=== PATIENT | female | born 1960 | race Two or more races ===

== ENCOUNTER → 2017-07-14 | Outpatient (CLI) | payer MEDICARE ==
--- NOTE | 2017-07-14 11:55 | WOMENS IMAGING REPORT ---
EXAM DESCRIPTION: BILAT SCREENING MAMMO W/CAD COMPLETED DATE/TIME: 07/14/2017 11:34 am REASON FOR STUDY: ROUTINE SCREENING; Z12.31 Z12.31 ENCNTR SCREEN MAMMOGRAM FOR MALIGNANT NEOPLASM O F VANCE COMPARISON: None. TECHNIQUE: Standard craniocaudal and mediolateral oblique views of each breast recorded using [employer] acquisition. LIMITATIONS: None. FINDINGS: No masses, calcifications or architectural distortion. No areas of suspicion. Read with the assistance of CAD. .[facility] - R2 Cenova Version 1.3 .[facility] - R2 Cenova Version 1.3 .[facility] - R2 Cenova Version 2.4 .[facility] [place] - R2 Cenova Version 2.4 .[facility] - R2 Actuarial Clerk Version 9.2 IMPRESSION: NORMAL MAMMOGRAM. BIRADS 1. BREAST DENSITY: b. There are scattered areas of fibroglandular density. BIRAD: 1 NEGATIVE RECOMMENDATION: ROUTINE SCREENING COMMENT: The patient has been notified of the results by letter per SA requirements. Additional no tification policies are in place for contacting patient with suspicious or incomplete findings. Quality ID #[id number]: The [employer] recommends an annual screening mammogram for women aged 40 years or over. This facility utilizes a reminder system to ensure that all patients receive reminder letters, and/or direct phone calls for appointments. This includes reminders for routine scr eening mammograms, diagnostic mammograms, or other Breast Imaging Interventions when appropriate. Th is patient will be placed in the appropriate reminder system. The [employer] (ACR) has developed recommendations for screening MRI of the breast s in certain patient populations, to be used in conjunction with mammography. Breast MRI surveillanc e may be appropriate for women with more than 20% lifetime risk of developing breast cancer as deter mined by genetic testing, significant family history of the disease, or history of mantle radiation f or Hodgkins Disease. ACR Practice Guidelines 2008. TECHNICAL DOCUMENTATION: FINDING NUMBER: (1) ASSESSMENT: (1) JOB ID: [id number] Devices- All Rights Reserved
== END ==
LOC: WI 10:35
PROVIDERS: ATTEND Physician Assistant Medical
DX: Z12.31 Encounter for screening mammogram for malignant neoplasm of breast (principal)
CPT/HCPCS: 77067; G0202

== ENCOUNTER → 2017-09-02 | Outpatient (CLI) | payer MEDICARE ==
[2017-09-02 13:13] LABS: HEMATOCRIT 43.4 % (36.0-47.0); HEMOGLOBIN 14.7 g/dL (12.0-15.5); MEAN CORPUSCULAR HEMOGLOBIN 28.7 pg (27.0-33.4); MEAN CORPUSCULAR HGB CONC 33.8 g/dL (32.0-36.0); MEAN CORPUSCULAR VOLUME 85 fl (80-97); PLATELET COUNT 232 10^3/uL (150-450); RED BLOOD COUNT 5.11 10^6/uL (3.72-5.28); RED CELL DISTRIBUTION WIDTH 13.4 % (11.5-14.0); WHITE BLOOD COUNT 7.3 10^3/uL (4.0-10.5)
[2017-09-02 13:41] LABS: ALANINE AMINOTRANSFERASE 33 U/L (9-52); ALKALINE PHOSPHATASE 136 U/L (38-126); ANION GAP 10 (5-19); ASPARTATE AMINO TRANSFERASE 28 U/L (14-36); BILIRUBIN,DIRECT 0.2 mg/dL (0.0-0.4); BLOOD UREA NITROGEN 14 mg/dL (7-20); CALCIUM 9.3 mg/dL (8.4-10.2); CARBON DIOXIDE 22 mmol/L (22-30); CHLORIDE 109 mmol/L (98-107); CHOLESTEROL 201.88 mg/dL (0-200); GLUCOSE 86 mg/dL (75-110); SODIUM 140.5 mmol/L (137-145); TOTAL PROTEIN 7.3 g/dL (6.3-8.2); TRIGLYCERIDES 71 mg/dL (<150)
[2017-09-02 13:52] LABS: DIRECT LDL 141 mg/dL (<100)
== END ==
LOC: LAB 12:30
PROVIDERS: ATTEND Internal Medicine
DX: E04.1 Nontoxic single thyroid nodule (principal)
CPT/HCPCS: 36415; 80053; 80061; 82652; 83036; 84443; 85027

== ENCOUNTER → 2017-09-12 | Outpatient (CLI) | payer MEDICARE, OTHER ==
--- NOTE | 2017-09-12 15:08 | RADIOLOGY REPORT (SQ) ---
EXAM DESCRIPTION: U/S THYROID/SFT TISS HD NECK COMPLETED DATE/TIME: 09/12/2017 2:46 pm REASON FOR STUDY: THYROID NODULE E04.1 NONTOXIC SINGLE THYROID NODULE COMPARISON: None. TECHNIQUE: Dynamic and static briggs-scale images acquired of the thyroid gland. Selected additional c olor/power Doppler images recorded. All images stored to PACS. LIMITATIONS: None. FINDINGS: RIGHT LOBE: Normal size. Heterogeneous echotexture. No cystic or solid masses. LEFT LOBE: Normal size. Heterogeneous echotexture. No cystic or solid masses. ISTHMUS: Normal size. Heterogeneous echotexture. No cystic or solid masses. OTHER: No other significant finding. IMPRESSION: DIFFUSE HETEROGENEITY THROUGHOUT THE THYROID. NO FOCAL NODULES OR MASSES. TECHNICAL DOCUMENTATION: JOB ID: [id number] [employer]- All Rights Reserved
== END ==
LOC: RAD 13:56
PROVIDERS: ATTEND Internal Medicine
DX: E04.1 Nontoxic single thyroid nodule (principal)
CPT/HCPCS: 76536

== ENCOUNTER 2018-07-26 15:18 | Inpatient (IN) | payer MEDICARE, OTHER ==
[~2018-07-26 15:18] MED LIST: PHENYLEPHRINE HCL INJ/PF 10 MG/1 ML SDV ONE; ROCURONIUM BROMIDE INJ 50 MG/5 ML VIAL IV ONE; SUCCINYLCHOLINE CHLORIDE INJ 200 MG/10 ML VIAL ONE
[2018-07-26] MEDS ORDERED: ONDANSETRON HCL INJ/PF 4 MG/2 ML SDV IV ONE ×2 (15:30→17:12)
[2018-07-26] MEDS: NORMAL SALINE 1000 ML 1,000 ML IV PRN ×3 (15:35→22:52)
[2018-07-26 15:40] LABS: ABSOLUTE LYMPHOCYTES (AUTO) 1.2 10^3/uL (0.5-4.7); ABSOLUTE MONOCYTES (AUTO) 1.2 10^3/uL (0.1-1.4); ABSOLUTE NEUT (AUTO) 7.2 10^3/uL (1.7-8.2); BASOPHILS % (AUTO) 0.3 % (0-2); EOSINOPHILS % (AUTO) 0.1 % (0-6); HEMATOCRIT 50.3 % (36.0-47.0); HEMOGLOBIN 16.9 g/dL (12.0-15.5); LYMPHOCYTES % (AUTO) 12.3 % (13-45); MEAN CORPUSCULAR HEMOGLOBIN 28.6 pg (27.0-33.4); MEAN CORPUSCULAR HGB CONC 33.6 g/dL (32.0-36.0); MEAN CORPUSCULAR VOLUME 85 fl (80-97); MONOCYTES % (AUTO) 12.8 % (3-13); PLATELET COUNT 350 10^3/uL (150-450); RED CELL DISTRIBUTION WIDTH 14.2 % (11.5-14.0); SEGMENTED NEUTROPHILS % (AUTO) 74.5 % (42-78); TOTAL CELLS COUNTED % (AUTO) 100 %; WHITE BLOOD COUNT 9.7 10^3/uL (4.0-10.5)
[2018-07-26 16:00] LABS: VENOUS BLOOD BASE EXCESS -1.8 mmol/L; VENOUS BLOOD HCO3 20.4 mmol/L (20-32); VENOUS BLOOD PCO2 29.6 mmHg (35-63); VENOUS BLOOD PH 7.46 (7.30-7.42)
[2018-07-26 16:06] LABS: ALANINE AMINOTRANSFERASE 22 U/L (9-52); ALBUMIN 3.5 g/dL (3.5-5.0); ALKALINE PHOSPHATASE 92 U/L (38-126); ANION GAP 19 (5-19); ASPARTATE AMINO TRANSFERASE 71 U/L (14-36); BILIRUBIN,DIRECT 0.8 mg/dL (0.0-0.4); BLOOD UREA NITROGEN 35 mg/dL (7-20); CALCIUM 8.5 mg/dL (8.4-10.2); CARBON DIOXIDE 19 mmol/L (22-30); CHLORIDE 98 mmol/L (98-107); GLUCOSE 164 mg/dL (75-110); LIPASE 150.4 U/L (23-300); SODIUM 136.4 mmol/L (137-145); TOTAL PROTEIN 6.6 g/dL (6.3-8.2)
[2018-07-26 16:11] LABS: POTASSIUM 2.5 mmol/L (3.6-5.0)
[2018-07-26] MEDS ORDERED: PIPERACILLIN/TAZOBACTAM 4.5 GM VIAL IV ONE (16:57)
[2018-07-26] MEDS ORDERED: NORMAL SALINE 1000 ML 1,000 ML IV ONE ×2 (16:58→23:59)
--- NOTE | 2018-07-26 17:17 | RADIOLOGY REPORT (SQ) ---
EXAM DESCRIPTION: CT CHEST WITH; CT ABD/PELVIS WITH IV ONLY COMPLETED DATE/TIME: 07/26/2018 4:40 pm REASON FOR STUDY: hypotension sob; llq pain CONTRAST TYPE AND DOSE: contrast/concentration: Isovue 300.00 mg/ml; Total Contrast Delivered: 98.0 ml; Total Saline Delivered: 72.0 ml RENAL FUNCTION: Creatinine 1.58 COMPARISON: None. TECHNIQUE: CT scan of the chest performed using helical scanning technique with dynamic intravenous contrast injection. Images reviewed with lung, soft tissue and bone windows. Reconstructed coronal a nd sagittal MPR images reviewed. All images stored on PACS. All CT scanners at this facility use dose modulation, iterative reconstruction, and/or weight based d osing when appropriate to reduce radiation dose to as low as reasonably achievable (ALARA). [facility]: Dose Right [facility]: CareDose [facility]: Dose Right [facility]: Teradose 4D [facility]: Domob RADIATION DOSE: CT Rad equipment meets quality standard of care and radiation dose reduction techniq ues were employed. CTDIvol: 17.8 - 20.9 mGy. DLP: 2271 mGy-cm.. LIMITATIONS: Motion artifact. FINDINGS: AXILLAE: No adenopathy. LUNGS: There is a trace right pleural effusion. No consolidation. No pneumothorax. HILAR AND MEDIASTINAL STRUCTURES: No identified masses or abnormal nodes. AORTA AND GREAT VESSELS: No thoracic aortic aneurysm. No dissection. HEART: No pericardial effusion. The heart is enlarged. Status post CABG. BONES: Multilevel degenerative changes are seen within the spine. OTHER: Fluid-filled dilated esophagus. IMPRESSION: 1. Trace right pleural effusion. 2. Cardiomegaly. 3. Fluid-filled dilated esophagus, concerning for increased risk of aspiration. COMPARISON: None. RADIATION DOSE: CT Rad equipment meets quality standard of care and radiation dose reduction techniq ues were employed. CTDIvol: 17.8 - 20.9 mGy. DLP: 2271 mGy-cm.mGy. TECHNIQUE: CT scan of the abdomen and pelvis performed with intravenous and oral contrast using maxime moises scanning technique with dynamic intravenous contrast injection. Images reviewed with lung, soft tissue and bone windows. Reconstructed coronal and sagittal MPR images reviewed. Delayed images for evaluation of the urinary system also acquired and evaluated. All images stored on PACS. All CT scanners at this facility use dose modulation, iterative reconstruction, and/or weight based d osing when appropriate to reduce radiation dose to as low as reasonably achievable (ALARA). [facility]: Dose Right [facility]: SureCare [facility]: Dose Right [facility]: Teradose 4D [facility]: Domob FINDINGS: LIVER: Normal size. A heterogeneous lesion is seen at the right hepatic lobe measuring 2. 7 x 3.2 cm. No dilated ducts. SPLEEN: Normal size. No focal lesions. PANCREAS: No significant calcifications. No adjacent inflammation or peripancreatic fluid collection s. Pancreatic duct not dilated. GALLBLADDER: Not visualized. ADRENAL GLANDS: No significant masses or asymmetry. RIGHT KIDNEY AND URETER: No solid masses. No significant calcification. No hydronephrosis or hydroure ter. LEFT KIDNEY AND URETER: No solid masses. No significant calcification. No hydronephrosis or hydrouret er. AORTA AND VESSELS: No abdominal aortic aneurysm. RETROPERITONEUM: No retroperitoneal adenopathy, hemorrhage or masses. LARGE AND SMALL BOWEL: The stomach is distended with an air-fluid level. There are multiple dilated small bowel loops with air-fluid levels. The colon is collapsed. APPENDIX: Not visualized. ABDOMINAL WALL: No hernia PERITONEAL CAVITY: There is free fluid and free air. PELVIS: The urinary bladder is decompressed. No pelvic mass is seen. There is a small amount of samantha e fluid. BONES: Multilevel degenerative changes are seen within the spine. IMPRESSION: 1. High-grade distal small-bowel obstruction with bowel perforation. Surgical consult r ecommended. 2. Pneumoperitoneum. Small amount of ascites. 3. Indeterminate heterogeneous liver lesion. This can be further evaluated with dedicated nonemergen t contrast enhanced MRI. COMMUNICATION The critical information above was relayed directly by me by telephone to Dr. Bari hauser On 07/26/2018 at 16:56 hours with readback verification. TECHNICAL DOCUMENTATION: JOB ID: [id number] DC-64 Quality ID # [id number]: Final reports with documentation of one or more dose reduction techniques (e.g., Au tomated exposure control, adjustment of the mA and/or kV according to patient size, use of iterative reconstruction technique) 2010 [employer]- All Rights Reserved Reading location - IP/workstation name: [email or web address]
--- NOTE | 2018-07-26 17:17 | RADIOLOGY REPORT (SQ) ---
EXAM DESCRIPTION: CT CHEST WITH; CT ABD/PELVIS WITH IV ONLY COMPLETED DATE/TIME: 07/26/2018 4:40 pm REASON FOR STUDY: hypotension sob; llq pain CONTRAST TYPE AND DOSE: contrast/concentration: Isovue 300.00 mg/ml; Total Contrast Delivered: 98.0 ml; Total Saline Delivered: 72.0 ml RENAL FUNCTION: Creatinine 1.58 COMPARISON: None. TECHNIQUE: CT scan of the chest performed using helical scanning technique with dynamic intravenous contrast injection. Images reviewed with lung, soft tissue and bone windows. Reconstructed coronal a nd sagittal MPR images reviewed. All images stored on PACS. All CT scanners at this facility use dose modulation, iterative reconstruction, and/or weight based d osing when appropriate to reduce radiation dose to as low as reasonably achievable (ALARA). [facility]: Dose Right [facility]: CareDose [facility]: Dose Right [facility]: Teradose 4D [facility]: [address] RADIATION DOSE: CT Rad equipment meets quality standard of care and radiation dose reduction techniq ues were employed. CTDIvol: 17.8 - 20.9 mGy. DLP: 2271 mGy-cm.. LIMITATIONS: Motion artifact. FINDINGS: AXILLAE: No adenopathy. LUNGS: There is a trace right pleural effusion. No consolidation. No pneumothorax. HILAR AND MEDIASTINAL STRUCTURES: No identified masses or abnormal nodes. AORTA AND GREAT VESSELS: No thoracic aortic aneurysm. No dissection. HEART: No pericardial effusion. The heart is enlarged. Status post CABG. BONES: Multilevel degenerative changes are seen within the spine. OTHER: Fluid-filled dilated esophagus. IMPRESSION: 1. Trace right pleural effusion. 2. Cardiomegaly. 3. Fluid-filled dilated esophagus, concerning for increased risk of aspiration. COMPARISON: None. RADIATION DOSE: CT Rad equipment meets quality standard of care and radiation dose reduction techniq ues were employed. CTDIvol: 17.8 - 20.9 mGy. DLP: 2271 mGy-cm.mGy. TECHNIQUE: CT scan of the abdomen and pelvis performed with intravenous and oral contrast using maxime moises scanning technique with dynamic intravenous contrast injection. Images reviewed with lung, soft tissue and bone windows. Reconstructed coronal and sagittal MPR images reviewed. Delayed images for evaluation of the urinary system also acquired and evaluated. All images stored on PACS. All CT scanners at this facility use dose modulation, iterative reconstruction, and/or weight based d osing when appropriate to reduce radiation dose to as low as reasonably achievable (ALARA). [facility]: Dose Right [facility]: SureCare [facility]: Dose Right [facility]: Teradose 4D [facility]: [address] FINDINGS: LIVER: Normal size. A heterogeneous lesion is seen at the right hepatic lobe measuring 2. 7 x 3.2 cm. No dilated ducts. SPLEEN: Normal size. No focal lesions. PANCREAS: No significant calcifications. No adjacent inflammation or peripancreatic fluid collection s. Pancreatic duct not dilated. GALLBLADDER: Not visualized. ADRENAL GLANDS: No significant masses or asymmetry. RIGHT KIDNEY AND URETER: No solid masses. No significant calcification. No hydronephrosis or hydroure ter. LEFT KIDNEY AND URETER: No solid masses. No significant calcification. No hydronephrosis or hydrouret er. AORTA AND VESSELS: No abdominal aortic aneurysm. RETROPERITONEUM: No retroperitoneal adenopathy, hemorrhage or masses. LARGE AND SMALL BOWEL: The stomach is distended with an air-fluid level. There are multiple dilated small bowel loops with air-fluid levels. The colon is collapsed. APPENDIX: Not visualized. ABDOMINAL WALL: No hernia PERITONEAL CAVITY: There is free fluid and free air. PELVIS: The urinary bladder is decompressed. No pelvic mass is seen. There is a small amount of samantha e fluid. BONES: Multilevel degenerative changes are seen within the spine. IMPRESSION: 1. High-grade distal small-bowel obstruction with bowel perforation. Surgical consult r ecommended. 2. Pneumoperitoneum. Small amount of ascites. 3. Indeterminate heterogeneous liver lesion. This can be further evaluated with dedicated nonemergen t contrast enhanced MRI. COMMUNICATION The critical information above was relayed directly by me by telephone to Dr. Bari hauser On 07/26/2018 at 16:56 hours with readback verification. TECHNICAL DOCUMENTATION: JOB ID: [id number] NE-64 Quality ID # [id number]: Final reports with documentation of one or more dose reduction techniques (e.g., Au tomated exposure control, adjustment of the mA and/or kV according to patient size, use of iterative reconstruction technique) 2010 [employer]- All Rights Reserved Reading location - IP/workstation name: [email or web address]
--- NOTE | 2018-07-26 17:47 | RADIOLOGY REPORT (SQ) ---
EXAM DESCRIPTION: KUB/ABDOMEN (SINGLE VIEW) COMPLETED DATE/TIME: 07/26/2018 5:32 pm REASON FOR STUDY: NG placement COMPARISON: CT of the same date. NUMBER OF VIEWS: One view. TECHNIQUE: Supine radiographic image of the abdomen acquired. LIMITATIONS: Motion. FINDINGS: Known pneumoperitoneum. Nasogastric tube tip overlying stomach. IMPRESSION: Nasogastric tube in the stomach. Reading location - IP/workstation name: [email or web address]
--- NOTE | 2018-07-26 17:53 | PDOC H&P ---
History of Present Illness Admission Date/PCP: MALU MONCADA MD Patient complains of: Abdominal pain nausea vomiting History of Present Illness: VAZQUEZ QUINTANA is a 57 year old female Is brought by ground rescue to [facility] complaining of a 3-day history of intractable abdominal pain, nausea and vomiting. Symptoms came on all of a sudden evening. Pain not relieved by vomiting. Patient took Mylanta without relief. She sought medical care yesterday and swans probe at the office was closed. She is now in the emergency department with tachycardia diffuse abdominal tenderness free air under diaphragms on chest x-ray and CT scan findings consistent with bowel obstruction, intra-abdominal fluid and free air. She has a metabolic acidosis. She is being resuscitated with IV fluids and antibiotics. Surgery was consulted, and she was advised admission for definitive management including exploratory laparotomy. Past Medical History Past Medical History: Obesity; otherwise patient denies medical problems. He does not have a local medical doctor. She takes no prescription medications Past Surgical History Past Surgical History: Atrial septal defect repaired, 1989, [place] Social History Information Source: Patient Lives with: Family Smoking Status: Unknown if Ever Smoked Frequency of Alcohol Use: None Hx Recreational Drug Use: No Family History Parental Family History Reviewed: Yes Children Family History Reviewed: Yes Sibling(s) Family History Reviewed.: Yes Medication/Allergy Allergies/Adverse Reactions: No Known Allergies Allergy (Verified 07/26/18 15:36) Review of Systems Constitutional: PRESENT: as per HPI Eyes: ABSENT: visual disturbances Ears: ABSENT: hearing changes Cardiovascular: ABSENT: chest pain, dyspnea on exertion, edema, orthropnea, palpitations Respiratory: PRESENT: as per HPI Gastrointestinal: PRESENT: as per HPI, other - Patient denies having had a colonoscopy Musculoskeletal: ABSENT: joint swelling Integumentary: ABSENT: rash, wounds Psychiatric: ABSENT: anxiety, depression, homidical ideation, suicidal ideation Physical Exam Vital Signs: Intake & Output 07/25/18 07/26/18 07/27/18 06:59 06:59 06:59 Intake Total 1000 Balance 1000 Weight 80.7 kg General appearance: PRESENT: no acute distress Head exam: PRESENT: normocephalic Eye exam: PRESENT: EOMI Ear exam: PRESENT: normal external ear exam Mouth exam: PRESENT: other - Extremely poor dentition Teeth exam: PRESENT: poor dentation Neck exam: PRESENT: full ROM Respiratory exam: PRESENT: other - Shortness of breath tachypnea Pulses: PRESENT: normal carotid pulses, other - Unable to palpate pulses in the feet GI/Abdominal exam: PRESENT: other - Diffusely tender with early skin mottling Extremities exam: PRESENT: full ROM Musculoskeletal exam: PRESENT: other - Mottling of the lower extremity Neurological exam: PRESENT: alert, oriented to person, oriented to place, oriented to time, oriented to situation Psychiatric exam: PRESENT: anxious Results Laboratory Results: 07/26/18 15:23 07/26/18 15:23 07/26/18 07/26/18 07/26/18 15:23 15:23 15:23 WBC 9.7 RBC 5.90 H Hgb 16.9 H Hct 50.3 H MCV 85 MCH 28.6 MCHC 33.6 RDW 14.2 H Plt Count 350 Seg Neutrophils % 74.5 Lymphocytes % 12.3 L Monocytes % 12.8 Eosinophils % 0.1 Basophils % 0.3 Absolute Neutrophils 7.2 Absolute Lymphocytes 1.2 Absolute Monocytes 1.2 Absolute Eosinophils 0.0 Absolute Basophils 0.0 VBG pH VBG pCO2 VBG HCO3 VBG Base Excess Sodium 136.4 L Potassium 2.5 L* Chloride 98 Carbon Dioxide 19 L Anion Gap 19 BUN 35 H Creatinine 1.58 H Est GFR ( Amer) 41 L Est GFR (Non-Af Amer) 34 L Glucose 164 H Lactic Acid 9.6 H Calcium 8.5 Magnesium 2.7 H Total Bilirubin 2.0 H AST 71 H ALT 22 Alkaline Phosphatase 92 Total Protein 6.6 Albumin 3.5 Lipase 150.4 07/26/18 15:23 WBC RBC Hgb Hct MCV MCH MCHC RDW Plt Count Seg Neutrophils % Lymphocytes % Monocytes % Eosinophils % Basophils % Absolute Neutrophils Absolute Lymphocytes Absolute Monocytes Absolute Eosinophils Absolute Basophils VBG pH 7.46 H VBG pCO2 29.6 L VBG HCO3 20.4 VBG Base Excess -1.8 Sodium Potassium Chloride Carbon Dioxide Anion Gap BUN Creatinine Est GFR ( Amer) Est GFR (Non-Af Amer) Glucose Lactic Acid Calcium Magnesium Total Bilirubin AST ALT Alkaline Phosphatase Total Protein Albumin Lipase Impressions: Abdomen/Pelvis CT 07/26/18 15:30 IMPRESSION: 1. Trace right pleural effusion. 2. Cardiomegaly. 3. Fluid-filled dilated esophagus, concerning for increased risk of aspiration. IMPRESSION: 1. High-grade distal small-bowel obstruction with bowel perforation. Surgical consult recommended. 2. Pneumoperitoneum. Small amount of ascites. 3. Indeterminate heterogeneous liver lesion. This can be further evaluated with dedicated nonemergent contrast enhanced MRI. Chest CT 07/26/18 16:11 IMPRESSION: 1. Trace right pleural effusion. 2. Cardiomegaly. 3. Fluid-filled dilated esophagus, concerning for increased risk of aspiration. IMPRESSION: 1. High-grade distal small-bowel obstruction with bowel perforation. Surgical consult recommended. 2. Pneumoperitoneum. Small amount of ascites. 3. Indeterminate heterogeneous liver lesion. This can be further evaluated with dedicated nonemergent contrast enhanced MRI. Assessment & Plan - Diagnosis (1) Perforated viscus Is this a current diagnosis for this admission?: Yes Plan: Impression: Patient has an acute abdomen; she is also acidotic. The etiology is likely closed-loop obstruction, but could be a perforated peptic ulcer or colonic problem. She deserves continued resuscitation with IV fluids, intravenous antibiotics. Recommendation: 1. Admit to acute care surgical service, keep n.p.o. and IV fluids intravenous antibiotics replace potassium 2. Patient is to be taken to the operating room for exploratory laparotomy, necessary surgery to include but not limited to colectomy, small bowel resection , colostomy, drain placement. Patient may require ICU stay post operatively. The patient expressed her understanding and agrees to proceed. I also explained the rationale for the above to patient's and daughter. (2) Metabolic acidosis Is this a current diagnosis for this admission?: Yes (3) History of atrial septal defect repair Is this a current diagnosis for this admission?: Yes (4) Septic shock Is this a current diagnosis for this admission?: Yes - Time Time Spent: 30 to 50 Minutes Critical Time spent with patient: 15-24 minutes Medications reviewed and adjusted accordingly: Yes Anticipated discharge: Home - Inpatient Certification Based on my medical assessment, after consideration of the patient's comorbidities, presenting symptoms, or acuity I expect that the services needed warrant INPATIENT care.: Yes I certify that my determination is in accordance with my understanding of Medicare's requirements for reasonable and necessary INPATIENT services [42 CFR 412.3e].: Yes Medical Necessity: Need For IV Fluids, Need for Pain Control, Need for IV Antibiotics, Need for Surgery
--- NOTE | 2018-07-26 17:58 | ER Document Report ---
ED General - General Chief Complaint: Low Blood Pressure Stated Complaint: LOW BLOOD PRESSURE Time Seen by Provider: 07/26/18 15:30 TRAVEL OUTSIDE OF THE [place] IN LAST 30 DAYS: No - HPI Patient complains to provider of: nausea vomiting low blood pressure abdominal pain Notes: Patient coming in for evaluation of abdominal pain nausea vomiting feeling unwell states ongoing for the last 24 hours. Patient is unable to have anything to eat today. Patient states she is having significant abdominal pain in the left lower quadrant of her abdomen. Patient was found by EMS blood pressure in the 60s heart rate in the 130s 140s. Patient was transported emergency traffic. Patient otherwise denies any past medical history denies taking any medications assessment does not drink. Patient denies any trauma. Patient on my evaluation has blood pressure in the 90s heart rate although this is in the 130s. Patient is communicating talking without difficulty. No signs of any respiratory distress. - Related Data Allergies/Adverse Reactions: No Known Allergies Allergy (Verified 07/26/18 15:36) Past Medical History - Social History Smoking Status: Unknown if Ever Smoked Lives with: Family Family History: Reviewed & Not Pertinent Patient has suicidal ideation: No Patient has homicidal ideation: No Renal/ Medical History: Denies: Hx Peritoneal Dialysis Review of Systems - Review of Systems Constitutional: No symptoms reported EENT: No symptoms reported Cardiovascular: No symptoms reported Respiratory: No symptoms reported Gastrointestinal: Abdominal pain, Nausea, Vomiting Genitourinary: No symptoms reported Female Genitourinary: No symptoms reported Musculoskeletal: No symptoms reported Skin: No symptoms reported Hematologic/Lymphatic: No symptoms reported Neurological/Psychological: No symptoms reported -: Yes All other systems reviewed and negative Physical Exam - Vital signs Vitals: Pulse Ox 98 07/26/18 15:20 Interpretation: Normal - General General appearance: Appears well, Alert - HEENT Head: Normocephalic, Atraumatic Eyes: Normal Pupils: PERRL - Respiratory Respiratory status: No respiratory distress Chest status: Nontender Breath sounds: Normal Chest palpation: Normal - Cardiovascular Rhythm: Regular, Tachycardia Heart sounds: Normal auscultation Murmur: No - Abdominal Inspection: Normal Distension: No distension Bowel sounds: Normal Tenderness: Tender - Left lower right lower quadrant tenderness, Guarding, Rebound. No: McBurney's point, Batista's sign Organomegaly: No organomegaly - Back Back: Normal, Nontender - Extremities General upper extremity: Normal inspection, Nontender, Normal color, Normal ROM , Normal temperature General lower extremity: Normal inspection, Nontender, Normal color, Normal ROM , Normal temperature, Normal weight bearing. No: Tru's sign - Neurological Neuro grossly intact: Yes Cognition: Normal Orientation: AAOx4 Cy Coma Scale Eye Opening: Spontaneous Cy Coma Scale Verbal: Oriented [place] Coma Scale Motor: Obeys Commands Cy Coma Scale Total: 15 Speech: Normal Motor strength normal: LUE, RUE, LLE, RLE Sensory: Normal - Psychological Associated symptoms: Normal affect, Normal mood - Skin Skin Temperature: Warm Skin Moisture: Dry Skin Color: Normal Course - Re-evaluation Re-evalutation: 07/26/18 22:22 Patient coming in for abdominal pain. Patient's laboratory studies that showed significant lactic acidosis along with a white count. Patient was started on antibiotics he did receive a phone call from the radiology group and patient had perforation with small bowel obstruction. Did immediately contact the surgeon security operations engineer Dr. Christianson who was quickly available into the ER for evaluation of the patient. Patient will be taken to the OR for surgical management of these findings. - Vital Signs Vital signs: Temp Pulse Resp BP Pulse Ox 97 F L 110 H 16 98/52 L 98 07/26/18 21:36 07/26/18 21:51 07/26/18 21:51 07/26/18 21:51 07/26/18 22:14 - Laboratory Result Diagrams: 07/26/18 15:23 07/26/18 20:20 Laboratory results interpreted by me: 07/26/18 07/26/18 07/26/18 15:23 15:23 15:23 RBC 5.90 H Hgb 16.9 H Hct 50.3 H RDW 14.2 H Lymphocytes % 12.3 L APTT VBG pH VBG pCO2 Sodium 136.4 L Potassium 2.5 L* Carbon Dioxide 19 L BUN 35 H Creatinine 1.58 H Est GFR ( Amer) 41 L Est GFR (Non-Af Amer) 34 L Glucose 164 H POC Glucose Lactic Acid 9.6 H Magnesium 2.7 H Total Bilirubin 2.0 H Direct Bilirubin 0.8 H AST 71 H 07/26/18 07/26/18 07/26/18 15:23 15:23 15:40 RBC Hgb Hct RDW Lymphocytes % APTT 22.3 L VBG pH 7.46 H VBG pCO2 29.6 L Sodium Potassium Carbon Dioxide BUN Creatinine Est GFR ( Amer) Est GFR (Non-Af Amer) Glucose POC Glucose 126 H Lactic Acid Magnesium Total Bilirubin Direct Bilirubin AST 07/26/18 17:40 RBC Hgb Hct RDW Lymphocytes % APTT VBG pH VBG pCO2 Sodium Potassium Carbon Dioxide BUN Creatinine Est GFR ( Amer) Est GFR (Non-Af Amer) Glucose POC Glucose Lactic Acid 5.6 H Magnesium Total Bilirubin Direct Bilirubin AST Critical Care Note - Critical Care Note Total time excluding time spent on procedures (mins): 40 Comments: Multiple evaluation patient with hypotension tachycardia with findings of severe sepsis due to abdominal perforation Discharge - Discharge Clinical Impression: Perforated viscus, Septic shock, History of atrial septal defect repair, Metabolic acidosis Bowel obstruction Qualifiers: Intestinal obstruction type: unspecified Intestinal obstruction extent: complete Qualified Code(s): K56.601 - Complete intestinal obstruction, unspecified as to cause Condition: Serious Disposition: ADMITTED INPATIENT Admitting Provider: Surgicalist - [place] [facility] Admitted: OR
[2018-07-26] MEDS ORDERED: BUPIVACAINE INJ/PF LIPOSOME/PF 266 MG/20 ML SDV ONE (18:07)
[2018-07-26] MEDS: POTASSI CL 20 MEQ/50 ML RIDER 20 MEQ/50 ML RTUPB IV SCH ×2 (18:09→22:01)
[2018-07-26] MEDS ORDERED: FENTANYL CITRATE INJ/PF 250 MCG/5 ML AMPULE ONE (18:17)
[2018-07-26] MEDS ORDERED: PROPOFOL INJ 200 MG/20 ML VIAL IV ONE (18:17)
[2018-07-26] MEDS ORDERED: MIDAZOLAM 2 MG/2 ML INJ ONE (18:17)
[2018-07-26 18:26] LABS: INTERNATIONAL RATION (INR) 1.11; PROTHROMBIN TIME 14.8 SEC (11.4-15.4)
[2018-07-26 18:27] LABS: PARTIAL THROMBOPLASTIN TIME 22.3 SEC (23.5-35.8)
[2018-07-26] MEDS ORDERED: POTASSI CL 20 MEQ/50 ML RIDER 20 MEQ/50 ML RTUPB IV ONE (18:29)
[2018-07-26] MEDS ORDERED: MAGNESIUM SULFATE/D5W 1 GM/100 ML RTUPB IV ONE (18:30)
[2018-07-26] MEDS ORDERED: SODIUM BICARBONATE 8.4% INJ 50 MEQ/50 ML DISP.SYRIN ONE (19:15)
[2018-07-26 19:19] LABS: ANION GAP 14 (5-19); BLOOD UREA NITROGEN 34 mg/dL (7-20); CALCIUM 7.4 mg/dL (8.4-10.2); CARBON DIOXIDE 21 mmol/L (22-30); CHLORIDE 104 mmol/L (98-107); GLUCOSE 124 mg/dL (75-110); SODIUM 138.9 mmol/L (137-145)
[2018-07-26 19:23] LABS: POTASSIUM 2.8 mmol/L (3.6-5.0)
[2018-07-26 19:34] LABS: ARTERIAL BLOOD H2CO3 1.11 mmol/L (1.05-1.35); ARTERIAL BLOOD HCO3 18.5 mmol/L (20-24); ARTERIAL BLOOD O2 SATURATION 99.3 % (94-98); ARTERIAL BLOOD PH 7.32 (7.35-7.45); ARTERIAL BLOOD PO2 210.9 mmHg (80-100); ARTERIAL BLOOD TOTAL CO2 19.6 mmol/L (21-25)
[2018-07-26 19:35] LABS: ARTERIAL BLOOD FIO2 60%
[2018-07-26] MEDS ORDERED: CALCIUM GLUCONATE 1000 MG/10 ML INJ IV ONE ×2 (19:47→20:59)
[2018-07-26 19:59] LABS: ARTERIAL BLOOD BASE EXCESS 2.7 mmol/L; ARTERIAL BLOOD H2CO3 1.09 mmol/L (1.05-1.35); ARTERIAL BLOOD HCO3 26.1 mmol/L (20-24); ARTERIAL BLOOD O2 SATURATION 99.1 % (94-98); ARTERIAL BLOOD PCO2 36.3 mmHg (35-45); ARTERIAL BLOOD PH 7.48 (7.35-7.45); ARTERIAL BLOOD PO2 149.9 mmHg (80-100); ARTERIAL BLOOD TOTAL CO2 27.2 mmol/L (21-25)
[2018-07-26 20:00] LABS: ARTERIAL BLOOD FIO2 60%
[2018-07-26 20:44] LABS: BLOOD UREA NITROGEN 28 mg/dL (7-20); GLUCOSE 137 mg/dL (75-110)
[2018-07-26 20:49] LABS: CARBON DIOXIDE 22 mmol/L (22-30); CHLORIDE 117 mmol/L (98-107); SODIUM 141.9 mmol/L (137-145)
[2018-07-26 20:54] LABS: POTASSIUM 4.3 mmol/L (3.6-5.0)
[2018-07-26 20:56] LABS: CALCIUM 5.1 mg/dL (8.4-10.2)
[2018-07-26 21:07] LABS: ANION GAP 3 (5-19)
[2018-07-26] MEDS ORDERED: PROPOFOL 1,000 MG/100 ML INFUS..BTL IV PRN (21:28)
[2018-07-26] MEDS ORDERED: KETOROLAC TROMETHAMINE INJ/PF 30 MG/1 ML SDV IV PRN (21:30)
[2018-07-26] MEDS ORDERED: ERTAPENEM SODIUM INJ 1 GM VIAL IV PRN (21:35)
--- NOTE | 2018-07-26 21:46 | Operative Report ---
Operative Report DATE OF SURGERY: 07/26/18 PREOPERATIVE DIAGNOSIS: 1. Perforated viscus. 2. Bowel obstruction. 3. Septic shock POSTOPERATIVE DIAGNOSIS: Same with. 1. Small bowel perforation. 2. 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 3. Widespread peritonitis. 4. Small bowel obstruction. 5. Acute and chronic cholecystitis OPERATION: 1. Exploratory laparotomy. 2. Extensive peritoneal washout with drain placement x2, one in the right upper quadrant, and a second in the deep pelvis. 3. Removal of small bowel obstruction (gallstone) via enterotomy. 4. Takedown of [id number]-[id number] colonic fistula with closure of large duodenotomy including kocherization of the duodenum. 5. Near complete cholecystectomy SURGEON: ROSA CHRISTIANSON ANESTHESIA: GA TISSUE REMOVED OR ALTERED: Fragments of small bowel wall, colonic wall following debridement; remnant of gallbladder COMPLICATIONS: None ESTIMATED BLOOD LOSS: 250 cc INTRAOPERATIVE FINDINGS: See below PROCEDURE: The patient was taken from the preop holding area to the main operating room where general anesthesia was induced. The patient remained in hemodynamic instability with tachycardia and hypotension. Additional fluid resuscitation and low-dose Christos-Synephrine delivered by anesthesia. A arterial art line was established. The abdomen was exposed arms abducted and the abdomen prepped and draped in sterile fashion. Previously placed Swenson catheter was draining satisfactorily. Surgical plan and surgical timeout were conducted. The abdomen was opened through a standard midline incision above and below the umbo acus. Immediately upon entry, there was a significant amount of small bowel contents in the peritoneal cavity. Widespread irrigation was begun. There was small bowel contents all throughout the viscera, above the right lobe of the upper under the diaphragm. 4-1/2 L of saline were used to irrigate including the deep pelvis. Bookwalter retractor was established and we immediately identified a perforation in the small bowel at approximately the early ileum. The perforation was on the antimesenteric side approximately half a centimeter in diameter. The bowel at this point was markedly dilated. Approximately 30-40 m distal to this point was a mass consistent with a large stone. Before we completed our entire exploration, I oversewed the small bowel perforation with 3 -0 PDS suture. We improved our visualization now of the epigastric area and began to seriously reducing as much of the succus entericus in a retrograde fashion into the now replaced nasogastric tube. This afforded decompression of the jejunum thereby enabling us to visualize the peritoneal cavity easier. Nonetheless the patient had a lot of intra-abdominal fat making manipulation challenging. At this point I elected to open up the previously closed perforation now that we had better control of the small bowel, and milked the stone out of the small intestine. It was a large 2-1/2 cm gallstone. It was sent to pathology. The elongated enterotomy which was generated vertically in relation to the length of the small bowel was closed in 2 layers with 3-0 PDS suture. Concerned that we were dealing with gallstone ileus or obstruction, we increased our exposure to the epigastric area, and the right upper quadrant. Bookwalter retractors were repositioned, and optimal exposure was obtained. The proximal transverse colon was stuck down to the lobe of the liver. This area was now draining copious amounts of stool and sockets. Using a combination of blunt and sharp dissection, I was able to break the transverse colon away from its point of fixation and there was a small hole in the antimesenteric side of the otherwise normal-appearing transverse colon. Eventually we sewed this hole up vertically with multiple 3-0 PDS sutures in 2 layers, ensuring no compromise of the lumen We now turned our attention to what turned out to be a very shrunken, inflamed gallbladder with partial wall intact. Again this was a very reduced size gallbladder. We placed an Allis clamp on it dissected out as far down as we could towards the ema hepatis. This then enabled us to free the second portion of the duodenum from the gallbladder. This in fact was the site of fistulization from the gallbladder to the duodenum and the colon. As mentioned the colon was addressed already. We now debrided the gallbladder remnant completely off of the anterior and superior surface of the duodenum, and took the gallbladder off of the liver bed. Again very reduced in size. The gallbladder was taken down to its neck effectively, but not any more proximally due to the degree of edema and inflammation. The gallbladder was amputated at its neck, and the neck secured with a single 0 PDS Endoloop. We now debrided the portion of the gallbladder wall stuck to the duodenum. Duodenum was kocherized in the standard fashion to allow relaxation of the second portion of the duodenum ; this left a gaping hole in the apical anterior side of the duodenum. I manipulated the large nasogastric tube through the pylorus past the duodenotomy and down into the third portion of the duodenum. The nasogastric tube was secured in this Status post ileostomy takedown diet as tolerated; return to [facility] in 1 week status post hiatal hernia repair follow-up with Dr. Haynes in 1 week and also surgical clinic perforated viscus septic shock same with limited intraperitoneal contamination secondary to acute perforation of first portion of duodenum secondary to ulcer 1. Exploratory laparotomy 2. Washout of peritoneal cavity 3. Oversewing of duodenal ulcer with Stuart patch 4. Drain placement right upper quadrant [place] fragment of duodenal wall none minimal see below the patient was taken to the preop area to the main operating room where general anesthesia was induced. Arms were abducted. Patient had a Swenson catheter inserted in the emergency department which was draining clear urine. A left radial art line was installed by Dr. Florence. Appropriate fluid resuscitation was initiated. Low-dose Christos-Synephrine also required to maintain adequate blood pressure. The patient was in septic shock but responding to fluid resuscitation. The abdomen was exposed, prepped and draped in sterile fashion. Surgical plan and surgical timeout were conducted. The abdomen was opened through a standard midline incision from the subxiphoid area down to and around the umbilicus. The peritoneal cavity was entered sharply. The stomach was grossly distended. A nasogastric tube was inserted by anesthesia and gastric contents and air decompressed. The findings were significant for murky purulent discharge around the lesser curvature of the stomach towards the ema hepatis. The peritoneal cavity was briskly washed out with 3 L of normal saline. The falciform ligament was taken down between clamps and 0 Vicryl ties. Inspection of the right and left lobes of the liver, gallbladder, spleen, small and large bowel revealed no other pathology. There was no pathology in the pelvis, specifically no pus. The amount of intraperitoneal contamination was primarily in the epigastric area and around the right lobe of the liver. There were no loculations, abscesses, or bleeding. Of contamination, primarily liquid, no solid materials, we establish the Bookwalter retractor system. The duodenum was kocherized. The periduodenal tissue planes were obliterated due to edema and scarring. The most intense scar was between the first portion of the duodenum anteriorly and apically, in the ema hepatis. In fact there was a thick rind here which needed to be opened up. Once this was released from the duodenal wall, the full opening of the duodenal defect could be appreciated. Again this hole was approximately 2-1/2 cm in diameter running transversely up onto the anterior and apical surface of the first portion of the duodenum. I did not digitalized it inspected the duodenum with my pinky finger and found to communicate with the pylorus and then into the stomach, and then distally into the sweep of the duodenum. I manipulated the large nasogastric tube through the pylorus, past the perforation, and then down into the second and third portions of the duodenum. The nasogastric tube was secured into position. I spent a fair amount of time with Metzenbaum scissors dissecting out the wall of this rind which was primarily the lateral aspect of the ema hepatis. Given the patient's hemodynamic instability, I felt that an expeditious operation was most appropriate so we affected a primary closure of this duodenal perforation. A small ragged ragged edge of the proximal wall was shaved and sent to pathology. The ulcer defect was now closed primarily with multiple 6 3-0 PDS sutures in a transverse orientation, approximating the full-thickness of the bowel under some tension. I then placed an additional row of stitches between the duodenal serosa and the more peripheral aspect of the rind to talk in the first layer of the closure. This was by far complete but it did take some of the tension off of the first layer of closure. We now brought up a tongue of omentum and used the 4 interrupted PDS sutures placed as described above to secure to secure the omental tissue as a Stuart patch reinforcing Stuart patch. We now placed a drain in the right upper quadrant and tucked the open and into the retroduodenal space where the duodenum was kocherized. The drain was secured to skin with 2-0 Prolene suture. We confirmed placement of the nasogastric tube again with the tip in the third portion of the duodenum. At this point felt the operation was complete. Sponge and needle counts are correct. Retractors removed wounds and midline incision closed with 2 double- stranded #1 PDS sutures. 20 cc of full-strength Exparel deployed into the subcutaneous tissue, skin approximated with carl. Abdominal binder applied. Patient was taken to the ICU in guarded condition, intubated. Replace honeycomb dressing as needed; drain and record output please make sign and posterior overhead of patient please make sign and post overhead of patient do not manipulate nasogastric tube flush nasogastric tube with 25 cc of saline every shift; apply to intermittent suction every 6 hours no complaints; tolerating p.o.; wants Swenson catheter out; wants to go. Home. All dressings removed; abdomen completely benign no peritoneal signs no rigidity incisions healing satisfactorily. Patient is now 4 days status post completion colectomy , minimally invasive, doing well tolerating a diet with adequate pain control with p.o. medication recommendations: 1. DC Swneson 2. Anticipate discharge home later today if criteria met. Symptomatic cholecystitis symptomatic cholecystitis same laparoscopic cholecystectomy [place] 1 gallbladder with contents none scant see below after obtaining informed consent, the patient was taken to the operating room. General Anesthesia was induced; the arms were extended, and the abdomen was exposed, and prepped and draped in a sterile fashion. Instrumentation was set up for laparoscopic cholecystectomy. Surgical plan and surgical timeout were conducted. A vertical incision was made above the umbilicus, and a verres needle was inserted uneventfully into the peritoneal cavity. Pneumoperitoneum was established. The verres needle was removed and a 5 mm trocar was inserted and a 5 mm flexible laparoscope was inserted. Visualization of the peritoneal cavity confirmed safe uneventful entry. Under direct visualization 3 additional 5 mm ports were established, one in the subxiphoid position and second in the subcostal position. Visualization of the hepatobiliary anatomy revealed no anatomic variations. A grasper was placed on the fundus of the gallbladder and the gallbladder is elevated over the right surface of the liver; a second grasper was used to grasp the infundibulum of the gallbladder. The neck of the gallbladder and junction with the cystic duct was dissected out. The Cystic artery was in its usual location medial and cephalad to the cystic duct. The cystic artery was surrounded with a right angle clamp, clipped twice proximally and divided with laparoscopic scissors. We now opened the triangle of Calot by dividing the peritoneal reflection on both the medial and lateral sides of the cystic duct infundibular junction. The critical view was obtained. We now milked the cystic duct of any possible stones, clipped the cystic duct approximately 2 times once distally and divided with scissors. The gallbladder was now removed from the undersurface of the liver using hook cautery dissection. Graspers were repositioned and the gallbladder was removed uneventfully from the abdominal cavity through the super umbilical port site incision. The specimen was examined, then passed off to pathology for permanent analysis. We returned to the peritoneal cavity check for bleeding, and evidence of bile leak, and there was none. We Confirmed satisfactory placement of clips on cystic duct and cystic artery were secured . At this point we felt the operation was complete. The subcutaneous tissue was then anesthetized with quarter percent Marcaine Sponge and needle counts are correct. All ports removed under direct visualization pneumoperitoneum evacuated, and 5 mm port wounds closed with 3-0 Vicryl suture, benzoin and Steri-Strips. The patient was extubated, and taken to the recovery room in stable condition. Of note because of the patient's extreme body habitus, BMI of 53, and a small shrunken gallbladder with multiple adhesions, exposure was somewhat challenging. Nonetheless trochars are felt to be in good position. Adhesions between the gallbladder and the gastroduodenal area were taken down using a combination of sharp, gentle traction and electrocautery dissection. Graspers were placed on the gallbladder fundus and infundibulum and we began dissecting out the neck of the gallbladder however due to poor exposure we opted for a top- down approach. Graspers were repositioned on the gallbladder was taken down from the fundus, with electrocautery and gentle traction all the way to the point of its origination. This was an excellent dissection. Visualization was fantastic. We worked around the neck of the gallbladder until it was suspended solely by the cystic artery and the cystic duct. Photos were taken. The cystic artery was from the cystic duct, clipped twice proximally once distally divided with scissors. Photos were taken of the cystic duct. It was similarly clipped twice proximally once distally then divided with scissors. Anticipate discharge home later today or tomorrow. Contact Dr. Christianson if patient is ready later today acute pancreatitis abdominal pain nausea and vomiting presents the emergency department via ground rescue complaining of several day history of abdominal pain epigastric radiating to the back associated with nausea and vomiting. She denies previous episodes. She does drink alcohol but none last month by her report. She was seen in the emergency department where she was found to have hypertensive crisis, abdominal tenderness. She had a CT scan of the abdomen and pelvis which showed findings consistent with acute pancreatitis; also gallstones noted. Patient was admitted to the intensive care unit by the hospitalist service for management of electrolyte abnormalities, and uncontrolled hypertension. Surgery was consulted to assist with management of pancreatitis. Of note the patient is status post gastric bypass procedure, details unknown, [place], 2005. Procedure complicated by infection, open abdomen, and delayed closure with hernia repair including mesh. She has never undergone a colonoscopy. EtOH abuse; obesity, smoker as per HPI abdomen is distended. Multiple scars consistent with previous surgery. Umbilicus flat. There is diffuse epigastric tenderness to deep palpation no peritoneal signs. Surgeon's addendum: The study is limited due to the absence of oral contrast. The pancreatitis is felt to be mild to moderate; no evidence of ascites, pancreatic pseudocyst or mass. There is no free air. History impression: Acute pancreatitis, first episode, etiology unclear; possible putative causes include gallstones, alcohol abuse, and medications. Patient does not have any complications at this time. Electrolyte abnormalities are being corrected. Recommendations 1. Keep n.p.o. IV fluids intravenous antibiotics supportive therapy 2. Patient has a history of previous abdominal surgery, extensive, delayed abdominal wall closure, hernia repair with mesh patient may require interval cholecystectomy; history of previous intra-abdominal surgeries will render this operation potentially may pose increased risk to the plan cholecystectomy secondary to adhesions etc. this was explained to the patient pain, possibly this admission. 3. We will follow patient along with you. Status post completion colectomy status follow-up with Dr. Haynes at [facility] in approximately 1 week. Prescription for tramadol provided. Persisting soft tissue and fascia infection of the scrotum status post I&D same with purulent soft tissue infection of the scrotum 1. Excisional debridement of skin, soft tissue, and fascia of the left, and central and right scrotum 2. Placement of 2 loop [place] drains and vigorous irrigation [place] skin, subcutaneous tissue, fascia of the scrotum none 75 cc see below patient taken the main operating room where spinal anesthesia was induced. Patient was placed in the supine, frog-leg position, and scrotum prepped draped sterile fashion surgical plan surgical timeout conducted. Findings were significant for the previous left lateral hemiscrotal opening. There is purulent discharge coming from this opening, as well as the central scrotum and right scrotum. 2 additional incisions were made with large ellipses of skin removed from the left higher hemiscrotum, and the right central hemiscrotum. Underlying skin, subcutaneous tissue, pus and loculations excisionally debrided. The right testicle was in its anatomic position however the left testicle was essentially becoming a floating testicle because of the extensive debridement in its vicinity. The testicle did appear viable however I did not incise it. To check. I irrigated all 3 of these wounds which were all communicating with 8 L of pulse lavage. Wound cultures were obtained prior to irrigation. 2 large [place] drains were placed in a loop fashion tied in a knot so that all 3 incisions were opened widely. I felt that the degree of aggressiveness of today's debridement was satisfactory. All wounds packed with iodoform and Betadine soaked Kerlix packing. Patient will need to be taken back to the operating room for wound check tomorrow. Keep patient n.p.o. after midnight, anticipate take back to the operating room for third lock on July [address] Haynes. Locally advanced right breast carcinoma with axillary metastases lower half emergency same 1. Ultrasound directed core biopsy x2 right breast mass 2. Ultrasound directed core biopsy x1 right axillary mass mass [place] cores right breast and right axilla none scant see below summary of procedure The procedures risk benefits alternatives were explained to the patient, as well as her daughter, Daysi. I believe they expressed understanding and agreed to proceed Patient examined on 4 floor. Right breast mass with complete distortion of nipple and flaccid replacement likely by tumor near replacement by replacement by; the tumor occupies 60% of the right breast There are palpable lymph nodes in the right axilla, at least 2 We opted to perform core biopsy right breast. Appropriate trajectory was identified in the upper outer quadrant of the right breast. Skin was Berna of 1 % plain lidocaine kirby made in the skin with 11 blade, and the 12-gauge MammoSite was used to obtain 2 cores of the right breast mass which was extremely hard. No clip marker available so none deployed. The cores were sent as right breast mass to pathology. Same procedure performed the right axilla. There is scattered adenopathy with dominant mass along the right chest wall with at least 2-3 cm of tumor centimeter lymph node replacement with tumor. Adjacent procedure performed as described above with 1 large core obtained from the 12-gauge mammotome. Right breast and right axillary core specimens sent separately to pathology. Specimens were hand delivered by Dr. Christianson on July 26, at 1:30 PM. Dressings applied. Recommendations: 1. Await final path report receptor status 2. Patient can follow-up with [facility] in 1-2 weeks. 1. Acute gastrointestinal hemorrhage 2. Extremely deconditioned 3. Malnutrition same with 1. Acute pyloric channel ulcer, not actively bleeding 2. Extensive diverticulosis of the transverse, left and sigmoid colons 1. Esophagogastroduodenoscopy 2. Colonoscopy to ascending colon Sammy none none none see below the patient was taken for the preop holding her to the main operating room where LMAC anesthesia was induced. Patient was left on the gurney, mouthpiece inserted, and surgical timeout conducted The flexible adult upper endoscope was advanced through the hypopharynx down the esophagus through the stomach into the first and second portions of the duodenum. The findings are significant for mild diffuse gastritis, and a 2 cm anterior-inferior pyloric channel ulcer with black eschar covering the surface. Photos taken. No biopsies taken. No active bleeding. Scattered punctate blood spots in the stomach. Small hiatal hernia. Z line at 39 cm from the incisor. The duodenum and esophagus were otherwise unremarkable. Again no active bleeding at this time. Scope was withdrawn to the length of the the esophagus carefully. Z line at 39 cm from incisor. No active disease, clot, or tumor in the esophagus. EGD removed. Patient placed in extreme left lateral decubitus position. Part to the procedure and for colonoscopy. Patient was actively stooling copious quantities of clotted blood and melanotic stool. We advanced the adult colonoscope up to the anorectal canal all the way to the right colon. This was a extremely limited colonoscopy because the entire colon was full of heavy melanotic stool covering all of the surfaces of the colon. There is no evidence of active bleeding, obstruction etc. There were extensive diverticulosis of the distal transverse, left and sigmoid colons. Photos are taken. Scope was withdrawn at this time because the patient was hypotensive, and we felt that the risk of proceeding to see the cecum outweighed any potential benefits. Scope was withdrawn to the patient's anus. She tolerated procedure well. Discussion was held between the family, as well as primary care team, Dr. pool including the hospitalist. Patient will be made a formal DNR. No indication for further intervention. Medical management of peptic ulcer disease indicated. Please reconsult surgery if needed acute abdomen; perforated viscus exploratory laparotomy abdominal pain nausea vomiting is brought by ground rescue to [facility] complaining of a 3-day history of intractable abdominal pain, nausea and vomiting. Symptoms came on all of a sudden evening. Pain not relieved by vomiting. Patient took Mylanta without relief. She sought medical care yesterday and swans probe at the office was closed. She is now in the emergency department with tachycardia diffuse abdominal tenderness free air under diaphragms on chest x-ray and CT scan findings consistent with bowel obstruction, intra-abdominal fluid and free air. She is metabolic has a metabolic acidosis. She is being resuscitated with IV fluids and antibiotics. Surgery was consulted, and she was advised admission for definitive management including exploratory laparotomy. Obesity; otherwise patient denies medical problems. She does not have a local medical doctor. She takes no prescription medications atrial septal defect replaced repaired, [place] patient denies having had a colonoscopy extremely poor dentition shortness of breath tachypnea unable to palpate pulses in the feet diffusely tender with early skin mottling modeling of the lower extremities metabolic acidosis history ASD repair septic shock perforated viscus bowel obstruction impression: Patient has an acute abdomen; she is also acidotic. The etiology is likely closed-loop obstruction, but could be a perforated peptic ulcer or colonic problem. She deserves continued resuscitation with IV fluids intravenous antibiotics. Recommendations antibiotics. Recommendation: 1. Admit to acute care surgical service, keep n.p.o. and IV fluids intravenous antibiotics replace potassium 2. Patient needs to be taken to the operating room for exploratory laparotomy, necessary surgery to include but not limited to colectomy, small bowel resection , colostomy, drain placement. Patient may require ICU stay post operatively. The patient expressed her understanding and agrees to proceed. I also explained the rationale for the above to patient's and daughter. Please post sign above patient's bed do not manipulate nasogastric tube 1. Perforated viscus 2. Bowel obstruction 3. Septic shock same with small bowel perforation 1. Small bowel perforation 2. 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 Widespread peritonitis 4. Secondary to gallstone small bowel obstruction 5. Acute and chronic cholecystitis 1. Exploratory laparotomy 2. Extensive peritoneal washout with drain placement x2, one in the right upper quadrant, and a second in the deep pelvis 3. Removal of small bowel obstruction gallstone via enterotomy 4. Takedown of mddpeymqhe-siorlecm-adyqltboux colonic fistula with closure of large duodenotomy 5. Near complete cholecystectomy [place] fragments of small bowel and colon at debridement site; fragments of small bowel wall, colonic wall following debridement; remnant of gallbladder none 250 cc see below the patient was taken from the preop holding area to the main operating room where general anesthesia was induced. The patient remained in hemodynamic instability with tachycardia and hypotension. Additional fluid resuscitation and low-dose Christos- Synephrine delivered by anesthesia. A arterial art line was established. The abdomen was exposed arms abducted and the abdomen prepped and draped in sterile fashion. Previously placed Swenson catheter was draining satisfactorily. Surgical plan and surgical timeout were conducted. The abdomen was opened through a standard midline incision above and below the gas. Immediately upon entry, there was a significant amount of small bowel contents in the peritoneal cavity. Widespread irrigation was begun. There was small bowel contents all throughout the viscera, above the right lobe of the diaphragm under liver under the diaphragm. 4-1/2 L of saline were used to irrigate including the deep pelvis. Bookwalter retractor was established and we immediately identified a perforation in the small bowel at approximately the early ileum. The perforation was on the antimesenteric side approximately half a centimeter in diameter. The bowel at this point was markedly dilated. Approximately 30-40 cc centimeters distal to this point was a mass consistent with a large stone. Before we completed our entire exploration, I oversewed the small bowel perforation with 3-0 PDS suture. We improved our visualization now of the epigastric area and began to seriously reducing as much of the succus entericus in a retrograde fashion into the now replaced nasogastric tube. This afforded decompression of the jejunum thereby enabling us to visualize the peritoneal cavity easier. Nonetheless the patient had a lot of intra-abdominal fat making manipulation challenging. At this point I elected to open up the previously closed perforation now that we had better control of the small bowel, and milked the stone out of the small intestine. It was a large 2-1/2 cm gallstone. It was sent to pathology. The elongated enterotomy which was generated vertically in relation to the length of the small bowel was closed in 2 layers with 3-0 PDS suture. Concerned that we were dealing with gallstone ileus or obstruction, we increased our exposure to the epigastric area, and the right upper quadrant. Bookwalter retractors were repositioned, and optimal exposure was obtained. The proximal transverse colon was stuck down to the right lobe of the liver. This area was now draining copious amounts of stool and sockets. Using a combination of blunt and sharp dissection, I was able to break the transverse colon away from its point of fixation and there was a small hole in the antimesenteric side of the otherwise normal-appearing transverse colon. Eventually we sewed this hole up trans-vertically with multiple 3-0 PDS sutures in 2 layers, ensuring no compromise of the lumen We now turned our attention to what turned out to be a very shrunken, inflamed gallbladder with partial wall intact. Again this was a very reduced size gallbladder. We placed an Allis clamp on it dissected out as far down as we could towards the ema hepatis. This then enabled us to free the second portion of the duodenum from the gallbladder. This in fact was the site of fistulization from the gallbladder to the duodenum and the colon. As mentioned the colon was addressed already. We now debrided the gallbladder remnant completely off of the anterior and superior surface of the duodenum, and took the gallbladder off of the liver bed. Again very reduced in size. The gallbladder was taken down to its neck effectively, but not any more proximally due to the degree of edema and inflammation. The gallbladder was amputated at its neck, and the neck secured with a single 0 PDS loop Endoloop we now debrided the portion of the gallbladder wall stuck to the duodenum. This left a gaping hole in the apical anterior surface side of the duodenum. I manipulated the large nasogastric tube through the pylorus, passed the duodenotomy down into the third portion of the duodenum. The nasogastric tube was secured. We now effected a dual layer anastomosis with 3-0 PDS, multiple interrupted sutures approximately 8 on the inner layer, and approximately 6 and a horizontal mattress fashion on the outer layer. This afforded a nice closure and we are very satisfied with the viability and absence of tension. Large Jonnie drains were placed one in the right upper quadrant with the portion of the free and underneath the duodenum the duodenum was kocherized in the standard fashion to allow relaxation of the second and third portions of the duodenum; the nasogastric tube was threaded through the first and second portions of the duodenum secured into position thereby stenting the anastomosis. We now effected a dual layer anastomosis with 3-0 PDS, multiple interrupted sutures approximately 8 on the inner layer, and approximately 6 and a horizontal mattress fashion on the outer layer. This afforded a nice closure and we are very satisfied with the viability and absence of tension. Large Jonnie drains were placed one in the right upper quadrant with the portion of the free and underneath the duodenum. Supplies a large Jonnie drain in the pelvis coming out of the patient and left lower quadrant. We irrigated the peritoneal cavity out with another 4 L of saline and checked our small bowel enterotomy closure, as well as the ends versus colon closure and the formal duodenotomy closure. At this point we felt the operation was complete. Sponge and needle counts are correct. Abdomen closed with 2 double-stranded #1 PDS sutures and skin approximated carl and Telfa pads. Patient tolerated procedure well, taken to recovery.
[2018-07-26] MEDS ORDERED: ERTAPENEM SODIUM INJ 1 GM VIAL ONE (22:22)
[2018-07-26] MEDS: FAMOTIDINE INJ/PF 20 MG/2 ML SDV IV SCH (22:42)
[2018-07-26 23:44] LABS: ABSOLUTE LYMPHOCYTES (AUTO) 1.6 10^3/uL (0.5-4.7); ABSOLUTE MONOCYTES (AUTO) 0.6 10^3/uL (0.1-1.4); ABSOLUTE NEUT (AUTO) 8.1 10^3/uL (1.7-8.2); BASOPHILS % (AUTO) 0.5 % (0-2); EOSINOPHILS % (AUTO) 0.1 % (0-6); HEMATOCRIT 47.5 % (36.0-47.0); HEMOGLOBIN 15.5 g/dL (12.0-15.5); LYMPHOCYTES % (AUTO) 15.7 % (13-45); MEAN CORPUSCULAR HEMOGLOBIN 27.9 pg (27.0-33.4); MEAN CORPUSCULAR HGB CONC 32.7 g/dL (32.0-36.0); MEAN CORPUSCULAR VOLUME 85 fl (80-97); MONOCYTES % (AUTO) 5.5 % (3-13); PLATELET COUNT 309 10^3/uL (150-450); RED BLOOD COUNT 5.56 10^6/uL (3.72-5.28); RED CELL DISTRIBUTION WIDTH 14.4 % (11.5-14.0); SEGMENTED NEUTROPHILS % (AUTO) 78.2 % (42-78); TOTAL CELLS COUNTED % (AUTO) 100 %; WHITE BLOOD COUNT 10.4 10^3/uL (4.0-10.5)
[2018-07-27 00:55] LABS: ANION GAP 8 (5-19); BLOOD UREA NITROGEN 30 mg/dL (7-20); CARBON DIOXIDE 22 mmol/L (22-30); CHLORIDE 114 mmol/L (98-107); GLUCOSE 123 mg/dL (75-110); SODIUM 143.8 mmol/L (137-145)
[2018-07-27 01:12] LABS: POTASSIUM 3.5 mmol/L (3.6-5.0)
[2018-07-27 01:26] LABS: CALCIUM 6.7 mg/dL (8.4-10.2)
[2018-07-27] MEDS: NORMAL SALINE 1000 ML 1,000 ML IV PRN ×5 (01:45→12:59)
[2018-07-27] MEDS ORDERED: CALCIUM GLUCONATE 1000 MG/10 ML INJ IV ONE ×2 (02:40→17:14)
[2018-07-27] MEDS: ACETAMINOPHEN INJ/PF 1000 MG/100 ML SDV IV SCH ×4 (03:40→17:35)
[2018-07-27] MEDS: MIDAZOLAM HCL 50 MG/100 ML RTUINJ IV PRN ×2 (03:40→11:16)
[2018-07-27] MEDS: POTASSIUM CHLORIDE 20 MEQ/50 ML RTU IV SCH ×3 (03:43→08:08)
[2018-07-27] MEDS ORDERED: DOPAMINE HCL/DEXTROSE 5%-WATER 800 MG/250 ML RTUINJ IV ONE (04:32)
[2018-07-27] MEDS ORDERED: DOPAMINE HCL 800 MG/D5W 250 ML IV PRN (04:34)
[2018-07-27] MEDS ORDERED: NORMAL SALINE INJ/PF 0.9% 10 ML SDV IV PRN (05:54)
--- NOTE | 2018-07-27 05:59 | RADIOLOGY REPORT (SQ) ---
EXAM DESCRIPTION: XR CHEST 1 VIEW COMPLETED DATE/TME: 07/27/2018 05:26 CLINICAL HISTORY: 57 years, Female, Confirm central line placement COMPARISON: 07/26/2018 chest x-ray NUMBER OF VIEWS: 1 TECHNIQUE: Portable chest LIMITATIONS: None. FINDINGS: The patient is intubated. Tip of endotracheal tube approximately 2.2 cm above the vanessa. Enteric tube partially visualized. Central venous catheter, with the tip likely in the cavoatrial junction, possibly right atrium. No discrete pneumothorax. Median sternotomy wires. Free peritoneal air seen on the prior exam is not appreciated on this study. Hazy opacities over each lung base. IMPRESSION: Lines and catheters in place. No discrete pneumothorax. Free air seen previously is not appreciated on this exam. Hazy opacities over each lung base. copyright 2010 [employer]- All Rights Reserved
--- NOTE | 2018-07-27 06:16 | RADIOLOGY REPORT (SQ) ---
EXAM DESCRIPTION: XR CHEST 1 VIEW COMPLETED DATE/TME: 07/26/2018 22:00 CLINICAL HISTORY: 57 years, Female, ETT placement COMPARISON: None. NUMBER OF VIEWS: 1 TECHNIQUE: Portable chest LIMITATIONS: None. FINDINGS: Cardiomegaly. Endotracheal tube with the tip approximately 2 cm above the vanessa. Enteric tube in place. Median sternotomy wires. Subsegmental atelectasis in the lung bases. No pneumothorax. IMPRESSION: Cardiomegaly with postsurgical change. Enteric and endotracheal tubes in place copyright 2010 [employer]- All Rights Reserved
--- NOTE | 2018-07-27 06:22 | Operative Report ---
Nonrecallable Operative Report DATE OF SURGERY: 07/27/18 PREOPERATIVE DIAGNOSIS: Septic shock POSTOPERATIVE DIAGNOSIS: Same OPERATION: Insertion of right internal jugular vein central venous access catheter under ultrasound guidance SURGEON: ROSA CAZARES ANESTHESIA: Local TISSUE REMOVED OR ALTERED: None COMPLICATIONS: None ESTIMATED BLOOD LOSS: Scant INTRAOPERATIVE FINDINGS: See below PROCEDURE: Under emergent conditions, using ultrasound real-time as a guide, a triple- lumen central venous access catheter was inserted into the right internal jugular vein after first stick. There was excellent blood flow through all 3 lm of the catheter was flushed with saline, secured to the skin with 2-0 silk suture, Biopatch and sterile dressing applied. Patient tolerated procedure well. Portable chest x-ray showed appropriate positioning of the catheter, no evidence of pneumothorax. The catheter was felt to be safe for use.
[2018-07-27 07:04] LABS: ARTERIAL BLOOD HCO3 14.7 mmol/L (20-24); ARTERIAL BLOOD O2 SATURATION 98.9 % (94-98); ARTERIAL BLOOD PCO2 26.5 mmHg (35-45); ARTERIAL BLOOD PH 7.36 (7.35-7.45); ARTERIAL BLOOD TOTAL CO2 15.5 mmol/L (21-25)
[2018-07-27 07:05] LABS: ARTERIAL BLOOD FIO2 40%
[2018-07-27] MEDS: FAMOTIDINE INJ/PF 20 MG/2 ML SDV IV SCH ×2 (10:02→22:33)
--- NOTE | 2018-07-27 11:48 | PDOC PROGRESS REPORT ---
Subjective Reason For Visit: LOW BLOOD PRESSURE Physical Exam Vital Signs: Temp Pulse Resp BP Pulse Ox 99.3 F 116 H 24 H 100/62 100 07/27/18 10:00 07/27/18 10:00 07/27/18 10:00 07/27/18 10:00 07/27/18 11:19 Intake & Output 07/26/18 07/27/18 07/28/18 06:59 06:59 06:59 Intake Total 12038 176 Output Total 9270 405 Balance 5031 -229 Weight 90.1 kg Results Laboratory Results: 07/26/18 23:30 07/27/18 00:35 07/26/18 07/26/18 07/26/18 18:50 18:50 19:15 WBC RBC Hgb Hct MCV MCH MCHC RDW Plt Count Seg Neutrophils % Lymphocytes % Monocytes % Eosinophils % Basophils % Absolute Neutrophils Absolute Lymphocytes Absolute Monocytes Absolute Eosinophils Absolute Basophils Carbonic Acid 1.11 HCO3/H2CO3 Ratio 16:1 ABG pH 7.32 L ABG pCO2 37.0 ABG pO2 210.9 H ABG HCO3 18.5 L ABG O2 Saturation 99.3 H ABG Base Excess -7.0 FiO2 60% Sodium 138.9 Potassium 2.8 L* Chloride 104 Carbon Dioxide 21 L Anion Gap 14 BUN 34 H Creatinine 1.35 H Est GFR ( Amer) 49 L Est GFR (Non-Af Amer) 40 L Glucose 124 H Lactic Acid Calcium 7.4 L Blood Type A POSITIVE Antibody Screen NEGATIVE 07/26/18 07/26/18 07/26/18 19:51 20:20 20:20 WBC RBC Hgb Hct MCV MCH MCHC RDW Plt Count Seg Neutrophils % Lymphocytes % Monocytes % Eosinophils % Basophils % Absolute Neutrophils Absolute Lymphocytes Absolute Monocytes Absolute Eosinophils Absolute Basophils Carbonic Acid 1.09 HCO3/H2CO3 Ratio 23:1 ABG pH 7.48 H ABG pCO2 36.3 ABG pO2 149.9 H ABG HCO3 26.1 H ABG O2 Saturation 99.1 H ABG Base Excess 2.7 FiO2 60% Sodium 141.9 Potassium 4.3 D Chloride 117 H Carbon Dioxide 22 Anion Gap 3 L BUN 28 H Creatinine 0.95 Est GFR ( Amer) > 60 Est GFR (Non-Af Amer) > 60 Glucose 137 H Lactic Acid 2.9 H Calcium 5.1 L* Blood Type Antibody Screen 07/26/18 07/26/18 07/27/18 23:30 23:57 00:35 WBC 10.4 RBC 5.56 H Hgb 15.5 Hct 47.5 H MCV 85 MCH 27.9 MCHC 32.7 RDW 14.4 H Plt Count 309 Seg Neutrophils % 78.2 H Lymphocytes % 15.7 Monocytes % 5.5 Eosinophils % 0.1 Basophils % 0.5 Absolute Neutrophils 8.1 Absolute Lymphocytes 1.6 Absolute Monocytes 0.6 Absolute Eosinophils 0.0 Absolute Basophils 0.0 Carbonic Acid HCO3/H2CO3 Ratio ABG pH ABG pCO2 ABG pO2 ABG HCO3 ABG O2 Saturation ABG Base Excess FiO2 Sodium Cancelled 143.8 Potassium Cancelled 3.5 L Chloride Cancelled 114 H Carbon Dioxide Cancelled 22 Anion Gap Cancelled 8 BUN Cancelled 30 H Creatinine Cancelled 1.11 Est GFR ( Amer) Cancelled > 60 Est GFR (Non-Af Amer) Cancelled 51 L Glucose Cancelled 123 H Lactic Acid Calcium Cancelled 6.7 L* Blood Type Antibody Screen 07/27/18 06:58 WBC RBC Hgb Hct MCV MCH MCHC RDW Plt Count Seg Neutrophils % Lymphocytes % Monocytes % Eosinophils % Basophils % Absolute Neutrophils Absolute Lymphocytes Absolute Monocytes Absolute Eosinophils Absolute Basophils Carbonic Acid 0.80 L HCO3/H2CO3 Ratio 18:1 ABG pH 7.36 ABG pCO2 26.5 L ABG pO2 147.0 H ABG HCO3 14.7 L ABG O2 Saturation 98.9 H ABG Base Excess -9.0 FiO2 40% Sodium Potassium Chloride Carbon Dioxide Anion Gap BUN Creatinine Est GFR ( Amer) Est GFR (Non-Af Amer) Glucose Lactic Acid Calcium Blood Type Antibody Screen 07/26/18 07/26/18 07/27/18 23:30 23:57 00:35 NT-Pro-B Natriuret Pep Cancelled Cancelled 3320 H Impressions: KUB X-Ray 07/26/18 00:00 IMPRESSION: Nasogastric tube in the stomach. Abdomen/Pelvis CT 07/26/18 15:30 IMPRESSION: 1. Trace right pleural effusion. 2. Cardiomegaly. 3. Fluid-filled dilated esophagus, concerning for increased risk of aspiration. IMPRESSION: 1. High-grade distal small-bowel obstruction with bowel perforation. Surgical consult recommended. 2. Pneumoperitoneum. Small amount of ascites. 3. Indeterminate heterogeneous liver lesion. This can be further evaluated with dedicated nonemergent contrast enhanced MRI. Chest CT 07/26/18 16:11 IMPRESSION: 1. Trace right pleural effusion. 2. Cardiomegaly. 3. Fluid-filled dilated esophagus, concerning for increased risk of aspiration. IMPRESSION: 1. High-grade distal small-bowel obstruction with bowel perforation. Surgical consult recommended. 2. Pneumoperitoneum. Small amount of ascites. 3. Indeterminate heterogeneous liver lesion. This can be further evaluated with dedicated nonemergent contrast enhanced MRI. Chest X-Ray 07/27/18 05:26 IMPRESSION: Lines and catheters in place. No discrete pneumothorax. Free air seen previously is not appreciated on this exam. Hazy opacities over each lung base. copyright 2011 [employer]- All Rights Reserved Assessment & Plan - Diagnosis (1) Gallstone ileus Is this a current diagnosis for this admission?: Yes (2) Perforated viscus Is this a current diagnosis for this admission?: Yes (3) Septic shock Is this a current diagnosis for this admission?: Yes - Plan Summary Plan Summary: This is a 57-year-old female with a gallstone ileus, as well as perforation of the small bowel. Currently, she still appears septic. Her CVP is approximately 15, and her map is greater than 70. She is mildly tachycardic at 115. Her urine output is improving. Last hour it was approximately 25-30 cc. The patient appears uncomfortable. Add fentanyl drip for pain control (this will also assist with sedation). Wean Versed as tolerated. Continue to monitor CVP, map, and urine output closely.
[2018-07-27 12:35] LABS: ABSOLUTE LYMPHOCYTES (AUTO) 1.1 10^3/uL (0.5-4.7); ABSOLUTE MONOCYTES (AUTO) 0.5 10^3/uL (0.1-1.4); ABSOLUTE NEUT (AUTO) 10.4 10^3/uL (1.7-8.2); BASOPHILS % (AUTO) 0.1 % (0-2); EOSINOPHILS % (AUTO) 0.1 % (0-6); HEMATOCRIT 40.6 % (36.0-47.0); LYMPHOCYTES % (AUTO) 9.3 % (13-45); MEAN CORPUSCULAR HEMOGLOBIN 28.2 pg (27.0-33.4); MEAN CORPUSCULAR HGB CONC 32.6 g/dL (32.0-36.0); MEAN CORPUSCULAR VOLUME 86 fl (80-97); MONOCYTES % (AUTO) 3.9 % (3-13); PLATELET COUNT 201 10^3/uL (150-450); RED CELL DISTRIBUTION WIDTH 14.6 % (11.5-14.0); SEGMENTED NEUTROPHILS % (AUTO) 86.6 % (42-78); TOTAL CELLS COUNTED % (AUTO) 100 %
[2018-07-27 12:38] LABS: HEMOGLOBIN 13.2 g/dL (12.0-15.5)
[2018-07-27 12:55] LABS: ALANINE AMINOTRANSFERASE 129 U/L (9-52); ALBUMIN 1.5 g/dL (3.5-5.0); ALKALINE PHOSPHATASE 51 U/L (38-126); ASPARTATE AMINO TRANSFERASE 147 U/L (14-36); BILIRUBIN,DIRECT 0.4 mg/dL (0.0-0.4); BILIRUBIN,TOTAL 0.7 mg/dL (0.2-1.3); BLOOD UREA NITROGEN 25 mg/dL (7-20); GLUCOSE 83 mg/dL (75-110); POTASSIUM 4.4 mmol/L (3.6-5.0); TOTAL PROTEIN 3.3 g/dL (6.3-8.2)
[2018-07-27] MEDS: FENTANYL CITRATE/PF 600 MCG/60 ML BAG IV PRN ×3 (12:58→22:33)
[2018-07-27 13:00] LABS: CARBON DIOXIDE 17 mmol/L (22-30); CHLORIDE 125 mmol/L (98-107); SODIUM 143.9 mmol/L (137-145)
[2018-07-27 13:21] LABS: ANION GAP 2 (5-19)
[2018-07-27] MEDS ORDERED: RINGERS SOLUTION,LACTATED 1,000 ML IV ONE (15:30)
[2018-07-27] MEDS: RINGERS SOLUTION,LACTATED 1,000 ML IV PRN (15:36)
[2018-07-27] MEDS ORDERED: CALCIUM GLUCONATE 2,000 MG in DEXTROSE 5%-WATER 100 ML IV ONE (19:00)
[2018-07-27] MEDS ORDERED: ERTAPENEM SODIUM 1 GM in NORMAL SALINE 50 ML IV SCH (22:00)
[2018-07-28] MEDS: RINGERS SOLUTION,LACTATED 1,000 ML IV PRN (00:34)
[2018-07-28] MEDS: MIDAZOLAM HCL 50 MG/100 ML RTUINJ IV PRN ×2 (00:34→21:34)
[2018-07-28] MEDS: ACETAMINOPHEN INJ/PF 1000 MG/100 ML SDV IV SCH ×5 (00:35→23:43)
[2018-07-28] MEDS: FENTANYL CITRATE/PF 600 MCG/60 ML BAG IV PRN ×3 (03:20→15:08)
[2018-07-28 07:19] LABS: ARTERIAL BLOOD BASE EXCESS -7.2 mmol/L; ARTERIAL BLOOD H2CO3 1.08 mmol/L (1.05-1.35); ARTERIAL BLOOD HCO3 18.1 mmol/L (20-24); ARTERIAL BLOOD O2 SATURATION 98.7 % (94-98); ARTERIAL BLOOD PCO2 35.9 mmHg (35-45); ARTERIAL BLOOD PH 7.32 (7.35-7.45); ARTERIAL BLOOD PO2 144.6 mmHg (80-100); ARTERIAL BLOOD TOTAL CO2 19.2 mmol/L (21-25)
[2018-07-28 07:20] LABS: ARTERIAL BLOOD FIO2 35%
[2018-07-28 07:23] LABS: ABSOLUTE EOSINOPHILS # (AUTO) 0.2 10^3/uL (0.0-0.6); ABSOLUTE LYMPHOCYTES (AUTO) 1.4 10^3/uL (0.5-4.7); ABSOLUTE MONOCYTES (AUTO) 0.4 10^3/uL (0.1-1.4); ABSOLUTE NEUT (AUTO) 8.2 10^3/uL (1.7-8.2); BASOPHILS % (AUTO) 0.3 % (0-2); EOSINOPHILS % (AUTO) 2.1 % (0-6); HEMATOCRIT 34.1 % (36.0-47.0); HEMOGLOBIN 11.3 g/dL (12.0-15.5); LYMPHOCYTES % (AUTO) 13.7 % (13-45); MEAN CORPUSCULAR HEMOGLOBIN 28.6 pg (27.0-33.4); MEAN CORPUSCULAR HGB CONC 33.2 g/dL (32.0-36.0); MEAN CORPUSCULAR VOLUME 86 fl (80-97); MONOCYTES % (AUTO) 3.9 % (3-13); PLATELET COUNT 168 10^3/uL (150-450); RED BLOOD COUNT 3.95 10^6/uL (3.72-5.28); RED CELL DISTRIBUTION WIDTH 15.3 % (11.5-14.0); TOTAL CELLS COUNTED % (AUTO) 100 %; WHITE BLOOD COUNT 10.3 10^3/uL (4.0-10.5)
[2018-07-28 07:46] LABS: BLOOD UREA NITROGEN 27 mg/dL (7-20); GLUCOSE 73 mg/dL (75-110)
[2018-07-28 07:47] LABS: ALANINE AMINOTRANSFERASE 90 U/L (9-52); ALBUMIN 1.4 g/dL (3.5-5.0); ALKALINE PHOSPHATASE 56 U/L (38-126); ASPARTATE AMINO TRANSFERASE 71 U/L (14-36); BILIRUBIN,DIRECT 0.3 mg/dL (0.0-0.4); BILIRUBIN,TOTAL 0.3 mg/dL (0.2-1.3); POTASSIUM 3.9 mmol/L (3.6-5.0); TOTAL PROTEIN 3.3 g/dL (6.3-8.2)
[2018-07-28 07:51] LABS: CARBON DIOXIDE 18 mmol/L (22-30); CHLORIDE 124 mmol/L (98-107); SODIUM 145.9 mmol/L (137-145)
[2018-07-28 07:56] LABS: ANION GAP 4 (5-19)
[2018-07-28 07:57] LABS: CALCIUM 6.9 mg/dL (8.4-10.2)
--- NOTE | 2018-07-28 08:23 | RADIOLOGY REPORT (SQ) ---
EXAM DESCRIPTION: CHEST SINGLE VIEW COMPLETED DATE/TIME: 07/28/2018 7:41 am REASON FOR STUDY: resp failure COMPARISON: 07/27/2018 EXAM PARAMETERS: NUMBER OF VIEWS: One view. TECHNIQUE: Single frontal radiographic view of the chest acquired. RADIATION DOSE: NA LIMITATIONS: None. FINDINGS: LUNGS AND PLEURA: As on the previous examination, patchy airspace disease suggested in th e lower lungs bilaterally. No pneumothorax. Minimal blunting of the costophrenic angles, may repres ent effusions. MEDIASTINUM AND HILAR STRUCTURES: No masses. Contour normal. HEART AND VASCULAR STRUCTURES: Heart normal in size. Normal vasculature. BONES: No acute findings. HARDWARE: Support lines and tubes are unchanged in position. The tip of the endotracheal tube lies approximately 1.0 cm proximal to the vanessa. Prior anterior median sternotomy. OTHER: No other significant finding. IMPRESSION: 1. No significant interval change since the prior study dated 07/27/2018. 2. Support lines and catheters are unchanged in position. The tip of the endotracheal tube lies will roximately 1.0 cm from the vanessa. TECHNICAL DOCUMENTATION: JOB ID: [id number] [employer]- All Rights Reserved Reading location - IP/workstation name: [email or web address]
--- NOTE | 2018-07-28 08:47 | PDOC PROGRESS REPORT ---
Subjective Progress Note for:: 07/28/18 Subjective:: intubated, sedated Reason For Visit: LOW BLOOD PRESSURE Physical Exam Vital Signs: Temp Pulse Resp BP Pulse Ox 97.7 F 92 10 L 95/55 L 100 07/28/18 05:55 07/28/18 08:00 07/28/18 06:47 07/28/18 06:47 07/28/18 06:47 Intake & Output 07/27/18 07/28/18 07/29/18 06:59 06:59 06:59 Intake Total 72400 3814 60 Output Total 9270 1585 110 Balance 5031 2229 -50 Weight 90.1 kg 96.6 kg General appearance: PRESENT: well-nourished, other - intubated, sedated Respiratory exam: PRESENT: clear to auscultation adán Cardiovascular exam: PRESENT: RRR GI/Abdominal exam: PRESENT: soft, other - no bowel sounds, wound partially clean , no drainage, no odor, no erythema Results Laboratory Results: 07/28/18 07:00 07/28/18 07:00 07/27/18 07/27/18 07/27/18 12:10 12:10 12:10 WBC 12.0 H RBC 4.70 Hgb 13.2 D Hct 40.6 MCV 86 MCH 28.2 MCHC 32.6 RDW 14.6 H Plt Count 201 Seg Neutrophils % 86.6 H Lymphocytes % 9.3 L Monocytes % 3.9 Eosinophils % 0.1 Basophils % 0.1 Absolute Neutrophils 10.4 H Absolute Lymphocytes 1.1 Absolute Monocytes 0.5 Absolute Eosinophils 0.0 Absolute Basophils 0.0 Carbonic Acid HCO3/H2CO3 Ratio ABG pH ABG pCO2 ABG pO2 ABG HCO3 ABG O2 Saturation ABG Base Excess FiO2 Sodium 143.9 Potassium 4.4 Chloride 125 H Carbon Dioxide 17 L Anion Gap 2 L BUN 25 H Creatinine 0.93 Est GFR ( Amer) > 60 Est GFR (Non-Af Amer) > 60 Glucose 83 Calcium 6.0 L* Magnesium 2.0 Total Bilirubin 0.7 AST 147 H ALT 129 H Alkaline Phosphatase 51 Total Protein 3.3 L Albumin 1.5 L 07/28/18 07/28/18 07/28/18 07:00 07:00 07:00 WBC 10.3 RBC 3.95 Hgb 11.3 L Hct 34.1 L MCV 86 MCH 28.6 MCHC 33.2 RDW 15.3 H Plt Count 168 Seg Neutrophils % 80.0 H Lymphocytes % 13.7 Monocytes % 3.9 Eosinophils % 2.1 Basophils % 0.3 Absolute Neutrophils 8.2 Absolute Lymphocytes 1.4 Absolute Monocytes 0.4 Absolute Eosinophils 0.2 Absolute Basophils 0.0 Carbonic Acid 1.08 HCO3/H2CO3 Ratio 16:1 ABG pH 7.32 L ABG pCO2 35.9 ABG pO2 144.6 H ABG HCO3 18.1 L ABG O2 Saturation 98.7 H ABG Base Excess -7.2 FiO2 35% Sodium 145.9 H Potassium 3.9 Chloride 124 H Carbon Dioxide 18 L Anion Gap 4 L BUN 27 H Creatinine 0.87 Est GFR ( Amer) > 60 Est GFR (Non-Af Amer) > 60 Glucose 73 L Calcium 6.9 L* Magnesium 2.2 Total Bilirubin 0.3 AST 71 H ALT 90 H Alkaline Phosphatase 56 Total Protein 3.3 L Albumin 1.4 L 07/26/18 07/26/18 07/27/18 23:30 23:57 00:35 NT-Pro-B Natriuret Pep Cancelled Cancelled 3320 H Impressions: KUB X-Ray 07/26/18 00:00 IMPRESSION: Nasogastric tube in the stomach. Abdomen/Pelvis CT 07/26/18 15:30 IMPRESSION: 1. Trace right pleural effusion. 2. Cardiomegaly. 3. Fluid-filled dilated esophagus, concerning for increased risk of aspiration. IMPRESSION: 1. High-grade distal small-bowel obstruction with bowel perforation. Surgical consult recommended. 2. Pneumoperitoneum. Small amount of ascites. 3. Indeterminate heterogeneous liver lesion. This can be further evaluated with dedicated nonemergent contrast enhanced MRI. Chest CT 07/26/18 16:11 IMPRESSION: 1. Trace right pleural effusion. 2. Cardiomegaly. 3. Fluid-filled dilated esophagus, concerning for increased risk of aspiration. IMPRESSION: 1. High-grade distal small-bowel obstruction with bowel perforation. Surgical consult recommended. 2. Pneumoperitoneum. Small amount of ascites. 3. Indeterminate heterogeneous liver lesion. This can be further evaluated with dedicated nonemergent contrast enhanced MRI. Chest X-Ray 07/28/18 06:00 IMPRESSION: 1. No significant interval change since the prior study dated . 2. Support lines and catheters are unchanged in position. The tip of the endotracheal tube lies approximately 1.0 cm from the vanessa. Assessment & Plan - Diagnosis (1) Gallstone ileus Is this a current diagnosis for this admission?: Yes - Plan Summary Plan Summary: A/ POD#2 after cholecystectomy, bowel resection, repair of duodenotomy patient intubated with good blood gases VSS, good BP. afebrile good UO. elevated NGT output moderately elevated abdominal drain x 2 output, seroussanguinous abdomen soft, incision partially open, clean, no cellulitis Hypernatermic and hyperchloremic, most likely hiatrogenic due to IVF P/ Probable extubation today as per [employer] Continue NPO until bowel function returns, then CT scan A/P should be done to r/ o leak Start TPN Continue other IVF as 0.5% NS
[2018-07-28] MEDS: FAMOTIDINE INJ/PF 20 MG/2 ML SDV IV SCH (09:07)
[2018-07-28] MEDS: 1/2 NORMAL SALINE 1,000 ML IV PRN ×2 (09:22→17:51)
[2018-07-28] MEDS ORDERED: GLUCAGON,HUMAN RECOMB 1 MG INJ IM PRN (09:33)
[2018-07-28] MEDS ORDERED: DEXTROSE 40% GEL 15 GM TUBE PO PRN (09:33)
[2018-07-28] MEDS ORDERED: DEXTROSE 50%-WATER SYRINGE 12.5 GM/25 ML DOSE IV PRN (09:33)
[2018-07-28] MEDS ORDERED: DEXTROSE 10%-WATER 1,000 ML IV PRN (09:33)
[2018-07-28] MEDS ORDERED: DEXTROSE 50%-WATER SYRINGE 25 GM/50 ML DOSE IV PRN (09:33)
[2018-07-28] MEDS ORDERED: DEXTROSE 40% GEL 15 GM TUBE X 2 PO PRN (09:33)
[2018-07-28 14:51] LABS: PHOSPHORUS 3.2 mg/dL (2.5-4.5)
[2018-07-28 14:57] LABS: INTERNATIONAL RATION (INR) 1.34; PROTHROMBIN TIME 17.2 SEC (11.4-15.4)
[2018-07-28 14:59] LABS: PREALBUMIN 4.7 mg/dL (17.6-36.0)
--- NOTE | 2018-07-28 15:51 | PDOC CONSULTATION ---
Consultation Consult Date: 07/28/18 Attending physician:: EDITA TOUSSAINT Consult reason:: Medical Management History of Present Illness Admission Date/PCP: 07/26/18 18:25 MALU MONCADA MD History of Present Illness: VAZQUEZ QUINTANA is a 57 year old female patient who presented to [facility] ER with chief complaint of intractable abdominal pain. Patient has been evaluated by Dr. Christianson who was impression of perforated viscus patient undergone emergent laparotomy and she is found to have small bowel perforation, extensive peritonitis, small bowel obstruction and gallstone ileus. Patient has been managed accordingly. The hospitalist service consulted for medical management. Patient has been getting ertapenem. I switched her to meropenem for what is brought spectrum coverage. I seen patient intubated and on full mechanical support. Her vital signs and her labs are within normal limits. Social History Lives with: Family Smoking Status: Unknown if Ever Smoked Frequency of Alcohol Use: None Hx Recreational Drug Use: - unknown Hx Prescription Drug Abuse: - unknown - Advance Directive Resuscitation Status: Full Code Family History Family History: Reviewed & Not Pertinent Parental Family History Reviewed: Yes Children Family History Reviewed: Yes Sibling(s) Family History Reviewed.: Yes Medication/Allergy Home Medications: No Home Medications 07/27/18 Allergies/Adverse Reactions: No Known Allergies Allergy (Verified 07/27/18 15:24) Review of Systems ROS unobtainable: Due to endotracheal tube Physical Exam Vital Signs: Temp Pulse Resp BP Pulse Ox 98.2 F 90 13 147/64 H 100 07/28/18 15:09 07/28/18 15:09 07/28/18 15:09 07/28/18 15:09 07/28/18 15:09 Intake & Output 07/27/18 07/28/18 07/29/18 06:59 06:59 06:59 Intake Total 82131 3814 191 Output Total 9270 1585 505 Balance 5031 2229 -314 Weight 90.1 kg 96.6 kg General appearance: PRESENT: no acute distress Head exam: PRESENT: atraumatic, normocephalic Neck exam: ABSENT: carotid bruit, JVD, lymphadenopathy, thyromegaly Respiratory exam: PRESENT: clear to auscultation adán. ABSENT: rales, rhonchi, wheezes Cardiovascular exam: PRESENT: RRR. ABSENT: diastolic murmur, rubs, systolic murmur GI/Abdominal exam: PRESENT: diminished bowel sounds Results Laboratory Results: 07/28/18 07:00 07/28/18 07:00 07/28/18 07/28/18 07/28/18 07:00 07:00 07:00 WBC 10.3 RBC 3.95 Hgb 11.3 L Hct 34.1 L MCV 86 MCH 28.6 MCHC 33.2 RDW 15.3 H Plt Count 168 Seg Neutrophils % 80.0 H Lymphocytes % 13.7 Monocytes % 3.9 Eosinophils % 2.1 Basophils % 0.3 Absolute Neutrophils 8.2 Absolute Lymphocytes 1.4 Absolute Monocytes 0.4 Absolute Eosinophils 0.2 Absolute Basophils 0.0 Carbonic Acid 1.08 HCO3/H2CO3 Ratio 16:1 ABG pH 7.32 L ABG pCO2 35.9 ABG pO2 144.6 H ABG HCO3 18.1 L ABG O2 Saturation 98.7 H ABG Base Excess -7.2 FiO2 35% Sodium 145.9 H Potassium 3.9 Chloride 124 H Carbon Dioxide 18 L Anion Gap 4 L BUN 27 H Creatinine 0.87 Est GFR ( Amer) > 60 Est GFR (Non-Af Amer) > 60 Glucose 73 L Calcium 6.9 L* Phosphorus Magnesium 2.2 Total Bilirubin 0.3 AST 71 H ALT 90 H Alkaline Phosphatase 56 Total Protein 3.3 L Albumin 1.4 L Prealbumin Triglycerides 07/28/18 07:00 WBC RBC Hgb Hct MCV MCH MCHC RDW Plt Count Seg Neutrophils % Lymphocytes % Monocytes % Eosinophils % Basophils % Absolute Neutrophils Absolute Lymphocytes Absolute Monocytes Absolute Eosinophils Absolute Basophils Carbonic Acid HCO3/H2CO3 Ratio ABG pH ABG pCO2 ABG pO2 ABG HCO3 ABG O2 Saturation ABG Base Excess FiO2 Sodium Potassium Chloride Carbon Dioxide Anion Gap BUN Creatinine Est GFR ( Amer) Est GFR (Non-Af Amer) Glucose Calcium Phosphorus 3.2 Magnesium Total Bilirubin AST ALT Alkaline Phosphatase Total Protein Albumin Prealbumin 4.7 L Triglycerides 84 07/26/18 07/26/18 07/27/18 23:30 23:57 00:35 NT-Pro-B Natriuret Pep Cancelled Cancelled 3320 H Impressions: KUB X-Ray 07/26/18 00:00 IMPRESSION: Nasogastric tube in the stomach. Abdomen/Pelvis CT 07/26/18 15:30 IMPRESSION: 1. Trace right pleural effusion. 2. Cardiomegaly. 3. Fluid-filled dilated esophagus, concerning for increased risk of aspiration. IMPRESSION: 1. High-grade distal small-bowel obstruction with bowel perforation. Surgical consult recommended. 2. Pneumoperitoneum. Small amount of ascites. 3. Indeterminate heterogeneous liver lesion. This can be further evaluated with dedicated nonemergent contrast enhanced MRI. Chest CT 07/26/18 16:11 IMPRESSION: 1. Trace right pleural effusion. 2. Cardiomegaly. 3. Fluid-filled dilated esophagus, concerning for increased risk of aspiration. IMPRESSION: 1. High-grade distal small-bowel obstruction with bowel perforation. Surgical consult recommended. 2. Pneumoperitoneum. Small amount of ascites. 3. Indeterminate heterogeneous liver lesion. This can be further evaluated with dedicated nonemergent contrast enhanced MRI. Chest X-Ray 07/28/18 06:00 IMPRESSION: 1. No significant interval change since the prior study dated . 2. Support lines and catheters are unchanged in position. The tip of the endotracheal tube lies approximately 1.0 cm from the vanessa. Assessment & Plan - Diagnosis (1) Septic shock Is this a current diagnosis for this admission?: Yes Plan: Continue IV resuscitation. Patient has been started on meropenem (2) Extensive peritonitis Is this a current diagnosis for this admission?: Yes Plan: Patient undergone peritoneal lavage with normal saline and she has also peritoneal drain. I switched her ertapenem to meropenem. (3) Metabolic acidosis Is this a current diagnosis for this admission?: Yes Plan: Improving I will check her lactic acid in a.m. (4) Perforated viscus Is this a current diagnosis for this admission?: Yes Plan: Management per primary surgeon. (5) Bowel obstruction Qualifiers: Intestinal obstruction type: unspecified Intestinal obstruction extent: complete Qualified Code(s): K56.601 - Complete intestinal obstruction, unspecified as to cause Is this a current diagnosis for this admission?: Yes Plan: Management per primary surgeon.
[2018-07-28] MEDS: AMINO ACIDS 5%/D25W 1,000 ML IV PRN (18:29)
[2018-07-28] MEDS: MEROPENEM 1 GM in NORMAL SALINE 50 ML IV SCH (18:30)
[2018-07-29] MEDS ORDERED: ACETAMINOPHEN 1,000 MG/100 ML RTUPB IV ONE (00:24)
[2018-07-29] MEDS: FENTANYL CITRATE/PF 600 MCG/60 ML BAG IV PRN ×2 (01:28→13:09)
[2018-07-29] MEDS: 1/2 NORMAL SALINE 1,000 ML IV PRN ×2 (01:45→16:39)
[2018-07-29] MEDS: MEROPENEM 1 GM in NORMAL SALINE 50 ML IV SCH ×3 (01:45→18:08)
[2018-07-29] MEDS: ACETAMINOPHEN INJ/PF 1000 MG/100 ML SDV IV SCH (05:30)
[2018-07-29 06:56] LABS: HEMOGLOBIN 10.2 g/dL (12.0-15.5); MEAN CORPUSCULAR HEMOGLOBIN 28.6 pg (27.0-33.4); MEAN CORPUSCULAR HGB CONC 32.9 g/dL (32.0-36.0); MEAN CORPUSCULAR VOLUME 87 fl (80-97); PLATELET COUNT 145 10^3/uL (150-450); RED BLOOD COUNT 3.57 10^6/uL (3.72-5.28); RED CELL DISTRIBUTION WIDTH 15.5 % (11.5-14.0); WHITE BLOOD COUNT 8.9 10^3/uL (4.0-10.5)
[2018-07-29 07:05] LABS: ARTERIAL BLOOD BASE EXCESS -5.6 mmol/L; ARTERIAL BLOOD H2CO3 1.18 mmol/L (1.05-1.35); ARTERIAL BLOOD O2 SATURATION 97.7 % (94-98); ARTERIAL BLOOD PCO2 39.1 mmHg (35-45); ARTERIAL BLOOD PH 7.33 (7.35-7.45); ARTERIAL BLOOD PO2 109.3 mmHg (80-100); ARTERIAL BLOOD TOTAL CO2 21.2 mmol/L (21-25)
[2018-07-29 07:07] LABS: ALANINE AMINOTRANSFERASE 66 U/L (9-52); ALBUMIN 1.4 g/dL (3.5-5.0); ALKALINE PHOSPHATASE 67 U/L (38-126); ASPARTATE AMINO TRANSFERASE 41 U/L (14-36); BILIRUBIN,DIRECT 0.2 mg/dL (0.0-0.4); BILIRUBIN,TOTAL 0.2 mg/dL (0.2-1.3); BLOOD UREA NITROGEN 23 mg/dL (7-20); CALCIUM 7.1 mg/dL (8.4-10.2); GLUCOSE 147 mg/dL (75-110); PHOSPHORUS 1.9 mg/dL (2.5-4.5); POTASSIUM 3.8 mmol/L (3.6-5.0); TOTAL PROTEIN 3.3 g/dL (6.3-8.2)
[2018-07-29 07:08] LABS: CHLORIDE 120 mmol/L (98-107); SODIUM 140.3 mmol/L (137-145)
[2018-07-29 07:25] LABS: ARTERIAL BLOOD FIO2 30%
--- NOTE | 2018-07-29 07:43 | EKG REPORT ---
SEVERITY:- ABNORMAL ECG - SINUS TACHYCARDIA ATRIAL PREMATURE COMPLEX LEFT ANTERIOR FASCICULAR BLOCK PROBABLE LVH WITH SECONDARY REPOL ABNRM BORDERLINE PROLONGED QT INTERVAL : Confirmed by: Favian Varghese MD 29-Jul-2018 07:41:17
[2018-07-29 07:53] LABS: ABSOLUTE LYMPHOCYTES# (MANUAL) 1.8 10^3/uL (0.5-4.7); ABSOLUTE MONOCYTES # (MANUAL) 0.5 10^3/uL (0.1-1.4); ABSOLUTE NEUTROPHILS# (MANUAL) 6.5 10^3/uL (1.7-8.2); BAND NEUTROPHILS % (MANUAL) 1 % (3-5); BASOPHILS % (MANUAL) 0 % (0-2); BURR CELLS 1+; EOSINOPHILS % (MANUAL) 1 % (0-6); LYMPHOCYTES % (MANUAL) 20 % (13-45); MONOCYTES % (MANUAL) 6 % (3-13); POIKILOCYTOSIS 1+; SEGMENTED NEUTROPHILS % (MAN) 72 % (42-78); TOTAL CELLS COUNTED 100
[2018-07-29 07:54] LABS: PLATELET COMMENT ADEQUATE; PLATELET GIANT PRESENT; PLATELET LARGE PRESENT; TOXIC GRANULATION 2+
[2018-07-29 08:16] LABS: ANION GAP 1 (5-19); CARBON DIOXIDE 19 mmol/L (22-30)
[2018-07-29 08:37] LABS: PREALBUMIN 4.3 mg/dL (17.6-36.0)
--- NOTE | 2018-07-29 08:50 | RADIOLOGY REPORT (SQ) ---
EXAM DESCRIPTION: CHEST SINGLE VIEW COMPLETED DATE/TIME: 07/29/2018 7:04 am REASON FOR STUDY: resp failure COMPARISON: 07/28/2018. 07/27/2018. FINDINGS: Single-view chest AP portable semi-upright timed approximately 0558 hours. Endotracheal and nasogastric tubes in place, appropriate. Other artifacts overlie the chest. Worsening basilar aeration, haziness with slight progression in pulmonary edema. Small effusions. C ardiomegaly. TECHNICAL DOCUMENTATION: JOB ID: [id number] Reading location - IP/workstation name: [email or web address]
--- NOTE | 2018-07-29 09:50 | PDOC PROGRESS REPORT ---
Subjective Progress Note for:: 07/29/18 Subjective:: sedated, intubated, arousable, partially follows commands Reason For Visit: LOW BLOOD PRESSURE Physical Exam Vital Signs: Temp Pulse Resp BP Pulse Ox 97.9 F 74 12 102/56 L 100 07/29/18 07:54 07/29/18 07:54 07/29/18 08:00 07/29/18 07:54 07/29/18 08:00 Intake & Output 07/28/18 07/29/18 07/30/18 06:59 06:59 06:59 Intake Total 3814 3110 21 Output Total 1585 1295 120 Balance 2229 1815 -99 Weight 96.6 kg 97.9 kg General appearance: PRESENT: no acute distress, morbidly obese, other - sedated, intubated, arousable, partially follows commands 4 extemities Respiratory exam: PRESENT: clear to auscultation adán Cardiovascular exam: PRESENT: RRR GI/Abdominal exam: PRESENT: soft, other - no bowel sounds, midline incision with foul smelling drainage, briggs in color, no erythema Extremities exam: PRESENT: full ROM - partially moves 4 extremities under command Results Laboratory Results: 07/29/18 05:30 07/29/18 05:30 07/28/18 07/29/18 07/29/18 07:00 05:30 05:30 WBC 8.9 RBC 3.57 L Hgb 10.2 L Hct 31.0 L MCV 87 MCH 28.6 MCHC 32.9 RDW 15.5 H Plt Count 145 L Seg Neutrophils % Not Reportable Lymphocytes % Not Reportable Monocytes % Not Reportable Eosinophils % Not Reportable Basophils % Not Reportable Absolute Neutrophils Not Reportable Absolute Lymphocytes Not Reportable Absolute Monocytes Not Reportable Absolute Eosinophils Not Reportable Absolute Basophils Not Reportable Carbonic Acid 1.18 HCO3/H2CO3 Ratio 16:1 ABG pH 7.33 L ABG pCO2 39.1 ABG pO2 109.3 H ABG HCO3 20.0 ABG O2 Saturation 97.7 ABG Base Excess -5.6 FiO2 30% Sodium Potassium Chloride Carbon Dioxide Anion Gap BUN Creatinine Est GFR ( Amer) Est GFR (Non-Af Amer) Glucose Calcium Phosphorus 3.2 Magnesium Total Bilirubin AST ALT Alkaline Phosphatase Total Protein Albumin Prealbumin 4.7 L Triglycerides 84 07/29/18 05:30 WBC RBC Hgb Hct MCV MCH MCHC RDW Plt Count Seg Neutrophils % Lymphocytes % Monocytes % Eosinophils % Basophils % Absolute Neutrophils Absolute Lymphocytes Absolute Monocytes Absolute Eosinophils Absolute Basophils Carbonic Acid HCO3/H2CO3 Ratio ABG pH ABG pCO2 ABG pO2 ABG HCO3 ABG O2 Saturation ABG Base Excess FiO2 Sodium 140.3 Potassium 3.8 Chloride 120 H Carbon Dioxide 19 L Anion Gap 1 L BUN 23 H Creatinine 0.69 Est GFR ( Amer) > 60 Est GFR (Non-Af Amer) > 60 Glucose 147 H Calcium 7.1 L Phosphorus 1.9 L Magnesium 2.3 Total Bilirubin 0.2 AST 41 H ALT 66 H Alkaline Phosphatase 67 Total Protein 3.3 L Albumin 1.4 L Prealbumin 4.3 L Triglycerides 07/26/18 07/26/18 07/27/18 23:30 23:57 00:35 NT-Pro-B Natriuret Pep Cancelled Cancelled 3320 H Impressions: KUB X-Ray 07/26/18 00:00 IMPRESSION: Nasogastric tube in the stomach. Abdomen/Pelvis CT 07/26/18 15:30 IMPRESSION: 1. Trace right pleural effusion. 2. Cardiomegaly. 3. Fluid-filled dilated esophagus, concerning for increased risk of aspiration. IMPRESSION: 1. High-grade distal small-bowel obstruction with bowel perforation. Surgical consult recommended. 2. Pneumoperitoneum. Small amount of ascites. 3. Indeterminate heterogeneous liver lesion. This can be further evaluated with dedicated nonemergent contrast enhanced MRI. Chest CT 07/26/18 16:11 IMPRESSION: 1. Trace right pleural effusion. 2. Cardiomegaly. 3. Fluid-filled dilated esophagus, concerning for increased risk of aspiration. IMPRESSION: 1. High-grade distal small-bowel obstruction with bowel perforation. Surgical consult recommended. 2. Pneumoperitoneum. Small amount of ascites. 3. Indeterminate heterogeneous liver lesion. This can be further evaluated with dedicated nonemergent contrast enhanced MRI. Assessment & Plan - Diagnosis (1) Gallstone ileus Is this a current diagnosis for this admission?: Yes - Plan Summary Plan Summary: A/ POD#3 after cholecystectomy, bowel resection, repair of duodenotomy patient intubated with good blood gases VSS, good BP, afebrile good UO. Moderated NGT output (235 mL) moderat abdominal drain x 2 output, serousanguinous (50 mL; 155 mL, respectively) abdomen soft, incision partially open with carl in between, no erythema, briggs in color, drainage with odor Low Ph Normal WBC, low H/H, most likely dilutional No bowel function yet P/ Open wound at bedside, pack with Betadine Apply wound Vac to wound tomorrow continue TPN and current surgical management
[2018-07-29] MEDS: ACETAMINOPHEN 1,000 MG/100 ML RTUPB IV SCH ×2 (12:53→18:08)
--- NOTE | 2018-07-29 17:01 | PDOC PROGRESS REPORT ---
Subjective Progress Note for:: 07/29/18 Subjective:: Patient remains intubated. Her vital signs and blood works are within normal limits. She is being followed by her primary attending surgeon. Reason For Visit: LOW BLOOD PRESSURE Physical Exam Vital Signs: Temp Pulse Resp BP Pulse Ox 37.1 F L 88 10 L 117/58 L 99 07/29/18 12:00 07/29/18 12:00 07/29/18 16:00 07/29/18 12:00 07/29/18 16:00 Intake & Output 07/28/18 07/29/18 07/30/18 06:59 06:59 06:59 Intake Total 3814 3110 1129 Output Total 1585 1295 570 Balance 2229 1815 559 Weight 96.6 kg 97.9 kg General appearance: PRESENT: no acute distress Head exam: PRESENT: atraumatic Neck exam: ABSENT: carotid bruit, JVD, lymphadenopathy, thyromegaly Respiratory exam: PRESENT: clear to auscultation adán. ABSENT: rales, rhonchi, wheezes Cardiovascular exam: PRESENT: RRR. ABSENT: diastolic murmur, rubs, systolic murmur GI/Abdominal exam: PRESENT: diminished bowel sounds, other - Status post laparotomy Results Laboratory Results: 07/29/18 05:30 07/29/18 05:30 07/29/18 07/29/18 07/29/18 05:30 05:30 05:30 WBC 8.9 RBC 3.57 L Hgb 10.2 L Hct 31.0 L MCV 87 MCH 28.6 MCHC 32.9 RDW 15.5 H Plt Count 145 L Seg Neutrophils % Not Reportable Lymphocytes % Not Reportable Monocytes % Not Reportable Eosinophils % Not Reportable Basophils % Not Reportable Absolute Neutrophils Not Reportable Absolute Lymphocytes Not Reportable Absolute Monocytes Not Reportable Absolute Eosinophils Not Reportable Absolute Basophils Not Reportable Carbonic Acid 1.18 HCO3/H2CO3 Ratio 16:1 ABG pH 7.33 L ABG pCO2 39.1 ABG pO2 109.3 H ABG HCO3 20.0 ABG O2 Saturation 97.7 ABG Base Excess -5.6 FiO2 30% Sodium 140.3 Potassium 3.8 Chloride 120 H Carbon Dioxide 19 L Anion Gap 1 L BUN 23 H Creatinine 0.69 Est GFR ( Amer) > 60 Est GFR (Non-Af Amer) > 60 Glucose 147 H Calcium 7.1 L Phosphorus 1.9 L Magnesium 2.3 Total Bilirubin 0.2 AST 41 H ALT 66 H Alkaline Phosphatase 67 Total Protein 3.3 L Albumin 1.4 L Prealbumin 4.3 L 07/26/18 07/26/18 07/27/18 23:30 23:57 00:35 NT-Pro-B Natriuret Pep Cancelled Cancelled 3320 H Impressions: KUB X-Ray 07/26/18 00:00 IMPRESSION: Nasogastric tube in the stomach. Abdomen/Pelvis CT 07/26/18 15:30 IMPRESSION: 1. Trace right pleural effusion. 2. Cardiomegaly. 3. Fluid-filled dilated esophagus, concerning for increased risk of aspiration. IMPRESSION: 1. High-grade distal small-bowel obstruction with bowel perforation. Surgical consult recommended. 2. Pneumoperitoneum. Small amount of ascites. 3. Indeterminate heterogeneous liver lesion. This can be further evaluated with dedicated nonemergent contrast enhanced MRI. Chest CT 07/26/18 16:11 IMPRESSION: 1. Trace right pleural effusion. 2. Cardiomegaly. 3. Fluid-filled dilated esophagus, concerning for increased risk of aspiration. IMPRESSION: 1. High-grade distal small-bowel obstruction with bowel perforation. Surgical consult recommended. 2. Pneumoperitoneum. Small amount of ascites. 3. Indeterminate heterogeneous liver lesion. This can be further evaluated with dedicated nonemergent contrast enhanced MRI. Assessment & Plan - Diagnosis (1) Septic shock Is this a current diagnosis for this admission?: Yes Plan: Continue current regimen (2) Extensive peritonitis Is this a current diagnosis for this admission?: Yes Plan: Patient undergone peritoneal lavage with normal saline and she has also peritoneal drain. I switched her ertapenem to meropenem. (3) Metabolic acidosis Is this a current diagnosis for this admission?: Yes Plan: Improving I will check her lactic acid in a.m. (4) Perforated viscus Is this a current diagnosis for this admission?: Yes Plan: Management per primary surgeon. (5) Bowel obstruction Qualifiers: Intestinal obstruction type: unspecified Intestinal obstruction extent: complete Qualified Code(s): K56.601 - Complete intestinal obstruction, unspecified as to cause Is this a current diagnosis for this admission?: Yes Plan: Management per primary surgeon.
[2018-07-29] MEDS: AMINO ACIDS 5%/D25W 1,000 ML IV PRN (18:08)
[2018-07-30] MEDS: FENTANYL CITRATE/PF 600 MCG/60 ML BAG IV PRN ×2 (01:09→12:52)
[2018-07-30] MEDS: ACETAMINOPHEN 1,000 MG/100 ML RTUPB IV SCH ×4 (01:34→17:22)
[2018-07-30] MEDS: MEROPENEM 1 GM in NORMAL SALINE 50 ML IV SCH ×3 (01:57→17:21)
[2018-07-30 05:11] LABS: ALANINE AMINOTRANSFERASE 56 U/L (9-52); ALBUMIN 1.5 g/dL (3.5-5.0); ALKALINE PHOSPHATASE 121 U/L (38-126); ASPARTATE AMINO TRANSFERASE 55 U/L (14-36); BILIRUBIN,DIRECT 0.1 mg/dL (0.0-0.4); BILIRUBIN,TOTAL 0.3 mg/dL (0.2-1.3); BLOOD UREA NITROGEN 16 mg/dL (7-20); GLUCOSE 147 mg/dL (75-110); PHOSPHORUS 1.3 mg/dL (2.5-4.5); POTASSIUM 3.4 mmol/L (3.6-5.0); TOTAL PROTEIN 3.6 g/dL (6.3-8.2)
[2018-07-30 05:16] LABS: CARBON DIOXIDE 21 mmol/L (22-30); CHLORIDE 117 mmol/L (98-107); SODIUM 141.9 mmol/L (137-145)
[2018-07-30 05:18] LABS: PREALBUMIN 5.7 mg/dL (17.6-36.0)
[2018-07-30 05:20] LABS: ANION GAP 4 (5-19)
[2018-07-30 05:24] LABS: CALCIUM 6.5 mg/dL (8.4-10.2)
[2018-07-30 05:35] LABS: ARTERIAL BLOOD BASE EXCESS -0.6 mmol/L; ARTERIAL BLOOD H2CO3 0.83 mmol/L (1.05-1.35); ARTERIAL BLOOD HCO3 21.1 mmol/L (20-24); ARTERIAL BLOOD O2 SATURATION 97.8 % (94-98); ARTERIAL BLOOD PCO2 27.6 mmHg (35-45); ARTERIAL BLOOD PO2 92.8 mmHg (80-100); ARTERIAL BLOOD TOTAL CO2 21.9 mmol/L (21-25)
[2018-07-30 05:36] LABS: ARTERIAL BLOOD FIO2 28%
[2018-07-30] MEDS: 1/2 NORMAL SALINE 1,000 ML IV PRN ×2 (06:23→20:35)
[2018-07-30] MEDS: POTASSIUM CHLORIDE 20 MEQ/50 ML RTU IV SCH ×2 (06:29→10:52)
--- NOTE | 2018-07-30 06:50 | RADIOLOGY REPORT (SQ) ---
EXAM DESCRIPTION: XR CHEST 1 VIEW COMPLETED DATE/TME: 07/30/2018 06:00 CLINICAL HISTORY: Respiratory Distress. 57 years Female, resp failure COMPARISON: One day prior. NUMBER OF VIEWS/TECHNIQUE: 1/AP FINDINGS: Bilateral lower thoracic opacity/effusion. Tip of an endotracheal tube is 1.7 cm from the vanessa; consider 3 cm retraction of the endotracheal tube. Right jugular central line tip is at the inferior right atrium; consider 12.5 cm retraction of the right jugular central line. Moderately enlarged cardiac silhouette. Likely adequate appearing enteric tube partially obscured. No pneumothorax. Stable bony thorax. IMPRESSION: 1. Tip of an endotracheal tube is 1.7 cm from the vanessa; consider 3 cm retraction of the endotracheal tube. 2. Right jugular central line tip is at the inferior right atrium; consider 12.5 cm retraction of the right jugular central line.
--- NOTE | 2018-07-30 09:22 | PDOC PROGRESS REPORT ---
Subjective Progress Note for:: 07/30/18 Subjective:: pt intubated, Reason For Visit: LOW BLOOD PRESSURE gallstone ileus Physical Exam Vital Signs: Temp Pulse Resp BP Pulse Ox 99.0 F 97 22 H 117/57 L 96 07/30/18 08:00 07/30/18 08:00 07/30/18 08:00 07/30/18 08:00 07/30/18 08:00 Intake & Output 07/29/18 07/30/18 07/31/18 06:59 06:59 06:59 Intake Total 3110 3548 Output Total 1295 2390 150 Balance 1815 1158 -150 Weight 97.9 kg 99.5 kg General appearance: PRESENT: no acute distress GI/Abdominal exam: PRESENT: other - abd examined, dressing removed has had betadine paint currently appears dry without purulence fascia intact gamal's with min op Extremities exam: PRESENT: +2 edema Results Laboratory Results: 07/29/18 05:30 07/30/18 04:36 07/30/18 07/30/18 07/30/18 04:36 04:36 05:10 Carbonic Acid Cancelled 0.83 L HCO3/H2CO3 Ratio Cancelled 25:1 ABG pH Cancelled 7.50 H ABG pCO2 Cancelled 27.6 L ABG pO2 Cancelled 92.8 ABG HCO3 Cancelled 21.1 ABG O2 Saturation Cancelled 97.8 ABG Base Excess Cancelled -0.6 FiO2 Cancelled 28% Sodium 141.9 Potassium 3.4 L Chloride 117 H Carbon Dioxide 21 L Anion Gap 4 L BUN 16 Creatinine 0.59 Est GFR ( Amer) > 60 Est GFR (Non-Af Amer) > 60 Glucose 147 H Calcium 6.5 L* Phosphorus 1.3 L Total Bilirubin 0.3 AST 55 H ALT 56 H Alkaline Phosphatase 121 Total Protein 3.6 L Albumin 1.5 L Prealbumin 5.7 L 07/26/18 07/26/18 07/27/18 23:30 23:57 00:35 NT-Pro-B Natriuret Pep Cancelled Cancelled 3320 H Impressions: KUB X-Ray 07/26/18 00:00 IMPRESSION: Nasogastric tube in the stomach. Abdomen/Pelvis CT 07/26/18 15:30 IMPRESSION: 1. Trace right pleural effusion. 2. Cardiomegaly. 3. Fluid-filled dilated esophagus, concerning for increased risk of aspiration. IMPRESSION: 1. High-grade distal small-bowel obstruction with bowel perforation. Surgical consult recommended. 2. Pneumoperitoneum. Small amount of ascites. 3. Indeterminate heterogeneous liver lesion. This can be further evaluated with dedicated nonemergent contrast enhanced MRI. Chest CT 07/26/18 16:11 IMPRESSION: 1. Trace right pleural effusion. 2. Cardiomegaly. 3. Fluid-filled dilated esophagus, concerning for increased risk of aspiration. IMPRESSION: 1. High-grade distal small-bowel obstruction with bowel perforation. Surgical consult recommended. 2. Pneumoperitoneum. Small amount of ascites. 3. Indeterminate heterogeneous liver lesion. This can be further evaluated with dedicated nonemergent contrast enhanced MRI. Chest X-Ray 07/30/18 06:00 IMPRESSION: 1. Tip of an endotracheal tube is 1.7 cm from the vanessa; consider 3 cm retraction of the endotracheal tube. 2. Right jugular central line tip is at the inferior right atrium; consider 12.5 cm retraction of the right jugular central line. Assessment & Plan - Diagnosis (1) Bowel obstruction Qualifiers: Intestinal obstruction type: unspecified Intestinal obstruction extent: complete Qualified Code(s): K56.601 - Complete intestinal obstruction, unspecified as to cause Is this a current diagnosis for this admission?: Yes (2) Extensive peritonitis Is this a current diagnosis for this admission?: Yes Plan: currently improved, on abx (3) Gallstone ileus Is this a current diagnosis for this admission?: Yes Plan: cont with ng suction untill resolution of bowel function (4) Septic shock Is this a current diagnosis for this admission?: Yes Plan: improving, cont with iv abx - Time Time Spent with patient: 25-34 minutes
[2018-07-30] MEDS ORDERED: POTASSIUM CHLORIDE 10 MEQ CAPSULE.ER PO ONE (10:30)
[2018-07-30] MEDS ORDERED: CALCIUM GLUCONATE 1000 MG/10 ML INJ IV ONE (10:30)
[2018-07-30] MEDS: FAT EMULSIONS 250 ML IV SCH (10:52)
--- NOTE | 2018-07-30 13:43 | PDOC PROGRESS REPORT ---
Subjective Progress Note for:: 07/30/18 Subjective:: No significant event overnight. Vital signs and blood works are within normal limits. Reason For Visit: LOW BLOOD PRESSURE Physical Exam Vital Signs: Temp Pulse Resp BP Pulse Ox 99.3 F 90 20 121/55 L 99 07/30/18 12:00 07/30/18 12:00 07/30/18 12:00 07/30/18 12:00 07/30/18 12:00 Intake & Output 07/29/18 07/30/18 07/31/18 06:59 06:59 06:59 Intake Total 3110 3698 259 Output Total 1295 2390 525 Balance 1815 1308 -266 Weight 97.9 kg 99.5 kg General appearance: PRESENT: no acute distress Head exam: PRESENT: atraumatic Eye exam: PRESENT: conjunctiva pink Mouth exam: PRESENT: moist Neck exam: ABSENT: carotid bruit, JVD, lymphadenopathy, thyromegaly Respiratory exam: PRESENT: clear to auscultation adán. ABSENT: rales, rhonchi, wheezes Cardiovascular exam: PRESENT: RRR. ABSENT: diastolic murmur, rubs, systolic murmur GI/Abdominal exam: PRESENT: diminished bowel sounds Results Laboratory Results: 07/29/18 05:30 07/30/18 04:36 07/30/18 07/30/18 07/30/18 04:36 04:36 05:10 Carbonic Acid Cancelled 0.83 L HCO3/H2CO3 Ratio Cancelled 25:1 ABG pH Cancelled 7.50 H ABG pCO2 Cancelled 27.6 L ABG pO2 Cancelled 92.8 ABG HCO3 Cancelled 21.1 ABG O2 Saturation Cancelled 97.8 ABG Base Excess Cancelled -0.6 FiO2 Cancelled 28% Sodium 141.9 Potassium 3.4 L Chloride 117 H Carbon Dioxide 21 L Anion Gap 4 L BUN 16 Creatinine 0.59 Est GFR ( Amer) > 60 Est GFR (Non-Af Amer) > 60 Glucose 147 H Calcium 6.5 L* Phosphorus 1.3 L Total Bilirubin 0.3 AST 55 H ALT 56 H Alkaline Phosphatase 121 Total Protein 3.6 L Albumin 1.5 L Prealbumin 5.7 L 07/26/18 07/26/18 07/27/18 23:30 23:57 00:35 NT-Pro-B Natriuret Pep Cancelled Cancelled 3320 H Impressions: KUB X-Ray 07/26/18 00:00 IMPRESSION: Nasogastric tube in the stomach. Abdomen/Pelvis CT 07/26/18 15:30 IMPRESSION: 1. Trace right pleural effusion. 2. Cardiomegaly. 3. Fluid-filled dilated esophagus, concerning for increased risk of aspiration. IMPRESSION: 1. High-grade distal small-bowel obstruction with bowel perforation. Surgical consult recommended. 2. Pneumoperitoneum. Small amount of ascites. 3. Indeterminate heterogeneous liver lesion. This can be further evaluated with dedicated nonemergent contrast enhanced MRI. Chest CT 07/26/18 16:11 IMPRESSION: 1. Trace right pleural effusion. 2. Cardiomegaly. 3. Fluid-filled dilated esophagus, concerning for increased risk of aspiration. IMPRESSION: 1. High-grade distal small-bowel obstruction with bowel perforation. Surgical consult recommended. 2. Pneumoperitoneum. Small amount of ascites. 3. Indeterminate heterogeneous liver lesion. This can be further evaluated with dedicated nonemergent contrast enhanced MRI. Chest X-Ray 07/30/18 06:00 IMPRESSION: 1. Tip of an endotracheal tube is 1.7 cm from the vanessa; consider 3 cm retraction of the endotracheal tube. 2. Right jugular central line tip is at the inferior right atrium; consider 12.5 cm retraction of the right jugular central line. Assessment & Plan - Diagnosis (1) Septic shock Is this a current diagnosis for this admission?: Yes Plan: Continue current regimen (2) Extensive peritonitis Is this a current diagnosis for this admission?: Yes Plan: Patient undergone peritoneal lavage with normal saline and she has also peritoneal drain. I switched her ertapenem to meropenem. (3) Metabolic acidosis Is this a current diagnosis for this admission?: Yes Plan: Has resolved (4) Perforated viscus Is this a current diagnosis for this admission?: Yes Plan: Management per primary surgeon. (5) Bowel obstruction Qualifiers: Intestinal obstruction type: unspecified Intestinal obstruction extent: complete Qualified Code(s): K56.601 - Complete intestinal obstruction, unspecified as to cause Is this a current diagnosis for this admission?: Yes Plan: Management per primary surgeon.
[2018-07-30] MEDS: AMINO ACIDS 5%/D25W 1,000 ML IV PRN (16:28)
[2018-07-30] MEDS: MIDAZOLAM HCL 50 MG/100 ML RTUINJ IV PRN (23:20)
[2018-07-31] MEDS: ACETAMINOPHEN 1,000 MG/100 ML RTUPB IV SCH ×4 (00:45→18:12)
[2018-07-31] MEDS: FENTANYL CITRATE/PF 600 MCG/60 ML BAG IV PRN ×2 (00:52→12:50)
[2018-07-31] MEDS: MEROPENEM 1 GM in NORMAL SALINE 50 ML IV SCH ×3 (01:10→18:11)
[2018-07-31 04:28] LABS: ARTERIAL BLOOD BASE EXCESS 0.6 mmol/L; ARTERIAL BLOOD H2CO3 1.01 mmol/L (1.05-1.35); ARTERIAL BLOOD HCO3 23.8 mmol/L (20-24); ARTERIAL BLOOD O2 SATURATION 98.1 % (94-98); ARTERIAL BLOOD PCO2 33.4 mmHg (35-45); ARTERIAL BLOOD PH 7.47 (7.35-7.45); ARTERIAL BLOOD TOTAL CO2 24.8 mmol/L (21-25)
[2018-07-31 04:32] LABS: ARTERIAL BLOOD FIO2 28%
[2018-07-31 04:32] LABS: HEMATOCRIT 31.1 % (36.0-47.0); HEMOGLOBIN 10.4 g/dL (12.0-15.5); MEAN CORPUSCULAR HEMOGLOBIN 28.4 pg (27.0-33.4); MEAN CORPUSCULAR HGB CONC 33.6 g/dL (32.0-36.0); MEAN CORPUSCULAR VOLUME 85 fl (80-97); PLATELET COUNT 146 10^3/uL (150-450); RED BLOOD COUNT 3.67 10^6/uL (3.72-5.28); RED CELL DISTRIBUTION WIDTH 14.7 % (11.5-14.0); WHITE BLOOD COUNT 7.3 10^3/uL (4.0-10.5)
[2018-07-31 04:45] LABS: BLOOD UREA NITROGEN 11 mg/dL (7-20); GLUCOSE 164 mg/dL (75-110); POTASSIUM 3.8 mmol/L (3.6-5.0)
[2018-07-31 04:51] LABS: CARBON DIOXIDE 22 mmol/L (22-30); CHLORIDE 115 mmol/L (98-107); SODIUM 138.9 mmol/L (137-145)
[2018-07-31 04:52] LABS: ABSOLUTE LYMPHOCYTES# (MANUAL) 1.4 10^3/uL (0.5-4.7); ABSOLUTE MONOCYTES # (MANUAL) 0.3 10^3/uL (0.1-1.4); ABSOLUTE NEUTROPHILS# (MANUAL) 5.3 10^3/uL (1.7-8.2); ANISOCYTOSIS SLIGHT; BAND NEUTROPHILS % (MANUAL) 7 % (3-5); BASOPHILS % (MANUAL) 0 % (0-2); EOSINOPHILS % (MANUAL) 5 % (0-6); LYMPHOCYTES % (MANUAL) 19 % (13-45); MONOCYTES % (MANUAL) 4 % (3-13); PLATELET COMMENT DECREASED; SEGMENTED NEUTROPHILS % (MAN) 65 % (42-78); TOTAL CELLS COUNTED 100; TOXIC GRANULATION 1+; TOXIC VACUOLATION PRESENT
[2018-07-31 04:53] LABS: ANION GAP 2 (5-19)
[2018-07-31 04:54] LABS: CALCIUM 6.7 mg/dL (8.4-10.2)
--- NOTE | 2018-07-31 06:39 | RADIOLOGY REPORT (SQ) ---
EXAM DESCRIPTION: XR CHEST 1 VIEW COMPLETED DATE/TME: 07/31/2018 06:00 CLINICAL HISTORY: Respiratory Distress. 57 years Female, resp failure COMPARISON: One day prior. NUMBER OF VIEWS/TECHNIQUE: 1/AP FINDINGS: Tip of an endotracheal tube is 1.7 cm from the vanessa; consider 3 cm retraction of the endotracheal tube. Bilateral lower thoracic opacity/effusion. Likely adequate appearing enteric tube partially obscured. Right jugular central line tip at the inferior right atrium; consider 12 cm retraction of the right jugular central line. Moderately enlarged cardiac silhouette. No pneumothorax. Stable bony thorax. IMPRESSION: No significant change.
--- NOTE | 2018-07-31 09:34 | PDOC PROGRESS REPORT ---
Subjective Subjective:: Remains intubated; does follow commands when not sedated Reason For Visit: LOW BLOOD PRESSURE Physical Exam Vital Signs: Temp Pulse Resp BP Pulse Ox 99.7 F 95 18 126/73 H 98 07/31/18 09:01 07/31/18 09:01 07/31/18 09:01 07/31/18 09:01 07/31/18 09:01 Intake & Output 07/30/18 07/31/18 08/01/18 06:59 06:59 06:59 Intake Total 3698 2662 Output Total 2390 3170 600 Balance 1308 -508 -600 Weight 99.5 kg 99.4 kg General appearance: PRESENT: mild distress, other - Patient remains in ICU, intubated, drains in position, wound VAC in position. GI/Abdominal exam: PRESENT: other - Abdomen examined; VAC in position, au of subcutaneous tissue with no granulation tissue. Left lower quadrant drain removed uneventfully by Dr. Christianson. Musculoskeletal exam: PRESENT: other - Extremities remain mottled but less so c ompared to 3 days ago. Results Laboratory Results: 07/31/18 04:20 07/31/18 04:20 07/31/18 07/31/18 07/31/18 04:13 04:20 04:20 WBC 7.3 RBC 3.67 L Hgb 10.4 L Hct 31.1 L MCV 85 MCH 28.4 MCHC 33.6 RDW 14.7 H Plt Count 146 L Seg Neutrophils % Not Reportable Lymphocytes % Not Reportable Monocytes % Not Reportable Eosinophils % Not Reportable Basophils % Not Reportable Absolute Neutrophils Not Reportable Absolute Lymphocytes Not Reportable Absolute Monocytes Not Reportable Absolute Eosinophils Not Reportable Absolute Basophils Not Reportable Carbonic Acid 1.01 L HCO3/H2CO3 Ratio 23:1 ABG pH 7.47 H ABG pCO2 33.4 L ABG pO2 103.0 H ABG HCO3 23.8 ABG O2 Saturation 98.1 H ABG Base Excess 0.6 FiO2 28% Sodium 138.9 Potassium 3.8 Chloride 115 H Carbon Dioxide 22 Anion Gap 2 L BUN 11 Creatinine 0.43 L Est GFR ( Amer) > 60 Est GFR (Non-Af Amer) > 60 Glucose 164 H Calcium 6.7 L* Albumin 07/31/18 04:20 WBC RBC Hgb Hct MCV MCH MCHC RDW Plt Count Seg Neutrophils % Lymphocytes % Monocytes % Eosinophils % Basophils % Absolute Neutrophils Absolute Lymphocytes Absolute Monocytes Absolute Eosinophils Absolute Basophils Carbonic Acid HCO3/H2CO3 Ratio ABG pH ABG pCO2 ABG pO2 ABG HCO3 ABG O2 Saturation ABG Base Excess FiO2 Sodium Potassium Chloride Carbon Dioxide Anion Gap BUN Creatinine Est GFR ( Amer) Est GFR (Non-Af Amer) Glucose Calcium Albumin 1.6 L 07/26/18 07/26/18 07/27/18 23:30 23:57 00:35 NT-Pro-B Natriuret Pep Cancelled Cancelled 3320 H Impressions: KUB X-Ray 07/26/18 00:00 IMPRESSION: Nasogastric tube in the stomach. Abdomen/Pelvis CT 07/26/18 15:30 IMPRESSION: 1. Trace right pleural effusion. 2. Cardiomegaly. 3. Fluid-filled dilated esophagus, concerning for increased risk of aspiration. IMPRESSION: 1. High-grade distal small-bowel obstruction with bowel perforation. Surgical consult recommended. 2. Pneumoperitoneum. Small amount of ascites. 3. Indeterminate heterogeneous liver lesion. This can be further evaluated with dedicated nonemergent contrast enhanced MRI. Chest CT 07/26/18 16:11 IMPRESSION: 1. Trace right pleural effusion. 2. Cardiomegaly. 3. Fluid-filled dilated esophagus, concerning for increased risk of aspiration. IMPRESSION: 1. High-grade distal small-bowel obstruction with bowel perforation. Surgical consult recommended. 2. Pneumoperitoneum. Small amount of ascites. 3. Indeterminate heterogeneous liver lesion. This can be further evaluated with dedicated nonemergent contrast enhanced MRI. Chest X-Ray 07/31/18 06:00 IMPRESSION: No significant change. 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 No evidence of a wound healing; her peripheral circulation remains poor likely due to shunting Recommendations 1. We will check weaning parameters; patient remains weak, likelihood of extubation low to moderate 2. Drain left lower quadrant removed uneventfully 3. InCrease TPN decrease IV fluids 4. Overall prognosis guarded to patient's multiple comorbidities, malnourished status. (2) Metabolic acidosis Is this a current diagnosis for this admission?: Yes (3) History of atrial septal defect repair Is this a current diagnosis for this admission?: Yes (4) Septic shock Is this a current diagnosis for this admission?: Yes (5) Bowel obstruction Qualifiers: Intestinal obstruction type: unspecified Intestinal obstruction extent: complete Qualified Code(s): K56.601 - Complete intestinal obstruction, unspecified as to cause Is this a current diagnosis for this admission?: Yes
[2018-07-31] MEDS: 1/2 NORMAL SALINE 1,000 ML IV PRN ×2 (09:48→21:34)
[2018-07-31] MEDS: CALCIUM CARBONATE 250 MG/VITAMIN D3 125 UNIT TABLET PO SCH ×2 (09:48→18:12)
--- NOTE | 2018-07-31 13:30 | PDOC PROGRESS REPORT ---
Subjective Subjective:: Patient remained intubated. She responds to noxious stimuli by opening her eyes. Reason For Visit: LOW BLOOD PRESSURE Physical Exam Vital Signs: Temp Pulse Resp BP Pulse Ox 101.3 F H 113 H 22 H 127/62 H 99 07/31/18 12:00 07/31/18 12:00 07/31/18 12:00 07/31/18 12:00 07/31/18 12:00 Intake & Output 07/30/18 07/31/18 08/01/18 06:59 06:59 06:59 Intake Total 3698 3662 110 Output Total 2390 3170 1150 Balance 1308 492 -1040 Weight 99.5 kg 99.4 kg Head exam: PRESENT: atraumatic Eye exam: PRESENT: conjunctiva pink Neck exam: PRESENT: carotid bruit Respiratory exam: PRESENT: clear to auscultation adán. ABSENT: rales, rhonchi, wheezes Cardiovascular exam: PRESENT: RRR. ABSENT: diastolic murmur, rubs, systolic murmur GI/Abdominal exam: PRESENT: diminished bowel sounds Results Laboratory Results: 07/31/18 04:20 07/31/18 04:20 07/31/18 07/31/18 07/31/18 04:13 04:20 04:20 WBC 7.3 RBC 3.67 L Hgb 10.4 L Hct 31.1 L MCV 85 MCH 28.4 MCHC 33.6 RDW 14.7 H Plt Count 146 L Seg Neutrophils % Not Reportable Lymphocytes % Not Reportable Monocytes % Not Reportable Eosinophils % Not Reportable Basophils % Not Reportable Absolute Neutrophils Not Reportable Absolute Lymphocytes Not Reportable Absolute Monocytes Not Reportable Absolute Eosinophils Not Reportable Absolute Basophils Not Reportable Carbonic Acid 1.01 L HCO3/H2CO3 Ratio 23:1 ABG pH 7.47 H ABG pCO2 33.4 L ABG pO2 103.0 H ABG HCO3 23.8 ABG O2 Saturation 98.1 H ABG Base Excess 0.6 FiO2 28% Sodium 138.9 Potassium 3.8 Chloride 115 H Carbon Dioxide 22 Anion Gap 2 L BUN 11 Creatinine 0.43 L Est GFR ( Amer) > 60 Est GFR (Non-Af Amer) > 60 Glucose 164 H Calcium 6.7 L* Albumin 07/31/18 04:20 WBC RBC Hgb Hct MCV MCH MCHC RDW Plt Count Seg Neutrophils % Lymphocytes % Monocytes % Eosinophils % Basophils % Absolute Neutrophils Absolute Lymphocytes Absolute Monocytes Absolute Eosinophils Absolute Basophils Carbonic Acid HCO3/H2CO3 Ratio ABG pH ABG pCO2 ABG pO2 ABG HCO3 ABG O2 Saturation ABG Base Excess FiO2 Sodium Potassium Chloride Carbon Dioxide Anion Gap BUN Creatinine Est GFR ( Amer) Est GFR (Non-Af Amer) Glucose Calcium Albumin 1.6 L 07/26/18 07/26/18 07/27/18 23:30 23:57 00:35 NT-Pro-B Natriuret Pep Cancelled Cancelled 3320 H Impressions: KUB X-Ray 07/26/18 00:00 IMPRESSION: Nasogastric tube in the stomach. Abdomen/Pelvis CT 07/26/18 15:30 IMPRESSION: 1. Trace right pleural effusion. 2. Cardiomegaly. 3. Fluid-filled dilated esophagus, concerning for increased risk of aspiration. IMPRESSION: 1. High-grade distal small-bowel obstruction with bowel perforation. Surgical consult recommended. 2. Pneumoperitoneum. Small amount of ascites. 3. Indeterminate heterogeneous liver lesion. This can be further evaluated with dedicated nonemergent contrast enhanced MRI. Chest CT 07/26/18 16:11 IMPRESSION: 1. Trace right pleural effusion. 2. Cardiomegaly. 3. Fluid-filled dilated esophagus, concerning for increased risk of aspiration. IMPRESSION: 1. High-grade distal small-bowel obstruction with bowel perforation. Surgical consult recommended. 2. Pneumoperitoneum. Small amount of ascites. 3. Indeterminate heterogeneous liver lesion. This can be further evaluated with dedicated nonemergent contrast enhanced MRI. Chest X-Ray 07/31/18 06:00 IMPRESSION: No significant change. Assessment & Plan - Diagnosis (1) Hypocalcemia Is this a current diagnosis for this admission?: Yes Plan: Relatively improving (2) Septic shock Is this a current diagnosis for this admission?: Yes Plan: Continue current regimen (3) Extensive peritonitis Is this a current diagnosis for this admission?: Yes Plan: Patient undergone peritoneal lavage with normal saline and she has also peritoneal drain. I switched her ertapenem to meropenem. (4) Metabolic acidosis Is this a current diagnosis for this admission?: Yes Plan: Has resolved (5) Perforated viscus Is this a current diagnosis for this admission?: Yes Plan: Management per primary surgeon. (6) Bowel obstruction Qualifiers: Intestinal obstruction type: unspecified Intestinal obstruction extent: complete Qualified Code(s): K56.601 - Complete intestinal obstruction, unspecified as to cause Is this a current diagnosis for this admission?: Yes
[2018-07-31] MEDS: AMINO ACIDS 5%/D25W 1,000 ML IV PRN (18:17)
[2018-08-01] MEDS: INSULIN REG, HUMAN 100 UNIT/ML 3 ML VIAL (PYX) SUBCUT PRN ×4 (00:09→18:14)
[2018-08-01] MEDS: FENTANYL CITRATE/PF 600 MCG/60 ML BAG IV PRN ×2 (00:22→12:12)
[2018-08-01] MEDS: MEROPENEM 1 GM in NORMAL SALINE 50 ML IV SCH ×3 (01:33→18:08)
[2018-08-01] MEDS: ACETAMINOPHEN 1,000 MG/100 ML RTUPB IV SCH ×5 (05:04→22:59)
[2018-08-01 05:43] LABS: BLOOD UREA NITROGEN 10 mg/dL (7-20); CALCIUM 7.2 mg/dL (8.4-10.2); CARBON DIOXIDE 24 mmol/L (22-30); GLUCOSE 176 mg/dL (75-110); POTASSIUM 4.1 mmol/L (3.6-5.0)
[2018-08-01 05:48] LABS: ANION GAP 5 (5-19); CHLORIDE 111 mmol/L (98-107); SODIUM 139.5 mmol/L (137-145)
[2018-08-01] MEDS: CALCIUM CARBONATE 250 MG/VITAMIN D3 125 UNIT TABLET PO SCH (08:59)
[2018-08-01] MEDS: 1/2 NORMAL SALINE 1,000 ML IV PRN ×2 (11:14→21:55)
[2018-08-01] MEDS: MIDAZOLAM HCL 50 MG/100 ML RTUINJ IV PRN ×3 (11:43→21:55)
--- NOTE | 2018-08-01 12:41 | PDOC PROGRESS REPORT ---
Subjective Progress Note for:: 08/01/18 Reason For Visit: LOW BLOOD PRESSURE Physical Exam Vital Signs: Temp Pulse Resp BP Pulse Ox 100.4 F 107 H 14 125/48 L 99 08/01/18 10:00 08/01/18 10:00 08/01/18 10:00 08/01/18 10:00 08/01/18 11:43 Intake & Output 07/31/18 08/01/18 08/02/18 06:59 06:59 06:59 Intake Total 3662 2859 1109 Output Total 3175 8153 1629 Balance 316 -9346 -030 Weight 99.4 kg 95.2 kg 95.2 kg Results Laboratory Results: 07/31/18 04:20 08/01/18 05:01 08/01/18 05:01 Sodium 139.5 Potassium 4.1 Chloride 111 H Carbon Dioxide 24 Anion Gap 5 BUN 10 Creatinine 0.45 L Est GFR ( Amer) > 60 Est GFR (Non-Af Amer) > 60 Glucose 176 H Calcium 7.2 L 07/26/18 07/26/18 07/27/18 23:30 23:57 00:35 NT-Pro-B Natriuret Pep Cancelled Cancelled 3320 H Impressions: KUB X-Ray 07/26/18 00:00 IMPRESSION: Nasogastric tube in the stomach. Abdomen/Pelvis CT 07/26/18 15:30 IMPRESSION: 1. Trace right pleural effusion. 2. Cardiomegaly. 3. Fluid-filled dilated esophagus, concerning for increased risk of aspiration. IMPRESSION: 1. High-grade distal small-bowel obstruction with bowel perforation. Surgical consult recommended. 2. Pneumoperitoneum. Small amount of ascites. 3. Indeterminate heterogeneous liver lesion. This can be further evaluated with dedicated nonemergent contrast enhanced MRI. Chest CT 07/26/18 16:11 IMPRESSION: 1. Trace right pleural effusion. 2. Cardiomegaly. 3. Fluid-filled dilated esophagus, concerning for increased risk of aspiration. IMPRESSION: 1. High-grade distal small-bowel obstruction with bowel perforation. Surgical consult recommended. 2. Pneumoperitoneum. Small amount of ascites. 3. Indeterminate heterogeneous liver lesion. This can be further evaluated with dedicated nonemergent contrast enhanced MRI. Chest X-Ray 07/31/18 06:00 IMPRESSION: No significant change. Assessment & Plan - Diagnosis (1) Gallstone ileus Is this a current diagnosis for this admission?: Yes (2) Perforated viscus Is this a current diagnosis for this admission?: Yes (3) Septic shock Is this a current diagnosis for this admission?: Yes - Plan Summary Plan Summary: This is a 57-year-old female status post exploratory laparotomy for gallstone ileus and intestinal perforation. The patient remains intubated. Medicine and pulmonology are following. NG tube to suction due to large perforation of the duodenum. Absolutely nothing is to be put down the NG tube until cleared by surgery. Overall the patient is improved. Her urine output is good. Vent weaning per pulmonology. Wound VAC is in place. Plan for wound VAC change tomorrow.
[2018-08-01] MEDS: AMINO ACIDS 5%/D25W 1,000 ML IV PRN (16:12)
--- NOTE | 2018-08-01 18:09 | PDOC PROGRESS REPORT ---
Subjective Subjective:: Patient remained intubated. But she is awake alert and responds appropriately to verbal stimuli. She is potential for weaning and extubation. Reason For Visit: LOW BLOOD PRESSURE Physical Exam Vital Signs: Temp Pulse Resp BP Pulse Ox 99.0 F 103 H 20 105/56 L 99 08/01/18 16:00 08/01/18 16:00 08/01/18 18:00 08/01/18 17:49 08/01/18 18:00 Intake & Output 07/31/18 08/01/18 08/02/18 06:59 06:59 06:59 Intake Total 3662 2859 2231 Output Total 2250 5431 2845 Balance 898 -2246 -528 Weight 99.4 kg 95.2 kg 95.2 kg General appearance: PRESENT: no acute distress Eye exam: PRESENT: conjunctiva pink Mouth exam: PRESENT: moist Neck exam: ABSENT: carotid bruit, JVD, lymphadenopathy, thyromegaly Respiratory exam: PRESENT: clear to auscultation adán. ABSENT: rales, rhonchi, wheezes Cardiovascular exam: PRESENT: RRR. ABSENT: diastolic murmur, rubs, systolic murmur GI/Abdominal exam: PRESENT: diminished bowel sounds Neurological exam: PRESENT: alert, awake Results Laboratory Results: 07/31/18 04:20 08/01/18 05:01 08/01/18 05:01 Sodium 139.5 Potassium 4.1 Chloride 111 H Carbon Dioxide 24 Anion Gap 5 BUN 10 Creatinine 0.45 L Est GFR ( Amer) > 60 Est GFR (Non-Af Amer) > 60 Glucose 176 H Calcium 7.2 L 07/26/18 07/26/18 07/27/18 23:30 23:57 00:35 NT-Pro-B Natriuret Pep Cancelled Cancelled 3320 H Impressions: KUB X-Ray 07/26/18 00:00 IMPRESSION: Nasogastric tube in the stomach. Abdomen/Pelvis CT 07/26/18 15:30 IMPRESSION: 1. Trace right pleural effusion. 2. Cardiomegaly. 3. Fluid-filled dilated esophagus, concerning for increased risk of aspiration. IMPRESSION: 1. High-grade distal small-bowel obstruction with bowel perforation. Surgical consult recommended. 2. Pneumoperitoneum. Small amount of ascites. 3. Indeterminate heterogeneous liver lesion. This can be further evaluated with dedicated nonemergent contrast enhanced MRI. Chest CT 07/26/18 16:11 IMPRESSION: 1. Trace right pleural effusion. 2. Cardiomegaly. 3. Fluid-filled dilated esophagus, concerning for increased risk of aspiration. IMPRESSION: 1. High-grade distal small-bowel obstruction with bowel perforation. Surgical consult recommended. 2. Pneumoperitoneum. Small amount of ascites. 3. Indeterminate heterogeneous liver lesion. This can be further evaluated with dedicated nonemergent contrast enhanced MRI. Chest X-Ray 07/31/18 06:00 IMPRESSION: No significant change. Assessment & Plan - Diagnosis (1) Hypocalcemia Is this a current diagnosis for this admission?: Yes Plan: Improving (2) Septic shock Is this a current diagnosis for this admission?: Yes Plan: Continue current regimen (3) Extensive peritonitis Is this a current diagnosis for this admission?: Yes Plan: Patient undergone peritoneal lavage with normal saline and she has also peritoneal drain. I switched her ertapenem to meropenem. (4) Metabolic acidosis Is this a current diagnosis for this admission?: Yes Plan: Has resolved (5) Perforated viscus Is this a current diagnosis for this admission?: Yes Plan: Management per primary surgeon. (6) Bowel obstruction Qualifiers: Intestinal obstruction type: unspecified Intestinal obstruction extent: complete Qualified Code(s): K56.601 - Complete intestinal obstruction, unspecified as to cause Is this a current diagnosis for this admission?: Yes Plan: Management per primary surgeon.
[2018-08-02] MEDS: FENTANYL CITRATE/PF 600 MCG/60 ML BAG IV PRN ×3 (00:03→23:24)
[2018-08-02] MEDS: INSULIN REG, HUMAN 100 UNIT/ML 3 ML VIAL (PYX) SUBCUT PRN ×2 (00:09→06:14)
[2018-08-02] MEDS: MEROPENEM 1 GM in NORMAL SALINE 50 ML IV SCH ×3 (00:59→17:14)
[2018-08-02] MEDS: MIDAZOLAM HCL 50 MG/100 ML RTUINJ IV PRN ×3 (05:00→21:48)
[2018-08-02] MEDS: ACETAMINOPHEN 1,000 MG/100 ML RTUPB IV SCH ×4 (05:00→23:24)
[2018-08-02] MEDS: NORMAL SALINE 1000 ML 1,000 ML IV PRN ×2 (09:45→17:18)
[2018-08-02] MEDS: AMINO ACIDS 5%/D25W 1,000 ML IV PRN (16:01)
--- NOTE | 2018-08-02 20:26 | PDOC PROGRESS REPORT ---
Subjective Reason For Visit: LOW BLOOD PRESSURE Physical Exam Vital Signs: Temp Pulse Resp BP Pulse Ox 100.2 F 90 0 L 91/47 L 100 08/02/18 12:00 08/02/18 14:00 08/02/18 18:00 08/02/18 17:51 08/02/18 18:00 Intake & Output 08/01/18 08/02/18 08/03/18 06:59 06:59 06:59 Intake Total 2858 7083 6182 Output Total 5444 0220 [facility] Balance -6217 -4675 287 Weight 95.2 kg 94.7 kg Results Laboratory Results: 07/31/18 04:20 08/01/18 05:01 07/26/18 07/26/18 07/27/18 23:30 23:57 00:35 NT-Pro-B Natriuret Pep Cancelled Cancelled 3320 H Impressions: KUB X-Ray 07/26/18 00:00 IMPRESSION: Nasogastric tube in the stomach. Abdomen/Pelvis CT 07/26/18 15:30 IMPRESSION: 1. Trace right pleural effusion. 2. Cardiomegaly. 3. Fluid-filled dilated esophagus, concerning for increased risk of aspiration. IMPRESSION: 1. High-grade distal small-bowel obstruction with bowel perforation. Surgical consult recommended. 2. Pneumoperitoneum. Small amount of ascites. 3. Indeterminate heterogeneous liver lesion. This can be further evaluated with dedicated nonemergent contrast enhanced MRI. Chest CT 07/26/18 16:11 IMPRESSION: 1. Trace right pleural effusion. 2. Cardiomegaly. 3. Fluid-filled dilated esophagus, concerning for increased risk of aspiration. IMPRESSION: 1. High-grade distal small-bowel obstruction with bowel perforation. Surgical consult recommended. 2. Pneumoperitoneum. Small amount of ascites. 3. Indeterminate heterogeneous liver lesion. This can be further evaluated with dedicated nonemergent contrast enhanced MRI. Chest X-Ray 07/31/18 06:00 IMPRESSION: No significant change. Assessment & Plan - Diagnosis (1) Gallstone ileus Is this a current diagnosis for this admission?: Yes (2) Perforated viscus Is this a current diagnosis for this admission?: Yes (3) Septic shock Is this a current diagnosis for this admission?: Yes - Plan Summary Plan Summary: This is a 57-year-old female status post exploratory laparotomy for gallstone ileus and intestinal perforation. The patient remains intubated. Medicine and pulmonology are following. NG tube to suction due to large perforation of the duodenum. Absolutely nothing is to be put down the NG tube until cleared by surgery. Her urine output is good. Vent weaning per pulmonology. Wound VAC was changed last night by nursing staff. I was not called to evaluate the wound. Nursing staff has been instructed that next time the wound VAC is changed, a surgeon is to be called to evaluate the wound. Continue supportive care.
[2018-08-03] MEDS: NORMAL SALINE 1000 ML 1,000 ML IV PRN (01:02)
[2018-08-03] MEDS: MEROPENEM 1 GM in NORMAL SALINE 50 ML IV SCH ×3 (01:03→17:11)
[2018-08-03 04:51] LABS: HEMOGLOBIN 9.8 g/dL (12.0-15.5); MEAN CORPUSCULAR HEMOGLOBIN 27.7 pg (27.0-33.4); MEAN CORPUSCULAR HGB CONC 32.8 g/dL (32.0-36.0); MEAN CORPUSCULAR VOLUME 84 fl (80-97); PLATELET COUNT 198 10^3/uL (150-450); RED BLOOD COUNT 3.56 10^6/uL (3.72-5.28); RED CELL DISTRIBUTION WIDTH 14.4 % (11.5-14.0); WHITE BLOOD COUNT 12.2 10^3/uL (4.0-10.5)
[2018-08-03 04:58] LABS: INTERNATIONAL RATION (INR) 1.11; PROTHROMBIN TIME 14.9 SEC (11.4-15.4)
[2018-08-03] MEDS: ACETAMINOPHEN 1,000 MG/100 ML RTUPB IV SCH ×4 (05:01→23:36)
[2018-08-03 05:02] LABS: ARTERIAL BLOOD BASE EXCESS -1.8 mmol/L; ARTERIAL BLOOD FIO2 28%; ARTERIAL BLOOD H2CO3 0.87 mmol/L (1.05-1.35); ARTERIAL BLOOD O2 SATURATION 97.9 % (94-98); ARTERIAL BLOOD PCO2 28.9 mmHg (35-45); ARTERIAL BLOOD PH 7.48 (7.35-7.45); ARTERIAL BLOOD PO2 97.5 mmHg (80-100); ARTERIAL BLOOD TOTAL CO2 21.9 mmol/L (21-25)
[2018-08-03 05:12] LABS: ALANINE AMINOTRANSFERASE 51 U/L (9-52); ALBUMIN 1.9 g/dL (3.5-5.0); ALKALINE PHOSPHATASE 261 U/L (38-126); ASPARTATE AMINO TRANSFERASE 54 U/L (14-36); BILIRUBIN,DIRECT 0.3 mg/dL (0.0-0.4); BILIRUBIN,TOTAL 0.5 mg/dL (0.2-1.3); BLOOD UREA NITROGEN 12 mg/dL (7-20); CALCIUM 7.4 mg/dL (8.4-10.2); GLUCOSE 178 mg/dL (75-110); POTASSIUM 4.7 mmol/L (3.6-5.0); TOTAL PROTEIN 4.6 g/dL (6.3-8.2)
[2018-08-03 05:17] LABS: CARBON DIOXIDE 24 mmol/L (22-30); CHLORIDE 110 mmol/L (98-107); SODIUM 137.2 mmol/L (137-145)
[2018-08-03] MEDS ORDERED: MIDAZOLAM HCL 50 MG/100 ML RTUINJ ONE (05:21)
[2018-08-03] MEDS: INSULIN REG, HUMAN 100 UNIT/ML 3 ML VIAL (PYX) SUBCUT PRN (05:23)
[2018-08-03 05:24] LABS: ANION GAP 3 (5-19)
[2018-08-03] MEDS: MIDAZOLAM HCL 50 MG/100 ML RTUINJ IV PRN ×2 (05:34→21:31)
--- NOTE | 2018-08-03 07:05 | RADIOLOGY REPORT (SQ) ---
EXAM DESCRIPTION: XR CHEST 1 VIEW COMPLETED DATE/TME: 08/03/2018 06:00 CLINICAL HISTORY: Respiratory Distress. 57 years Female, resp failure COMPARISON: 3 days prior. NUMBER OF VIEWS/TECHNIQUE: 1/AP FINDINGS: Bilateral lower thoracic opacity/effusion. Adequate appearing endotracheal tube. Likely adequate appearing enteric tube partially obscured. Sternotomy. Right jugular central line tip at the inferior right atrium; consider 7.6 cm retraction of the right jugular central line. Normal cardiac silhouette size. No pneumothorax. Stable bony thorax. IMPRESSION: No significant change.
[2018-08-03] MEDS: FAT EMULSIONS 250 ML IV SCH (10:30)
[2018-08-03] MEDS: FENTANYL CITRATE/PF 600 MCG/60 ML BAG IV PRN ×2 (10:53→22:33)
--- NOTE | 2018-08-03 11:21 | PDOC PROGRESS REPORT ---
Subjective Progress Note for:: 08/03/18 Subjective:: She did not remains intubated she is somewhat lethargic since secondary to the fentanyl suly on TPN Reason For Visit: LOW BLOOD PRESSURE Physical Exam Vital Signs: Temp Pulse Resp BP Pulse Ox 100.0 F 85 20 92/46 L 100 08/03/18 10:00 08/03/18 08:00 08/03/18 08:00 08/03/18 02:51 08/03/18 09:02 Intake & Output 08/02/18 08/03/18 08/04/18 06:59 06:59 06:59 Intake Total 3663 4277 55 Output Total 5120 3750 675 Balance -1457 527 -620 Weight 94.7 kg 93.9 kg Respiratory exam: PRESENT: other - Chest is clear bilaterally GI/Abdominal exam: PRESENT: other - Her abdomen appears to be soft with doughy the parents the wound VAC is in place to remove the wound VAC and examined the wound there is some granulation tissue the upper edges of the wound however deep within the crevice of the wound at the top of the midline incision there is still a lot of purulent exudate vessels intact few if any bowel sounds Results Laboratory Results: 08/03/18 04:44 08/03/18 04:44 08/03/18 08/03/18 08/03/18 04:44 04:44 04:54 WBC 12.2 H RBC 3.56 L Hgb 9.8 L Hct 30.0 L MCV 84 MCH 27.7 MCHC 32.8 RDW 14.4 H Plt Count 198 Carbonic Acid 0.87 L HCO3/H2CO3 Ratio 24:1 ABG pH 7.48 H ABG pCO2 28.9 L ABG pO2 97.5 ABG HCO3 21.0 ABG O2 Saturation 97.9 ABG Base Excess -1.8 FiO2 28% Sodium 137.2 Potassium 4.7 Chloride 110 H Carbon Dioxide 24 Anion Gap 3 L BUN 12 Creatinine 0.43 L Est GFR ( Amer) > 60 Est GFR (Non-Af Amer) > 60 Glucose 178 H Calcium 7.4 L Magnesium 2.1 Total Bilirubin 0.5 AST 54 H ALT 51 Alkaline Phosphatase 261 H Total Protein 4.6 L Albumin 1.9 L 08/01/18 15:40 Swenson Catheter Urine Culture - Final NO GROWTH 2 DAYS 07/26/18 07/26/18 07/27/18 23:30 23:57 00:35 NT-Pro-B Natriuret Pep Cancelled Cancelled 3320 H Impressions: KUB X-Ray 07/26/18 00:00 IMPRESSION: Nasogastric tube in the stomach. Abdomen/Pelvis CT 07/26/18 15:30 IMPRESSION: 1. Trace right pleural effusion. 2. Cardiomegaly. 3. Fluid-filled dilated esophagus, concerning for increased risk of aspiration. IMPRESSION: 1. High-grade distal small-bowel obstruction with bowel perforation. Surgical consult recommended. 2. Pneumoperitoneum. Small amount of ascites. 3. Indeterminate heterogeneous liver lesion. This can be further evaluated with dedicated nonemergent contrast enhanced MRI. Chest CT 07/26/18 16:11 IMPRESSION: 1. Trace right pleural effusion. 2. Cardiomegaly. 3. Fluid-filled dilated esophagus, concerning for increased risk of aspiration. IMPRESSION: 1. High-grade distal small-bowel obstruction with bowel perforation. Surgical consult recommended. 2. Pneumoperitoneum. Small amount of ascites. 3. Indeterminate heterogeneous liver lesion. This can be further evaluated with dedicated nonemergent contrast enhanced MRI. Chest X-Ray 08/03/18 06:00 IMPRESSION: No significant change. Assessment & Plan - Diagnosis (1) Bowel obstruction Qualifiers: Intestinal obstruction type: unspecified Intestinal obstruction extent: complete Qualified Code(s): K56.601 - Complete intestinal obstruction, unspecified as to cause Is this a current diagnosis for this admission?: Yes (2) Extensive peritonitis Is this a current diagnosis for this admission?: Yes (3) Gallstone ileus Is this a current diagnosis for this admission?: Yes (4) Septic shock Is this a current diagnosis for this admission?: Yes - Time Time Spent with patient: 25-34 minutes - She remains intubated still somewhat sedated with IV fentanyl she has not yet returned bowel function wound has been examined there is some fibrinous exudate and some purulent exudate in the depths of the wound today will be to remove the wound VAC and leave it off at this point and will start with dressing changes to the midline wound with saline soaked Kerlix gauze change 3 times a day I will reexamine the wound again in the morning and if it seems like it is improved then we could probably replace wound VAC at that time. The NG tube remains in place she still has not had return of bowel function yet and in addition that there is a large perforation of the duodenum secondary to gallstone ileus and until she has a resumption of bowel function the NG tube should remain in place
--- NOTE | 2018-08-03 13:26 | PDOC PROGRESS REPORT ---
Subjective Progress Note for:: 08/03/18 Subjective:: Patient seen while she lying. She remained intubated. Her blood pressure is getting better after she started on normal saline. Patient scheduled for extubation but he does not follow commands and still she is lethargic and I do not think she is ready. Reason For Visit: LOW BLOOD PRESSURE Physical Exam Vital Signs: Temp Pulse Resp BP Pulse Ox 100.6 F H 85 26 H 92/46 L 97 08/03/18 12:00 08/03/18 08:00 08/03/18 11:00 08/03/18 02:51 08/03/18 12:31 Intake & Output 08/02/18 08/03/18 08/04/18 06:59 06:59 06:59 Intake Total 3663 4277 55 Output Total 5120 3750 1075 Balance -1457 527 -1020 Weight 94.7 kg 93.9 kg General appearance: PRESENT: no acute distress Head exam: PRESENT: atraumatic Eye exam: PRESENT: conjunctiva pink Neck exam: ABSENT: carotid bruit, JVD, lymphadenopathy, thyromegaly Cardiovascular exam: PRESENT: RRR. ABSENT: diastolic murmur, rubs, systolic murmur GI/Abdominal exam: PRESENT: diminished bowel sounds Results Laboratory Results: 08/03/18 04:44 08/03/18 04:44 08/03/18 08/03/18 08/03/18 04:44 04:44 04:54 WBC 12.2 H RBC 3.56 L Hgb 9.8 L Hct 30.0 L MCV 84 MCH 27.7 MCHC 32.8 RDW 14.4 H Plt Count 198 Carbonic Acid 0.87 L HCO3/H2CO3 Ratio 24:1 ABG pH 7.48 H ABG pCO2 28.9 L ABG pO2 97.5 ABG HCO3 21.0 ABG O2 Saturation 97.9 ABG Base Excess -1.8 FiO2 28% Sodium 137.2 Potassium 4.7 Chloride 110 H Carbon Dioxide 24 Anion Gap 3 L BUN 12 Creatinine 0.43 L Est GFR ( Amer) > 60 Est GFR (Non-Af Amer) > 60 Glucose 178 H Calcium 7.4 L Magnesium 2.1 Total Bilirubin 0.5 AST 54 H ALT 51 Alkaline Phosphatase 261 H Total Protein 4.6 L Albumin 1.9 L 08/01/18 20:31 Abdomen - Post Surgical Site Gram Stain - Final 08/01/18 20:31 Abdomen - Post Surgical Site Wound Culture - Final 08/01/18 15:40 Tracheal Aspirate Gram Stain - Final 08/01/18 15:40 Tracheal Aspirate Sputum Culture - Final C.albicans/C.dubliniensis Normal Adeola Absent 08/01/18 15:40 Swenson Catheter Urine Culture - Final NO GROWTH 2 DAYS 07/26/18 07/26/18 07/27/18 23:30 23:57 00:35 NT-Pro-B Natriuret Pep Cancelled Cancelled 3320 H Impressions: KUB X-Ray 07/26/18 00:00 IMPRESSION: Nasogastric tube in the stomach. Abdomen/Pelvis CT 07/26/18 15:30 IMPRESSION: 1. Trace right pleural effusion. 2. Cardiomegaly. 3. Fluid-filled dilated esophagus, concerning for increased risk of aspiration. IMPRESSION: 1. High-grade distal small-bowel obstruction with bowel perforation. Surgical consult recommended. 2. Pneumoperitoneum. Small amount of ascites. 3. Indeterminate heterogeneous liver lesion. This can be further evaluated with dedicated nonemergent contrast enhanced MRI. Chest CT 07/26/18 16:11 IMPRESSION: 1. Trace right pleural effusion. 2. Cardiomegaly. 3. Fluid-filled dilated esophagus, concerning for increased risk of aspiration. IMPRESSION: 1. High-grade distal small-bowel obstruction with bowel perforation. Surgical consult recommended. 2. Pneumoperitoneum. Small amount of ascites. 3. Indeterminate heterogeneous liver lesion. This can be further evaluated with dedicated nonemergent contrast enhanced MRI. Chest X-Ray 08/03/18 06:00 IMPRESSION: No significant change. Assessment & Plan - Diagnosis (1) Hypotension Is this a current diagnosis for this admission?: Yes Plan: Her blood pressure is improving. (2) Hypocalcemia Is this a current diagnosis for this admission?: Yes Plan: Improving (3) Septic shock Is this a current diagnosis for this admission?: Yes Plan: Continue current regimen (4) Extensive peritonitis Is this a current diagnosis for this admission?: Yes Plan: Patient undergone peritoneal lavage with normal saline and she has also peritoneal drain. I switched her ertapenem to meropenem. (5) Metabolic acidosis Is this a current diagnosis for this admission?: Yes Plan: Has resolved (6) Perforated viscus Is this a current diagnosis for this admission?: Yes Plan: Management per primary surgeon. (7) Bowel obstruction Qualifiers: Intestinal obstruction type: unspecified Intestinal obstruction extent: complete Qualified Code(s): K56.601 - Complete intestinal obstruction, unspecified as to cause Is this a current diagnosis for this admission?: Yes Plan: Management per primary surgeon.
[2018-08-04] MEDS: MEROPENEM 1 GM in NORMAL SALINE 50 ML IV SCH ×2 (02:35→10:08)
[2018-08-04 05:27] LABS: ARTERIAL BLOOD BASE EXCESS -1.1 mmol/L; ARTERIAL BLOOD H2CO3 0.85 mmol/L (1.05-1.35); ARTERIAL BLOOD HCO3 21.5 mmol/L (20-24); ARTERIAL BLOOD O2 SATURATION 98.6 % (94-98); ARTERIAL BLOOD PCO2 28.1 mmHg (35-45); ARTERIAL BLOOD PO2 115.3 mmHg (80-100); ARTERIAL BLOOD TOTAL CO2 22.3 mmol/L (21-25)
[2018-08-04 05:28] LABS: ARTERIAL BLOOD FIO2 28%
[2018-08-04] MEDS: ACETAMINOPHEN 1,000 MG/100 ML RTUPB IV SCH (05:32)
[2018-08-04] MEDS: NORMAL SALINE 1000 ML 1,000 ML IV PRN ×2 (05:33→20:53)
--- NOTE | 2018-08-04 08:26 | RADIOLOGY REPORT (SQ) ---
EXAM DESCRIPTION: CHEST SINGLE VIEW COMPLETED DATE/TIME: 08/04/2018 6:52 am REASON FOR STUDY: resp failure COMPARISON: 08/03/2018 EXAM PARAMETERS: NUMBER OF VIEWS: One view. TECHNIQUE: Single frontal radiographic view of the chest acquired. RADIATION DOSE: NA LIMITATIONS: None. FINDINGS: LUNGS AND PLEURA: Bilateral pleural effusions. Slightly worse. MEDIASTINUM AND HILAR STRUCTURES: No masses. Contour normal. HEART AND VASCULAR STRUCTURES: Heart enlarged. Vascular congestion. BONES: No acute findings. HARDWARE: ETT the unchanged. Venous access catheter unchanged. Nasogastric tube unchanged. OTHER: No other significant finding. IMPRESSION: Slightly worse aeration of the lungs with increased effusions. Support devices in expected locations. TECHNICAL DOCUMENTATION: JOB ID: [id number] [employer]- All Rights Reserved Reading location - IP/workstation name: [email or web address]
[2018-08-04] MEDS: AMINO ACIDS 5%/D25W 1,000 ML IV PRN (09:38)
[2018-08-04] MEDS: FENTANYL CITRATE/PF 600 MCG/60 ML BAG IV PRN ×2 (09:38→20:47)
--- NOTE | 2018-08-04 13:04 | PDOC PROGRESS REPORT ---
Subjective Progress Note for:: 08/04/18 Subjective:: General surgeon is the primary attending for this patient. VAZQUEZ QUINTANA is a 57 year old female patient who presented to [facility] ER with chief complaint of intractable abdominal pain. Patient has been evaluated by Dr. Christianson who was impression of perforated viscus patient undergone emergent laparotomy and she is found to have small bowel perforation, extensive peritonitis, small bowel obstruction and gallstone ileus. Patient has been managed accordingly. The hospitalist service consulted for medical management. Patient has been getting ertapenem. I switched her to meropenem for what is brought spectrum coverage. This morning I seen patient lying in bed and she is remained intubated. She is not ready for extubation. Reason For Visit: LOW BLOOD PRESSURE Physical Exam Vital Signs: Temp Pulse Resp BP Pulse Ox 99.1 F 97 23 H 123/69 100 08/04/18 10:00 08/04/18 10:00 08/04/18 10:04 08/04/18 10:04 08/04/18 12:22 Intake & Output 08/03/18 08/04/18 08/05/18 06:59 06:59 06:59 Intake Total 4277 2591 104 Output Total 3750 5510 825 Balance 955 -9359 -721 Weight 93.9 kg 93.7 kg General appearance: PRESENT: no acute distress Mouth exam: PRESENT: moist Neck exam: ABSENT: carotid bruit, JVD, lymphadenopathy, thyromegaly Respiratory exam: PRESENT: clear to auscultation adán. ABSENT: rales, rhonchi, wheezes Pulses: PRESENT: normal dorsalis pedis pul GI/Abdominal exam: PRESENT: diminished bowel sounds Results Laboratory Results: 08/03/18 04:44 08/03/18 04:44 08/03/18 08/04/18 20:25 04:50 Carbonic Acid 0.85 L HCO3/H2CO3 Ratio 25:1 ABG pH 7.50 H ABG pCO2 28.1 L ABG pO2 115.3 H ABG HCO3 21.5 ABG O2 Saturation 98.6 H ABG Base Excess -1.1 FiO2 28% Triglycerides 172 H 08/01/18 20:31 Abdomen - Post Surgical Site Gram Stain - Final 08/01/18 20:31 Abdomen - Post Surgical Site Wound Culture - Final 08/01/18 15:40 Tracheal Aspirate Gram Stain - Final 08/01/18 15:40 Tracheal Aspirate Sputum Culture - Final C.albicans/C.dubliniensis Normal Adeola Absent 08/01/18 15:40 Swenson Catheter Urine Culture - Final NO GROWTH 2 DAYS 07/26/18 07/26/18 07/27/18 23:30 23:57 00:35 NT-Pro-B Natriuret Pep Cancelled Cancelled 3320 H Impressions: KUB X-Ray 07/26/18 00:00 IMPRESSION: Nasogastric tube in the stomach. Abdomen/Pelvis CT 07/26/18 15:30 IMPRESSION: 1. Trace right pleural effusion. 2. Cardiomegaly. 3. Fluid-filled dilated esophagus, concerning for increased risk of aspiration. IMPRESSION: 1. High-grade distal small-bowel obstruction with bowel perforation . Surgical consult recommended. 2. Pneumoperitoneum. Small amount of ascites. 3. Indeterminate heterogeneous liver lesion. This can be further evaluated with dedicated nonemergent contrast enhanced MRI. Chest CT 07/26/18 16:11 IMPRESSION: 1. Trace right pleural effusion. 2. Cardiomegaly. 3. Fluid-filled dilated esophagus, concerning for increased risk of aspiration. IMPRESSION: 1. High-grade distal small-bowel obstruction with bowel perforation. Surgical consult recommended. 2. Pneumoperitoneum. Small amount of ascites. 3. Indeterminate heterogeneous liver lesion. This can be further evaluated with dedicated nonemergent contrast enhanced MRI. Chest X-Ray 08/04/18 06:00 IMPRESSION: Slightly worse aeration of the lungs with increased effusions. Support devices in expected locations. Assessment & Plan - Diagnosis (1) Hypotension Is this a current diagnosis for this admission?: Yes Plan: Resolved (2) Hypocalcemia Is this a current diagnosis for this admission?: Yes Plan: Resolved (3) Septic shock Is this a current diagnosis for this admission?: Yes Plan: Continue current regimen (4) Extensive peritonitis Is this a current diagnosis for this admission?: Yes Plan: Patient undergone peritoneal lavage with normal saline and she has also peritoneal drain. I switched her ertapenem to meropenem. (5) Metabolic acidosis Is this a current diagnosis for this admission?: Yes Plan: Has resolved (6) Perforated viscus Is this a current diagnosis for this admission?: Yes Plan: Management per primary surgeon. (7) Bowel obstruction Qualifiers: Intestinal obstruction type: unspecified Intestinal obstruction extent: complete Qualified Code(s): K56.601 - Complete intestinal obstruction, unspecified as to cause Is this a current diagnosis for this admission?: Yes Plan: Management per primary surgeon.
--- NOTE | 2018-08-04 15:29 | PDOC PROGRESS REPORT ---
Subjective Progress Note for:: 08/04/18 - post op ex lap for gallstone ileus and duodenal repair Subjective:: pt remains intubated Reason For Visit: LOW BLOOD PRESSURE hx of exploratory laparotomy for gallstone ileus' repair of duodenal perforation sepsis Physical Exam Vital Signs: Temp Pulse Resp BP Pulse Ox 99.1 F 97 14 143/100 H 100 08/04/18 10:00 08/04/18 10:00 08/04/18 15:13 08/04/18 15:13 08/04/18 15:13 Intake & Output 08/03/18 08/04/18 08/05/18 06:59 06:59 06:59 Intake Total 4277 2591 104 Output Total 3750 5510 825 Balance 161 -7690 -426 Weight 93.9 kg 93.7 kg GI/Abdominal exam: PRESENT: other - abdominal wound reexamined wound vac was removed yesterday and starte wet to dry dressings still with some fibrinous exudate at the depth of wound fascia is intact drainage improved since yesterday Results Laboratory Results: 08/03/18 04:44 08/03/18 04:44 08/03/18 08/04/18 20:25 04:50 Carbonic Acid 0.85 L HCO3/H2CO3 Ratio 25:1 ABG pH 7.50 H ABG pCO2 28.1 L ABG pO2 115.3 H ABG HCO3 21.5 ABG O2 Saturation 98.6 H ABG Base Excess -1.1 FiO2 28% Triglycerides 172 H 08/01/18 20:31 Abdomen - Post Surgical Site Gram Stain - Final 08/01/18 20:31 Abdomen - Post Surgical Site Wound Culture - Final 08/01/18 15:40 Tracheal Aspirate Gram Stain - Final 08/01/18 15:40 Tracheal Aspirate Sputum Culture - Final C.albicans/C.dubliniensis Normal Adeola Absent 08/01/18 15:40 Swenson Catheter Urine Culture - Final NO GROWTH 2 DAYS 07/26/18 07/26/18 07/27/18 23:30 23:57 00:35 NT-Pro-B Natriuret Pep Cancelled Cancelled 3320 H Impressions: KUB X-Ray 07/26/18 00:00 IMPRESSION: Nasogastric tube in the stomach. Abdomen/Pelvis CT 07/26/18 15:30 IMPRESSION: 1. Trace right pleural effusion. 2. Cardiomegaly. 3. Fluid-filled dilated esophagus, concerning for increased risk of aspiration. IMPRESSION: 1. High-grade distal small-bowel obstruction with bowel perforation. Surgical consult recommended. 2. Pneumoperitoneum. Small amount of ascites. 3. Indeterminate heterogeneous liver lesion. This can be further evaluated with dedicated nonemergent contrast enhanced MRI. Chest CT 07/26/18 16:11 IMPRESSION: 1. Trace right pleural effusion. 2. Cardiomegaly. 3. Fluid-filled dilated esophagus, concerning for increased risk of aspiration. IMPRESSION: 1. High-grade distal small-bowel obstruction with bowel perforation. Surgical consult recommended. 2. Pneumoperitoneum. Small amount of ascites. 3. Indeterminate heterogeneous liver lesion. This can be further evaluated with dedicated nonemergent contrast enhanced MRI. Chest X-Ray 08/04/18 06:00 IMPRESSION: Slightly worse aeration of the lungs with increased effusions. Support devices in expected locations. Assessment & Plan - Diagnosis (1) Bowel obstruction Qualifiers: Intestinal obstruction type: unspecified Intestinal obstruction extent: complete Qualified Code(s): K56.601 - Complete intestinal obstruction, unspecified as to cause Is this a current diagnosis for this admission?: Yes (2) Extensive peritonitis Is this a current diagnosis for this admission?: Yes (3) Gallstone ileus Is this a current diagnosis for this admission?: Yes (4) Septic shock Is this a current diagnosis for this admission?: Yes - Plan Summary Plan Summary: pt wound is improved since removing vac yesterday still with fibrinous exudate at depth of wound but improved fascia intact will cont with wet to dry dressing changes
[2018-08-04] MEDS ORDERED: ACETAMINOPHEN 1,000 MG/100 ML RTUPB IV ONE (17:45)
[2018-08-04] MEDS: MIDAZOLAM HCL 50 MG/100 ML RTUINJ IV PRN (20:53)
[2018-08-05 04:37] LABS: ARTERIAL BLOOD BASE EXCESS -1.1 mmol/L; ARTERIAL BLOOD FIO2 28%; ARTERIAL BLOOD H2CO3 0.86 mmol/L (1.05-1.35); ARTERIAL BLOOD HCO3 21.5 mmol/L (20-24); ARTERIAL BLOOD O2 SATURATION 97.6 % (94-98); ARTERIAL BLOOD PCO2 28.5 mmHg (35-45); ARTERIAL BLOOD PO2 90.6 mmHg (80-100); ARTERIAL BLOOD TOTAL CO2 22.4 mmol/L (21-25)
[2018-08-05] MEDS: NORMAL SALINE 1000 ML 1,000 ML IV PRN ×2 (05:30→20:54)
[2018-08-05] MEDS: INSULIN REG, HUMAN 100 UNIT/ML 3 ML VIAL (PYX) SUBCUT PRN ×2 (05:30→17:46)
[2018-08-05] MEDS: AMINO ACIDS 5%/D25W 1,000 ML IV PRN (07:54)
--- NOTE | 2018-08-05 08:37 | RADIOLOGY REPORT (SQ) ---
EXAM DESCRIPTION: CHEST SINGLE VIEW COMPLETED DATE/TIME: 08/05/2018 6:58 am REASON FOR STUDY: resp failure COMPARISON: CT chest 07/26/2018 Chest films 07/26/2018, 07/31/2018, 08/03/2018, 08/04/2018 EXAM PARAMETERS: NUMBER OF VIEWS: One view. TECHNIQUE: Single frontal radiographic view of the chest acquired. RADIATION DOSE: NA LIMITATIONS: None. FINDINGS: LUNGS AND PLEURA: Minimal right and left basilar airspace disease likely atelectasis. No pleural effusions. No pneumothorax. MEDIASTINUM AND HILAR STRUCTURES: No masses. Contour normal. HEART AND VASCULAR STRUCTURES: Stable marked cardiomegaly BONES: No acute findings. HARDWARE: Endotracheal tube tip 3 cm above the vanessa. Nasogastric tube tip and side port in the sto mach. Right jugular central line tip in the right atrium. OTHER: No other significant finding. IMPRESSION: Bibasilar atelectasis TECHNICAL DOCUMENTATION: JOB ID: [id number] [employer]- All Rights Reserved Reading location - IP/workstation name: [email or web address]
[2018-08-05] MEDS: FENTANYL CITRATE/PF 600 MCG/60 ML BAG IV PRN ×2 (08:51→20:54)
[2018-08-05] MEDS: MIDAZOLAM HCL 50 MG/100 ML RTUINJ IV PRN (09:02)
[2018-08-05 10:39] LABS: HEMATOCRIT 26.7 % (36.0-47.0); MEAN CORPUSCULAR HEMOGLOBIN 27.8 pg (27.0-33.4); MEAN CORPUSCULAR HGB CONC 33.6 g/dL (32.0-36.0); MEAN CORPUSCULAR VOLUME 83 fl (80-97); PLATELET COUNT 280 10^3/uL (150-450); RED BLOOD COUNT 3.23 10^6/uL (3.72-5.28); RED CELL DISTRIBUTION WIDTH 14.1 % (11.5-14.0); WHITE BLOOD COUNT 11.5 10^3/uL (4.0-10.5)
[2018-08-05 10:48] LABS: ALANINE AMINOTRANSFERASE 49 U/L (9-52); ALBUMIN 2.2 g/dL (3.5-5.0); ALKALINE PHOSPHATASE 319 U/L (38-126); ASPARTATE AMINO TRANSFERASE 49 U/L (14-36); BILIRUBIN,DIRECT 0.2 mg/dL (0.0-0.4); BILIRUBIN,TOTAL 0.4 mg/dL (0.2-1.3); BLOOD UREA NITROGEN 10 mg/dL (7-20); CALCIUM 7.6 mg/dL (8.4-10.2); CARBON DIOXIDE 25 mmol/L (22-30); CHLORIDE 106 mmol/L (98-107); GLUCOSE 161 mg/dL (75-110); POTASSIUM 4.3 mmol/L (3.6-5.0); SODIUM 134.3 mmol/L (137-145); TOTAL PROTEIN 4.9 g/dL (6.3-8.2)
[2018-08-05 10:59] LABS: ANION GAP 3 (5-19)
[2018-08-05] MEDS: MEROPENEM 1 GM in NORMAL SALINE 50 ML IV SCH ×2 (12:19→18:14)
--- NOTE | 2018-08-05 18:40 | PDOC PROGRESS REPORT ---
Subjective Progress Note for:: 08/05/18 Subjective:: Patient remains sedated and intubated. She was febrile overnight. I am not able to find in the EMR when she was last on antibiotics. Reason For Visit: LOW BLOOD PRESSURE Physical Exam Vital Signs: Temp Pulse Resp BP Pulse Ox 100.9 F H 102 H 14 118/98 H 97 08/05/18 17:59 08/05/18 18:00 08/05/18 18:05 08/05/18 18:05 08/05/18 18:05 Intake & Output 08/04/18 08/05/18 08/06/18 06:59 06:59 06:59 Intake Total 2591 3660 184 Output Total 5510 5615 3110 Balance -9707 -4274 -292 Weight 93.7 kg 90.3 kg General appearance: PRESENT: morbidly obese, other - Sedated, intubated Respiratory exam: PRESENT: rhonchi, tachypnea, wheezes. ABSENT: rales, symmetrical, unlabored Cardiovascular exam: PRESENT: tachycardia Vascular exam: PRESENT: normal capillary refill GI/Abdominal exam: PRESENT: hypoactive bowel sounds, soft, tenderness. ABSENT: distended, firm, guarding, rebound, rigid Extremities exam: ABSENT: clubbing, pedal edema Musculoskeletal exam: PRESENT: normal inspection. ABSENT: deformity Neurological exam: PRESENT: other - Sedated Skin exam: PRESENT: dry, warm Results Laboratory Results: 08/05/18 10:30 08/05/18 10:30 08/05/18 08/05/18 08/05/18 04:27 10:30 10:30 WBC 11.5 H RBC 3.23 L Hgb 9.0 L Hct 26.7 L MCV 83 MCH 27.8 MCHC 33.6 RDW 14.1 H Plt Count 280 Carbonic Acid 0.86 L HCO3/H2CO3 Ratio 25:1 ABG pH 7.50 H ABG pCO2 28.5 L ABG pO2 90.6 ABG HCO3 21.5 ABG O2 Saturation 97.6 ABG Base Excess -1.1 FiO2 28% Sodium 134.3 L Potassium 4.3 Chloride 106 Carbon Dioxide 25 Anion Gap 3 L BUN 10 Creatinine 0.43 L Est GFR ( Amer) > 60 Est GFR (Non-Af Amer) > 60 Glucose 161 H Calcium 7.6 L Total Bilirubin 0.4 AST 49 H ALT 49 Alkaline Phosphatase 319 H Total Protein 4.9 L Albumin 2.2 L 07/26/18 07/26/18 07/27/18 23:30 23:57 00:35 NT-Pro-B Natriuret Pep Cancelled Cancelled 3320 H Impressions: KUB X-Ray 07/26/18 00:00 IMPRESSION: Nasogastric tube in the stomach. Abdomen/Pelvis CT 07/26/18 15:30 IMPRESSION: 1. Trace right pleural effusion. 2. Cardiomegaly. 3. Fluid-filled dilated esophagus, concerning for increased risk of aspiration. IMPRESSION: 1. High-grade distal small-bowel obstruction with bowel perforation. Surgical consult recommended. 2. Pneumoperitoneum. Small amount of ascites. 3. Indeterminate heterogeneous liver lesion. This can be further evaluated with dedicated nonemergent contrast enhanced MRI. Chest CT 07/26/18 16:11 IMPRESSION: 1. Trace right pleural effusion. 2. Cardiomegaly. 3. Fluid-filled dilated esophagus, concerning for increased risk of aspiration. IMPRESSION: 1. High-grade distal small-bowel obstruction with bowel perforation. Surgical consult recommended. 2. Pneumoperitoneum. Small amount of ascites. 3. Indeterminate heterogeneous liver lesion. This can be further evaluated with dedicated nonemergent contrast enhanced MRI. Chest X-Ray 08/05/18 06:00 IMPRESSION: Bibasilar atelectasis Assessment & Plan - Diagnosis (1) Perforated viscus Is this a current diagnosis for this admission?: Yes Plan: Management per surgery (2) Septic shock Is this a current diagnosis for this admission?: Yes Plan: She is off pressors now but her blood pressure starting to trend back low. She is on IV fluids. Urine output is good. Her belly still seems to be tender despite the fact that she sedated. She is been febrile again so I am restarting meropenem. Again, I am unable to figure out how to find out in the electronic medical record when the last time when she was on antibiotics, but I cannot tell that she is been on them at least for the last few days. Repeat cultures have b een drawn. It should be noted that there is minimal if any drainage in her ROSHAN drain from her abdomen. - Time Time Spent with patient: 25-34 minutes
--- NOTE | 2018-08-05 19:17 | PDOC PROGRESS REPORT ---
Subjective Reason For Visit: LOW BLOOD PRESSURE Physical Exam Vital Signs: Temp Pulse Resp BP Pulse Ox 100.9 F H 102 H 14 118/98 H 97 08/05/18 17:59 08/05/18 18:00 08/05/18 18:05 08/05/18 18:05 08/05/18 18:05 Intake & Output 08/04/18 08/05/18 08/06/18 06:59 06:59 06:59 Intake Total 2591 3660 184 Output Total 5513 5614 3110 Balance -8119 -4934 -9 Weight 93.7 kg 90.3 kg Results Laboratory Results: 08/05/18 10:30 08/05/18 10:30 08/05/18 08/05/18 08/05/18 04:27 10:30 10:30 WBC 11.5 H RBC 3.23 L Hgb 9.0 L Hct 26.7 L MCV 83 MCH 27.8 MCHC 33.6 RDW 14.1 H Plt Count 280 Carbonic Acid 0.86 L HCO3/H2CO3 Ratio 25:1 ABG pH 7.50 H ABG pCO2 28.5 L ABG pO2 90.6 ABG HCO3 21.5 ABG O2 Saturation 97.6 ABG Base Excess -1.1 FiO2 28% Sodium 134.3 L Potassium 4.3 Chloride 106 Carbon Dioxide 25 Anion Gap 3 L BUN 10 Creatinine 0.43 L Est GFR ( Amer) > 60 Est GFR (Non-Af Amer) > 60 Glucose 161 H Calcium 7.6 L Total Bilirubin 0.4 AST 49 H ALT 49 Alkaline Phosphatase 319 H Total Protein 4.9 L Albumin 2.2 L 07/26/18 07/26/18 07/27/18 23:30 23:57 00:35 NT-Pro-B Natriuret Pep Cancelled Cancelled 3320 H Impressions: KUB X-Ray 07/26/18 00:00 IMPRESSION: Nasogastric tube in the stomach. Abdomen/Pelvis CT 07/26/18 15:30 IMPRESSION: 1. Trace right pleural effusion. 2. Cardiomegaly. 3. Fluid-filled dilated esophagus, concerning for increased risk of aspiration. IMPRESSION: 1. High-grade distal small-bowel obstruction with bowel perforation. Surgical consult recommended. 2. Pneumoperitoneum. Small amount of ascites. 3. Indeterminate heterogeneous liver lesion. This can be further evaluated with dedicated nonemergent contrast enhanced MRI. Chest CT 07/26/18 16:11 IMPRESSION: 1. Trace right pleural effusion. 2. Cardiomegaly. 3. Fluid-filled dilated esophagus, concerning for increased risk of aspiration. IMPRESSION: 1. High-grade distal small-bowel obstruction with bowel pe rforation. Surgical consult recommended. 2. Pneumoperitoneum. Small amount of ascites. 3. Indeterminate heterogeneous liver lesion. This can be further evaluated with dedicated nonemergent contrast enhanced MRI. Chest X-Ray 08/05/18 06:00 IMPRESSION: Bibasilar atelectasis Assessment & Plan - Diagnosis (1) Gallstone ileus Is this a current diagnosis for this admission?: Yes (2) Perforated viscus Is this a current diagnosis for this admission?: Yes (3) Septic shock Is this a current diagnosis for this admission?: Yes - Plan Summary Plan Summary: This is a 57-year-old female status post exploratory laparotomy for gallstone ileus and intestinal perforation. The patient remains intubated. Medicine and pulmonology are following. NG tube to suction due to large perforation of the duodenum. Absolutely nothing is to be put down the NG tube until cleared by surgery. Her urine output is good. Vent weaning per pulmonology. Wound VAC was discontinued several days ago. The wound appears to be clean, without signs of purulence. We will attempt to reapproximate a portion of the wound. Continue packing of the wound twice daily. Continue supportive care.
[2018-08-06] MEDS: MIDAZOLAM HCL 50 MG/100 ML RTUINJ IV PRN ×2 (00:19→23:29)
[2018-08-06] MEDS: MEROPENEM 1 GM in NORMAL SALINE 50 ML IV SCH ×3 (02:09→17:34)
[2018-08-06 04:23] LABS: ARTERIAL BLOOD BASE EXCESS -0.2 mmol/L; ARTERIAL BLOOD H2CO3 0.82 mmol/L (1.05-1.35); ARTERIAL BLOOD HCO3 22.1 mmol/L (20-24); ARTERIAL BLOOD O2 SATURATION 97.5 % (94-98); ARTERIAL BLOOD PCO2 27.2 mmHg (35-45); ARTERIAL BLOOD PH 7.53 (7.35-7.45); ARTERIAL BLOOD PO2 85.8 mmHg (80-100); ARTERIAL BLOOD TOTAL CO2 22.9 mmol/L (21-25)
[2018-08-06 04:24] LABS: ARTERIAL BLOOD FIO2 28%
[2018-08-06] MEDS: AMINO ACIDS 5%/D25W 1,000 ML IV PRN (04:38)
[2018-08-06] MEDS: NORMAL SALINE 1000 ML 1,000 ML IV PRN ×2 (06:33→18:51)
[2018-08-06] MEDS: FENTANYL CITRATE/PF 600 MCG/60 ML BAG IV PRN ×2 (08:55→20:50)
--- NOTE | 2018-08-06 09:23 | RADIOLOGY REPORT (SQ) ---
EXAM DESCRIPTION: CHEST SINGLE VIEW COMPLETED DATE/TIME: 08/06/2018 6:49 am REASON FOR STUDY: resp failure/sepsis COMPARISON: Previous day. NUMBER OF VIEWS: One view. TECHNIQUE: Single frontal radiographic image of the chest acquired. LIMITATIONS: None. FINDINGS: LUNGS AND PLEURA: Improved aeration in the right lower lobe. No pneumothorax. MEDIASTINUM AND HEART: Stable heart size and mediastinal structures. SUPPORT DEVICES: Appropriate location without change. BONY STRUCTURES: No acute findings. HARDWARE: None. OTHER: No other significant finding. IMPRESSION: Slight improvement. No pneumothorax. Reading location - IP/workstation name: [email or web address]
[2018-08-06] MEDS: FAT EMULSIONS 250 ML IV SCH (09:48)
[2018-08-06] MEDS ORDERED: VANCOMYCIN HCL 0 MG in DEXTROSE 5%-WATER 250 ML IV NR (10:45)
[2018-08-06] MEDS: ACETAMINOPHEN 1,000 MG/100 ML RTUPB IV PRN ×2 (12:55→23:08)
[2018-08-06] MEDS: VANCOMYCIN HCL 1,500 MG in DEXTROSE 5%-WATER 250 ML IV SCH ×2 (12:55→23:08)
--- NOTE | 2018-08-06 13:12 | PDOC PROGRESS REPORT ---
Subjective Progress Note for:: 08/06/18 Subjective:: Patient sedated intubated unable to communicate; does follow commands when off sedation Reason For Visit: LOW BLOOD PRESSURE Physical Exam Vital Signs: Temp Pulse Resp BP Pulse Ox 100.8 F H 105 H 16 112/85 100 08/06/18 11:43 08/06/18 10:00 08/06/18 12:00 08/06/18 10:00 08/06/18 12:49 Intake & Output 08/05/18 08/06/18 08/07/18 06:59 06:59 06:59 Intake Total 3660 3376 60 Output Total 5615 4910 1974 Balance -1954 1533 Weight 90.3 kg 88.1 kg General appearance: PRESENT: no acute distress GI/Abdominal exam: PRESENT: other - Abdomen not distended; midline incision approximated multiple sites with fine Ethilon. Caceres of wound starting to granulate along Results Laboratory Results: 08/05/18 10:30 08/05/18 10:30 08/06/18 04:08 Carbonic Acid 0.82 L HCO3/H2CO3 Ratio 26:1 ABG pH 7.53 H ABG pCO2 27.2 L ABG pO2 85.8 ABG HCO3 22.1 ABG O2 Saturation 97.5 ABG Base Excess -0.2 FiO2 28% 07/26/18 07/26/18 07/27/18 23:30 23:57 00:35 NT-Pro-B Natriuret Pep Cancelled Cancelled 3320 H Impressions: KUB X-Ray 07/26/18 00:00 IMPRESSION: Nasogastric tube in the stomach. Abdomen/Pelvis CT 07/26/18 15:30 IMPRESSION: 1. Trace right pleural effusion. 2. Cardiomegaly. 3. Fluid-filled dilated esophagus, concerning for increased risk of aspiration. IMPRESSION: 1. High-grade distal small-bowel obstruction with bowel perforation. Surgical consult recommended. 2. Pneumoperitoneum. Small amount of ascites. 3. Indeterminate heterogeneous liver lesion. This can be further evaluated with dedicated nonemergent contrast enhanced MRI. Chest CT 07/26/18 16:11 IMPRESSION: 1. Trace right pleural effusion. 2. Cardiomegaly. 3. Fluid-filled dilated esophagus, concerning for increased risk of aspiration. IMPRESSION: 1. High-grade distal small-bowel obstruction with bowel perforat ion. Surgical consult recommended. 2. Pneumoperitoneum. Small amount of ascites. 3. Indeterminate heterogeneous liver lesion. This can be further evaluated with dedicated nonemergent contrast enhanced MRI. Chest X-Ray 08/06/18 06:00 IMPRESSION: Slight improvement. No pneumothorax. 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 Start trickle tube feeds via nasogastric tube 2. Discussed fever of unclear etiology with Dr. Marcus, hospitalist: I suggested we place the patient central line. 3. Dr. Dc, nutrition associate, will attempt to wean and extubate patient over the weekend; she remains intubated next week, she may require tracheostomy support. (2) Metabolic acidosis Is this a current diagnosis for this admission?: Yes (3) History of atrial septal defect repair Is this a current diagnosis for this admission?: Yes (4) Septic shock Is this a current diagnosis for this admission?: Yes (5) Bowel obstruction Qualifiers: Intestinal obstruction type: unspecified Intestinal obstruction extent: complete Qualified Code(s): K56.601 - Complete intestinal obstruction, unspecified as to cause Is this a current diagnosis for this admission?: Yes
[2018-08-06] MEDS: INSULIN REG, HUMAN 100 UNIT/ML 3 ML VIAL (PYX) SUBCUT PRN ×2 (13:32→19:02)
--- NOTE | 2018-08-06 15:01 | RADIOLOGY REPORT (SQ) ---
EXAM DESCRIPTION: CHEST SINGLE VIEW COMPLETED DATE/TIME: 08/06/2018 2:47 pm REASON FOR STUDY: placement of central line COMPARISON: 08/06/2018 EXAM PARAMETERS: NUMBER OF VIEWS: One view. TECHNIQUE: Single frontal radiographic view of the chest acquired. RADIATION DOSE: NA LIMITATIONS: None. FINDINGS: LUNGS AND PLEURA: Low volume AP examination without focal airspace opacity. MEDIASTINUM AND HILAR STRUCTURES: No masses. Contour normal. HEART AND VASCULAR STRUCTURES: Unchanged cardiomegaly status post median sternotomy. BONES: No acute findings. HARDWARE: None in the chest. OTHER: Interval placement of left neck vascular catheter, tip projecting over the right atrium. Othe rwise stable support apparatus including additional right neck vascular catheter, endotracheal tube, esophagogastric tube. IMPRESSION: Interval placement of left neck vascular catheter, tip projecting over the right atrium. Otherwise stable support apparatus including additional right neck vascular catheter, endotracheal tube, esophagogastric tube. TECHNICAL DOCUMENTATION: JOB ID: [id number] [employer]- All Rights Reserved Reading location - IP/workstation name: [email or web address]
--- NOTE | 2018-08-06 16:51 | Operative Report ---
Nonrecallable Operative Report DATE OF SURGERY: 08/06/18 PREOPERATIVE DIAGNOSIS: Fever of unknown origin. Respiratory failure POSTOPERATIVE DIAGNOSIS: Same OPERATION: Placement of left internal jugular vein central venous access catheter using ultrasound guidance SURGEON: ROSA CAZARES ANESTHESIA: Local TISSUE REMOVED OR ALTERED: None COMPLICATIONS: None ESTIMATED BLOOD LOSS: Scant INTRAOPERATIVE FINDINGS: Below PROCEDURE: Patient was placed in Trendelenburg position left internal jugular vein area prepped and draped in sterile fashion. Surgical plan and surgical timeout conducted. The skin was anesthetized with 1% plain lidocaine. Using the Seldinger technique, with ultrasound guidance real-time, a triple-lumen central venous access catheter was threaded into the blood flow through all 3 lumens. Catheter flushed with heparinized saline and secured to the skin with Biopatch 2-0 silk suture and an OpSite. Patient tolerated procedure well. Portable upright chest x-ray showed no kinking of the catheter, and no pneumothorax; results of the x-rays shared with the nursing staff.
--- NOTE | 2018-08-06 18:50 | PDOC PROGRESS REPORT ---
Subjective Progress Note for:: 08/06/18 Subjective:: No adverse events overnight. She still intermittently febrile. Blood pressures have improved since yesterday morning. Urine output is excellent. Her sedation has been lightened and she does seem to be able to follow some simple commands but she still fairly somnolent when I saw her this morning. Reason For Visit: LOW BLOOD PRESSURE Physical Exam Vital Signs: Temp Pulse Resp BP Pulse Ox 98.8 F 106 H 20 111/57 L 100 08/06/18 17:30 08/06/18 14:00 08/06/18 18:00 08/06/18 14:00 08/06/18 18:00 Intake & Output 08/05/18 08/06/18 08/07/18 06:59 06:59 06:59 Intake Total 3660 3376 110 Output Total 5615 4910 3225 Balance -1955 -1534 -3115 Weight 90.3 kg 88.1 kg General appearance: PRESENT: morbidly obese, other - Coming out of sedation, intubated Teeth exam: PRESENT: poor dentation Respiratory exam: PRESENT: rhonchi - Bilateral, symmetrical. ABSENT: rales, tachypnea, wheezes Cardiovascular exam: PRESENT: tachycardia Vascular exam: PRESENT: other - Feet were cold but capillary refill was about 3 seconds on the top of her foot, toes had a mottled appearance which is been there for quite some time without much change GI/Abdominal exam: PRESENT: hypoactive bowel sounds, soft, tenderness, other - Midline abdominal incision is packed with clean gauze without any substantial exudate or surrounding erythema. ABSENT: distended, guarding, rebound Extremities exam: PRESENT: other - Mild generalized nonpitting edema. ABSENT: clubbing Musculoskeletal exam: PRESENT: normal inspection. ABSENT: deformity Neurological exam: PRESENT: other - Coming out of sedation, responding to some verbal commands, intubated Skin exam: PRESENT: dry, mottled - Especially the feet, which are also cold Results Laboratory Results: 08/05/18 10:30 08/05/18 10:30 08/06/18 04:08 Carbonic Acid 0.82 L HCO3/H2CO3 Ratio 26:1 ABG pH 7.53 H ABG pCO2 27.2 L ABG pO2 85.8 ABG HCO3 22.1 ABG O2 Saturation 97.5 ABG Base Excess -0.2 FiO2 28% 08/01/18 15:40 Blood Blood Culture - Final NO GROWTH IN 5 DAYS 08/01/18 16:01 Blood Blood Culture - Final NO GROWTH IN 5 DAYS 07/26/18 07/26/18 07/27/18 23:30 23:57 00:35 NT-Pro-B Natriuret Pep Cancelled Cancelled 3320 H Impressions: KUB X-Ray 07/26/18 00:00 IMPRESSION: Nasogastric tube in the stomach. Abdomen/Pelvis CT 07/26/18 15:30 IMPRESSION: 1. Trace right pleural effusion. 2. Cardiomegaly. 3. Fluid-filled dilated esophagus, concerning for increased risk of aspiration. IMPRESSION: 1. High-grade distal small-bowel obstruction with bowel perforation. Surgical consult recommended. 2. Pneumoperitoneum. Small amount of ascites. 3. Indeterminate heterogeneous liver lesion. This can be further evaluated with dedicated nonemergent contrast enhanced MRI. Chest CT 07/26/18 16:11 IMPRESSION: 1. Trace right pleural effusion. 2. Cardiomegaly. 3. Fluid-filled dilated esophagus, concerning for increased risk of aspiration. IMPRESSION: 1. High-grade distal small-bowel obstruction with bowel perforation. Surgical consult recommended. 2. Pneumoperitoneum. Small amount of ascites. 3. Indeterminate heterogeneous liver lesion. This can be further evaluated with dedicated nonemergent contrast enhanced MRI. Chest X-Ray 08/06/18 06:00 IMPRESSION: Slight improvement. No pneumothorax. Assessment & Plan - Diagnosis (1) Perforated viscus Is this a current diagnosis for this admission?: Yes Plan: Management per surgery (2) Septic shock Is this a current diagnosis for this admission?: Yes Plan: Overall seems to be clinically improving. Blood pressures have improved and temperatures came down this afternoon. Vancomycin was started because she had a positive blood culture, but this could be a contaminant. General surgery changed out her central line because it is been in for about 7 days. We will continue vancomycin and meropenem for the time being until her cultures are back. We will monitor her clinical situation closely. - Time Time Spent with patient: 25-34 minutes
[2018-08-07] MEDS: INSULIN REG, HUMAN 100 UNIT/ML 3 ML VIAL (PYX) SUBCUT PRN (00:11)
[2018-08-07] MEDS: MEROPENEM 1 GM in NORMAL SALINE 50 ML IV SCH ×3 (01:12→17:11)
[2018-08-07] MEDS: MIDAZOLAM HCL 50 MG/100 ML RTUINJ IV PRN ×3 (01:13→21:10)
[2018-08-07] MEDS: NORMAL SALINE 1000 ML 1,000 ML IV PRN ×3 (03:35→19:38)
[2018-08-07] MEDS: AMINO ACIDS 5%/D25W 1,000 ML IV PRN (03:35)
[2018-08-07 06:06] LABS: ARTERIAL BLOOD BASE EXCESS 1.7 mmol/L; ARTERIAL BLOOD H2CO3 1.05 mmol/L (1.05-1.35); ARTERIAL BLOOD HCO3 25.2 mmol/L (20-24); ARTERIAL BLOOD O2 SATURATION 98.3 % (94-98); ARTERIAL BLOOD PCO2 34.9 mmHg (35-45); ARTERIAL BLOOD PH 7.48 (7.35-7.45); ARTERIAL BLOOD PO2 108.1 mmHg (80-100); ARTERIAL BLOOD TOTAL CO2 26.2 mmol/L (21-25)
[2018-08-07 06:07] LABS: HEMOGLOBIN 8.4 g/dL (12.0-15.5); MEAN CORPUSCULAR HEMOGLOBIN 27.9 pg (27.0-33.4); MEAN CORPUSCULAR HGB CONC 33.5 g/dL (32.0-36.0); MEAN CORPUSCULAR VOLUME 83 fl (80-97); PLATELET COUNT 318 10^3/uL (150-450); RED BLOOD COUNT 2.99 10^6/uL (3.72-5.28); RED CELL DISTRIBUTION WIDTH 13.9 % (11.5-14.0); WHITE BLOOD COUNT 8.5 10^3/uL (4.0-10.5)
[2018-08-07 06:10] LABS: ARTERIAL BLOOD FIO2 28%
--- NOTE | 2018-08-07 06:10 | RADIOLOGY REPORT (SQ) ---
EXAM DESCRIPTION: XR CHEST 1 VIEW COMPLETED DATE/TME: 08/07/2018 06:00 CLINICAL HISTORY: 57 years, Female, resp fail COMPARISON: 08/06/2018 chest NUMBER OF VIEWS: 1 TECHNIQUE: Portable chest LIMITATIONS: None. FINDINGS: The heart is enlarged but stable. Endotracheal tube, enteric tube, central venous catheter remain in place. Median sternotomy wires. Osteopenia. Lungs are clear. No pneumothorax. IMPRESSION: Cardiomegaly with postsurgical change. Lines and catheters in place copyright 2010 [employer]- All Rights Reserved
[2018-08-07 06:31] LABS: PHOSPHORUS 3.9 mg/dL (2.5-4.5)
[2018-08-07 06:42] LABS: PREALBUMIN 6.7 mg/dL (17.6-36.0)
[2018-08-07 06:50] LABS: ABSOLUTE LYMPHOCYTES# (MANUAL) 0.9 10^3/uL (0.5-4.7); ABSOLUTE MONOCYTES # (MANUAL) 0.6 10^3/uL (0.1-1.4); ABSOLUTE NEUTROPHILS# (MANUAL) 6.8 10^3/uL (1.7-8.2); BAND NEUTROPHILS % (MANUAL) 1 % (3-5); BASOPHILS % (MANUAL) 0 % (0-2); EOSINOPHILS % (MANUAL) 3 % (0-6); LYMPHOCYTES % (MANUAL) 10 % (13-45); MONOCYTES % (MANUAL) 7 % (3-13); PLATELET COMMENT ADEQUATE; RBC MORPHOLOGY COMMENT NORMO-CYTIC/CHROMIC; SEGMENTED NEUTROPHILS % (MAN) 79 % (42-78); TOTAL CELLS COUNTED 100; TOXIC GRANULATION SLIGHT
[2018-08-07] MEDS: FENTANYL CITRATE/PF 600 MCG/60 ML BAG IV PRN ×2 (07:42→18:45)
--- NOTE | 2018-08-07 09:13 | RADIOLOGY REPORT (SQ) ---
EXAM DESCRIPTION: NON-TUNNEL CV CATH; GUIDANCE ULTRASOUND COMPLETED DATE/TIME: 08/06/2018 3:14 pm; 08/06/2018 3:38 pm REASON FOR STUDY: NEED FOR VASCULAR ACCESS COMPARISON: None. TECHNIQUE: Single ultrasound image obtained for vascular guidance performed by Dr. Christianson. LIMITATIONS: None. FINDINGS: None. IMPRESSION: Vascular ultrasound guidance. TECHNICAL DOCUMENTATION: JOB ID: [id number] [employer]- All Rights Reserved Reading location - IP/workstation name: [facility]
--- NOTE | 2018-08-07 09:13 | RADIOLOGY REPORT (SQ) ---
EXAM DESCRIPTION: NON-TUNNEL CV CATH; GUIDANCE ULTRASOUND COMPLETED DATE/TIME: 08/06/2018 3:14 pm; 08/06/2018 3:38 pm REASON FOR STUDY: NEED FOR VASCULAR ACCESS COMPARISON: None. TECHNIQUE: Single ultrasound image obtained for vascular guidance performed by Dr. Christianson. LIMITATIONS: None. FINDINGS: None. IMPRESSION: Vascular ultrasound guidance. TECHNICAL DOCUMENTATION: JOB ID: [id number] [employer]- All Rights Reserved Reading location - IP/workstation name: [facility]
[2018-08-07] MEDS: VANCOMYCIN HCL 1,500 MG in DEXTROSE 5%-WATER 250 ML IV SCH ×2 (09:16→21:13)
--- NOTE | 2018-08-07 10:56 | PDOC PROGRESS REPORT ---
Subjective Progress Note for:: 08/07/18 Subjective:: Still on the vent Reason For Visit: LOW BLOOD PRESSURE Physical Exam Vital Signs: Temp Pulse Resp BP Pulse Ox 101.3 F H 114 H 23 H 114/82 99 08/07/18 10:00 08/07/18 10:00 08/07/18 10:00 08/07/18 10:00 08/07/18 10:00 Intake & Output 08/06/18 08/07/18 08/08/18 06:59 06:59 06:59 Intake Total 3376 4399 133 Output Total 4910 6050 750 Balance -1534 -1651 -617 Weight 88.1 kg 84.4 kg Exam: Still on the Vent Abdominal wound packings removed. Would loks ggod with granulation tissue. Nurses to pack wounds gently D/W Hospitalist. Will increase tube feeds for now. Hopefully with [id number] nutrition, can be extubated soon Continue IV antibiotics. Trying to identify source of fever. Wound and abdomen unlikely source. Results Laboratory Results: 08/07/18 05:40 08/05/18 10:30 08/07/18 08/07/18 08/07/18 05:40 05:40 05:40 WBC 8.5 RBC 2.99 L Hgb 8.4 L Hct 25.0 L MCV 83 MCH 27.9 MCHC 33.5 RDW 13.9 Plt Count 318 Seg Neutrophils % Not Reportable Lymphocytes % Not Reportable Monocytes % Not Reportable Eosinophils % Not Reportable Basophils % Not Reportable Absolute Neutrophils Not Reportable Absolute Lymphocytes Not Reportable Absolute Monocytes Not Reportable Absolute Eosinophils Not Reportable Absolute Basophils Not Reportable Carbonic Acid 1.05 HCO3/H2CO3 Ratio 24:1 ABG pH 7.48 H ABG pCO2 34.9 L ABG pO2 108.1 H ABG HCO3 25.2 H ABG O2 Saturation 98.3 H ABG Base Excess 1.7 FiO2 28% Phosphorus 3.9 Prealbumin 6.7 L 08/01/18 15:40 Blood Blood Culture - Final NO GROWTH IN 5 DAYS 08/01/18 16:01 Blood Blood Culture - Final NO GROWTH IN 5 DAYS 07/26/18 07/26/18 07/27/18 23:30 23:57 00:35 NT-Pro-B Natriuret Pep Cancelled Cancelled 3320 H Impressions: KUB X-Ray 07/26/18 00:00 IMPRESSION: Nasogastric tube in the stomach. Abdomen/Pelvis CT 07/26/18 15:30 IMPRESSION: 1. Trace right pleural effusion. 2. Cardiomegaly. 3. Fluid-filled dilated esophagus, concerning for increased risk of aspiration. IMPRESSION: 1. High-grade distal small-bowel obstruction with bowel perforation. Surgical consult recommended. 2. Pneumoperitoneum. Small amount of ascites. 3. Indeterminate heterogeneous liver lesion. This can be further evaluated with dedicated nonemergent contrast enhanced MRI. Chest CT 07/26/18 16:11 IMPRESSION: 1. Trace right pleural effusion. 2. Cardiomegaly. 3. Fluid-filled dilated esophagus, concerning for increased risk of aspiration. IMPRESSION: 1. High-grade distal small-bowel obstruction with bowel perforation. Surgical consult recommended. 2. Pneumoperitoneum. Small amount of ascites. 3. Indeterminate heterogeneous liver lesion. This can be further evaluated with dedicated nonemergent contrast enhanced MRI. Guidance Ultrasound 08/06/18 00:00 IMPRESSION: Vascular ultrasound guidance. Interventional Vascular Procedure 08/06/18 00:00 IMPRESSION: Vascular ultrasound guidance. Chest X-Ray 08/07/18 06:00 IMPRESSION: Cardiomegaly with postsurgical change. Lines and catheters in place copyright 2011 [employer]- All Rights Reserved Assessment & Plan - Time Time Spent with patient: 15-24 minutes - Inpatient Certification Medical Necessity: Need Close Monitoring Due to Risk of Patient Decompensation, Need For IV Fluids, Need For Continuous Telemetry Monitoring, Need for IV Antibiotics - Plan Summary Plan Summary: Increase tube feeds Continue IV antibiotics Gradually wean from Vent
[2018-08-07] MEDS ORDERED: BISACODYL 10 MG SUPP.RECT PR PRN (13:30)
[2018-08-07] MEDS: ACETAMINOPHEN 1,000 MG/100 ML RTUPB IV PRN (16:45)
--- NOTE | 2018-08-07 17:19 | PDOC PROGRESS REPORT ---
Subjective Progress Note for:: 08/07/18 Subjective:: Patient remains intubated. every time they wean sedation she gets tachycardic and tachypneic. She remains febrile. Blood pressures have improved as have signs of peripheral perfusion. Urine output remains excellent. Tracheal aspirate remains minimal. Reason For Visit: LOW BLOOD PRESSURE Physical Exam Vital Signs: Temp Pulse Resp BP Pulse Ox 100.9 F H 109 H 20 92/53 L 100 08/07/18 15:08 08/07/18 15:08 08/07/18 16:00 08/07/18 15:08 08/07/18 16:00 Intake & Output 08/06/18 08/07/18 08/08/18 06:59 06:59 06:59 Intake Total 3376 4399 1580 Output Total 4910 6050 1800 Balance -0286 -1337 -220 Weight 88.1 kg 84.4 kg General appearance: PRESENT: morbidly obese, other - Coming out of sedation, intubated Teeth exam: PRESENT: poor dentation Respiratory exam: PRESENT: rhonchi - Bilateral, symmetrical. ABSENT: rales, tachypnea, wheezes Cardiovascular exam: PRESENT: tachycardia Vascular exam: PRESENT: other - Feet were cool but capillary refill was about 3 seconds on the top of her foot, improved appearance of the skin with reduction of the mottled appearance GI/Abdominal exam: PRESENT: hypoactive bowel sounds, soft, tenderness, other - Midline abdominal incision is packed with clean gauze without any substantial exudate or surrounding erythema. ABSENT: distended, guarding, rebound Extremities exam: PRESENT: other - Mild generalized nonpitting edema. ABSENT: clubbing Musculoskeletal exam: PRESENT: normal inspection. ABSENT: deformity Neurological exam: PRESENT: other - Coming out of sedation, responding to some verbal commands, intubated Skin exam: PRESENT: dry, reduced mottled appearance of the feet which are cool but not cold Results Laboratory Results: 08/07/18 05:40 08/05/18 10:30 08/07/18 08/07/18 08/07/18 05:40 05:40 05:40 WBC 8.5 RBC 2.99 L Hgb 8.4 L Hct 25.0 L MCV 83 MCH 27.9 MCHC 33.5 RDW 13.9 Plt Count 318 Seg Neutrophils % Not Reportable Lymphocytes % Not Reportable Monocytes % Not Reportable Eosinophils % Not Reportable Basophils % Not Reportable Absolute Neutrophils Not Reportable Absolute Lymphocytes Not Reportable Absolute Monocytes Not Reportable Absolute Eosinophils Not Reportable Absolute Basophils Not Reportable Carbonic Acid 1.05 HCO3/H2CO3 Ratio 24:1 ABG pH 7.48 H ABG pCO2 34.9 L ABG pO2 108.1 H ABG HCO3 25.2 H ABG O2 Saturation 98.3 H ABG Base Excess 1.7 FiO2 28% Phosphorus 3.9 Prealbumin 6.7 L 08/01/18 15:40 Blood Blood Culture - Final NO GROWTH IN 5 DAYS 08/01/18 16:01 Blood Blood Culture - Final NO GROWTH IN 5 DAYS 07/26/18 07/26/18 07/27/18 23:30 23:57 00:35 NT-Pro-B Natriuret Pep Cancelled Cancelled 3320 H Impressions: KUB X-Ray 07/26/18 00:00 IMPRESSION: Nasogastric tube in the stomach. Abdomen/Pelvis CT 07/26/18 15:30 IMPRESSION: 1. Trace right pleural effusion. 2. Cardiomegaly. 3. Fluid-filled dilated esophagus, concerning for increased risk of aspiration. IMPRESSION: 1. High-grade distal small-bowel obstruction with bowel perforation. Surgical consult recommended. 2. Pneumoperitoneum. Small amount of ascites. 3. Indeterminate heterogeneous liver lesion. This can be further evaluated with dedicated nonemergent contrast enhanced MRI. Chest CT 07/26/18 16:11 IMPRESSION: 1. Trace right pleural effusion. 2. Cardiomegaly. 3. Fluid-filled dilated esophagus, concerning for increased risk of aspiration. IMPRESSION: 1. High-grade distal small-bowel obstruction with bowel perforation. Surgical consult recommended. 2. Pneumoperitoneum. Small amount of ascites. 3. Indeterminate heterogeneous liver lesion. This can be further evaluated with dedicated nonemergent contrast enhanced MRI. Guidance Ultrasound 08/06/18 00:00 IMPRESSION: Vascular ultrasound guidance. Interventional Vascular Procedure 08/06/18 00:00 IMPRESSION: Vascular ultrasound guidance. Chest X-Ray 08/07/18 06:00 IMPRESSION: Cardiomegaly with postsurgical change. Lines and catheters in place copyright 2010 [employer]- All Rights Reserved Assessment & Plan - Diagnosis (1) Perforated viscus Is this a current diagnosis for this admission?: Yes Plan: Management per surgery (2) Septic shock Is this a current diagnosis for this admission?: Yes Plan: She is improving. She is off pressors. Blood pressure has improved. Urine output is good. Improved signs of peripheral perfusion. She is currently on vancomycin and meropenem. There was a positive blood culture that is still pending but may be a contaminant. Chest x-ray remains clear. The troubling issue is that she remains febrile. Her surgical wound appears clean and not i nfected. If she remains persistently febrile we may have to scan her belly to see if there is anything new that has developed intra-abdominally. - Time Time Spent with patient: 25-34 minutes
[2018-08-08] MEDS: MEROPENEM 1 GM in NORMAL SALINE 50 ML IV SCH ×3 (02:25→18:07)
[2018-08-08] MEDS: NORMAL SALINE 1000 ML 1,000 ML IV PRN ×3 (02:28→22:22)
[2018-08-08] MEDS: AMINO ACIDS 5%/D25W 1,000 ML IV PRN (02:29)
[2018-08-08] MEDS: ACETAMINOPHEN 1,000 MG/100 ML RTUPB IV PRN (04:51)
[2018-08-08] MEDS: MIDAZOLAM HCL 50 MG/100 ML RTUINJ IV PRN (05:55)
[2018-08-08] MEDS: FENTANYL CITRATE/PF 600 MCG/60 ML BAG IV PRN (06:24)
[2018-08-08] MEDS: INSULIN REG, HUMAN 100 UNIT/ML 3 ML VIAL (PYX) SUBCUT PRN (06:24)
[2018-08-08] MEDS: VANCOMYCIN HCL 1,500 MG in DEXTROSE 5%-WATER 250 ML IV SCH ×2 (09:37→22:14)
--- NOTE | 2018-08-08 18:05 | PDOC PROGRESS REPORT ---
Subjective Progress Note for:: 08/08/18 Subjective:: No adverse events overnight. This morning when I came in her heart rate was in the normal range and she was afebrile. Her blood pressure has been in the normal range. She developed a fever later this afternoon but it was not as severe as previous fevers. Reason For Visit: LOW BLOOD PRESSURE Physical Exam Vital Signs: Temp Pulse Resp BP Pulse Ox 100.2 F 111 H 28 H 129/64 H 100 08/08/18 18:00 08/08/18 14:16 08/08/18 14:16 08/08/18 14:16 08/08/18 14:16 Intake & Output 08/07/18 08/08/18 08/09/18 06:59 06:59 06:59 Intake Total 4399 5478 1433 Output Total 6050 4870 2475 Balance -1651 608 -1042 Weight 84.4 kg 84.2 kg General appearance: PRESENT: morbidly obese, other - Coming out of sedation, intubated Teeth exam: PRESENT: poor dentation Respiratory exam: PRESENT: rhonchi - Bilateral, symmetrical. ABSENT: rales, tachypnea, wheezes Cardiovascular exam: PRESENT: tachycardia Vascular exam: PRESENT: other - Feet were cool but capillary refill was about 3 seconds on the top of her foot, improved appearance of the skin with reduction of the mottled appearance GI/Abdominal exam: PRESENT: hypoactive bowel sounds, soft, tenderness, other - Midline abdominal incision is packed with clean gauze without any substantial exudate or surrounding erythema. ABSENT: distended, guarding, rebound Extremities exam: PRESENT: other - Mild generalized nonpitting edema. ABSENT: clubbing Musculoskeletal exam: PRESENT: normal inspection. ABSENT: deformity Neurological exam: PRESENT: other - Coming out of sedation, responding to some verbal commands, intubated Skin exam: PRESENT: dry, reduced mottled appearance of the feet which are cool but not cold Results Laboratory Results: 08/07/18 05:40 08/05/18 10:30 08/04/18 17:22 Blood Blood Culture - Final Staphylococcus Epidermidis 07/26/18 07/26/18 07/27/18 23:30 23:57 00:35 NT-Pro-B Natriuret Pep Cancelled Cancelled 3320 H Impressions: KUB X-Ray 07/26/18 00:00 IMPRESSION: Nasogastric tube in the stomach. Abdomen/Pelvis CT 07/26/18 15:30 IMPRESSION: 1. Trace right pleural effusion. 2. Cardiomegaly. 3. Fluid-filled dilated esophagus, concerning for increased risk of aspiration. IMPRESSION: 1. High-grade distal small-bowel obstruction with bowel perforation. Surgical consult recommended. 2. Pneumoperitoneum. Small amount of ascites. 3. Indeterminate heterogeneous liver lesion. This can be further evaluated with dedicated nonemergent contrast enhanced MRI. Chest CT 07/26/18 16:11 IMPRESSION: 1. Trace right pleural effusion. 2. Cardiomegaly. 3. Fluid-filled dilated esophagus, concerning for increased risk of aspiration. IMPRESSION: 1. High-grade distal small-bowel obstruction with bowel perforation. Surgical consult recommended. 2. Pneumoperitoneum. Small amount of ascites. 3. Indeterminate heterogeneous liver lesion. This can be further evaluated with dedicated nonemergent contrast enhanced MRI. Guidance Ultrasound 08/06/18 00:00 IMPRESSION: Vascular ultrasound guidance. Interventional Vascular Procedure 08/06/18 00:00 IMPRESSION: Vascular ultrasound guidance. Chest X-Ray 08/07/18 06:00 IMPRESSION: Cardiomegaly with postsurgical change. Lines and catheters in place copyright 2011 [employer]- All Rights Reserved Assessment & Plan - Diagnosis (1) Perforated viscus Is this a current diagnosis for this admission?: Yes Plan: Management per surgery (2) Septic shock Is this a current diagnosis for this admission?: Yes Plan: Fever seemed to improve with broad-spectrum antibiotics. Urine output is good. She remains on mechanical ventilator. She is being followed by pulmonary. If she keeps having fevers we may have to do a CT scan of her belly just to make sure there is nothing going on in there acutely. - Time Time Spent with patient: 25-34 minutes
--- NOTE | 2018-08-08 22:06 | PDOC PROGRESS REPORT ---
Subjective Progress Note for:: 08/08/18 Subjective:: some incisional pains Just extubated Just had a good BM Tolerating tube feedings well Reason For Visit: LOW BLOOD PRESSURE Physical Exam Vital Signs: Temp Pulse Resp BP Pulse Ox 98.1 F 111 H 42 H 116/76 98 08/08/18 18:13 08/08/18 14:16 08/08/18 18:20 08/08/18 18:20 08/08/18 18:20 Intake & Output 08/07/18 08/08/18 08/09/18 06:59 06:59 06:59 Intake Total 4399 5478 1483 Output Total 6050 4870 2475 Balance -1651 608 -992 Weight 84.4 kg 84.2 kg Exam: abd is soft with minimal tenderness. Incision is clean and nurses placing wet to dry dressings daily. Results Laboratory Results: 08/07/18 05:40 08/05/18 10:30 08/04/18 17:22 Blood Blood Culture - Final Staphylococcus Epidermidis 07/26/18 07/26/18 07/27/18 23:30 23:57 00:35 NT-Pro-B Natriuret Pep Cancelled Cancelled 3320 H Impressions: KUB X-Ray 07/26/18 00:00 IMPRESSION: Nasogastric tube in the stomach. Abdomen/Pelvis CT 07/26/18 15:30 IMPRESSION: 1. Trace right pleural effusion. 2. Cardiomegaly. 3. Fluid-filled dilated esophagus, concerning for increased risk of aspiration. IMPRESSION: 1. High-grade distal small-bowel obstruction with bowel perforation. Surgical consult recommended. 2. Pneumoperitoneum. Small amount of ascites. 3. Indeterminate heterogeneous liver lesion. This can be further evaluated with dedicated nonemergent contrast enhanced MRI. Chest CT 07/26/18 16:11 IMPRESSION: 1. Trace right pleural effusion. 2. Cardiomegaly. 3. Fluid-filled dilated esophagus, concerning for increased risk of aspiration. IMPRESSION: 1. High-grade distal small-bowel obstruction with bowel perforation. Surgical consult recommended. 2. Pneumoperitoneum. Small amount of ascites. 3. Indeterminate heterogeneous liver lesion. This can be further evaluated with dedicated nonemergent contrast enhanced MRI. Guidance Ultrasound 08/06/18 00:00 IMPRESSION: Vascular ultrasound guidance. Interventional Vascular Procedure 08/06/18 00:00 IMPRESSION: Vascular ultrasound guidance. Chest X-Ray 08/07/18 06:00 IMPRESSION: Cardiomegaly with postsurgical change. Lines and catheters in place copyright 2011 [employer]- All Rights Reserved Assessment & Plan - Inpatient Certification Medical Necessity: Need Close Monitoring Due to Risk of Patient Decompensation, Need For IV Fluids, Risk of Complication if Not Cared For in Hospital - Plan Summary Plan Summary: Continue ICU care with tube feedings for now. Re-evaluate in am for possible d/c NGT and start po intake and transfer out of ICU
[2018-08-09] MEDS: MEROPENEM 1 GM in NORMAL SALINE 50 ML IV SCH ×3 (01:00→17:05)
[2018-08-09] MEDS: FENTANYL CITRATE/PF 600 MCG/60 ML BAG IV PRN ×2 (01:52→23:22)
[2018-08-09] MEDS: AMINO ACIDS 5%/D25W 1,000 ML IV PRN (03:40)
[2018-08-09 05:56] LABS: ARTERIAL BLOOD BASE EXCESS 3.8 mmol/L; ARTERIAL BLOOD H2CO3 1.13 mmol/L (1.05-1.35); ARTERIAL BLOOD HCO3 27.4 mmol/L (20-24); ARTERIAL BLOOD O2 SATURATION 98.8 % (94-98); ARTERIAL BLOOD PCO2 37.6 mmHg (35-45); ARTERIAL BLOOD PH 7.48 (7.35-7.45); ARTERIAL BLOOD PO2 130.4 mmHg (80-100); ARTERIAL BLOOD TOTAL CO2 28.6 mmol/L (21-25)
[2018-08-09 05:59] LABS: ARTERIAL BLOOD FIO2 40%
[2018-08-09] MEDS: INSULIN REG, HUMAN 100 UNIT/ML 3 ML VIAL (PYX) SUBCUT PRN (05:59)
[2018-08-09] MEDS: NORMAL SALINE 1000 ML 1,000 ML IV PRN ×2 (06:01→15:40)
[2018-08-09 06:05] LABS: ABSOLUTE EOSINOPHILS # (AUTO) 0.3 10^3/uL (0.0-0.6); ABSOLUTE LYMPHOCYTES (AUTO) 1.2 10^3/uL (0.5-4.7); ABSOLUTE MONOCYTES (AUTO) 0.9 10^3/uL (0.1-1.4); ABSOLUTE NEUT (AUTO) 8.2 10^3/uL (1.7-8.2); BASOPHILS % (AUTO) 0.4 % (0-2); EOSINOPHILS % (AUTO) 2.8 % (0-6); HEMATOCRIT 25.2 % (36.0-47.0); HEMOGLOBIN 8.7 g/dL (12.0-15.5); LYMPHOCYTES % (AUTO) 11.4 % (13-45); MEAN CORPUSCULAR HEMOGLOBIN 28.4 pg (27.0-33.4); MEAN CORPUSCULAR HGB CONC 34.6 g/dL (32.0-36.0); MEAN CORPUSCULAR VOLUME 82 fl (80-97); MONOCYTES % (AUTO) 8.3 % (3-13); PLATELET COUNT 464 10^3/uL (150-450); RED BLOOD COUNT 3.07 10^6/uL (3.72-5.28); RED CELL DISTRIBUTION WIDTH 13.6 % (11.5-14.0); SEGMENTED NEUTROPHILS % (AUTO) 77.1 % (42-78); TOTAL CELLS COUNTED % (AUTO) 100 %; WHITE BLOOD COUNT 10.6 10^3/uL (4.0-10.5)
[2018-08-09 10:17] LABS: ALANINE AMINOTRANSFERASE 54 U/L (9-52); ALBUMIN 2.3 g/dL (3.5-5.0); ALKALINE PHOSPHATASE 247 U/L (38-126); ASPARTATE AMINO TRANSFERASE 56 U/L (14-36); BILIRUBIN,DIRECT 0.2 mg/dL (0.0-0.4); BILIRUBIN,TOTAL 0.3 mg/dL (0.2-1.3); BLOOD UREA NITROGEN 12 mg/dL (7-20); CALCIUM 7.8 mg/dL (8.4-10.2); GLUCOSE 154 mg/dL (75-110); POTASSIUM 4.4 mmol/L (3.6-5.0); TOTAL PROTEIN 5.7 g/dL (6.3-8.2)
[2018-08-09 10:20] LABS: VANCOMYCIN,TROUGH 15.4 ug/mL (5.0-20.0)
[2018-08-09 10:22] LABS: ANION GAP 7 (5-19); CARBON DIOXIDE 27 mmol/L (22-30); CHLORIDE 103 mmol/L (98-107)
[2018-08-09] MEDS: VANCOMYCIN HCL 1,500 MG in DEXTROSE 5%-WATER 250 ML IV SCH ×2 (10:31→21:55)
[2018-08-09] MEDS ORDERED: ALPRAZOLAM 0.25 MG TABLET PO SCH (13:00)
--- NOTE | 2018-08-09 13:09 | PDOC PROGRESS REPORT ---
Subjective Progress Note for:: 08/09/18 Subjective:: appears confused post extubation Reason For Visit: LOW BLOOD PRESSURE Physical Exam Vital Signs: Temp Pulse Resp BP Pulse Ox 100.4 F 118 H 34 H 118/76 100 08/09/18 11:43 08/08/18 20:00 08/09/18 11:54 08/09/18 09:21 08/09/18 11:54 Intake & Output 08/08/18 08/09/18 08/10/18 06:59 06:59 06:59 Intake Total 5442 4886 Output Total 4896 4902 1175 Balance 608 61 -1175 Weight 84.2 kg 83.1 kg Exam: Tachycardic on mask Abdomen remains soft and non tender. Tolerating tube feeds. Incision partially opened subcutaneous layer with fairly good granulation tissue. Told nurses to pack wound with iodoform daily. Results Laboratory Results: 08/09/18 05:36 08/09/18 09:40 08/09/18 08/09/18 08/09/18 05:36 05:36 09:40 WBC 10.6 H RBC 3.07 L Hgb 8.7 L Hct 25.2 L MCV 82 MCH 28.4 MCHC 34.6 RDW 13.6 Plt Count 464 H Seg Neutrophils % 77.1 Lymphocytes % 11.4 L Monocytes % 8.3 Eosinophils % 2.8 Basophils % 0.4 Absolute Neutrophils 8.2 Absolute Lymphocytes 1.2 Absolute Monocytes 0.9 Absolute Eosinophils 0.3 Absolute Basophils 0.0 Carbonic Acid 1.13 HCO3/H2CO3 Ratio 24:1 ABG pH 7.48 H ABG pCO2 37.6 ABG pO2 130.4 H ABG HCO3 27.4 H ABG O2 Saturation 98.8 H ABG Base Excess 3.8 FiO2 40% Sodium 137.0 Potassium 4.4 Chloride 103 Carbon Dioxide 27 Anion Gap 7 BUN 12 Creatinine 0.35 L Est GFR ( Amer) > 60 Est GFR (Non-Af Amer) > 60 Glucose 154 H Calcium 7.8 L Total Bilirubin 0.3 AST 56 H ALT 54 H Alkaline Phosphatase 247 H Total Protein 5.7 L Albumin 2.3 L 08/06/18 15:00 Catheter Tip - Central Line Catheter Tip Culture - Final NO GROWTH 3 DAYS 08/04/18 17:22 Blood Blood Culture - Final Staphylococcus Epidermidis 1207/26/18 07/27/18 23:30 23:57 00:35 NT-Pro-B Natriuret Pep Cancelled Cancelled 3320 H Impressions: KUB X-Ray 07/26/18 00:00 IMPRESSION: Nasogastric tube in the stomach. Abdomen/Pelvis CT 07/26/18 15:30 IMPRESSION: 1. Trace right pleural effusion. 2. Cardiomegaly. 3. Fluid-filled dilated esophagus, concerning for increased risk of aspiration. IMPRESSION: 1. High-grade distal small-bowel obstruction with bowel perforation. Surgical consult recommended. 2. Pneumoperitoneum. Small amount of ascites. 3. Indeterminate heterogeneous liver lesion. This can be further evaluated with dedicated nonemergent contrast enhanced MRI. Chest CT 07/26/18 16:11 IMPRESSION: 1. Trace right pleural effusion. 2. Cardiomegaly. 3. Fluid-filled dilated esophagus, concerning for increased risk of aspiration. IMPRESSION: 1. High-grade distal small-bowel obstruction with bowel perforation. Surgical consult recommended. 2. Pneumoperitoneum. Small amount of ascites. 3. Indeterminate heterogeneous liver lesion. This can be further evaluated with dedicated nonemergent contrast enhanced MRI. Guidance Ultrasound 08/06/18 00:00 IMPRESSION: Vascular ultrasound guidance. Interventional Vascular Procedure 08/06/18 00:00 IMPRESSION: Vascular ultrasound guidance. Chest X-Ray 08/07/18 06:00 IMPRESSION: Cardiomegaly with postsurgical change. Lines and catheters in place copyright 2011 [employer]- All Rights Reserved Assessment & Plan - Time Time Spent with patient: 15-24 minutes - Inpatient Certification Medical Necessity: Need Close Monitoring Due to Risk of Patient Decompensation, Need For IV Fluids, Need For Continuous Telemetry Monitoring, Risk of Complication if Not Cared For in Hospital - Plan Summary Plan Summary: D/W pharmacy. Since patient tolerating tube feedings will D/C TPN Continue ICU care. Will re-evaluate tomorrow when hopefully more oriented and can D/C NGT and start po intake.
[2018-08-09] MEDS: ALPRAZOLAM 0.25 MG TABLET PO SCH ×2 (14:17→21:55)
[2018-08-09 14:48] LABS: ARTERIAL BLOOD BASE EXCESS 2.5 mmol/L; ARTERIAL BLOOD FIO2 50%; ARTERIAL BLOOD H2CO3 0.97 mmol/L (1.05-1.35); ARTERIAL BLOOD HCO3 25.1 mmol/L (20-24); ARTERIAL BLOOD O2 SATURATION 99.5 % (94-98); ARTERIAL BLOOD PCO2 32.2 mmHg (35-45); ARTERIAL BLOOD PH 7.51 (7.35-7.45); ARTERIAL BLOOD PO2 210.5 mmHg (80-100)
--- NOTE | 2018-08-09 16:26 | PDOC PROGRESS REPORT ---
Subjective Progress Note for:: 08/09/18 Subjective:: She apparently was extubated yesterday. She is been on a face tent since then. She has had a hard time waking up from the anesthesia. She does open her eyes spontaneously and make eye contact. She still been running some elevated temperatures but has not improved fever curve overall. She still intermittently tachycardic. Reason For Visit: LOW BLOOD PRESSURE Physical Exam Vital Signs: Temp Pulse Resp BP Pulse Ox 100.4 F 129 H 33 H 134/61 H 100 08/09/18 16:00 08/09/18 08:00 08/09/18 15:18 08/09/18 14:22 08/09/18 15:20 Intake & Output 08/08/18 08/09/18 08/10/18 06:59 06:59 06:59 Intake Total 5478 4886 1210 Output Total 4870 4825 2110 Balance 608 61 -900 Weight 84.2 kg 83.1 kg General appearance: PRESENT: disheveled, mild distress Respiratory exam: PRESENT: clear to auscultation adán - Respirations overall are shallow, symmetrical, tachypnea, wheezes. ABSENT: accessory muscle use, rales, rhonchi, unlabored Cardiovascular exam: PRESENT: tachycardia Vascular exam: PRESENT: normal capillary refill GI/Abdominal exam: PRESENT: normal bowel sounds, soft, tenderness - Mild. ABSENT: distended, guarding, rebound Extremities exam: PRESENT: +1 edema - Generalized nonpitting edema. ABSENT: clubbing Musculoskeletal exam: PRESENT: normal inspection. ABSENT: deformity Neurological exam: PRESENT: awake - Somnolent but does open her eyes to verbal command and also spontaneously and makes eye contact, oriented to person Skin exam: PRESENT: dry. ABSENT: warm Results Laboratory Results: 08/09/18 05:36 08/09/18 09:40 08/09/18 08/09/18 08/09/18 05:36 05:36 09:40 WBC 10.6 H RBC 3.07 L Hgb 8.7 L Hct 25.2 L MCV 82 MCH 28.4 MCHC 34.6 RDW 13.6 Plt Count 464 H Seg Neutrophils % 77.1 Lymphocytes % 11.4 L Monocytes % 8.3 Eosinophils % 2.8 Basophils % 0.4 Absolute Neutrophils 8.2 Absolute Lymphocytes 1.2 Absolute Monocytes 0.9 Absolute Eosinophils 0.3 Absolute Basophils 0.0 Carbonic Acid 1.13 HCO3/H2CO3 Ratio 24:1 ABG pH 7.48 H ABG pCO2 37.6 ABG pO2 130.4 H ABG HCO3 27.4 H ABG O2 Saturation 98.8 H ABG Base Excess 3.8 FiO2 40% Sodium 137.0 Potassium 4.4 Chloride 103 Carbon Dioxide 27 Anion Gap 7 BUN 12 Creatinine 0.35 L Est GFR ( Amer) > 60 Est GFR (Non-Af Amer) > 60 Glucose 154 H Calcium 7.8 L Total Bilirubin 0.3 AST 56 H ALT 54 H Alkaline Phosphatase 247 H Total Protein 5.7 L Albumin 2.3 L 08/09/18 14:35 WBC RBC Hgb Hct MCV MCH MCHC RDW Plt Count Seg Neutrophils % Lymphocytes % Monocytes % Eosinophils % Basophils % Absolute Neutrophils Absolute Lymphocytes Absolute Monocytes Absolute Eosinophils Absolute Basophils Carbonic Acid 0.97 L HCO3/H2CO3 Ratio 25:1 ABG pH 7.51 H ABG pCO2 32.2 L ABG pO2 210.5 H ABG HCO3 25.1 H ABG O2 Saturation 99.5 H ABG Base Excess 2.5 FiO2 50% Sodium Potassium Chloride Carbon Dioxide Anion Gap BUN Creatinine Est GFR ( Amer) Est GFR (Non-Af Amer) Glucose Calcium Total Bilirubin AST ALT Alkaline Phosphatase Total Protein Albumin 08/06/18 15:00 Catheter Tip - Central Line Catheter Tip Culture - Final NO GROWTH 3 DAYS 07/26/18 07/26/18 07/27/18 23:30 23:57 00:35 NT-Pro-B Natriuret Pep Cancelled Cancelled 3320 H Impressions: KUB X-Ray 07/26/18 00:00 IMPRESSION: Nasogastric tube in the stomach. Abdomen/Pelvis CT 07/26/18 15:30 IMPRESSION: 1. Trace right pleural effusion. 2. Cardiomegaly. 3. Fluid-filled dilated esophagus, concerning for increased risk of aspiration. IMPRESSION: 1. High-grade distal small-bowel obstruction with bowel perforation. Surgical consult recommended. 2. Pneumoperitoneum. Small amount of ascites. 3. Indeterminate heterogeneous liver lesion. This can be further evaluated with dedicated nonemergent contrast enhanced MRI. Chest CT 07/26/18 16:11 IMPRESSION: 1. Trace right pleural effusion. 2. Cardiomegaly. 3. Fluid-filled dilated esophagus, concerning for increased risk of aspiration. IMPRESSION: 1. High-grade distal small-bowel obstruction with bowel perforation. Surgical consult recommended. 2. Pneumoperitoneum. Small amount of ascites. 3. Indeterminate heterogeneous liver lesion. This can be further evaluated with dedicated nonemergent contrast enhanced MRI. Guidance Ultrasound 08/06/18 00:00 IMPRESSION: Vascular ultrasound guidance. Interventional Vascular Procedure 08/06/18 00:00 IMPRESSION: Vascular ultrasound guidance. Chest X-Ray 08/07/18 06:00 IMPRESSION: Cardiomegaly with postsurgical change. Lines and catheters in place copyright 2011 [employer]- All Rights Reserved Assessment & Plan - Diagnosis (1) Perforated viscus Is this a current diagnosis for this admission?: Yes Plan: Management per surgery (2) Septic shock Is this a current diagnosis for this admission?: Yes Plan: Fever seemed to improve with broad-spectrum antibiotics. Urine output is good. She has been extubated. She is being followed by pulmonary. If she keeps having fevers we may have to do a CT scan of her belly just to make sure there is nothing going on in there acutely. At present we have no other evidence of any other potential source of infection. - Time Time Spent with patient: 25-34 minutes
[2018-08-09] MEDS ORDERED: LORAZEPAM INJ 2 MG/1 ML VIAL ONE (23:09)
[2018-08-09] MEDS: LORAZEPAM INJ 2 MG/1 ML VIAL IV PRN (23:15)
[2018-08-10] MEDS: NORMAL SALINE 1000 ML 1,000 ML IV PRN ×3 (02:09→18:20)
[2018-08-10] MEDS: MEROPENEM 1 GM in NORMAL SALINE 50 ML IV SCH ×3 (02:38→18:20)
[2018-08-10] MEDS ORDERED: METOPROLOL TARTRATE PF/INJ 5 MG/5 ML SDV IV ONE (03:29)
[2018-08-10] MEDS: METOPROLOL TARTRATE PF/INJ 5 MG/5 ML SDV IV PRN ×3 (03:32→03:55)
[2018-08-10] MEDS: LORAZEPAM INJ 2 MG/1 ML VIAL IV PRN ×2 (03:36→09:13)
[2018-08-10] MEDS ORDERED: DIGOXIN INJ 0.5 MG/2 ML AMPULE ONE (05:34)
--- NOTE | 2018-08-10 05:58 | Progress Note ---
Provider Note Provider Note: Critical care note: Critical care onset time: 5:29 AM I was recontacted by the patient's nurse with the information that her tachycardia had not responded well to our previous efforts of treatment with metoprolol IV and IV lorazepam. I evaluated the patient in person at her request due to her sustained tachycardia and hypotension. Patient does not show significant signs of volume depletion as she has good urine output and is receiving adequate intake. Cardiac exam reveals a regular tachycardia with no pathologic abnormalities noted. Lungs are essentially clear though the patient is tachypneic with a respiratory rate of 32. Her temperature was noted to be 100.8 F and she was slightly diaphoretic on exam. The abdomen is soft with bowel sounds present in all 4 quadrants. Patient's heart rate was in the 120s and her systolic blood pressure was in the 90s. After an extensive discussion and review of the patient's case with her nursing provider we arrived to the plan of action to try administering digoxin 0.5 mg IV x1 to hopefully achieve a reduced heart rate and not adversely affect her blood pressure. This plan will be undertaken and I will be kept informed as to her response to therapy. Critical care and time 5:50 AM
[2018-08-10] MEDS: ALPRAZOLAM 0.25 MG TABLET PO SCH ×3 (06:15→21:44)
[2018-08-10 06:27] LABS: ARTERIAL BLOOD BASE EXCESS 2.3 mmol/L; ARTERIAL BLOOD H2CO3 1.04 mmol/L (1.05-1.35); ARTERIAL BLOOD HCO3 25.5 mmol/L (20-24); ARTERIAL BLOOD O2 SATURATION 97.9 % (94-98); ARTERIAL BLOOD PCO2 34.6 mmHg (35-45); ARTERIAL BLOOD PH 7.49 (7.35-7.45); ARTERIAL BLOOD PO2 97.5 mmHg (80-100); ARTERIAL BLOOD TOTAL CO2 26.6 mmol/L (21-25)
[2018-08-10 06:30] LABS: ARTERIAL BLOOD FIO2 38%
[2018-08-10] MEDS ORDERED: DIGOXIN INJ 0.5 MG/2 ML AMPULE IV ONE (06:45)
--- NOTE | 2018-08-10 08:17 | RADIOLOGY REPORT (SQ) ---
EXAM DESCRIPTION: CHEST SINGLE VIEW COMPLETED DATE/TIME: 08/10/2018 6:52 am REASON FOR STUDY: resp failure COMPARISON: 08/07/2018 EXAM PARAMETERS: NUMBER OF VIEWS: One view. TECHNIQUE: Single frontal radiographic view of the chest acquired. RADIATION DOSE: NA LIMITATIONS: None. FINDINGS: LUNGS AND PLEURA: No opacities, masses or pneumothorax. No pleural effusion. MEDIASTINUM AND HILAR STRUCTURES: No masses. Contour normal. HEART AND VASCULAR STRUCTURES: Cardiomegaly, stable finding. BONES: No acute findings. HARDWARE: Prior anterior median sternotomy, stable finding. Interval removal of endotracheal tube. The remaining support lines and catheters are stable in location. OTHER: No other significant finding. IMPRESSION: 1. Since the previous examination dated 08/07/2018, interval removal of endotracheal tu be. Otherwise, stable examination. TECHNICAL DOCUMENTATION: JOB ID: [id number] 2009 [employer]- All Rights Reserved Reading location - IP/workstation name: [email or web address]
--- NOTE | 2018-08-10 09:32 | PDOC PROGRESS REPORT ---
Subjective Progress Note for:: 08/10/18 Subjective:: Patient remains in the ICU, extubated, following commands, weak cough, tolerating tube feeds; TPN weaned; not out of bed yet. No pressors. Reason For Visit: LOW BLOOD PRESSURE Physical Exam Vital Signs: Temp Pulse Resp BP Pulse Ox 99.9 F 111 H 36 H 120/66 100 08/10/18 08:00 08/10/18 08:00 08/10/18 08:38 08/10/18 08:00 08/10/18 08:38 Intake & Output 08/09/18 08/10/18 08/11/18 06:59 06:59 06:59 Intake Total 4886 2695 313 Output Total 4807 4865 250 Balance 61 -2170 63 Weight 83.1 kg 81.9 kg General appearance: PRESENT: no acute distress - Arouses, communicate, follows commands. GI/Abdominal exam: PRESENT: other - Abdomen examined. Midline incision approximated in several areas, with loose Ethilon sutures in 3 areas. Caceres of open wound beginning to granulate, some melted fat but no ivelisse pus. Results Laboratory Results: 08/09/18 05:36 08/09/18 09:40 08/09/18 08/09/18 08/10/18 09:40 14:35 06:20 Carbonic Acid 0.97 L 1.04 L HCO3/H2CO3 Ratio 25:1 24:1 ABG pH 7.51 H 7.49 H ABG pCO2 32.2 L 34.6 L ABG pO2 210.5 H 97.5 ABG HCO3 25.1 H 25.5 H ABG O2 Saturation 99.5 H 97.9 ABG Base Excess 2.5 2.3 FiO2 50% 38% Sodium 137.0 Potassium 4.4 Chloride 103 Carbon Dioxide 27 Anion Gap 7 BUN 12 Creatinine 0.35 L Est GFR ( Amer) > 60 Est GFR (Non-Af Amer) > 60 Glucose 154 H Calcium 7.8 L Total Bilirubin 0.3 AST 56 H ALT 54 H Alkaline Phosphatase 247 H Total Protein 5.7 L Albumin 2.3 L 08/04/18 17:25 Blood Blood Culture - Final NO GROWTH IN 5 DAYS 08/06/18 15:00 Catheter Tip - Central Line Catheter Tip Culture - Final NO GROWTH 3 DAYS 07/26/18 07/26/18 07/27/18 23:30 23:57 00:35 NT-Pro-B Natriuret Pep Cancelled Cancelled 3320 H Impressions: KUB X-Ray 07/26/18 00:00 IMPRESSION: Nasogastric tube in the stomach. Abdomen/Pelvis CT 07/26/18 15:30 IMPRESSION: 1. Trace right pleural effusion. 2. Cardiomegaly. 3. Fluid-filled dilated esophagus, concerning for increased risk of aspiration. IMPRESSION: 1. High-grade distal small-bowel obstruction with bowel perforation. Surgical consult recommended. 2. Pneumoperitoneum. Small amount of ascites. 3. Indeterminate heterogeneous liver lesion. This can be further evaluated with dedicated nonemergent contrast enhanced MRI. Chest CT 07/26/18 16:11 IMPRESSION: 1. Trace right pleural effusion. 2. Cardiomegaly. 3. Fluid-filled dilated esophagus, concerning for increased risk of aspiration. IMPRESSION: 1. High-grade distal small-bowel obstruction with bowel perforation. Surgical consult recommended. 2. Pneumoperitoneum. Small amount of ascites. 3. Indeterminate heterogeneous liver lesion. This can be further evaluated with dedicated nonemergent contrast enhanced MRI. Guidance Ultrasound 08/06/18 00:00 IMPRESSION: Vascular ultrasound guidance. Interventional Vascular Procedure 08/06/18 00:00 IMPRESSION: Vascular ultrasound guidance. Chest X-Ray 08/10/18 06:00 IMPRESSION: 1. Since the previous examination dated 08/07/2018, interval r emoval of endotracheal tube. Otherwise, stable examination. Assessment & Plan - Diagnosis (1) Perforated viscus Is this a current diagnosis for this admission?: Yes Plan: Recommendations: 1. Out of bed to chair; coughing pillow; incentive spirometer 2. We will obtain swallow Gastrografin to rule out any leak or stenosis at the duodenum; if normal, will DC NG tube and start clear liquids 3. Keep in ICU today. 4. Discussed the role of ongoing antibiotic therapy. (2) Metabolic acidosis Is this a current diagnosis for this admission?: Yes (3) History of atrial septal defect repair Is this a current diagnosis for this admission?: Yes (4) Septic shock Is this a current diagnosis for this admission?: Yes (5) Bowel obstruction Qualifiers: Intestinal obstruction type: unspecified Intestinal obstruction extent: complete Qualified Code(s): K56.601 - Complete intestinal obstruction, unspecified as to cause Is this a current diagnosis for this admission?: Yes
[2018-08-10] MEDS: VANCOMYCIN HCL 1,500 MG in DEXTROSE 5%-WATER 250 ML IV SCH ×2 (09:52→21:44)
[2018-08-10] MEDS: FENTANYL CITRATE/PF 600 MCG/60 ML BAG IV PRN ×2 (12:23→23:27)
--- NOTE | 2018-08-10 13:12 | RADIOLOGY REPORT (SQ) ---
EXAM DESCRIPTION: BARIUM SWALLOW ESOPHAGUS COMPLETED DATE/TIME: 08/10/2018 11:29 am REASON FOR STUDY: Assess for leak post op duodenal repair COMPARISON: None. TECHNIQUE: Under fluoroscopic guidance, the patient was administered water-soluble contrast through an indwelling NG tube.. Fluoroscopic spot images and routine radiographic images acquired and stored on PACS. 12 MM BARIUM TABLET GIVEN: No LIMITATIONS: None. FLUOROSCOPY TIME: 4.05 minutes 9 images saved to PACS. FINDINGS: NEUROMUSCULAR COORDINATION OF SWALLOW: Not assessed ESOPHAGEAL MOTILITY: Not assessed ESOPHAGEAL MUCOSA: Not assessed GASTRO-ESOPHAGEAL JUNCTION: Small hiatal hernia present with mild reflux. NON-GI TRACT STRUCTURES: No significant finding. OTHER: The stomach is normal in appearance with normal gastric emptying. Contrast is followed throug h the duodenum and proximal small bowel without evidence for extravasation or obstruction. IMPRESSION: NO EXTRAVASATION OF CONTRAST IDENTIFIED. COMMENT: None Quality ID 145: Final reports for procedures using fluoroscopy that document radiation exposure rico manav, or exposure time and number of fluorographic images (if radiation exposure indices are not avail able) TECHNICAL DOCUMENTATION: JOB ID: [id number] [employer]- All Rights Reserved Reading location - IP/workstation name: [email or web address]
--- NOTE | 2018-08-10 14:38 | RADIOLOGY REPORT (SQ) ---
EXAM DESCRIPTION: CT CHEST WITH COMPLETED DATE/TIME: 08/10/2018 2:26 pm REASON FOR STUDY: sepsis, recent abdominal surgery COMPARISON: 07/26/2018. TECHNIQUE: CT scan of the chest performed using helical scanning technique with dynamic intravenous contrast injection. Images reviewed with lung, soft tissue and bone windows. Reconstructed coronal and sagittal MPR and MIP images reviewed. All images stored on PACS. All CT scanners at this facility use dose modulation, iterative reconstruction, and/or weight based d osing when appropriate to reduce radiation dose to as low as reasonably achievable (ALARA). [facility]: Dose Right [facility]: CareDose [facility]: Dose Right [facility]: Teradose 4D [facility]: Individual Digital CONTRAST TYPE AND DOSE: 94 mL Omnipaque 350- low osmolar. RENAL FUNCTION: BUN 12 creatinine 0.35. RADIATION DOSE: . LIMITATIONS: None. FINDINGS: LUNGS AND PLEURA: Small right pleural effusion. Right lower lobe consolidation with a few air bronchograms. Left lung clear. Mild atelectasis. No pneumothorax. HILAR AND MEDIASTINAL STRUCTURES: No identified masses or abnormal nodes. HEART AND VASCULAR STRUCTURES: No aneurysm or dissection. No central pulmonary emboli. No pericardi al effusion. HARDWARE: Sternotomy wires. Central line. Nasogastric tube. UPPER ABDOMEN: See separate report of the CT of the abdomen. THYROID AND OTHER SOFT TISSUES: No masses. No adenopathy. BONES: No significant finding. OTHER: No other significant finding. IMPRESSION: SMALL RIGHT PLEURAL EFFUSION. RIGHT LOWER LOBE CONSOLIDATION WITH A FEW AIR BRONCHOGRAM S WHICH MAY BE DUE TO PNEUMONIA AND/OR ATELECTASIS. TECHNICAL DOCUMENTATION: JOB ID: [id number] Quality ID # [id number]: Final reports with documentation of one or more dose reduction techniques (e.g., Au tomated exposure control, adjustment of the mA and/or kV according to patient size, use of iterative reconstruction technique) 2010 [employer]- All Rights Reserved Reading location - IP/workstation name: [email or web address]
--- NOTE | 2018-08-10 14:47 | RADIOLOGY REPORT (SQ) ---
EXAM DESCRIPTION: CT ABD/PELVIS WITH IV ORAL COMPLETED DATE/TIME: 08/10/2018 2:25 pm REASON FOR STUDY: sepsis, recent abdominal surgery COMPARISON: 07/26/2018. TECHNIQUE: CT scan of the abdomen and pelvis performed with intravenous and oral contrast using maxime moises scanning technique with dynamic intravenous contrast injection. Images reviewed with lung, soft t issue, and bone windows. Reconstructed coronal and sagittal MPR images reviewed. Delayed images for e valuation of the urinary system also acquired. All images stored on PACS. All CT scanners at this facility use dose modulation, iterative reconstruction, and/or weight based d osing when appropriate to reduce radiation dose to as low as reasonably achievable (ALARA). [facility]: Dose Right [facility]: CareDose [facility]: Dose Right [facility]: Teradose 4D [facility]: vendome 1699 CONTRAST TYPE AND DOSE: contrast/concentration: Isovue 350.00 mg/ml; Total Contrast Delivered: 94.0 ml; Total Saline Delivered: 57.4 ml RENAL FUNCTION: BUN 12 creatinine 0.35. RADIATION DOSE: CT Rad equipment meets quality standard of care and radiation dose reduction techniq ues were employed. CTDIvol: 18.7 - 23.3 mGy. DLP: 2956 mGy-cm. . LIMITATIONS: None. FINDINGS: LOWER CHEST: See separate report of the CT of the chest. LIVER: Normal size. Irregular low-attenuation lesion in the right lobe of the liver, unchanged. No dilated ducts. SPLEEN: Normal size. No focal lesions. PANCREAS: No masses. No significant calcifications. No adjacent inflammation or peripancreatic fluid collections. Pancreatic duct not dilated. GALLBLADDER: Surgically absent. ADRENAL GLANDS: No significant masses or asymmetry. RIGHT KIDNEY AND URETER: No solid masses. No significant calcifications. No hydronephrosis or hyd roureter. LEFT KIDNEY AND URETER: No solid masses. No significant calcifications. No hydronephrosis or hydr oureter. AORTA AND VESSELS: No aneurysm. No dissection. Renal arteries, SMA, celiac without stenosis. RETROPERITONEUM: No retroperitoneal adenopathy, hemorrhage or masses. BOWEL AND PERITONEAL CAVITY: No obstruction. There are a few minimally prominent lymph nodes in the mesentery, measuring less than 1 cm. No visualized masses. No free fluid. No inflammatory changes o r thickening of bowel wall. APPENDIX: Not visualized. PELVIS: No significant masses. Catheter in the bladder. No free fluid. ABDOMINAL WALL: Surgical changes in the anterior abdominal wall with open midline incision site. No abnormal fluid collection or gas in the soft tissues. No masses. No hernias. BONES: No significant or acute findings. OTHER: No other significant finding. IMPRESSION: 1. CHANGES OF RECENT ABDOMINAL SURGERY WITH OPEN INCISION SITE IN THE ABDOMINAL WALL. NO EVIDENCE OF SOFT TISSUE ABSCESS. NO SIGNIFICANT POSTOPERATIVE FINDINGS IN THE ABDOMEN OR PELVIS. 2. IRREGULAR LOW-ATTENUATION LESION IN THE RIGHT LOBE OF THE LIVER, UNCHANGED. THIS MAY BE A HEMANGI CHANTAL. FURTHER EVALUATION WITH MRI OF THE LIVER SHOULD BE CONSIDERED AFTER THE PATIENT'S CLINICAL COND ITION HAS IMPROVED. 3. MINIMAL MESENTERIC ADENOPATHY, NONSPECIFIC AND PROBABLY INCIDENTAL. 4. NO OTHER SIGNIFICANT OR ACUTE FINDINGS IN THE ABDOMEN OR PELVIS. TECHNICAL DOCUMENTATION: JOB ID: [id number] Quality ID # [id number]: Final reports with documentation of one or more dose reduction techniques (e.g., Au tomated exposure control, adjustment of the mA and/or kV according to patient size, use of iterative reconstruction technique) 2010 [employer]- All Rights Reserved Reading location - IP/workstation name: [email or web address]
--- NOTE | 2018-08-10 15:49 | PDOC CONSULTATION ---
Consultation Consult Date: 07/27/18 Attending physician:: ROSA CAZARES Consult reason:: Respiratory failure History of Present Illness Admission Date/PCP: 07/26/18 18:25 MALU MONCADA MD History of Present Illness: VAZQUEZ QUINTANA is a 57 year old female, presented to the emergency room with 3 days of abdominal pain nausea and vomiting subsequent workup showed free air under the diaphragm and she was taken to the OR she had a perforated viscus as well as other surgical problems she is currently in the ICU intubated and sedated large abdominal incision from the xiphoid to the symphysis pubis in the midline. Social History Information Source: [facility] Records Lives with: Family Smoking Status: Unknown if Ever Smoked Frequency of Alcohol Use: None Hx Recreational Drug Use: - unknown Hx Prescription Drug Abuse: - unknown - Advance Directive Resuscitation Status: Full Code Family History Parental Family History Reviewed: No Children Family History Reviewed: No Sibling(s) Family History Reviewed.: No Medication/Allergy Home Medications: No Home Medications 07/27/18 Allergies/Adverse Reactions: No Known Allergies Allergy (Verified 07/27/18 15:24) Review of Systems ROS unobtainable: Due to endotracheal tube Physical Exam Vital Signs: Temp Pulse Resp BP Pulse Ox 98.8 F 123 H 30 H 82/54 L 100 07/27/18 08:00 07/27/18 08:00 07/27/18 08:21 07/27/18 08:21 07/27/18 08:21 Intake & Output 07/26/18 07/27/18 07/28/18 06:59 06:59 06:59 Intake Total 71402 50 Output Total 9270 185 Balance 5031 -135 Weight 90.1 kg General appearance: PRESENT: no acute distress, disheveled, obese. ABSENT: cooperative Head exam: PRESENT: atraumatic, normocephalic Eye exam: PRESENT: conjunctiva pale. ABSENT: EOMI, nystagmus, scleral icterus Mouth exam: PRESENT: dry mucosa, neck supple, tongue midline, other - ET tube in place Neck exam: ABSENT: carotid bruit, JVD, lymphadenopathy, thyromegaly, tracheal deviation, tracheostomy Respiratory exam: PRESENT: decreased breath sounds, prolonged expiratory phas, rales, rhonchi, symmetrical, unlabored. ABSENT: stridor, tachypnea Cardiovascular exam: PRESENT: RRR, +S1, +S2, tachycardia Pulses: PRESENT: normal radial pulses GI/Abdominal exam: PRESENT: other - Status post surgery Gentrourinary exam: PRESENT: indwelling catheter Extremities exam: PRESENT: pedal edema. ABSENT: calf tenderness, clubbing, joint swelling Musculoskeletal exam: ABSENT: ambulatory, deformity, dislocation Neurological exam: ABSENT: awake Skin exam: PRESENT: dry, warm Results Laboratory Results: 07/26/18 23:30 07/27/18 00:35 07/26/18 07/26/18 07/26/18 18:50 18:50 19:15 WBC RBC Hgb Hct MCV MCH MCHC RDW Plt Count Seg Neutrophils % Lymphocytes % Monocytes % Eosinophils % Basophils % Absolute Neutrophils Absolute Lymphocytes Absolute Monocytes Absolute Eosinophils Absolute Basophils Carbonic Acid 1.11 HCO3/H2CO3 Ratio 16:1 ABG pH 7.32 L ABG pCO2 37.0 ABG pO2 210.9 H ABG HCO3 18.5 L ABG O2 Saturation 99.3 H ABG Base Excess -7.0 FiO2 60% Sodium 138.9 Potassium 2.8 L* Chloride 104 Carbon Dioxide 21 L Anion Gap 14 BUN 34 H Creatinine 1.35 H Est GFR ( Amer) 49 L Est GFR (Non-Af Amer) 40 L Glucose 124 H Lactic Acid Calcium 7.4 L Blood Type A POSITIVE Antibody Screen NEGATIVE 07/26/18 07/26/18 07/26/18 19:51 20:20 20:20 WBC RBC Hgb Hct MCV MCH MCHC RDW Plt Count Seg Neutrophils % Lymphocytes % Monocytes % Eosinophils % Basophils % Absolute Neutrophils Absolute Lymphocytes Absolute Monocytes Absolute Eosinophils Absolute Basophils Carbonic Acid 1.09 HCO3/H2CO3 Ratio 23:1 ABG pH 7.48 H ABG pCO2 36.3 ABG pO2 149.9 H ABG HCO3 26.1 H ABG O2 Saturation 99.1 H ABG Base Excess 2.7 FiO2 60% Sodium 141.9 Potassium 4.3 D Chloride 117 H Carbon Dioxide 22 Anion Gap 3 L BUN 28 H Creatinine 0.95 Est GFR ( Amer) > 60 Est GFR (Non-Af Amer) > 60 Glucose 137 H Lactic Acid 2.9 H Calcium 5.1 L* Blood Type Antibody Screen 07/26/18 07/26/18 07/27/18 23:30 23:57 00:35 WBC 10.4 RBC 5.56 H Hgb 15.5 Hct 47.5 H MCV 85 MCH 27.9 MCHC 32.7 RDW 14.4 H Plt Count 309 Seg Neutrophils % 78.2 H Lymphocytes % 15.7 Monocytes % 5.5 Eosinophils % 0.1 Basophils % 0.5 Absolute Neutrophils 8.1 Absolute Lymphocytes 1.6 Absolute Monocytes 0.6 Absolute Eosinophils 0.0 Absolute Basophils 0.0 Carbonic Acid HCO3/H2CO3 Ratio ABG pH ABG pCO2 ABG pO2 ABG HCO3 ABG O2 Saturation ABG Base Excess FiO2 Sodium Cancelled 143.8 Potassium Cancelled 3.5 L Chloride Cancelled 114 H Carbon Dioxide Cancelled 22 Anion Gap Cancelled 8 BUN Cancelled 30 H Creatinine Cancelled 1.11 Est GFR ( Amer) Cancelled > 60 Est GFR (Non-Af Amer) Cancelled 51 L Glucose Cancelled 123 H Lactic Acid Calcium Cancelled 6.7 L* Blood Type Antibody Screen 07/27/18 06:58 WBC RBC Hgb Hct MCV MCH MCHC RDW Plt Count Seg Neutrophils % Lymphocytes % Monocytes % Eosinophils % Basophils % Absolute Neutrophils Absolute Lymphocytes Absolute Monocytes Absolute Eosinophils Absolute Basophils Carbonic Acid 0.80 L HCO3/H2CO3 Ratio 18:1 ABG pH 7.36 ABG pCO2 26.5 L ABG pO2 147.0 H ABG HCO3 14.7 L ABG O2 Saturation 98.9 H ABG Base Excess -9.0 FiO2 40% Sodium Potassium Chloride Carbon Dioxide Anion Gap BUN Creatinine Est GFR ( Amer) Est GFR (Non-Af Amer) Glucose Lactic Acid Calcium Blood Type Antibody Screen 07/26/18 07/26/18 07/27/18 23:30 23:57 00:35 NT-Pro-B Natriuret Pep Cancelled Cancelled 3320 H Impressions: KUB X-Ray 07/26/18 00:00 IMPRESSION: Nasogastric tube in the stomach. Abdomen/Pelvis CT 07/26/18 15:30 IMPRESSION: 1. Trace right pleural effusion. 2. Cardiomegaly. 3. Fluid-filled dilated esophagus, concerning for increased risk of aspiration. IMPRESSION: 1. High-grade distal small-bowel obstruction with bowel perforation. Surgical consult recommended. 2. Pneumoperitoneum. Small amount of ascites. 3. Indeterminate heterogeneous liver lesion. This can be further evaluated with dedicated nonemergent contrast enhanced MRI. Chest CT 12/16/18 16:11 IMPRESSION: 1. Trace right pleural effusion. 2. Cardiomegaly. 3. Fluid-filled dilated esophagus, concerning for increased risk of aspiration. IMPRESSION: 1. High-grade distal small-bowel obstruction with bowel perforation. Surgical consult recommended. 2. Pneumoperitoneum. Small amount of ascites. 3. Indeterminate heterogeneous liver lesion. This can be further evaluated with dedicated nonemergent contrast enhanced MRI. Chest X-Ray 07/27/18 05:26 IMPRESSION: Lines and catheters in place. No discrete pneumothorax. Free air seen previously is not appreciated on this exam. Hazy opacities over each lung base. copyright 2010 [employer]- All Rights Reserved Assessment & Plan - Diagnosis (1) Bowel obstruction Qualifiers: Intestinal obstruction type: unspecified Intestinal obstruction extent: complete Qualified Code(s): K56.601 - Complete intestinal obstruction, unspecified as to cause Is this a current diagnosis for this admission?: Yes Plan: As per surgery (2) Metabolic acidosis Is this a current diagnosis for this admission?: Yes Plan: Septic shock compensate for acidosis with respiratory induced alkalosis (3) Perforated viscus Is this a current diagnosis for this admission?: Yes Plan: As per surgery (4) Septic shock Is this a current diagnosis for this admission?: Yes Plan: Multiple vasopressor agents required - Time Total Critical Time (Minutes): 65
--- NOTE | 2018-08-10 18:24 | PDOC PROGRESS REPORT ---
Subjective Progress Note for:: 08/10/18 Subjective:: No adverse events overnight. Still intermittently febrile but her fevers are not as severe as they have been previously. Respirations remain rapid and shallow. She is still encephalopathic, but she will open her eyes to verbal command and localize her gaze to voice and make eye contact. Reason For Visit: LOW BLOOD PRESSURE Physical Exam Vital Signs: Temp Pulse Resp BP Pulse Ox 100.4 F 115 H 24 H 89/56 L 99 08/10/18 16:00 08/10/18 16:00 08/10/18 16:00 08/10/18 16:00 08/10/18 16:00 Intake & Output 08/09/18 08/10/18 08/11/18 06:59 06:59 06:59 Intake Total 4882 2945 1373 Output Total 4879 7438 1470 Balance 61 -0 97 Weight 83.1 kg 81.9 kg General appearance: PRESENT: disheveled, mild distress Respiratory exam: PRESENT: clear to auscultation adán - Respirations overall are shallow, symmetrical, tachypnea, diminished at the bases. ABSENT: accessory muscle use, rales, rhonchi, unlabored Cardiovascular exam: PRESENT: tachycardia Vascular exam: PRESENT: normal capillary refill GI/Abdominal exam: PRESENT: normal bowel sounds, soft, tenderness - Mild. ABSENT: distended, guarding, rebound Extremities exam: PRESENT: +1 edema - Generalized nonpitting edema. ABSENT: clubbing Musculoskeletal exam: PRESENT: normal inspection. ABSENT: deformity Neurological exam: PRESENT: awake - Somnolent but does open her eyes to verbal command and also spontaneously and makes eye contact, oriented to person Skin exam: PRESENT: dry, warm. Results Laboratory Results: 08/09/18 05:36 08/09/18 09:40 08/10/18 06:20 Carbonic Acid 1.04 L HCO3/H2CO3 Ratio 24:1 ABG pH 7.49 H ABG pCO2 34.6 L ABG pO2 97.5 ABG HCO3 25.5 H ABG O2 Saturation 97.9 ABG Base Excess 2.3 FiO2 38% 08/04/18 17:25 Blood Blood Culture - Final NO GROWTH IN 5 DAYS 07/26/18 07/26/18 07/27/18 23:30 23:57 00:35 NT-Pro-B Natriuret Pep Cancelled Cancelled 3320 H Impressions: KUB X-Ray 07/26/18 00:00 IMPRESSION: Nasogastric tube in the stomach. Guidance Ultrasound 08/06/18 00:00 IMPRESSION: Vascular ultrasound guidance. Interventional Vascular Procedure 08/06/18 00:00 IMPRESSION: Vascular ultrasound guidance. Abdomen/Pelvis CT 08/10/18 00:00 IMPRESSION: 1. CHANGES OF RECENT ABDOMINAL SURGERY WITH OPEN INCISION SITE IN THE ABDOMINAL WALL. NO EVIDENCE OF SOFT TISSUE ABSCESS. NO SIGNIFICANT POSTOPERATIVE FINDINGS IN THE ABDOMEN OR PELVIS. 2. IRREGULAR LOW-ATTENUATION LESION IN THE RIGHT LOBE OF THE LIVER, UNCHANGED. THIS MAY BE A HEMANGIOMA. FURTHER EVALUATION WITH MRI OF THE LIVER SHOULD BE CONSIDERED AFTER THE PATIENT'S CLINICAL CONDITION HAS IMPROVED. 3. MINIMAL MESENTERIC ADENOPATHY, NONSPECIFIC AND PROBABLY INCIDENTAL. 4. NO OTHER SIGNIFICANT OR ACUTE FINDINGS IN THE ABDOMEN OR PELVIS. Chest CT 08/10/18 00:00 IMPRESSION: SMALL RIGHT PLEURAL EFFUSION. RIGHT LOWER LOBE CONSOLIDATION WITH A FEW AIR BRONCHOGRAMS WHICH MAY BE DUE TO PNEUMONIA AND/OR ATELECTASIS. Chest X-Ray 08/10/18 06:00 IMPRESSION: 1. Since the previous examination dated 08/07/2018, interval removal of endotracheal tube. Otherwise, stable examination. Esophagus X-Ray 08/10/18 09:36 IMPRESSION: NO EXTRAVASATION OF CONTRAST IDENTIFIED. Assessment & Plan - Diagnosis (1) Perforated viscus Is this a current diagnosis for this admission?: Yes Plan: Management per surgery. CT scan of her belly today showed only postsurgical changes without evidence of any fluid collection in her belly. (2) Septic shock Is this a current diagnosis for this admission?: Yes Plan: She is either aspirated or she develop atelectasis because of shallow respirations and has the appearance we see on the chest CT today. She is on broad-spectrum antibiotic coverage, but unless we can figure out how to improve her ventilation she is not can aerate the lower parts of her lungs and open it up and help clear out that consolidation. I do not know if she will tolerate aggressive chest PT right now, but we have got to do what we can for pulmonary toileting. - Time Time Spent with patient: 25-34 minutes
[2018-08-11] MEDS ORDERED: DIGOXIN INJ 0.5 MG/2 ML AMPULE IV ONE (00:38)
[2018-08-11] MEDS ORDERED: DIGOXIN INJ 0.5 MG/2 ML AMPULE ONE (00:43)
[2018-08-11] MEDS: MEROPENEM 1 GM in NORMAL SALINE 50 ML IV SCH ×3 (01:12→17:00)
[2018-08-11] MEDS: NORMAL SALINE 1000 ML 1,000 ML IV PRN ×3 (01:56→20:42)
[2018-08-11] MEDS ORDERED: ACETAMINOPHEN SOLN 325 MG/10.15 ML UDCUP ONE (02:09)
[2018-08-11] MEDS: ACETAMINOPHEN SOLN 325 MG/10.15 ML UDCUP NG PRN ×2 (02:21→16:58)
[2018-08-11 05:20] LABS: ARTERIAL BLOOD BASE EXCESS 3.4 mmol/L; ARTERIAL BLOOD H2CO3 1.01 mmol/L (1.05-1.35); ARTERIAL BLOOD HCO3 26.4 mmol/L (20-24); ARTERIAL BLOOD PCO2 33.4 mmHg (35-45); ARTERIAL BLOOD PH 7.52 (7.35-7.45); ARTERIAL BLOOD PO2 138.5 mmHg (80-100); ARTERIAL BLOOD TOTAL CO2 27.4 mmol/L (21-25)
[2018-08-11 05:22] LABS: ARTERIAL BLOOD FIO2 30%
[2018-08-11 05:37] LABS: ANION GAP 7 (5-19); BLOOD UREA NITROGEN 10 mg/dL (7-20); CARBON DIOXIDE 27 mmol/L (22-30); CHLORIDE 103 mmol/L (98-107); GLUCOSE 102 mg/dL (75-110); POTASSIUM 4.2 mmol/L (3.6-5.0); SODIUM 136.5 mmol/L (137-145)
[2018-08-11] MEDS: ALPRAZOLAM 0.25 MG TABLET PO SCH ×3 (05:39→21:01)
--- NOTE | 2018-08-11 08:41 | PDOC PROGRESS REPORT ---
Subjective Progress Note for:: 08/11/18 Subjective:: Patient remains in the ICU, got up in bed one time; had contrast study through nasogastric tube which is been pulled into the stomach which showed no evidence of leak, or stenosis of the duodenum. Tolerating tube feeds. More awake following commands. Remains tachycardic Patient had soft bowel movement yesterday; stool check for C. difficile, negative Reason For Visit: LOW BLOOD PRESSURE Physical Exam Vital Signs: Temp Pulse Resp BP Pulse Ox 98.2 F 135 H 30 H 114/66 97 08/11/18 08:00 08/11/18 08:00 08/11/18 08:00 08/11/18 08:00 08/11/18 08:00 Intake & Output 08/10/18 08/11/18 08/12/18 06:59 06:59 06:59 Intake Total 2945 3681 Output Total 4865 3070 45 Balance -1920 611 -45 Weight 81.9 kg 81.1 kg General appearance: PRESENT: no acute distress Throat exam: PRESENT: other - Moderate oral secretions GI/Abdominal exam: PRESENT: other - Midline dressing examined. Less sero-any drainage; au of subcutaneous tissue granulating. All drains out; patient had soft bowel movement yesterday. Results Laboratory Results: 08/09/18 05:36 08/11/18 05:00 08/11/18 08/11/18 05:00 05:00 Carbonic Acid 1.01 L HCO3/H2CO3 Ratio 26:1 ABG pH 7.52 H ABG pCO2 33.4 L ABG pO2 138.5 H ABG HCO3 26.4 H ABG O2 Saturation 99.0 H ABG Base Excess 3.4 FiO2 30% Sodium 136.5 L Potassium 4.2 Chloride 103 Carbon Dioxide 27 Anion Gap 7 BUN 10 Creatinine 0.42 L Est GFR ( Amer) > 60 Est GFR (Non-Af Amer) > 60 Glucose 102 Calcium 8.0 L Magnesium 2.1 07/26/18 07/26/18 07/27/18 23:30 23:57 00:35 NT-Pro-B Natriuret Pep Cancelled Cancelled 3320 H Impressions: KUB X-Ray 07/26/18 00:00 IMPRESSION: Nasogastric tube in the stomach. Guidance Ultrasound 08/06/18 00:00 IMPRESSION: Vascular ultrasound guidance. Interventional Vascular Procedure 08/06/18 00:00 IMPRESSION: Vascular ultrasound guidance. Abdomen/Pelvis CT 08/10/18 00:00 IMPRESSION: 1. CHANGES OF RECENT ABDOMINAL SURGERY WITH OPEN INCISION SITE IN THE ABDOMINAL WALL. NO EVIDENCE OF SOFT TISSUE ABSCESS. NO SIGNIFICANT POSTOPERATIVE FINDINGS IN THE ABDOMEN OR PELVIS. 2. IRREGULAR LOW-ATTENUATION LESION IN THE RIGHT LOBE OF THE LIVER, UNCHANGED. THIS MAY BE A HEMANGIOMA. FURTHER EVALUATION WITH MRI OF THE LIVER SHOULD BE CONSIDERED AFTER THE PATIENT'S CLINICAL CONDITION HAS IMPROVED. 3. MINIMAL MESENTERIC ADENOPATHY, NONSPECIFIC AND PROBABLY INCIDENTAL. 4. NO OTHER SIGNIFICANT OR ACUTE FINDINGS IN THE ABDOMEN OR PELVIS. Chest CT 08/10/18 00:00 IMPRESSION: SMALL RIGHT PLEURAL EFFUSION. RIGHT LOWER LOBE CONSOLIDATION WITH A FEW AIR BRONCHOGRAMS WHICH MAY BE DUE TO PNEUMONIA AND/OR ATELECTASIS. Chest X-Ray 08/10/18 06:00 IMPRESSION: 1. Since the previous examination dated 08/07/2018, interval removal of endotracheal tube. Otherwise, stable examination. Esophagus X-Ray 08/10/18 09:36 IMPRESSION: NO EXTRAVASATION OF CONTRAST IDENTIFIED. 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 Patient empirically treated for gram-positive sepsis, however no fever and no recent white blood cell count elevation. Successful return of gastrointestinal function. Recommendations: 1. We will get out of bed to chair. Assess swallowing function; likely remove nasogastric tube and start clear liquids 2. Continue dressing changes daily with gauze packing 3. We will discuss antibiotic treatment plan with internal medicine service 4. Keep in ICU for today. (2) Metabolic acidosis Is this a current diagnosis for this admission?: Yes (3) History of atrial septal defect repair Is this a current diagnosis for this admission?: Yes (4) Septic shock Is this a current diagnosis for this admission?: Yes (5) Bowel obstruction Qualifiers: Intestinal obstruction type: unspecified Intestinal obstruction extent: complete Qualified Code(s): K56.601 - Complete intestinal obstruction, unspecified as to cause Is this a current diagnosis for this admission?: Yes
[2018-08-11] MEDS: VANCOMYCIN HCL 1,500 MG in DEXTROSE 5%-WATER 250 ML IV SCH ×2 (09:18→21:01)
[2018-08-11] MEDS: FENTANYL CITRATE/PF 600 MCG/60 ML BAG IV PRN ×2 (11:16→22:39)
--- NOTE | 2018-08-11 18:07 | PDOC PROGRESS REPORT ---
Subjective Progress Note for:: 08/11/18 Subjective:: She was febrile again overnight and then this morning. She is, however, the most alert I have seen her in the past week. She was able to answer questions and interact more appropriately. She was on BiPAP this morning which is probably a good idea because on her own she is not drawing very deep breaths. When I made her take a deep breath she started coughing, which she said made her stomach hurt, and this may be why she is not taking very deep breaths. Reason For Visit: LOW BLOOD PRESSURE Physical Exam Vital Signs: Temp Pulse Resp BP Pulse Ox 101.1 F H 122 H 25 H 118/73 99 08/11/18 16:00 08/11/18 16:00 08/11/18 16:24 08/11/18 16:24 08/11/18 16:24 Intake & Output 08/10/18 08/11/18 08/12/18 06:59 06:59 06:59 Intake Total 2945 3681 1645 Output Total 4865 3070 905 Balance -1920 611 740 Weight 81.9 kg 81.1 kg General appearance: PRESENT: cooperative, disheveled, mild distress, morbidly obese Mouth exam: PRESENT: dry mucosa, neck supple Teeth exam: PRESENT: poor dentation Respiratory exam: PRESENT: decreased breath sounds - Mostly because she is shallow breathing, rhonchi - Especially in the right base, only provoked by deep breath, tachypnea. ABSENT: accessory muscle use, crackles, prolonged expiratory phas, unlabored, wheezes Cardiovascular exam: PRESENT: tachycardia Vascular exam: PRESENT: normal capillary refill GI/Abdominal exam: PRESENT: normal bowel sounds, soft, tenderness - Generalized mild tenderness, other - Surgical wound was cleanly dressed. ABSENT: distended, guarding, rebound Extremities exam: ABSENT: clubbing, pedal edema Musculoskeletal exam: PRESENT: normal inspection. ABSENT: deformity Neurological exam: PRESENT: awake, oriented to person, oriented to place, oriented to situation Psychiatric exam: PRESENT: flat affect Skin exam: PRESENT: dry, warm Results Laboratory Results: 08/09/18 05:36 08/11/18 05:00 08/11/18 08/11/18 05:00 05:00 Carbonic Acid 1.01 L HCO3/H2CO3 Ratio 26:1 ABG pH 7.52 H ABG pCO2 33.4 L ABG pO2 138.5 H ABG HCO3 26.4 H ABG O2 Saturation 99.0 H ABG Base Excess 3.4 FiO2 30% Sodium 136.5 L Potassium 4.2 Chloride 103 Carbon Dioxide 27 Anion Gap 7 BUN 10 Creatinine 0.42 L Est GFR ( Amer) > 60 Est GFR (Non-Af Amer) > 60 Glucose 102 Calcium 8.0 L Magnesium 2.1 07/26/18 07/26/18 07/27/18 23:30 23:57 00:35 NT-Pro-B Natriuret Pep Cancelled Cancelled 3320 H Impressions: KUB X-Ray 07/26/18 00:00 IMPRESSION: Nasogastric tube in the stomach. Guidance Ultrasound 08/06/18 00:00 IMPRESSION: Vascular ultrasound guidance. Interventional Vascular Procedure 08/06/18 00:00 IMPRESSION: Vascular ultrasound guidance. Abdomen/Pelvis CT 08/10/18 00:00 IMPRESSION: 1. CHANGES OF RECENT ABDOMINAL SURGERY WITH OPEN INCISION SITE IN THE ABDOMINAL WALL. NO EVIDENCE OF SOFT TISSUE ABSCESS. NO SIGNIFICANT POSTOPERATIVE FINDINGS IN THE ABDOMEN OR PELVIS. 2. IRREGULAR LOW-ATTENUATION LESION IN THE RIGHT LOBE OF THE LIVER, UNCHANGED. THIS MAY BE A HEMANGIOMA. FURTHER EVALUATION WITH MRI OF THE LIVER SHOULD BE CONSIDERED AFTER THE PATIENT'S CLINICAL CONDITION HAS IMPROVED. 3. MINIMAL MESENTERIC ADENOPATHY, NONSPECIFIC AND PROBABLY INCIDENTAL. 4. NO OTHER SIGNIFICANT OR ACUTE FINDINGS IN THE ABDOMEN OR PELVIS. Chest CT 08/10/18 00:00 IMPRESSION: SMALL RIGHT PLEURAL EFFUSION. RIGHT LOWER LOBE CONSOLIDATION WITH A FEW AIR BRONCHOGRAMS WHICH MAY BE DUE TO PNEUMONIA AND/OR ATELECTASIS. Chest X-Ray 08/10/18 06:00 IMPRESSION: 1. Since the previous examination dated 08/07/2018, interval removal of endotracheal tube. Otherwise, stable examination. Esophagus X-Ray 08/10/18 09:36 IMPRESSION: NO EXTRAVASATION OF CONTRAST IDENTIFIED. Assessment & Plan - Diagnosis (1) Perforated viscus Is this a current diagnosis for this admission?: Yes Plan: Management per surgery. CT scan of her belly today showed only postsurgical changes without evidence of any fluid collection in her belly. (2) Septic shock Is this a current diagnosis for this admission?: Yes Plan: The sharp portion has resolved, but she still septic from healthcare associated pneumonia. Her urine output has been good and she is got no signs of organ dysfunction at this time with the exception of her, respiratory failure. Pulmonology is managing her respiratory failure. (3) Healthcare associated bacterial pneumonia Is this a current diagnosis for this admission?: Yes Plan: She either aspirated or developed atelectasis and it looks like, pneumonia has developed, most prominently in the right lower lobe. She is on broad-spectrum antibiotics and cultures are pending. The main issue with her is ventilation. If we can ventilate her better do aggressive pulmonary toilet I think her condition will begin to improve, but I do not know how well she is going to tolerate aggressive pulmonary toileting. On her own she does not draw a very deep breath, even with BiPAP. Her oxygenation is fine but her overall ventilation is not what we would like it to be. - Time Time Spent with patient: 25-34 minutes
[2018-08-11] MEDS ORDERED: DEXTROSE 50%-WATER 25 GM/50 ML DISP.SYRIN IV ONE (23:49)
[2018-08-12] MEDS ORDERED: GLUCAGON,HUMAN RECOMB 1 MG INJ IM PRN ×2 (00:30→07:54)
[2018-08-12] MEDS ORDERED: DEXTROSE 50%-WATER SYRINGE 25 GM/50 ML DOSE IV PRN (00:30)
[2018-08-12] MEDS ORDERED: INSULIN REG, HUMAN 100 UNIT/ML 3 ML VIAL (PYX) SUBCUT PRN (00:30)
[2018-08-12] MEDS ORDERED: DEXTROSE 40% GEL 15 GM TUBE X 2 PO PRN (00:30)
[2018-08-12] MEDS ORDERED: DEXTROSE 40% GEL 15 GM TUBE PO PRN ×3 (00:30→07:54)
[2018-08-12] MEDS ORDERED: DEXTROSE 50%-WATER SYRINGE 12.5 GM/25 ML DOSE IV PRN (00:30)
[2018-08-12] MEDS: MEROPENEM 1 GM in NORMAL SALINE 50 ML IV SCH ×2 (01:00→10:09)
[2018-08-12] MEDS: ACETAMINOPHEN SOLN 325 MG/10.15 ML UDCUP NG PRN (01:44)
[2018-08-12] MEDS: NORMAL SALINE 1000 ML 1,000 ML IV PRN ×2 (05:28→17:27)
[2018-08-12] MEDS: ALPRAZOLAM 0.25 MG TABLET PO SCH ×3 (05:28→21:02)
[2018-08-12] MEDS ORDERED: DEXTROSE 50%-WATER 25 GM/50 ML DISP.SYRIN IV PRN ×2 (07:54)
[2018-08-12] MEDS ORDERED: HYDROMORPHONE HCL INJ/PF 2 MG/ML AMPULE IV PRN (07:58)
[2018-08-12] MEDS ORDERED: LEVALBUTEROL HCL NEB 1.25 MG/3 ML AMPUL NEB PRN (08:11)
--- NOTE | 2018-08-12 08:11 | PDOC PROGRESS REPORT ---
Subjective Progress Note for:: 08/12/18 Subjective:: 08/12/2018-patient T-max is 98.1 this morning. Her blood sugars dropped to 60s last night. Be going to start on insulin coverage on hypoglycemia protocol. Pulse ox are 100% on room air. Blood culture showing staph epidermidis. And Deja. No acute events in the last 24 hours. She is comfortably in the bed. Denies any complaints. Reason For Visit: LOW BLOOD PRESSURE Physical Exam Vital Signs: Temp Pulse Resp BP Pulse Ox 98.1 F 119 H 19 93/53 L 100 08/12/18 05:35 08/11/18 19:49 08/12/18 06:00 08/12/18 05:23 08/12/18 06:00 Intake & Output 08/11/18 08/12/18 08/13/18 06:59 06:59 06:59 Intake Total 3681 4094 Output Total 3070 2480 Balance 611 1614 Weight 81.1 kg 80.5 kg General appearance: PRESENT: no acute distress, cooperative Head exam: PRESENT: atraumatic Eye exam: PRESENT: PERRLA Teeth exam: PRESENT: poor dentation Neck exam: ABSENT: carotid bruit, JVD, lymphadenopathy, thyromegaly Respiratory exam: PRESENT: decreased breath sounds, rhonchi Cardiovascular exam: PRESENT: tachycardia Vascular exam: PRESENT: normal capillary refill GI/Abdominal exam: PRESENT: normal bowel sounds, soft, other - Surgical wound is clean.. ABSENT: guarding, tenderness Extremities exam: PRESENT: full ROM. ABSENT: calf tenderness, clubbing, pedal edema Neurological exam: PRESENT: alert, awake, oriented to person, oriented to place, oriented to time, oriented to situation, CN II-XII grossly intact. ABSENT: motor sensory deficit Psychiatric exam: PRESENT: appropriate affect, normal mood. ABSENT: homicidal ideation, suicidal ideation Results Laboratory Results: 08/09/18 05:36 08/11/18 05:00 07/26/18 07/26/18 07/27/18 23:30 23:57 00:35 NT-Pro-B Natriuret Pep Cancelled Cancelled 3320 H Impressions: KUB X-Ray 07/26/18 00:00 IMPRESSION: Nasogastric tube in the stomach. Guidance Ultrasound 08/06/18 00:00 IMPRESSION: Vascular ultrasound guidance. Interventional Vascular Procedure 08/06/18 00:00 IMPRESSION: Vascular ultrasound guidance. Abdomen/Pelvis CT 08/10/18 00:00 IMPRESSION: 1. CHANGES OF RECENT ABDOMINAL SURGERY WITH OPEN INCISION SITE IN THE ABDOMINAL WALL. NO EVIDENCE OF SOFT TISSUE ABSCESS. NO SIGNIFICANT POSTOPERATIVE FINDINGS IN THE ABDOMEN OR PELVIS. 2. IRREGULAR LOW-ATTENUATION LESION IN THE RIGHT LOBE OF THE LIVER, UNCHANGED. THIS MAY BE A HEMANGIOMA. FURTHER EVALUATION WITH MRI OF THE LIVER SHOULD BE CONSIDERED AFTER THE PATIENT'S CLINICAL CONDITION HAS IMPROVED. 3. MINIMAL MESENTERIC ADENOPATHY, NONSPECIFIC AND PROBABLY INCIDENTAL. 4. NO OTHER SIGNIFICANT OR ACUTE FINDINGS IN THE ABDOMEN OR PELVIS. Chest CT 08/10/18 00:00 IMPRESSION: SMALL RIGHT PLEURAL EFFUSION. RIGHT LOWER LOBE CONSOLIDATION WITH A FEW AIR BRONCHOGRAMS WHICH MAY BE DUE TO PNEUMONIA AND/OR ATELECTASIS. Chest X-Ray 08/10/18 06:00 IMPRESSION: 1. Since the previous examination dated 08/07/2018, interval removal of endotracheal tube. Otherwise, stable examination. Esophagus X-Ray 08/10/18 09:36 IMPRESSION: NO EXTRAVASATION OF CONTRAST IDENTIFIED. Assessment & Plan - Diagnosis (1) Bowel obstruction Qualifiers: Intestinal obstruction type: unspecified Intestinal obstruction extent: complete Qualified Code(s): K56.601 - Complete intestinal obstruction, unspecified as to cause Is this a current diagnosis for this admission?: Yes Plan: 08/12/2018. CT scan was done the other day shows only postsurgical changes. Patient is tolerating the oral feeds. Has a bowel sounds. Management as per the surgical team. (2) Septic shock Is this a current diagnosis for this admission?: Yes Plan: 08/12/2018-temperature today is 98.1 blood pressure is 93/53. Blood culture showing staph epidermidis and Deja. She is on meropenem and vancomycin. Vanco trough is 15.4. And is to repeat the chest x-ray today. To the antibiotic therapy. Pulmonary is on board managing the respiratory failure. (3) Healthcare associated bacterial pneumonia Is this a current diagnosis for this admission?: Yes Plan: She either aspirated or developed atelectasis and it looks like, pneumonia has developed, most prominently in the right lower lobe. She is on broad-spectrum antibiotics and cultures are pending. The main issue with her is ventilation. If we can ventilate her better do aggressive pulmonary toilet I think her condition will begin to improve, but I do not know how well she is going to tolerate aggressive pulmonary toileting. On her own she does not draw a very deep breath, even with BiPAP. Her oxygenation is fine but her overall ventilation is not what we would like it to be. 08/12/2018 patient is afebrile with a temperature of 98.1 on meropenem, vancomycin. Vancomycin trough is 15.4. She is on BiPAP as needed basis. I am going to put her on nebulizer treatments every 4 as needed. Pulse ox is 100% on room air. He is to continue the present management. requested labs for today and tomorrow. in My opinion patient can be downgraded to [facility].
--- NOTE | 2018-08-12 09:10 | RADIOLOGY REPORT (SQ) ---
EXAM DESCRIPTION: CHEST SINGLE VIEW COMPLETED DATE/TIME: 08/12/2018 8:57 am REASON FOR STUDY: PNEUMONIA COMPARISON: 08/10/2018 NUMBER OF VIEWS: One view. TECHNIQUE: Single frontal radiographic image of the chest acquired. LIMITATIONS: None. FINDINGS: LUNGS AND PLEURA: Stable appearance. No infiltrate or pneumothorax. MEDIASTINUM AND HEART: Stable heart size and mediastinal structures. SUPPORT DEVICES: Appropriate location without change. BONY STRUCTURES: No acute findings. HARDWARE: None. OTHER: No other significant finding. IMPRESSION: STABLE APPEARANCE OF THE CHEST. SUPPORT DEVICES UNCHANGED. Reading location - IP/workstation name: [email or web address]
[2018-08-12] MEDS: FLUCONAZOLE 100 MG TABLET PO SCH (10:17)
[2018-08-12] MEDS: METHYLPREDNISOLONE INJ 40 MG/1 ML SDV IV SCH ×2 (10:17→21:02)
--- NOTE | 2018-08-12 11:03 | PDOC PROGRESS REPORT ---
Subjective Progress Note for:: 07/28/18 Subjective:: agree w/TPN Reason For Visit: LOW BLOOD PRESSURE Physical Exam Vital Signs: Temp Pulse Resp BP Pulse Ox 97.5 F 97 15 112/44 L 99 07/28/18 08:00 07/28/18 08:00 07/28/18 08:00 07/28/18 08:00 07/28/18 09:10 Intake & Output 07/27/18 07/28/18 07/29/18 06:59 06:59 06:59 Intake Total 05473 3814 131 Output Total 9270 1585 180 Balance 5031 2229 -49 Weight 90.1 kg 96.6 kg General appearance: PRESENT: no acute distress, disheveled, obese. ABSENT: cooperative Head exam: PRESENT: atraumatic, normocephalic Eye exam: PRESENT: conjunctiva pale. ABSENT: nystagmus, scleral icterus Mouth exam: PRESENT: dry mucosa, neck supple, tongue midline, other - Endotracheal tube Neck exam: ABSENT: carotid bruit, JVD, lymphadenopathy, thyromegaly, tracheal deviation, tracheostomy Respiratory exam: PRESENT: decreased breath sounds, prolonged expiratory phas, rales, rhonchi, tachypnea, unlabored Cardiovascular exam: PRESENT: irregular rhythm, tachycardia Pulses: PRESENT: normal radial pulses GI/Abdominal exam: PRESENT: other - Status post surgery Gentrourinary exam: PRESENT: indwelling catheter Extremities exam: PRESENT: pedal edema. ABSENT: calf tenderness, clubbing Musculoskeletal exam: ABSENT: ambulatory, deformity, dislocation Neurological exam: ABSENT: awake Skin exam: PRESENT: dry, warm Results Laboratory Results: 07/28/18 07:00 07/28/18 07:00 07/27/18 07/27/18 07/27/18 12:10 12:10 12:10 WBC 12.0 H RBC 4.70 Hgb 13.2 D Hct 40.6 MCV 86 MCH 28.2 MCHC 32.6 RDW 14.6 H Plt Count 201 Seg Neutrophils % 86.6 H Lymphocytes % 9.3 L Monocytes % 3.9 Eosinophils % 0.1 Basophils % 0.1 Absolute Neutrophils 10.4 H Absolute Lymphocytes 1.1 Absolute Monocytes 0.5 Absolute Eosinophils 0.0 Absolute Basophils 0.0 Carbonic Acid HCO3/H2CO3 Ratio ABG pH ABG pCO2 ABG pO2 ABG HCO3 ABG O2 Saturation ABG Base Excess FiO2 Sodium 143.9 Potassium 4.4 Chloride 125 H Carbon Dioxide 17 L Anion Gap 2 L BUN 25 H Creatinine 0.93 Est GFR ( Amer) > 60 Est GFR (Non-Af Amer) > 60 Glucose 83 Calcium 6.0 L* Magnesium 2.0 Total Bilirubin 0.7 AST 147 H ALT 129 H Alkaline Phosphatase 51 Total Protein 3.3 L Albumin 1.5 L 07/28/18 07/28/18 07/28/18 07:00 07:00 07:00 WBC 10.3 RBC 3.95 Hgb 11.3 L Hct 34.1 L MCV 86 MCH 28.6 MCHC 33.2 RDW 15.3 H Plt Count 168 Seg Neutrophils % 80.0 H Lymphocytes % 13.7 Monocytes % 3.9 Eosinophils % 2.1 Basophils % 0.3 Absolute Neutrophils 8.2 Absolute Lymphocytes 1.4 Absolute Monocytes 0.4 Absolute Eosinophils 0.2 Absolute Basophils 0.0 Carbonic Acid 1.08 HCO3/H2CO3 Ratio 16:1 ABG pH 7.32 L ABG pCO2 35.9 ABG pO2 144.6 H ABG HCO3 18.1 L ABG O2 Saturation 98.7 H ABG Base Excess -7.2 FiO2 35% Sodium 145.9 H Potassium 3.9 Chloride 124 H Carbon Dioxide 18 L Anion Gap 4 L BUN 27 H Creatinine 0.87 Est GFR ( Amer) > 60 Est GFR (Non-Af Amer) > 60 Glucose 73 L Calcium 6.9 L* Magnesium 2.2 Total Bilirubin 0.3 AST 71 H ALT 90 H Alkaline Phosphatase 56 Total Protein 3.3 L Albumin 1.4 L 07/26/18 07/26/18 07/27/18 23:30 23:57 00:35 NT-Pro-B Natriuret Pep Cancelled Cancelled 3320 H Impressions: KUB X-Ray 07/26/18 00:00 IMPRESSION: Nasogastric tube in the stomach. Abdomen/Pelvis CT 07/26/18 15:30 IMPRESSION: 1. Trace right pleural effusion. 2. Cardiomegaly. 3. Fluid-filled dilated esophagus, concerning for increased risk of aspiration. IMPRESSION: 1. High-grade distal small-bowel obstruction with bowel perforation. Surgical consult recommended. 2. Pneumoperitoneum. Small amount of ascites. 3. Indeterminate heterogeneous liver lesion. This can be further evaluated with dedicated nonemergent contrast enhanced MRI. Chest CT 07/26/18 16:11 IMPRESSION: 1. Trace right pleural effusion. 2. Cardiomegaly. 3. Fluid-filled dilated esophagus, concerning for increased risk of aspiration. IMPRESSION: 1. High-grade distal small-bowel obstruction with bowel perforation. Surgical consult recommended. 2. Pneumoperitoneum. Small amount of ascites. 3. Indeterminate heterogeneous liver lesion. This can be further evaluated with dedicated nonemergent contrast enhanced MRI. Chest X-Ray 07/28/18 06:00 IMPRESSION: 1. No significant interval change since the prior study dated 07/27/2018. 2. Support lines and catheters are unchanged in position. The tip of the endotracheal tube lies approximately 1.0 cm from the vanessa. Assessment & Plan - Diagnosis (2) Bowel obstruction Qualifiers: Intestinal obstruction type: unspecified Intestinal obstruction extent: complete Qualified Code(s): K56.601 - Complete intestinal obstruction, unspeci fied as to cause Is this a current diagnosis for this admission?: Yes (3) Metabolic acidosis Is this a current diagnosis for this admission?: Yes Plan: Septic shock compensate for acidosis with respiratory induced alkalosis (4) Septic shock Is this a current diagnosis for this admission?: Yes Plan: vasopressor - Time Total Critical Time (Minutes): 45
[2018-08-12 11:09] LABS: ABSOLUTE EOSINOPHILS # (AUTO) 0.4 10^3/uL (0.0-0.6); ABSOLUTE LYMPHOCYTES (AUTO) 0.7 10^3/uL (0.5-4.7); ABSOLUTE MONOCYTES (AUTO) 0.7 10^3/uL (0.1-1.4); ABSOLUTE NEUT (AUTO) 3.6 10^3/uL (1.7-8.2); BASOPHILS % (AUTO) 0.4 % (0-2); EOSINOPHILS % (AUTO) 6.6 % (0-6); HEMATOCRIT 23.5 % (36.0-47.0); LYMPHOCYTES % (AUTO) 13.3 % (13-45); MEAN CORPUSCULAR HEMOGLOBIN 27.6 pg (27.0-33.4); MEAN CORPUSCULAR HGB CONC 33.8 g/dL (32.0-36.0); MEAN CORPUSCULAR VOLUME 82 fl (80-97); MONOCYTES % (AUTO) 13.4 % (3-13); PLATELET COUNT 517 10^3/uL (150-450); RED BLOOD COUNT 2.88 10^6/uL (3.72-5.28); SEGMENTED NEUTROPHILS % (AUTO) 66.3 % (42-78); TOTAL CELLS COUNTED % (AUTO) 100 %; WHITE BLOOD COUNT 5.4 10^3/uL (4.0-10.5)
--- NOTE | 2018-08-12 11:12 | PDOC PROGRESS REPORT ---
Subjective Progress Note for:: 07/29/18 Subjective:: agree w/TPN Reason For Visit: LOW BLOOD PRESSURE Physical Exam Vital Signs: Temp Pulse Resp BP Pulse Ox 97.9 F 74 0 L 102/56 L 99 07/29/18 07:54 07/29/18 08:00 07/29/18 10:00 07/29/18 07:54 07/29/18 10:00 Intake & Output 07/28/18 07/29/18 07/30/18 06:59 06:59 06:59 Intake Total 3814 3110 21 Output Total 1585 1295 375 Balance 2229 1815 -793 Weight 96.6 kg 97.9 kg General appearance: PRESENT: no acute distress, disheveled, obese Head exam: PRESENT: atraumatic, normocephalic Eye exam: PRESENT: conjunctiva pale. ABSENT: nystagmus, scleral icterus Mouth exam: PRESENT: dry mucosa, neck supple, tongue midline, other - ET tube Neck exam: ABSENT: carotid bruit, JVD, lymphadenopathy, thyromegaly, tracheal deviation, tracheostomy Respiratory exam: PRESENT: decreased breath sounds, prolonged expiratory phas, rales, rhonchi, unlabored. ABSENT: retraction, stridor, symmetrical, tachypnea Cardiovascular exam: PRESENT: RRR, +S1, +S2 Pulses: PRESENT: normal radial pulses GI/Abdominal exam: PRESENT: tenderness, other - Status post surgery Gentrourinary exam: PRESENT: indwelling catheter Extremities exam: PRESENT: pedal edema. ABSENT: calf tenderness, clubbing, full ROM, joint swelling Musculoskeletal exam: ABSENT: deformity, dislocation Neurological exam: ABSENT: awake Skin exam: PRESENT: dry, warm Results Laboratory Results: 07/29/18 05:30 07/29/18 05:30 07/28/18 07/29/18 07/29/18 07:00 05:30 05:30 WBC 8.9 RBC 3.57 L Hgb 10.2 L Hct 31.0 L MCV 87 MCH 28.6 MCHC 32.9 RDW 15.5 H Plt Count 145 L Seg Neutrophils % Not Reportable Lymphocytes % Not Reportable Monocytes % Not Reportable Eosinophils % Not Reportable Basophils % Not Reportable Absolute Neutrophils Not Reportable Absolute Lymphocytes Not Reportable Absolute Monocytes Not Reportable Absolute Eosinophils Not Reportable Absolute Basophils Not Reportable Carbonic Acid 1.18 HCO3/H2CO3 Ratio 16:1 ABG pH 7.33 L ABG pCO2 39.1 ABG pO2 109.3 H ABG HCO3 20.0 ABG O2 Saturation 97.7 ABG Base Excess -5.6 FiO2 30% Sodium Potassium Chloride Carbon Dioxide Anion Gap BUN Creatinine Est GFR ( Amer) Est GFR (Non-Af Amer) Glucose Calcium Phosphorus 3.2 Magnesium Total Bilirubin AST ALT Alkaline Phosphatase Total Protein Albumin Prealbumin 4.7 L Triglycerides 84 07/29/18 05:30 WBC RBC Hgb Hct MCV MCH MCHC RDW Plt Count Seg Neutrophils % Lymphocytes % Monocytes % Eosinophils % Basophils % Absolute Neutrophils Absolute Lymphocytes Absolute Monocytes Absolute Eosinophils Absolute Basophils Carbonic Acid HCO3/H2CO3 Ratio ABG pH ABG pCO2 ABG pO2 ABG HCO3 ABG O2 Saturation ABG Base Excess FiO2 Sodium 140.3 Potassium 3.8 Chloride 120 H Carbon Dioxide 19 L Anion Gap 1 L BUN 23 H Creatinine 0.69 Est GFR ( Amer) > 60 Est GFR (Non-Af Amer) > 60 Glucose 147 H Calcium 7.1 L Phosphorus 1.9 L Magnesium 2.3 Total Bilirubin 0.2 AST 41 H ALT 66 H Alkaline Phosphatase 67 Total Protein 3.3 L Albumin 1.4 L Prealbumin 4.3 L Triglycerides 07/26/18 07/26/18 07/27/18 23:30 23:57 00:35 NT-Pro-B Natriuret Pep Cancelled Cancelled 3320 H Impressions: KUB X-Ray 07/26/18 00:00 IMPRESSION: Nasogastric tube in the stomach. Abdomen/Pelvis CT 07/26/18 15:30 IMPRESSION: 1. Trace right pleural effusion. 2. Cardiomegaly. 3. Fluid-filled dilated esophagus, concerning for increased risk of aspiration. IMPRESSION: 1. High-grade distal small-bowel obstruction with bowel perfor ation. Surgical consult recommended. 2. Pneumoperitoneum. Small amount of ascites. 3. Indeterminate heterogeneous liver lesion. This can be further evaluated with dedicated nonemergent contrast enhanced MRI. Chest CT 07/26/18 16:11 IMPRESSION: 1. Trace right pleural effusion. 2. Cardiomegaly. 3. Fluid-filled dilated esophagus, concerning for increased risk of aspiration. IMPRESSION: 1. High-grade distal small-bowel obstruction with bowel perforation. Surgical consult recommended. 2. Pneumoperitoneum. Small amount of ascites. 3. Indeterminate heterogeneous liver lesion. This can be further evaluated with dedicated nonemergent contrast enhanced MRI. Assessment & Plan - Diagnosis (1) Acute respiratory failure Is this a current diagnosis for this admission?: Yes Plan: unchanged (2) Bowel obstruction Qualifiers: Intestinal obstruction type: unspecified Intestinal obstruction extent: complete Qualified Code(s): K56.601 - Complete intestinal obstruction, unspecified as to cause Is this a current diagnosis for this admission?: Yes Plan: As per surgery (3) Gallstone ileus Is this a current diagnosis for this admission?: Yes Plan: As per surgery (4) Metabolic acidosis Is this a current diagnosis for this admission?: Yes Plan: Septic shock compensate for acidosis with respiratory induced alkalosis (5) Septic shock Is this a current diagnosis for this admission?: Yes Plan: Multiple vasopressor agents required - Time Total Critical Time (Minutes): 45
--- NOTE | 2018-08-12 11:14 | PDOC PROGRESS REPORT ---
Subjective Progress Note for:: 07/30/18 Subjective:: agree w/TPN Reason For Visit: LOW BLOOD PRESSURE Physical Exam Vital Signs: Temp Pulse Resp BP Pulse Ox 99.0 F 97 22 H 117/57 L 97 07/30/18 08:00 07/30/18 08:00 07/30/18 08:00 07/30/18 08:00 07/30/18 09:16 Intake & Output 07/29/18 07/30/18 07/31/18 06:59 06:59 06:59 Intake Total 3110 3548 Output Total 1295 2390 375 Balance 1815 1158 -375 Weight 97.9 kg 99.5 kg General appearance: PRESENT: no acute distress, disheveled, obese Head exam: PRESENT: atraumatic, normocephalic Eye exam: PRESENT: conjunctiva pale. ABSENT: nystagmus, scleral icterus Mouth exam: PRESENT: dry mucosa, neck supple, tongue midline, other - ET tube Neck exam: ABSENT: carotid bruit, JVD, lymphadenopathy, thyromegaly, tracheal d eviation, tracheostomy Respiratory exam: PRESENT: decreased breath sounds, prolonged expiratory phas, rales, rhonchi, unlabored. ABSENT: retraction, stridor Cardiovascular exam: PRESENT: RRR, +S1, +S2 Pulses: PRESENT: normal radial pulses GI/Abdominal exam: PRESENT: soft, tenderness, other - Status post surgery Gentrourinary exam: PRESENT: indwelling catheter Extremities exam: PRESENT: pedal edema. ABSENT: calf tenderness, clubbing, joint swelling Musculoskeletal exam: ABSENT: ambulatory, deformity, dislocation Neurological exam: ABSENT: awake Skin exam: PRESENT: dry, warm Results Laboratory Results: 07/29/18 05:30 07/30/18 04:36 07/30/18 07/30/18 07/30/18 04:36 04:36 05:10 Carbonic Acid Cancelled 0.83 L HCO3/H2CO3 Ratio Cancelled 25:1 ABG pH Cancelled 7.50 H ABG pCO2 Cancelled 27.6 L ABG pO2 Cancelled 92.8 ABG HCO3 Cancelled 21.1 ABG O2 Saturation Cancelled 97.8 ABG Base Excess Cancelled -0.6 FiO2 Cancelled 28% Sodium 141.9 Potassium 3.4 L Chloride 117 H Carbon Dioxide 21 L Anion Gap 4 L BUN 16 Creatinine 0.59 Est GFR ( Amer) > 60 Est GFR (Non-Af Amer) > 60 Glucose 147 H Calcium 6.5 L* Phosphorus 1.3 L Total Bilirubin 0.3 AST 55 H ALT 56 H Alkaline Phosphatase 121 Total Protein 3.6 L Albumin 1.5 L Prealbumin 5.7 L 07/26/18 07/26/18 07/27/18 23:30 23:57 00:35 NT-Pro-B Natriuret Pep Cancelled Cancelled 3320 H Impressions: KUB X-Ray 07/26/18 00:00 IMPRESSION: Nasogastric tube in the stomach. Abdomen/Pelvis CT 07/26/18 15:30 IMPRESSION: 1. Trace right pleural effusion. 2. Cardiomegaly. 3. Fluid-filled dilated esophagus, concerning for increased risk of aspiration. IMPRESSION: 1. High-grade distal small-bowel obstruction with bowel perforation. Surgical consult recommended. 2. Pneumoperitoneum. Small amount of ascites. 3. Indeterminate heterogeneous liver lesion. This can be further evaluated with dedicated nonemergent contrast enhanced MRI. Chest CT 07/26/18 16:11 IMPRESSION: 1. Trace right pleural effusion. 2. Cardiomegaly. 3. Fluid-filled dilated esophagus, concerning for increased risk of aspiration. IMPRESSION: 1. High-grade distal small-bowel obstruction with bowel perforation. Surgical consult recommended. 2. Pneumoperitoneum. Small amount of ascites. 3. Indeterminate heterogeneous liver lesion. This can be further evaluated with dedicated nonemergent contrast enhanced MRI. Chest X-Ray 07/30/18 06:00 IMPRESSION: 1. Tip of an endotracheal tube is 1.7 cm from the vanessa; consider 3 cm retraction of the endotracheal tube. 2. Right jugular central line tip is at the inferior right atrium; consider 12.5 cm retraction of the right jugular central line. Assessment & Plan - Diagnosis (1) Acute respiratory failure Is this a current diagnosis for this admission?: Yes Plan: unchanged (2) Bowel obstruction Qualifiers: Intestinal obstruction type: unspecified Intestinal obstruction extent: complete Qualified Code(s): K56.601 - Complete intestinal obstruction, unspecified as to cause Is this a current diagnosis for this admission?: Yes Plan: As per surgery (3) Gallstone ileus Is this a current diagnosis for this admission?: Yes Plan: As per surgery (4) Metabolic acidosis Is this a current diagnosis for this admission?: Yes Plan: Septic shock compensate for acidosis with respiratory induced alkalosis (5) Septic shock Is this a current diagnosis for this admission?: Yes Plan: Multiple vasopressor agents required - Time Total Critical Time (Minutes): 40
--- NOTE | 2018-08-12 11:15 | PDOC PROGRESS REPORT ---
Subjective Progress Note for:: 07/31/18 Subjective:: agree w/TPN Reason For Visit: LOW BLOOD PRESSURE Physical Exam Vital Signs: Temp Pulse Resp BP Pulse Ox 99.3 F 93 23 H 122/50 L 100 08/02/18 10:00 08/02/18 10:00 08/02/18 10:50 08/02/18 10:50 08/02/18 11:49 Intake & Output 08/01/18 08/02/18 08/03/18 06:59 06:59 06:59 Intake Total 2859 3663 208 Output Total 5455 5120 790 Balance -1596 -1457 -582 Weight 95.2 kg 94.7 kg General appearance: PRESENT: no acute distress, disheveled, obese Head exam: PRESENT: atraumatic, normocephalic Eye exam: PRESENT: conjunctiva pale. ABSENT: nystagmus, scleral icterus Mouth exam: PRESENT: dry mucosa, neck supple, tongue midline, other - ET tube in place Neck exam: ABSENT: carotid bruit, JVD, lymphadenopathy, thyromegaly, tracheal deviation, tracheostomy Respiratory exam: PRESENT: decreased breath sounds, prolonged expiratory phas, rales, rhonchi, tachypnea, unlabored. ABSENT: stridor Cardiovascular exam: PRESENT: RRR, +S1, +S2, tachycardia Pulses: PRESENT: normal radial pulses GI/Abdominal exam: PRESENT: soft, tenderness, other - Status post surgery Extremities exam: PRESENT: pedal edema. ABSENT: calf tenderness, clubbing, joint swelling Musculoskeletal exam: ABSENT: ambulatory, deformity, dislocation Neurological exam: ABSENT: awake Skin exam: PRESENT: dry, warm Results Laboratory Results: 07/31/18 04:20 08/01/18 05:01 07/26/18 07/26/18 07/27/18 23:30 23:57 00:35 NT-Pro-B Natriuret Pep Cancelled Cancelled 3320 H Impressions: KUB X-Ray 07/26/18 00:00 IMPRESSION: Nasogastric tube in the stomach. Abdomen/Pelvis CT 07/26/18 15:30 IMPRESSION: 1. Trace right pleural effusion. 2. Cardiomegaly. 3. Fluid-filled dilated esophagus, concerning for increased risk of aspiration. IMPRESSION: 1. High-grade distal small-bowel obstruction with bowel perforation. Surgical consult recommended. 2. Pneumoperitoneum. Small amount of ascites. 3. Indeterminate heterogeneous liver lesion. This can be further evaluated with dedicated nonemergent contrast enhanced MRI. Chest CT 07/26/18 16:11 IMPRESSION: 1. Trace right pleural effusion. 2. Cardiomegaly. 3. Fluid-filled dilated esophagus, concerning for increased risk of aspiration. IMPRESSION: 1. High-grade distal small-bowel obstruction with bowel perforation. Surgical consult recommended. 2. Pneumoperitoneum. Small amount of ascites. 3. Indeterminate heterogeneous liver lesion. This can be further evaluated with dedicated nonemergent contrast enhanced MRI. Chest X-Ray 07/31/18 06:00 IMPRESSION: No significant change. Assessment & Plan - Diagnosis (1) Acute respiratory failure Is this a current diagnosis for this admission?: Yes Plan: unchanged (2) Bowel obstruction Qualifiers: Intestinal obstruction type: unspecified Intestinal obstruction extent: complete Qualified Code(s): K56.601 - Complete intestinal obstruction, unspecified as to cause Is this a current diagnosis for this admission?: Yes Plan: As per surgery (3) Gallstone ileus Is this a current diagnosis for this admission?: Yes Plan: As per surgery (4) Metabolic acidosis Is this a current diagnosis for this admission?: Yes Plan: Septic shock compensate for acidosis with respiratory induced alkalosis (5) Septic shock Is this a current diagnosis for this admission?: Yes Plan: Multiple vasopressor agents required - Time Total Critical Time (Minutes): 40
--- NOTE | 2018-08-12 11:18 | PDOC PROGRESS REPORT ---
Subjective Progress Note for:: 08/01/18 Subjective:: agree w/TPN Reason For Visit: LOW BLOOD PRESSURE Physical Exam Vital Signs: Temp Pulse Resp BP Pulse Ox 99.3 F 93 23 H 122/50 L 100 08/02/18 10:00 08/02/18 10:00 08/02/18 10:50 08/02/18 10:50 08/02/18 11:49 Intake & Output 08/01/18 08/02/18 08/03/18 06:59 06:59 06:59 Intake Total 2859 3663 208 Output Total 5455 5120 790 Balance -8546 -1457 -582 Weight 95.2 kg 94.7 kg General appearance: PRESENT: no acute distress, disheveled, obese. ABSENT: cooperative Head exam: PRESENT: atraumatic, normocephalic Eye exam: PRESENT: conjunctiva pale. ABSENT: nystagmus, scleral icterus Mouth exam: PRESENT: dry mucosa, neck supple, tongue midline, other - ET tube in place Neck exam: ABSENT: carotid bruit, JVD, lymphadenopathy, thyromegaly, tracheal deviation, tracheostomy Respiratory exam: PRESENT: decreased breath sounds, prolonged expiratory phas, rales, rhonchi, tachypnea, unlabored. ABSENT: retraction, stridor Cardiovascular exam: PRESENT: RRR, +S1, +S2 Pulses: PRESENT: normal radial pulses GI/Abdominal exam: PRESENT: soft, tenderness, other - Status post surgery Extremities exam: PRESENT: pedal edema. ABSENT: calf tenderness, clubbing, full ROM Musculoskeletal exam: ABSENT: ambulatory, deformity, dislocation Neurological exam: ABSENT: awake Skin exam: PRESENT: dry, warm Results Laboratory Results: 07/31/18 04:20 08/01/18 05:01 07/26/18 07/26/18 07/27/18 23:30 23:57 00:35 NT-Pro-B Natriuret Pep Cancelled Cancelled 3320 H Impressions: KUB X-Ray 07/26/18 00:00 IMPRESSION: Nasogastric tube in the stomach. Abdomen/Pelvis CT 07/26/18 15:30 IMPRESSION: 1. Trace right pleural effusion. 2. Cardiomegaly. 3. Fluid-filled dilated esophagus, concerning for increased risk of aspiration. IMPRESSION: 1. High-grade distal small-bowel obstruction with bowel perforation. Surgical consult recommended. 2. Pneumoperitoneum. Small amount of ascites. 3. Indeterminate heterogeneous liver lesion. This can be further evaluated with dedicated nonemergent contrast enhanced MRI. Chest CT 07/26/18 16:11 IMPRESSION: 1. Trace right pleural effusion. 2. Cardiomegaly. 3. Fluid-filled dilated esophagus, concerning for increased risk of aspiration. IMPRESSION: 1. High-grade distal small-bowel obstruction with bowel perforation. Surgical consult recommended. 2. Pneumoperitoneum. Small amount of ascites. 3. Indeterminate heterogeneous liver lesion. This can be further evaluated with dedicated nonemergent contrast enhanced MRI. Chest X-Ray 07/31/18 06:00 IMPRESSION: No significant change. Assessment & Plan - Diagnosis (1) Acute respiratory failure Is this a current diagnosis for this admission?: Yes Plan: unchanged (2) Bowel obstruction Qualifiers: Intestinal obstruction type: unspecified Intestinal obstruction extent: complete Qualified Code(s): K56.601 - Complete intestinal obstruction, unspecified as to cause Is this a current diagnosis for this admission?: Yes Plan: As per surgery (3) Gallstone ileus Is this a current diagnosis for this admission?: Yes Plan: As per surgery (4) Metabolic acidosis Is this a current diagnosis for this admission?: Yes Plan: Septic shock compensate for acidosis with respiratory induced alkalosis (5) Septic shock Is this a current diagnosis for this admission?: Yes Plan: Multiple vasopressor agents required - Time Total Critical Time (Minutes): 45
--- NOTE | 2018-08-12 11:20 | PDOC PROGRESS REPORT ---
Subjective Progress Note for:: 08/02/18 Subjective:: Intubated and sedated Reason For Visit: LOW BLOOD PRESSURE Physical Exam Vital Signs: Temp Pulse Resp BP Pulse Ox 99.3 F 93 23 H 122/50 L 100 08/02/18 10:00 08/02/18 10:00 08/02/18 10:50 08/02/18 10:50 08/02/18 11:49 Intake & Output 08/01/18 08/02/18 08/03/18 06:59 06:59 06:59 Intake Total 2859 3663 208 Output Total 5455 5120 790 Balance -6956 -1457 -582 Weight 95.2 kg 94.7 kg General appearance: PRESENT: no acute distress, disheveled, obese Head exam: PRESENT: atraumatic, normocephalic Eye exam: PRESENT: conjunctiva pale. ABSENT: nystagmus, scleral icterus Mouth exam: PRESENT: dry mucosa, neck supple, tongue midline, other - ET tube Neck exam: ABSENT: carotid bruit, JVD, lymphadenopathy, thyromegaly, tracheal deviation, tracheostomy Respiratory exam: PRESENT: decreased breath sounds, prolonged expiratory phas, rales, rhonchi, tachypnea, unlabored. ABSENT: retraction, stridor Cardiovascular exam: PRESENT: RRR, +S1, +S2, tachycardia Pulses: PRESENT: normal radial pulses GI/Abdominal exam: PRESENT: soft, tenderness, other - Status post surgery Gentrourinary exam: PRESENT: indwelling catheter Extremities exam: PRESENT: pedal edema. ABSENT: calf tenderness, joint swelling Musculoskeletal exam: ABSENT: ambulatory, deformity, dislocation Neurological exam: ABSENT: awake Skin exam: PRESENT: dry, warm Results Laboratory Results: 07/31/18 04:20 08/01/18 05:01 07/26/18 07/26/18 07/27/18 23:30 23:57 00:35 NT-Pro-B Natriuret Pep Cancelled Cancelled 3320 H Impressions: KUB X-Ray 07/26/18 00:00 IMPRESSION: Nasogastric tube in the stomach. Abdomen/Pelvis CT 07/26/18 15:30 IMPRESSION: 1. Trace right pleural effusion. 2. Cardiomegaly. 3. Fluid-filled dilated esophagus, concerning for increased risk of aspiration. IMPRESSION: 1. High-grade distal small-bowel obstruction with bowel perforation. Surgical consult recommended. 2. Pneumoperitoneum. Small amount of ascites. 3. Indeterminate heterogeneous liver lesion. This can be further evaluated with dedicated nonemergent contrast enhanced MRI. Chest CT 07/26/18 16:11 IMPRESSION: 1. Trace right pleural effusion. 2. Cardiomegaly. 3. Fluid-filled dilated esophagus, concerning for increased risk of aspiration. IMPRESSION: 1. High-grade distal small-bowel obstruction with bowel perforation. Surgical consult recommended. 2. Pneumoperitoneum. Small amount of ascites. 3. Indeterminate heterogeneous liver lesion. This can be further evaluated with dedicated nonemergent contrast enhanced MRI. Chest X-Ray 07/31/18 06:00 IMPRESSION: No significant change. Assessment & Plan - Diagnosis (1) Acute respiratory failure Is this a current diagnosis for this admission?: Yes Plan: unchanged (2) Bowel obstruction Qualifiers: Intestinal obstruction type: unspecified Intestinal obstruction extent: complete Qualified Code(s): K56.601 - Complete intestinal obstruction, unspecified as to cause Is this a current diagnosis for this admission?: Yes Plan: As per surgery (3) Metabolic acidosis Is this a current diagnosis for this admission?: Yes Plan: Septic shock compensate for acidosis with respiratory induced alkalosis (4) Septic shock Is this a current diagnosis for this admission?: Yes Plan: Multiple vasopressor agents required - Time Total Critical Time (Minutes): 40
[2018-08-12] MEDS: VANCOMYCIN HCL 1,500 MG in DEXTROSE 5%-WATER 250 ML IV SCH ×2 (11:21→21:03)
--- NOTE | 2018-08-12 11:22 | PDOC PROGRESS REPORT ---
Subjective Progress Note for:: 08/03/18 Subjective:: Intubated and sedated Reason For Visit: LOW BLOOD PRESSURE Physical Exam Vital Signs: Temp Pulse Resp BP Pulse Ox 100.0 F 85 20 92/46 L 100 08/03/18 10:00 08/03/18 08:00 08/03/18 08:00 08/03/18 02:51 08/03/18 09:02 Intake & Output 08/02/18 08/03/18 08/04/18 06:59 06:59 06:59 Intake Total 3663 4277 55 Output Total 5120 3750 675 Balance -1457 527 -620 Weight 94.7 kg 93.9 kg General appearance: PRESENT: no acute distress, disheveled, obese Head exam: PRESENT: atraumatic, normocephalic Eye exam: PRESENT: conjunctiva pale. ABSENT: nystagmus, scleral icterus Mouth exam: PRESENT: dry mucosa, neck supple, tongue midline, other - ET tube in place Neck exam: ABSENT: carotid bruit, JVD, lymphadenopathy, thyromegaly, tracheal deviation, tracheostomy Respiratory exam: PRESENT: decreased breath sounds, prolonged expiratory phas, rales, rhonchi, unlabored. ABSENT: retraction, stridor Cardiovascular exam: PRESENT: RRR, +S1, +S2 Pulses: PRESENT: normal radial pulses GI/Abdominal exam: PRESENT: soft, tenderness, other - Status post surgery Gentrourinary exam: PRESENT: indwelling catheter Extremities exam: PRESENT: pedal edema. ABSENT: calf tenderness, clubbing, full ROM, joint swelling Musculoskeletal exam: ABSENT: ambulatory, deformity, dislocation Neurological exam: ABSENT: awake Skin exam: PRESENT: dry, warm Results Laboratory Results: 08/03/18 04:44 08/03/18 04:44 08/03/18 08/03/18 08/03/18 04:44 04:44 04:54 WBC 12.2 H RBC 3.56 L Hgb 9.8 L Hct 30.0 L MCV 84 MCH 27.7 MCHC 32.8 RDW 14.4 H Plt Count 198 Carbonic Acid 0.87 L HCO3/H2CO3 Ratio 24:1 ABG pH 7.48 H ABG pCO2 28.9 L ABG pO2 97.5 ABG HCO3 21.0 ABG O2 Saturation 97.9 ABG Base Excess -1.8 FiO2 28% Sodium 137.2 Potassium 4.7 Chloride 110 H Carbon Dioxide 24 Anion Gap 3 L BUN 12 Creatinine 0.43 L Est GFR ( Amer) > 60 Est GFR (Non-Af Amer) > 60 Glucose 178 H Calcium 7.4 L Magnesium 2.1 Total Bilirubin 0.5 AST 54 H ALT 51 Alkaline Phosphatase 261 H Total Protein 4.6 L Albumin 1.9 L 07/26/18 07/26/18 07/27/18 23:30 23:57 00:35 NT-Pro-B Natriuret Pep Cancelled Cancelled 3320 H Impressions: KUB X-Ray 07/26/18 00:00 IMPRESSION: Nasogastric tube in the stomach. Abdomen/Pelvis CT 07/26/18 15:30 IMPRESSION: 1. Trace right pleural effusion. 2. Cardiomegaly. 3. Fluid-filled dilated esophagus, concerning for increased risk of aspiration. IMPRESSION: 1. High-grade distal small-bowel obstruction with bowel perforation. Surgical consult recommended. 2. Pneumoperitoneum. Small amount of ascites. 3. Indeterminate heterogeneous liver lesion. This can be further evaluated with dedicated nonemergent contrast enhanced MRI. Chest CT 07/26/18 16:11 IMPRESSION: 1. Trace right pleural effusion. 2. Cardiomegaly. 3. Fluid-filled dilated esophagus, concerning for increased risk of aspiration. IMPRESSION: 1. High-grade distal small-bowel obstruction with bowel perforation. Surgical consult recommended. 2. Pneumoperitoneum. Small amount of ascites. 3. Indeterminate heterogeneous liver lesion. This can be further evaluated with dedicated nonemergent contrast enhanced MRI. Chest X-Ray 08/03/18 06:00 IMPRESSION: No significant change. Assessment & Plan - Diagnosis (1) Acute respiratory failure Is this a current diagnosis for this admission?: Yes Plan: unchanged (2) Bowel obstruction Qualifiers: Intestinal obstruction type: unspecified Intestinal obstruction extent: complete Qualified Code(s): K56.601 - Complete intestinal obstruction, unspecified as to cause Is this a current diagnosis for this admission?: Yes Plan: As per surgery (3) Gallstone ileus Is this a current diagnosis for this admission?: Yes Plan: As per surgery (4) Metabolic acidosis Is this a current diagnosis for this admission?: Yes (5) Septic shock Is this a current diagnosis for this admission?: Yes Plan: Multiple vasopressor agents required - Time Total Critical Time (Minutes): 40
[2018-08-12 11:23] LABS: ALANINE AMINOTRANSFERASE 57 U/L (9-52); ALBUMIN 2.2 g/dL (3.5-5.0); ALKALINE PHOSPHATASE 208 U/L (38-126); ASPARTATE AMINO TRANSFERASE 39 U/L (14-36); BILIRUBIN,DIRECT 0.3 mg/dL (0.0-0.4); BILIRUBIN,TOTAL 0.3 mg/dL (0.2-1.3); BLOOD UREA NITROGEN 8 mg/dL (7-20); CALCIUM 7.7 mg/dL (8.4-10.2); GLUCOSE 111 mg/dL (75-110); HEMOGLOBIN 7.9 g/dL (12.0-15.5); TOTAL PROTEIN 5.4 g/dL (6.3-8.2)
--- NOTE | 2018-08-12 11:24 | PDOC PROGRESS REPORT ---
Subjective Progress Note for:: 08/04/18 Subjective:: Intubated and sedated Reason For Visit: LOW BLOOD PRESSURE Physical Exam Vital Signs: Temp Pulse Resp BP Pulse Ox 99.1 F 97 23 H 123/69 100 08/04/18 10:00 08/04/18 10:00 08/04/18 10:04 08/04/18 10:04 08/04/18 10:04 Intake & Output 08/03/18 08/04/18 08/05/18 06:59 06:59 06:59 Intake Total 4277 2591 104 Output Total 3750 5510 825 Balance 904 -9225 -721 Weight 93.9 kg 93.7 kg General appearance: PRESENT: no acute distress, disheveled, obese. ABSENT: cooperative Head exam: PRESENT: atraumatic, normocephalic Eye exam: PRESENT: conjunctiva pale. ABSENT: nystagmus, scleral icterus Mouth exam: PRESENT: dry mucosa, neck supple, tongue midline, other - ET tube Neck exam: ABSENT: carotid bruit, JVD, lymphadenopathy, thyromegaly, tracheal deviation, tracheostomy Respiratory exam: PRESENT: decreased breath sounds, prolonged expiratory phas, rales, rhonchi, unlabored. ABSENT: retraction Cardiovascular exam: PRESENT: RRR, +S1, +S2 Pulses: PRESENT: normal radial pulses GI/Abdominal exam: PRESENT: soft, tenderness, other - Status post surgery Gentrourinary exam: PRESENT: indwelling catheter Extremities exam: PRESENT: pedal edema. ABSENT: calf tenderness, clubbing, full ROM, joint swelling Musculoskeletal exam: ABSENT: ambulatory, deformity, dislocation Neurological exam: ABSENT: awake Skin exam: PRESENT: dry, warm Results Laboratory Results: 08/03/18 04:44 08/03/18 04:44 08/03/18 08/04/18 20:25 04:50 Carbonic Acid 0.85 L HCO3/H2CO3 Ratio 25:1 ABG pH 7.50 H ABG pCO2 28.1 L ABG pO2 115.3 H ABG HCO3 21.5 ABG O2 Saturation 98.6 H ABG Base Excess -1.1 FiO2 28% Triglycerides 172 H 08/01/18 20:31 Abdomen - Post Surgical Site Gram Stain - Final 08/01/18 20:31 Abdomen - Post Surgical Site Wound Culture - Final 08/01/18 15:40 Tracheal Aspirate Gram Stain - Final 08/01/18 15:40 Tracheal Aspirate Sputum Culture - Final C.albicans/C.dubliniensis Normal Adeola Absent 08/01/18 15:40 Swenson Catheter Urine Culture - Final NO GROWTH 2 DAYS 07/26/18 07/26/18 07/27/18 23:30 23:57 00:35 NT-Pro-B Natriuret Pep Cancelled Cancelled 3320 H Impressions: KUB X-Ray 07/26/18 00:00 IMPRESSION: Nasogastric tube in the stomach. Abdomen/Pelvis CT 07/26/18 15:30 IMPRESSION: 1. Trace right pleural effusion. 2. Cardiomegaly. 3. Fluid-filled dilated esophagus, concerning for increased risk of aspiration. IMPRESSION: 1. High-grade distal small-bowel obstruction with bowel perforation. Surgical consult recommended. 2. Pneumoperitoneum. Small amount of ascites. 3. Indeterminate heterogeneous liver lesion. This can be further evaluated with dedicated nonemergent contrast enhanced MRI. Chest CT 07/26/18 16:11 IMPRESSION: 1. Trace right pleural effusion. 2. Cardiomegaly. 3. Fluid-filled dilated esophagus, concerning for increased risk of aspiration. IMPRESSION: 1. High-grade distal small-bowel obstruction with bowel perforation. Surgical consult recommended. 2. Pneumoperitoneum. Small amount of ascites. 3. Indeterminate heterogeneous liver lesion. This can be further evaluated with dedicated nonemergent contrast enhanced MRI. Chest X-Ray 08/04/18 06:00 IMPRESSION: Slightly worse aeration of the lungs with increased effusions. Support devices in expected locations. Assessment & Plan - Diagnosis (1) Acute respiratory failure Is this a current diagnosis for this admission?: Yes Plan: unchanged (2) Bowel obstruction Qualifiers: Intestinal obstruction type: unspecified Intestinal obstruction extent: complete Qualified Code(s): K56.601 - Complete intestinal obstruction, unspecified as to cause Is this a current diagnosis for this admission?: Yes Plan: As per surgery (3) Gallstone ileus Is this a current diagnosis for this admission?: Yes Plan: As per surgery (4) Metabolic acidosis Is this a current diagnosis for this admission?: Yes Plan: Septic shock compensate for acidosis with respiratory induced alkalosis (5) Septic shock Is this a current diagnosis for this admission?: Yes Plan: Multiple vasopressor agents required - Time Total Critical Time (Minutes): 40
--- NOTE | 2018-08-12 11:26 | PDOC PROGRESS REPORT ---
Subjective Progress Note for:: 08/05/18 Subjective:: Intubated and sedated Reason For Visit: LOW BLOOD PRESSURE Physical Exam Vital Signs: Temp Pulse Resp BP Pulse Ox 101.5 F H 109 H 21 H 114/58 L 100 08/05/18 10:00 08/05/18 10:00 08/05/18 10:05 08/05/18 10:05 08/05/18 10:00 Intake & Output 08/04/18 08/05/18 08/06/18 06:59 06:59 06:59 Intake Total 2591 3660 84 Output Total 5510 5615 900 Balance -2919 -1955 -816 Weight 93.7 kg 90.3 kg General appearance: PRESENT: no acute distress, disheveled, obese Head exam: PRESENT: atraumatic, normocephalic Eye exam: PRESENT: conjunctiva pale. ABSENT: nystagmus, scleral icterus Mouth exam: PRESENT: dry mucosa, neck supple, tongue midline, other - ET tube Neck exam: ABSENT: carotid bruit, JVD, lymphadenopathy, thyromegaly, tracheal deviation, tracheostomy Respiratory exam: PRESENT: decreased breath sounds, prolonged expiratory phas, rales, rhonchi, unlabored Cardiovascular exam: PRESENT: RRR, +S1, +S2 Pulses: PRESENT: normal radial pulses GI/Abdominal exam: PRESENT: soft, tenderness, other - Status post surgery Gentrourinary exam: PRESENT: indwelling catheter Extremities exam: PRESENT: pedal edema. ABSENT: calf tenderness, clubbing, joint swelling Musculoskeletal exam: ABSENT: ambulatory, deformity, dislocation Neurological exam: ABSENT: awake Skin exam: PRESENT: dry, warm Results Laboratory Results: 08/03/18 04:44 08/03/18 04:44 08/05/18 04:27 Carbonic Acid 0.86 L HCO3/H2CO3 Ratio 25:1 ABG pH 7.50 H ABG pCO2 28.5 L ABG pO2 90.6 ABG HCO3 21.5 ABG O2 Saturation 97.6 ABG Base Excess -1.1 FiO2 28% 07/26/18 07/26/18 07/27/18 23:30 23:57 00:35 NT-Pro-B Natriuret Pep Cancelled Cancelled 3320 H Impressions: KUB X-Ray 07/26/18 00:00 IMPRESSION: Nasogastric tube in the stomach. Abdomen/Pelvis CT 07/26/18 15:30 IMPRESSION: 1. Trace right pleural effusion. 2. Cardiomegaly. 3. Fluid-filled dilated esophagus, concerning for increased risk of aspiration. IMPRESSION: 1. High-grade distal small-bowel obstruction with bowel perforation. Surgical consult recommended. 2. Pneumoperitoneum. Small amount of ascites. 3. Indeterminate heterogeneous liver lesion. This can be further evaluated with dedicated nonemergent contrast enhanced MRI. Chest CT 07/26/18 16:11 IMPRESSION: 1. Trace right pleural effusion. 2. Cardiomegaly. 3. Fluid-filled dilated esophagus, concerning for increased risk of aspiration. IMPRESSION: 1. High-grade distal small-bowel obstruction with bowel perforation. Surgical consult recommended. 2. Pneumoperitoneum. Small amount of ascites. 3. Indeterminate heterogeneous liver lesion. This can be further evaluated with dedicated nonemergent contrast enhanced MRI. Chest X-Ray 08/05/18 06:00 IMPRESSION: Bibasilar atelectasis Assessment & Plan - Diagnosis (1) Acute respiratory failure Is this a current diagnosis for this admission?: Yes Plan: unchanged (2) Bowel obstruction Qualifiers: Intestinal obstruction type: unspecified Intestinal obstruction extent: complete Qualified Code(s): K56.601 - Complete intestinal obstruction, unspecified as to cause Is this a current diagnosis for this admission?: Yes Plan: As per surgery (3) Gallstone ileus Is this a current diagnosis for this admission?: Yes Plan: As per surgery (4) Metabolic acidosis Is this a current diagnosis for this admission?: Yes Plan: Septic shock compensate for acidosis with respiratory induced alkalosis (5) Septic shock Is this a current diagnosis for this admission?: Yes Plan: Multiple vasopressor agents required - Time Total Critical Time (Minutes): 45
--- NOTE | 2018-08-12 11:28 | PDOC PROGRESS REPORT ---
Subjective Progress Note for:: 08/06/18 Subjective:: Intubated and sedated Reason For Visit: LOW BLOOD PRESSURE Physical Exam Vital Signs: Temp Pulse Resp BP Pulse Ox 100.8 F H 105 H 26 H 112/85 100 08/06/18 11:43 08/06/18 10:00 08/06/18 10:00 08/06/18 10:00 08/06/18 10:00 Intake & Output 08/05/18 08/06/18 08/07/18 06:59 06:59 06:59 Intake Total 3660 3376 60 Output Total 5615 4910 1974 Balance -7 -9708 Weight 90.3 kg 88.1 kg General appearance: PRESENT: no acute distress, disheveled, obese. ABSENT: cooperative Head exam: PRESENT: atraumatic, normocephalic Eye exam: PRESENT: conjunctiva pale. ABSENT: nystagmus Mouth exam: PRESENT: dry mucosa, neck supple, tongue midline, other - Endotracheal tube Neck exam: ABSENT: carotid bruit, JVD, lymphadenopathy, thyromegaly, tracheal deviation, tracheostomy Respiratory exam: PRESENT: decreased breath sounds, prolonged expiratory phas, rales, rhonchi, unlabored. ABSENT: tachypnea Cardiovascular exam: PRESENT: RRR, +S1, +S2 Pulses: PRESENT: normal radial pulses GI/Abdominal exam: PRESENT: soft, tenderness, other - Status post surgery Gentrourinary exam: PRESENT: indwelling catheter Extremities exam: PRESENT: pedal edema. ABSENT: calf tenderness, clubbing, joint swelling Musculoskeletal exam: ABSENT: ambulatory, deformity, dislocation Neurological exam: ABSENT: awake Skin exam: PRESENT: dry, warm Results Laboratory Results: 08/05/18 10:30 08/05/18 10:30 08/06/18 04:08 Carbonic Acid 0.82 L HCO3/H2CO3 Ratio 26:1 ABG pH 7.53 H ABG pCO2 27.2 L ABG pO2 85.8 ABG HCO3 22.1 ABG O2 Saturation 97.5 ABG Base Excess -0.2 FiO2 28% 07/26/18 07/26/18 07/27/18 23:30 23:57 00:35 NT-Pro-B Natriuret Pep Cancelled Cancelled 3320 H Impressions: KUB X-Ray 07/26/18 00:00 IMPRESSION: Nasogastric tube in the stomach. Abdomen/Pelvis CT 07/26/18 15:30 IMPRESSION: 1. Trace right pleural effusion. 2. Cardiomegaly. 3. Fluid-filled dilated esophagus, concerning for increased risk of aspiration. IMPRESSION: 1. High-grade distal small-bowel obstruction with bowel perforation. Surgical consult recommended. 2. Pneumoperitoneum. Small amount of ascites. 3. Indeterminate heterogeneous liver lesion. This can be further evaluated with dedicated nonemergent contrast enhanced MRI. Chest CT 07/26/18 16:11 IMPRESSION: 1. Trace right pleural effusion. 2. Cardiomegaly. 3. Fluid-filled dilated esophagus, concerning for increased risk of aspiration. IMPRESSION: 1. High-grade distal small-bowel obstruction with bowel perforation. Surgical consult recommended. 2. Pneumoperitoneum. Small amount of ascites. 3. Indeterminate heterogeneous liver lesion. This can be further evaluated with dedicated nonemergent contrast enhanced MRI. Chest X-Ray 08/06/18 06:00 IMPRESSION: Slight improvement. No pneumothorax. Assessment & Plan - Diagnosis (1) Acute respiratory failure Is this a current diagnosis for this admission?: Yes Plan: unchanged (2) Bowel obstruction Qualifiers: Intestinal obstruction type: unspecified Intestinal obstruction extent: complete Qualified Code(s): K56.601 - Complete intestinal obstruction, unspecified as to cause Is this a current diagnosis for this admission?: Yes Plan: As per surgery (3) Gallstone ileus Is this a current diagnosis for this admission?: Yes Plan: As per surgery (4) Metabolic acidosis Is this a current diagnosis for this admission?: Yes Plan: Septic shock compensate for acidosis with respiratory induced alkalosis (5) Septic shock Is this a current diagnosis for this admission?: Yes Plan: Multiple vasopressor agents required - Time Total Critical Time (Minutes): 40
[2018-08-12 11:29] LABS: CARBON DIOXIDE 28 mmol/L (22-30); CHLORIDE 105 mmol/L (98-107)
--- NOTE | 2018-08-12 11:31 | PDOC PROGRESS REPORT ---
Subjective Progress Note for:: 08/07/18 Subjective:: Intubated and sedated Reason For Visit: LOW BLOOD PRESSURE Physical Exam Vital Signs: Temp Pulse Resp BP Pulse Ox 97.7 F 89 16 94/47 L 99 08/08/18 08:00 08/08/18 08:00 08/08/18 08:00 08/08/18 06:20 08/08/18 08:00 Intake & Output 08/07/18 08/08/18 08/09/18 06:59 06:59 06:59 Intake Total 4399 5478 133 Output Total 6050 4870 250 Balance -1651 608 -117 Weight 84.4 kg 84.2 kg General appearance: PRESENT: no acute distress, disheveled, obese Head exam: PRESENT: atraumatic, normocephalic Eye exam: PRESENT: conjunctiva pale. ABSENT: nystagmus, scleral icterus Mouth exam: PRESENT: dry mucosa, neck supple, tongue midline, other - ET tube Neck exam: ABSENT: carotid bruit, JVD, lymphadenopathy, thyromegaly, tracheal deviation, tracheostomy Respiratory exam: PRESENT: decreased breath sounds, prolonged expiratory phas, rales, rhonchi, unlabored, wheezes. ABSENT: retraction Cardiovascular exam: PRESENT: RRR, +S1, +S2 Pulses: PRESENT: normal radial pulses GI/Abdominal exam: PRESENT: soft, tenderness, other - Status post surgery Gentrourinary exam: PRESENT: indwelling catheter Extremities exam: PRESENT: pedal edema. ABSENT: calf tenderness, clubbing, joint swelling Musculoskeletal exam: ABSENT: deformity, dislocation Neurological exam: ABSENT: awake Skin exam: PRESENT: dry, warm Results Laboratory Results: 08/07/18 05:40 08/05/18 10:30 08/04/18 17:22 Blood Blood Culture - Final Staphylococcus Epidermidis 07/26/18 07/26/18 07/27/18 23:30 23:57 00:35 NT-Pro-B Natriuret Pep Cancelled Cancelled 3320 H Impressions: KUB X-Ray 07/26/18 00:00 IMPRESSION: Nasogastric tube in the stomach. Abdomen/Pelvis CT 07/26/18 15:30 IMPRESSION: 1. Trace right pleural effusion. 2. Cardiomegaly. 3. Fluid-filled dilated esophagus, concerning for increased risk of aspiration. IMPRESSION: 1. High-grade distal small-bowel obstruction with bowel perforation. Surgical consult recommended. 2. Pneumoperitoneum. Small amount of ascites. 3. Indeterminate heterogeneous liver lesion. This can be further evaluated with dedicated nonemergent contrast enhanced MRI. Chest CT 07/26/18 16:11 IMPRESSION: 1. Trace right pleural effusion. 2. Cardiomegaly. 3. Fluid-filled dilated esophagus, concerning for increased risk of aspiration. IMPRESSION: 1. High-grade distal small-bowel obstruction with bowel perforatio n. Surgical consult recommended. 2. Pneumoperitoneum. Small amount of ascites. 3. Indeterminate heterogeneous liver lesion. This can be further evaluated with dedicated nonemergent contrast enhanced MRI. Guidance Ultrasound 08/06/18 00:00 IMPRESSION: Vascular ultrasound guidance. Interventional Vascular Procedure 08/06/18 00:00 IMPRESSION: Vascular ultrasound guidance. Chest X-Ray 08/07/18 06:00 IMPRESSION: Cardiomegaly with postsurgical change. Lines and catheters in place copyright 2010 [employer]- All Rights Reserved Assessment & Plan - Diagnosis (1) Acute respiratory failure Is this a current diagnosis for this admission?: Yes Plan: unchanged (2) Bowel obstruction Qualifiers: Intestinal obstruction type: unspecified Intestinal obstruction extent: complete Qualified Code(s): K56.601 - Complete intestinal obstruction, unspecified as to cause Is this a current diagnosis for this admission?: Yes Plan: As per surgery (3) Gallstone ileus Is this a current diagnosis for this admission?: Yes Plan: As per surgery (4) Metabolic acidosis Is this a current diagnosis for this admission?: Yes Plan: Septic shock compensate for acidosis with respiratory induced alkalosis (5) Septic shock Is this a current diagnosis for this admission?: Yes Plan: Multiple vasopressor agents required - Time Total Critical Time (Minutes): 45
--- NOTE | 2018-08-12 11:33 | PDOC PROGRESS REPORT ---
Subjective Progress Note for:: 08/08/18 Subjective:: Intubated and sedated Reason For Visit: LOW BLOOD PRESSURE Physical Exam Vital Signs: Temp Pulse Resp BP Pulse Ox 97.7 F 89 16 94/47 L 99 08/08/18 08:00 08/08/18 08:00 08/08/18 08:00 08/08/18 06:20 08/08/18 08:00 Intake & Output 08/07/18 08/08/18 08/09/18 06:59 06:59 06:59 Intake Total 4399 5478 133 Output Total 6050 4870 250 Balance -1651 608 -117 Weight 84.4 kg 84.2 kg General appearance: PRESENT: no acute distress, disheveled, obese Head exam: PRESENT: atraumatic, normocephalic Eye exam: PRESENT: conjunctiva pale. ABSENT: nystagmus, scleral icterus Mouth exam: PRESENT: dry mucosa, neck supple, tongue midline, other - ET tube Neck exam: ABSENT: carotid bruit, JVD, lymphadenopathy, thyromegaly, tracheal deviation, tracheostomy Respiratory exam: PRESENT: decreased breath sounds, prolonged expiratory phas, rales, rhonchi, unlabored Cardiovascular exam: PRESENT: RRR, +S1, +S2, tachycardia Pulses: PRESENT: normal radial pulses GI/Abdominal exam: PRESENT: soft, tenderness, other - Status post surgery Gentrourinary exam: PRESENT: indwelling catheter Extremities exam: PRESENT: pedal edema. ABSENT: calf tenderness, clubbing, joint swelling Musculoskeletal exam: ABSENT: ambulatory, deformity, dislocation Neurological exam: ABSENT: awake Skin exam: PRESENT: dry, warm Results Laboratory Results: 08/07/18 05:40 08/05/18 10:30 08/04/18 17:22 Blood Blood Culture - Final Staphylococcus Epidermidis 07/26/18 07/26/18 07/27/18 23:30 23:57 00:35 NT-Pro-B Natriuret Pep Cancelled Cancelled 3320 H Impressions: KUB X-Ray 07/26/18 00:00 IMPRESSION: Nasogastric tube in the stomach. Abdomen/Pelvis CT 07/26/18 15:30 IMPRESSION: 1. Trace right pleural effusion. 2. Cardiomegaly. 3. Fluid-filled dilated esophagus, concerning for increased risk of aspiration. IMPRESSION: 1. High-grade distal small-bowel obstruction with bowel perforation. Surgical consult recommended. 2. Pneumoperitoneum. Small amount of ascites. 3. Indeterminate heterogeneous liver lesion. This can be further evaluated with dedicated nonemergent contrast enhanced MRI. Chest CT 07/26/18 16:11 IMPRESSION: 1. Trace right pleural effusion. 2. Cardiomegaly. 3. Fluid-filled dilated esophagus, concerning for increased risk of aspiration. IMPRESSION: 1. High-grade distal small-bowel obstruction with bowel perforation. Surgical consult recommended. 2. Pneumoperitoneum. Small amount of ascites. 3. Indeterminate heterogeneous liver lesion. This can be further evaluated with dedicated nonemergent contrast enhanced MRI. Guidance Ultrasound 08/06/18 00:00 IMPRESSION: Vascular ultrasound guidance. Interventional Vascular Procedure 08/06/18 00:00 IMPRESSION: Vascular ultrasound guidance. Chest X-Ray 08/07/18 06:00 IMPRESSION: Cardiomegaly with postsurgical change. Lines and catheters in place copyright 2011 [employer]- All Rights Reserved Assessment & Plan - Diagnosis (1) Acute respiratory failure Is this a current diagnosis for this admission?: Yes Plan: unchanged (2) Bowel obstruction Qualifiers: Intestinal obstruction type: unspecified Intestinal obstruction extent: complete Qualified Code(s): K56.601 - Complete intestinal obstruction, unspecified as to cause Is this a current diagnosis for this admission?: Yes Plan: As per surgery (3) Gallstone ileus Is this a current diagnosis for this admission?: Yes Plan: As per surgery (4) Metabolic acidosis Is this a current diagnosis for this admission?: Yes Plan: Septic shock compensate for acidosis with respiratory induced alkalosis (5) Septic shock Is this a current diagnosis for this admission?: Yes Plan: Multiple vasopressor agents required - Time Total Critical Time (Minutes): 45
[2018-08-12 11:34] LABS: ANION GAP 4 (5-19)
--- NOTE | 2018-08-12 11:35 | PDOC PROGRESS REPORT ---
Subjective Progress Note for:: 08/09/18 Subjective:: Intubated and sedated Reason For Visit: LOW BLOOD PRESSURE Physical Exam Vital Signs: Temp Pulse Resp BP Pulse Ox 100.4 F 118 H 34 H 118/76 100 08/09/18 11:43 08/08/18 20:00 08/09/18 11:54 08/09/18 09:21 08/09/18 11:54 Intake & Output 08/08/18 08/09/18 08/10/18 06:59 06:59 06:59 Intake Total 5478 4886 Output Total 4870 4825 1175 Balance 608 61 -1175 Weight 84.2 kg 83.1 kg General appearance: PRESENT: no acute distress, disheveled, obese. ABSENT: cooperative Head exam: PRESENT: atraumatic, normocephalic Eye exam: PRESENT: conjunctiva pale. ABSENT: nystagmus, scleral icterus Mouth exam: PRESENT: dry mucosa, neck supple, tongue midline Neck exam: ABSENT: carotid bruit, JVD, lymphadenopathy, thyromegaly, tracheal deviation, tracheostomy Respiratory exam: PRESENT: decreased breath sounds, prolonged expiratory phas, rales, rhonchi, unlabored Cardiovascular exam: PRESENT: RRR, +S1, +S2 GI/Abdominal exam: PRESENT: soft, tenderness, other - Status post surgery Gentrourinary exam: PRESENT: indwelling catheter Extremities exam: PRESENT: pedal edema. ABSENT: calf tenderness, clubbing, joint swelling Musculoskeletal exam: ABSENT: deformity Neurological exam: PRESENT: awake Skin exam: PRESENT: dry, warm Results Laboratory Results: 08/09/18 05:36 08/09/18 09:40 08/09/18 08/09/18 08/09/18 05:36 05:36 09:40 WBC 10.6 H RBC 3.07 L Hgb 8.7 L Hct 25.2 L MCV 82 MCH 28.4 MCHC 34.6 RDW 13.6 Plt Count 464 H Seg Neutrophils % 77.1 Lymphocytes % 11.4 L Monocytes % 8.3 Eosinophils % 2.8 Basophils % 0.4 Absolute Neutrophils 8.2 Absolute Lymphocytes 1.2 Absolute Monocytes 0.9 Absolute Eosinophils 0.3 Absolute Basophils 0.0 Carbonic Acid 1.13 HCO3/H2CO3 Ratio 24:1 ABG pH 7.48 H ABG pCO2 37.6 ABG pO2 130.4 H ABG HCO3 27.4 H ABG O2 Saturation 98.8 H ABG Base Excess 3.8 FiO2 40% Sodium 137.0 Potassium 4.4 Chloride 103 Carbon Dioxide 27 Anion Gap 7 BUN 12 Creatinine 0.35 L Est GFR ( Amer) > 60 Est GFR (Non-Af Amer) > 60 Glucose 154 H Calcium 7.8 L Total Bilirubin 0.3 AST 56 H ALT 54 H Alkaline Phosphatase 247 H Total Protein 5.7 L Albumin 2.3 L 08/06/18 15:00 Catheter Tip - Central Line Catheter Tip Culture - Final NO GROWTH 3 DAYS 08/04/18 17:22 Blood Blood Culture - Final Staphylococcus Epidermidis 07/26/18 07/26/18 07/27/18 23:30 23:57 00:35 NT-Pro-B Natriuret Pep Cancelled Cancelled 3320 H Impressions: KUB X-Ray 07/26/18 00:00 IMPRESSION: Nasogastric tube in the stomach. Abdomen/Pelvis CT 07/26/18 15:30 IMPRESSION: 1. Trace right pleural effusion. 2. Cardiomegaly. 3. Fluid-filled dilated esophagus, concerning for increased risk of aspiration. IMPRESSION: 1. High-grade distal small-bowel obstruction with bowel perforation. Surgical consult recommended. 2. Pneumoperitoneum. Small amount of ascites. 3. Indeterminate heterogeneous liver lesion. This can be further evaluated with dedicated nonemergent contrast enhanced MRI. Chest CT 07/26/18 16:11 IMPRESSION: 1. Trace right pleural effusion. 2. Cardiomegaly. 3. Fluid-filled dilated esophagus, concerning for increased risk of aspiration. IMPRESSION: 1. High-grade distal small-bowel obstruction with bowel perforation. Surgical consult recommended. 2. Pneumoperitoneum. Small amount of ascites. 3. Indeterminate heterogeneous liver lesion. This can be further evaluated with dedicated nonemergent contrast enhanced MRI. Guidance Ultrasound 08/06/18 00:00 IMPRESSION: Vascular ultrasound guidance. Interventional Vascular Procedure 08/06/18 00:00 IMPRESSION: Vascular ultrasound guidance. Chest X-Ray 08/07/18 06:00 IMPRESSION: Cardiomegaly with postsurgical change. Lines and catheters in place copyright 2010 [employer]- All Rights Reserved Assessment & Plan - Diagnosis (1) Acute respiratory failure Is this a current diagnosis for this admission?: Yes Plan: unchanged (2) Bowel obstruction Qualifiers: Intestinal obstruction type: unspecified Intestinal obstruction extent: complete Qualified Code(s): K56.601 - Complete intestinal obstruction, unspecified as to cause Is this a current diagnosis for this admission?: Yes Plan: As per surgery (3) Gallstone ileus Is this a current diagnosis for this admission?: Yes Plan: As per surgery (4) Metabolic acidosis Is this a current diagnosis for this admission?: Yes Plan: Septic shock compensate for acidosis with respiratory induced alkalosis (5) Septic shock Is this a current diagnosis for this admission?: Yes Plan: Multiple vasopressor agents required - Time Total Critical Time (Minutes): 40
--- NOTE | 2018-08-12 11:37 | PDOC PROGRESS REPORT ---
Subjective Progress Note for:: 08/10/18 Subjective:: Intubated and sedated Reason For Visit: LOW BLOOD PRESSURE Physical Exam Vital Signs: Temp Pulse Resp BP Pulse Ox 99.9 F 111 H 36 H 120/66 100 08/10/18 08:00 08/10/18 08:00 08/10/18 08:38 08/10/18 08:00 08/10/18 08:38 Intake & Output 08/09/18 08/10/18 08/11/18 06:59 06:59 06:59 Intake Total 4888 4750 313 Output Total 4892 4865 250 Balance 61 -1920 63 Weight 83.1 kg 81.9 kg General appearance: PRESENT: no acute distress, cooperative, disheveled, obese Head exam: PRESENT: atraumatic, normocephalic Eye exam: PRESENT: conjunctiva pale, EOMI. ABSENT: nystagmus, scleral icterus Mouth exam: PRESENT: dry mucosa, neck supple, tongue midline Neck exam: ABSENT: carotid bruit, JVD, lymphadenopathy, thyromegaly, tracheal deviation, tracheostomy Respiratory exam: PRESENT: decreased breath sounds, prolonged expiratory phas, rales, rhonchi, tachypnea. ABSENT: retraction, stridor Cardiovascular exam: PRESENT: RRR, +S1, +S2, tachycardia Pulses: PRESENT: normal radial pulses GI/Abdominal exam: PRESENT: soft, tenderness, other - Status post surgery Gentrourinary exam: PRESENT: indwelling catheter Extremities exam: PRESENT: pedal edema. ABSENT: calf tenderness, clubbing, joint swelling Musculoskeletal exam: ABSENT: deformity Neurological exam: PRESENT: altered, awake Skin exam: PRESENT: dry, warm Results Laboratory Results: 08/09/18 05:36 08/09/18 09:40 08/09/18 08/09/18 08/10/18 09:40 14:35 06:20 Carbonic Acid 0.97 L 1.04 L HCO3/H2CO3 Ratio 25:1 24:1 ABG pH 7.51 H 7.49 H ABG pCO2 32.2 L 34.6 L ABG pO2 210.5 H 97.5 ABG HCO3 25.1 H 25.5 H ABG O2 Saturation 99.5 H 97.9 ABG Base Excess 2.5 2.3 FiO2 50% 38% Sodium 137.0 Potassium 4.4 Chloride 103 Carbon Dioxide 27 Anion Gap 7 BUN 12 Creatinine 0.35 L Est GFR ( Amer) > 60 Est GFR (Non-Af Amer) > 60 Glucose 154 H Calcium 7.8 L Total Bilirubin 0.3 AST 56 H ALT 54 H Alkaline Phosphatase 247 H Total Protein 5.7 L Albumin 2.3 L 08/04/18 17:25 Blood Blood Culture - Final NO GROWTH IN 5 DAYS 08/06/18 15:00 Catheter Tip - Central Line Catheter Tip Culture - Final NO GROWTH 3 DAYS 07/26/18 07/26/18 07/27/18 23:30 23:57 00:35 NT-Pro-B Natriuret Pep Cancelled Cancelled 3320 H Impressions: KUB X-Ray 07/26/18 00:00 IMPRESSION: Nasogastric tube in the stomach. Abdomen/Pelvis CT 07/26/18 15:30 IMPRESSION: 1. Trace right pleural effusion. 2. Cardiomegaly. 3. Fluid-filled dilated esophagus, concerning for increased risk of aspiration. IMPRESSION: 1. High-grade distal small-bowel obstruction with bowel perforation. Surgical consult recommended. 2. Pneumoperitoneum. Small amount of ascites. 3. Indeterminate heterogeneous liver lesion. This can be further evaluated with dedicated nonemergent contrast enhanced MRI. Chest CT 07/26/18 16:11 IMPRESSION: 1. Trace right pleural effusion. 2. Cardiomegaly. 3. Fluid-filled dilated esophagus, concerning for increased risk of aspiration. IMPRESSION: 1. High-grade distal small-bowel obstruction with bowel perforation. Surgical consult recommended. 2. Pneumoperitoneum. Small amount of ascites. 3. Indeterminate heterogeneous liver lesion. This can be further evaluated with dedicated nonemergent contrast enhanced MRI. Guidance Ultrasound 08/06/18 00:00 IMPRESSION: Vascular ultrasound guidance. Interventional Vascular Procedure 08/06/18 00:00 IMPRESSION: Vascular ultrasound guidance. Chest X-Ray 08/10/18 06:00 IMPRESSION: 1. Since the previous examination dated 08/07/2018, interval remov al of endotracheal tube. Otherwise, stable examination. Assessment & Plan - Diagnosis (1) Acute respiratory failure Is this a current diagnosis for this admission?: Yes Plan: Status post extubation stable (2) Bowel obstruction Qualifiers: Intestinal obstruction type: unspecified Intestinal obstruction extent: complete Qualified Code(s): K56.601 - Complete intestinal obstruction, unspec ified as to cause Is this a current diagnosis for this admission?: Yes Plan: As per surgery (3) Gallstone ileus Is this a current diagnosis for this admission?: Yes Plan: As per surgery (4) Metabolic acidosis Is this a current diagnosis for this admission?: Yes Plan: imProving (5) Septic shock Is this a current diagnosis for this admission?: Yes Plan: Improving - Time Total Critical Time (Minutes): 50
--- NOTE | 2018-08-12 11:39 | PDOC PROGRESS REPORT ---
Subjective Progress Note for:: 08/11/18 Subjective:: Intubated and sedated Reason For Visit: LOW BLOOD PRESSURE Physical Exam Vital Signs: Temp Pulse Resp BP Pulse Ox 100.9 F H 132 H 29 H 135/63 H 100 08/11/18 10:00 08/11/18 10:00 08/11/18 11:57 08/11/18 10:00 08/11/18 11:57 Intake & Output 08/10/18 08/11/18 08/12/18 06:59 06:59 06:59 Intake Total 2945 3681 461 Output Total 4865 3070 370 Balance -1920 611 91 Weight 81.9 kg 81.1 kg General appearance: PRESENT: no acute distress, cooperative, disheveled, obese Head exam: PRESENT: atraumatic, normocephalic Eye exam: PRESENT: conjunctiva pale, EOMI. ABSENT: nystagmus, scleral icterus Mouth exam: PRESENT: dry mucosa, neck supple, tongue midline Neck exam: ABSENT: carotid bruit, JVD, lymphadenopathy, thyromegaly, tracheal deviation, tracheostomy Respiratory exam: PRESENT: decreased breath sounds, prolonged expiratory phas, rales, rhonchi, unlabored Cardiovascular exam: PRESENT: RRR, +S1, +S2 Pulses: PRESENT: normal radial pulses GI/Abdominal exam: PRESENT: soft, tenderness, other - Status post surgery Gentrourinary exam: PRESENT: indwelling catheter Extremities exam: PRESENT: joint swelling. ABSENT: calf tenderness, clubbing, full ROM Musculoskeletal exam: ABSENT: ambulatory, deformity, dislocation Neurological exam: PRESENT: altered, awake Skin exam: PRESENT: dry, warm Results Laboratory Results: 08/09/18 05:36 08/11/18 05:00 08/11/18 08/11/18 05:00 05:00 Carbonic Acid 1.01 L HCO3/H2CO3 Ratio 26:1 ABG pH 7.52 H ABG pCO2 33.4 L ABG pO2 138.5 H ABG HCO3 26.4 H ABG O2 Saturation 99.0 H ABG Base Excess 3.4 FiO2 30% Sodium 136.5 L Potassium 4.2 Chloride 103 Carbon Dioxide 27 Anion Gap 7 BUN 10 Creatinine 0.42 L Est GFR ( Amer) > 60 Est GFR (Non-Af Amer) > 60 Glucose 102 Calcium 8.0 L Magnesium 2.1 07/26/18 07/26/18 07/27/18 23:30 23:57 00:35 NT-Pro-B Natriuret Pep Cancelled Cancelled 3320 H Impressions: KUB X-Ray 07/26/18 00:00 IMPRESSION: Nasogastric tube in the stomach. Guidance Ultrasound 08/06/18 00:00 IMPRESSION: Vascular ultrasound guidance. Interventional Vascular Procedure 08/06/18 00:00 IMPRESSION: Vascular ultrasound guidance. Abdomen/Pelvis CT 08/10/18 00:00 IMPRESSION: 1. CHANGES OF RECENT ABDOMINAL SURGERY WITH OPEN INCISION SITE IN THE ABDOMINAL WALL. NO EVIDENCE OF SOFT TISSUE ABSCESS. NO SIGNIFICANT POSTOPERATIVE FINDINGS IN THE ABDOMEN OR PELVIS. 2. IRREGULAR LOW-ATTENUATION LESION IN THE RIGHT LOBE OF THE LIVER, UNCHANGED. THIS MAY BE A HEMANGIOMA. FURTHER EVALUATION WITH MRI OF THE LIVER SHOULD BE CONSIDERED AFTER THE PATIENT'S CLINICAL CONDITION HAS IMPROVED. 3. MINIMAL MESENTERIC ADENOPATHY, NONSPECIFIC AND PROBABLY INCIDENTAL. 4. NO OTHER SIGNIFICANT OR ACUTE FINDINGS IN THE ABDOMEN OR PELVIS. Chest CT 08/10/18 00:00 IMPRESSION: SMALL RIGHT PLEURAL EFFUSION. RIGHT LOWER LOBE CONSOLIDATION WITH A FEW AIR BRONCHOGRAMS WHICH MAY BE DUE TO PNEUMONIA AND/OR ATELECTASIS. Chest X-Ray 08/10/18 06:00 IMPRESSION: 1. Since the previous examination dated 08/07/2018, interval removal of endotracheal tube. Otherwise, stable examination. Esophagus X-Ray 08/10/18 09:36 IMPRESSION: NO EXTRAVASATION OF CONTRAST IDENTIFIED. Assessment & Plan - Diagnosis (1) Bowel obstruction Qualifiers: Intestinal obstruction type: unspecified Intestinal obstruction extent: complete Qualified Code(s): K56.601 - Complete intestinal obstruction, unspecified as to cause Is this a current diagnosis for this admission?: Yes Plan: As per surgery (2) Metabolic acidosis Is this a current diagnosis for this admission?: Yes Plan: imProving (3) Perforated viscus Is this a current diagnosis for this admission?: Yes Plan: As per surgery (4) Septic shock Is this a current diagnosis for this admission?: Yes Plan: Improving (5) Acute respiratory failure Is this a current diagnosis for this admission?: Yes Plan: Status post extubation stable - Time Total Critical Time (Minutes): 45
--- NOTE | 2018-08-12 11:40 | PDOC PROGRESS REPORT ---
Subjective Progress Note for:: 08/12/18 Subjective:: Intubated and sedated Reason For Visit: LOW BLOOD PRESSURE Physical Exam Vital Signs: Temp Pulse Resp BP Pulse Ox 99.0 F 93 20 109/94 H 100 08/12/18 08:00 08/12/18 08:00 08/12/18 08:00 08/12/18 08:00 08/12/18 08:00 Intake & Output 08/11/18 08/12/18 08/13/18 06:59 06:59 06:59 Intake Total 3681 4094 Output Total 3070 2480 250 Balance 611 1614 -250 Weight 81.1 kg 80.5 kg General appearance: PRESENT: no acute distress, cooperative, disheveled, obese Head exam: PRESENT: atraumatic, normocephalic Eye exam: PRESENT: conjunctiva pale, EOMI. ABSENT: nystagmus, scleral icterus Mouth exam: PRESENT: dry mucosa, neck supple, tongue midline Teeth exam: PRESENT: poor dentation Neck exam: ABSENT: carotid bruit, JVD, lymphadenopathy, thyromegaly, tracheal deviation, tracheostomy Respiratory exam: PRESENT: decreased breath sounds, prolonged expiratory phas, r ales, rhonchi, unlabored. ABSENT: retraction, stridor Cardiovascular exam: PRESENT: RRR, +S1, +S2 Pulses: PRESENT: normal radial pulses GI/Abdominal exam: PRESENT: soft, tenderness, other - Status post surgery Extremities exam: PRESENT: pedal edema. ABSENT: calf tenderness, clubbing, full ROM, joint swelling Musculoskeletal exam: ABSENT: ambulatory, deformity, dislocation Neurological exam: PRESENT: awake Psychiatric exam: PRESENT: appropriate affect Skin exam: PRESENT: dry, warm Results Laboratory Results: 08/09/18 05:36 08/11/18 05:00 07/26/18 07/26/18 07/27/18 23:30 23:57 00:35 NT-Pro-B Natriuret Pep Cancelled Cancelled 3320 H Impressions: KUB X-Ray 07/26/18 00:00 IMPRESSION: Nasogastric tube in the stomach. Guidance Ultrasound 08/06/18 00:00 IMPRESSION: Vascular ultrasound guidance. Interventional Vascular Procedure 08/06/18 00:00 IMPRESSION: Vascular ultrasound guidance. Abdomen/Pelvis CT 08/10/18 00:00 IMPRESSION: 1. CHANGES OF RECENT ABDOMINAL SURGERY WITH OPEN INCISION SITE IN THE ABDOMINAL WALL. NO EVIDENCE OF SOFT TISSUE ABSCESS. NO SIGNIFICANT POSTOPERATIVE FINDINGS IN THE ABDOMEN OR PELVIS. 2. IRREGULAR LOW-ATTENUATION LESION IN THE RIGHT LOBE OF THE LIVER, UNCHANGED. THIS MAY BE A HEMANGIOMA. FURTHER EVALUATION WITH MRI OF THE LIVER SHOULD BE CONSIDERED AFTER THE PATIENT'S CLINICAL CONDITION HAS IMPROVED. 3. MINIMAL MESENTERIC ADENOPATHY, NONSPECIFIC AND PROBABLY INCIDENTAL. 4. NO OTHER SIGNIFICANT OR ACUTE FINDINGS IN THE ABDOMEN OR PELVIS. Chest CT 08/10/18 00:00 IMPRESSION: SMALL RIGHT PLEURAL EFFUSION. RIGHT LOWER LOBE CONSOLIDATION WITH A FEW AIR BRONCHOGRAMS WHICH MAY BE DUE TO PNEUMONIA AND/OR ATELECTASIS. Esophagus X-Ray 08/10/18 09:36 IMPRESSION: NO EXTRAVASATION OF CONTRAST IDENTIFIED. Assessment & Plan - Diagnosis (1) Bowel obstruction Qualifiers: Intestinal obstruction type: unspecified Intestinal obstruction extent: complete Qualified Code(s): K56.601 - Complete intestinal obstruction, unspecified as to cause Is this a current diagnosis for this admission?: Yes Plan: As per surgery (2) Metabolic acidosis Is this a current diagnosis for this admission?: Yes Plan: imProving (3) Perforated viscus Is this a current diagnosis for this admission?: Yes Plan: As per surgery (4) Septic shock Is this a current diagnosis for this admission?: Yes Plan: Improving (5) Acute respiratory failure Is this a current diagnosis for this admission?: Yes Plan: Status post extubation stable - Time Total Critical Time (Minutes): 40
--- NOTE | 2018-08-12 14:46 | PDOC PROGRESS REPORT ---
Subjective Progress Note for:: 08/12/18 Reason For Visit: LOW BLOOD PRESSURE Physical Exam Vital Signs: Temp Pulse Resp BP Pulse Ox 99.0 F 93 18 106/54 L 100 08/12/18 08:00 08/12/18 08:00 08/12/18 10:27 08/12/18 10:27 08/12/18 12:00 Intake & Output 08/11/18 08/12/18 08/13/18 06:59 06:59 06:59 Intake Total 3681 4094 135 Output Total 3070 2480 1550 Balance 611 1614 -1415 Weight 81.1 kg 80.5 kg General appearance: PRESENT: no acute distress, cooperative GI/Abdominal exam: PRESENT: other - Abdominal exam he has an open wound that is being packed with a saline soaked gauze sponges. It is improved over the course of the last week or so today showing good granulation tissue along both sides of the wound. There is gauze packing between interspersed nylon sutures no evidence of fascial defect. Results Laboratory Results: 08/12/18 10:00 08/12/18 10:00 08/12/18 08/12/18 10:00 10:00 WBC 5.4 RBC 2.88 L Hgb 7.9 L Hct 23.5 L MCV 82 MCH 27.6 MCHC 33.8 RDW 14.0 Plt Count 517 H Seg Neutrophils % 66.3 Lymphocytes % 13.3 Monocytes % 13.4 H Eosinophils % 6.6 H Basophils % 0.4 Absolute Neutrophils 3.6 Absolute Lymphocytes 0.7 Absolute Monocytes 0.7 Absolute Eosinophils 0.4 Absolute Basophils 0.0 Sodium 137.0 Potassium 4.0 Chloride 105 Carbon Dioxide 28 Anion Gap 4 L BUN 8 Creatinine 0.41 L Est GFR ( Amer) > 60 Est GFR (Non-Af Amer) > 60 Glucose 111 H Calcium 7.7 L Total Bilirubin 0.3 AST 39 H ALT 57 H Alkaline Phosphatase 208 H Total Protein 5.4 L Albumin 2.2 L 07/26/18 07/26/18 07/27/18 23:30 23:57 00:35 NT-Pro-B Natriuret Pep Cancelled Cancelled 3320 H Impressions: KUB X-Ray 07/26/18 00:00 IMPRESSION: Nasogastric tube in the stomach. Guidance Ultrasound 08/06/18 00:00 IMPRESSION: Vascular ultrasound guidance. Interventional Vascular Procedure 08/06/18 00:00 IMPRESSION: Vascular ultrasound guidance. Abdomen/Pelvis CT 08/10/18 00:00 IMPRESSION: 1. CHANGES OF RECENT ABDOMINAL SURGERY WITH OPEN INCISION SITE IN THE ABDOMINAL WALL. NO EVIDENCE OF SOFT TISSUE ABSCESS. NO SIGNIFICANT POSTOPERATIVE FINDINGS IN THE ABDOMEN OR PELVIS. 2. IRREGULAR LOW-ATTENUATION LESION IN THE RIGHT LOBE OF THE LIVER, UNCHANGED. THIS MAY BE A HEMANGIOMA. FURTHER EVALUATION WITH MRI OF THE LIVER SHOULD BE CONSIDERED AFTER THE PATIENT'S CLINICAL CONDITION HAS IMPROVED. 3. MINIMAL MESENTERIC ADENOPATHY, NONSPECIFIC AND PROBABLY INCIDENTAL. 4. NO OTHER SIGNIFICANT OR ACUTE FINDINGS IN THE ABDOMEN OR PELVIS. Chest CT 08/10/18 00:00 IMPRESSION: SMALL RIGHT PLEURAL EFFUSION. RIGHT LOWER LOBE CONSOLIDATION WITH A FEW AIR BRONCHOGRAMS WHICH MAY BE DUE TO PNEUMONIA AND/OR ATELECTASIS. Esophagus X-Ray 08/10/18 09:36 IMPRESSION: NO EXTRAVASATION OF CONTRAST IDENTIFIED. Chest X-Ray 08/12/18 00:00 IMPRESSION: STABLE APPEARANCE OF THE CHEST. SUPPORT DEVICES UNCHANGED. Assessment & Plan - Diagnosis (1) Bowel obstruction Qualifiers: Intestinal obstruction type: unspecified Intestinal obstruction extent: complete Qualified Code(s): K56.601 - Complete intestinal obstruction, unspecified as to cause Is this a current diagnosis for this admission?: Yes (2) Extensive peritonitis Is this a current diagnosis for this admission?: Yes (3) Gallstone ileus Is this a current diagnosis for this admission?: Yes (4) Septic shock Is this a current diagnosis for this admission?: Yes - Plan Summary Plan Summary: There is improved over the course last week is post expiratory laparotomy for gallstone ileus with small bowel resection of her duodenum. She has now been weaned off the ventilator and is awake and alert conversive. Her NG tube has now minimal output over the course of the last 24 hours and she is passing bowel movements. Now remove her NG tube started on sips of clear liquids. He is okay to be downgraded to medical surgical floor.
--- NOTE | 2018-08-12 14:55 | Operative Report ---
Nonrecallable Operative Report DATE OF SURGERY: 08/12/18 PREOPERATIVE DIAGNOSIS: 1. Perforated viscus. 2. Bowel obstruction. 3. Septic shock POSTOPERATIVE DIAGNOSIS: Same. 1. Small bowel perforation. 2. 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 3. Widespread peritonitis. 4. Small bowel obstruction. 5. Acute and chronic cholecystitis OPERATION: 1. Exploratory laparotomy. 2. Extensive peritoneal washout with drain placement x2 1 in the right upper quadrant and a second in the deep pelvis. 3. Removal of small bowel obstruction and (gallstone via enterotomy. 4. Takedown of cholecystoduodenal transverse colonic fistula with closure of large duodenotomy including deneen maneuver of the duodenum. 5. Near complete cholecystectomy SURGEON: ROSA CAZARES ANESTHESIA: GA TISSUE REMOVED OR ALTERED: Fragments of small bowel wall; colonic wall following debridement; remnant of gallbladder COMPLICATIONS: None ESTIMATED BLOOD LOSS: 250 cc INTRAOPERATIVE FINDINGS: See below PROCEDURE: The patient was taken to the main operating room from the holding area where general anesthesia was induced. Because she remained hemodynamically unstable, additional fluid resuscitation and Christos-Synephrine was delivered to the patient. The abdomen was exposed arms abducted and the abdomen prepped and draped in sterile fashion. Previously placed Swenson catheter is draining satisfactorily. Surgical plan and surgical timeout conducted. The patient was felt to have adequate peripheral access as she was now responding to the low-dose Christos-Synephrine. The abdomen was opened the standard midline incision above and below the umbilicus. Upon entering the peritoneal cavity there was a significant amount of free air and small bowel contents throughout the entire peritoneal cavity. We vigorously irrigated the peritoneal cavity out with multiple liters of saline solution. Approximately 4.5 L were used eluding washing out the pelvis, subdiaphragmatic areas as well. Bookwalter retractor was established and we identified a perforation of the small bowel in the proximal ileum. The perforation was on the antimesenteric side approximately 1/2 cm diameter. This portion of the bowel was oversewn with a few 3-0 PDS sutures. Approximately 40 cm distal to this point was a mass consistent with a large gallstone. We concluded that the patient obstructed the terminal ileum due to the gallstone and perforated the small bowel proximally. We now completed complete visualization of the peritoneal cavity including the epigastric area began producing as much of the succus entericus from the small bowel in a retrograde fashion into the nasogastric tube. Could now appreciate that in the right upper quadrant, after some loose dissection, there was transverse colon stuck to the duodenum and gallbladder. Prior to pursuing this portion of the operation however I elected to remove the gallstone. The previously closed small bowel perforation proximal to the gallstone was opened transversely, and the gallstone at 2-1/2 cm was milked out of the small intestine. It was sent to pathology. The enterotomy was closed transversely in relation to the length of the small bowel with 3-0 PDS in 2 layers. We now increased our exposure in the epigastric region reestablish Bookwalter retraction and took the transverse colon off of the right lobe of the liver using a combination of blunt and electrocautery dissection. There was a copious amount of stool in and out around the transverse colon which was aspirated and irrigated. Able to break the transverse colon away from the right upper quadrant. The antimesenteric hole in the transverse colon was closed with multiple 3-0 PDS sutures in 2 layers. This in fact permitted the transverse colon to be freed up from the duodenum. We now turned our attention to what was a very small inflamed gallbladder. It was removed from its top down as far as it could towards the ema hepatis. This enabled us to free up the second portion of the duodenum. The fistula was from the anterior surface of the gallbladder to the anterior apical side of the first portion of the duodenum. The second portion of the duodenum was completely kocherized. We debrided the gallbladder completely off the anterior surface of the duodenum and off of the liver bed. This portion of the gallbladder was sent to pathology with the neck of the gallbladder cured with a 0 PDS Endoloop. Therefore this was considered a near complete cholecystectomy. We now debrided the portion of the gallbladder stuck to the duodenum. The duodenum was freed up and in a relaxed fashion. The gaping hole in the duodenum was appreciated and the nasogastric tube manipulated through the pylorus around the second portion of the duodenum into the third portion. We now closed the duodenal defect with 2 layers of interrupted 3-0 PDS sutures in a transverse fashion, 8 on the inner layer and 6 on the outer layer in a horizontal mattress fashion for the outer layer.. The closure was felt to be acceptable with viable tissue that appeared nonischemic and under minimal tension. Once this was complete, large Jonnie drain was placed in the right upper quadrant and a second Jonnie drain placed in the pelvis. Peritoneal cavity was irrigated out. The previous enterotomy closure reinspected and felt to be stable. Nasogastric tube was secured into position. Peritoneal cavity was irrigated again with several more liters of saline At this point we felt the operation was complete. Sponge and counts are correct. Midline wound closed with 2 double-stranded #1 PDS sutures and skin was loosely approximated with carl. Patient tolerated the procedure well, taken to the intensive care unit in stable but guarded condition, intubated.
[2018-08-12] MEDS: INSULIN REG, HUMAN 100 UNIT/ML 3 ML VIAL (PYX) SUBCUT PRN (21:57)
[2018-08-13] MEDS: ALPRAZOLAM 0.25 MG TABLET PO SCH ×3 (05:04→21:34)
[2018-08-13 05:11] LABS: ARTERIAL BLOOD BASE EXCESS 1.4 mmol/L; ARTERIAL BLOOD H2CO3 0.85 mmol/L (1.05-1.35); ARTERIAL BLOOD HCO3 23.6 mmol/L (20-24); ARTERIAL BLOOD O2 SATURATION 95.6 % (94-98); ARTERIAL BLOOD PCO2 28.4 mmHg (35-45); ARTERIAL BLOOD PH 7.54 (7.35-7.45); ARTERIAL BLOOD PO2 67.8 mmHg (80-100); ARTERIAL BLOOD TOTAL CO2 24.4 mmol/L (21-25)
[2018-08-13 05:12] LABS: ARTERIAL BLOOD FIO2 ROOM AIR
[2018-08-13 05:24] LABS: ALANINE AMINOTRANSFERASE 48 U/L (9-52); ALBUMIN 2.3 g/dL (3.5-5.0); ALKALINE PHOSPHATASE 192 U/L (38-126); ASPARTATE AMINO TRANSFERASE 34 U/L (14-36); BILIRUBIN,DIRECT 0.3 mg/dL (0.0-0.4); BILIRUBIN,TOTAL 0.4 mg/dL (0.2-1.3); BLOOD UREA NITROGEN 14 mg/dL (7-20); CALCIUM 7.9 mg/dL (8.4-10.2); GLUCOSE 137 mg/dL (75-110); TOTAL PROTEIN 5.7 g/dL (6.3-8.2)
[2018-08-13 05:29] LABS: CARBON DIOXIDE 28 mmol/L (22-30); CHLORIDE 108 mmol/L (98-107); SODIUM 140.4 mmol/L (137-145)
[2018-08-13 05:41] LABS: ANION GAP 4 (5-19)
--- NOTE | 2018-08-13 06:09 | RADIOLOGY REPORT (SQ) ---
EXAM DESCRIPTION: XR CHEST 1 VIEW COMPLETED DATE/TME: 08/13/2018 06:00 CLINICAL HISTORY: 57 years Female, resp fail COMPARISON:08/12/2018 NUMBER OF VIEWS/TECHNIQUE: 1/AP FINDINGS: Adequate lung volume, clear parenchyma, prominent cardiac silhouette, and intact bony thorax.Adequate appearing left jugular central line. Sternotomy. Atherosclerotic vascular disease. IMPRESSION: No acute cardiopulmonary findings.
[2018-08-13] MEDS: NORMAL SALINE 1000 ML 1,000 ML IV PRN (09:05)
--- NOTE | 2018-08-13 09:41 | Progress Note ---
Provider Note Provider Note: ID Consult Note Asked to review patient's chart by Pharmacy. Pt not seen or examined. Reviewed VS, provider reports, imaging reports, labs. Ms Cevallos is a 57 year old obese woman who was admitted on 07/26/18 with septic shock due to gallstone ileus and small bowel perforation with widespread peritonitis that required exploratory laparatomy. Post-operatively she remained in the ICU intubated on mechanical ventilation and on TPN. In terms of antibiotics, in the ED she received a dose of Zosyn, then ertapenem on 07/27, then meropenem starting from 07/28. BCx drawn when fever showed no growth on 08/01, and UCx also no growth. Tracheal aspirate 08/01/18 only grew C albicans/dublinensis. CXR w/o change. Wound had some fibrinous exudate and purulence noted around 08/03-08/04 and with febrile pt, cx taken but no growth. Repeat BCx 08/04 grew Staphylococcus epidermidis from 1 bottle; the other 3 bottles negative. For suspected line sepsis, vancomycin started on 08/06, CVL was replaced and cx of catheter tip showed no growth. Tube feeds started, and pt extubated around 08/08. Overall, fever curve improved. On 08/10 CT chest/abd/pelvis that showed no acute findings in abd/pelvis and in the chest small R pleural effusion and RLL consolidation with a few air bronchograms. Stool C diff was negative. Fluconazole 100 mg was added on 08/12. Most recent CXR showed no acute cardiopulmonary findings. Most recent fever was 101.5 F on 08/12. Impression Fever, unclear origin. - From standpoint of original need for admission, pt has had source control, no intraabdominal abscess identified to cause fevers post-op on CT abdomen. - Single blood culture bottle with Staph epi is likely a contaminant, and CVL p resent at that time was removed. - No infection has been identified despite evaluation including bedside exam, CXR, BCx, tracheal aspirate, UCx. Fever has continued despite broad spectrum antibiotics (meropenem for 15 days and vancomycin for 7 days) and in contrast to clinical improvement. - Nosocomial sinusitis is also a consideration (any sinus tenderness?) with prolonged NGT, CT sinuses would be needed to confirm, but NGT recommended to be removed on 08/12, which is part of treatment, and again, antibiotics again have had no effect on fever. - Currently, there is also no evidence of an invasive fungal infection to support continuation of fluconazole. Isolation of yeast from tracheal aspirate in a patient on broad spectrum antibiotics is unsurprising, and outside of very rare circumstances, is not pathogenic, only represntative of colonization. No yeast was isolated from blood cultures. - Fever can have noninfectious causes in addition to infectious causes. The above suggests fever is not due to a routine bacterial cause. Recommendations - If hemodynamically stable, clinically improving and no infection identified despite appropriate evaluation, discontinuing antibiotic therapy is indicated, which may remove these agents as potential causes of drug fever. - Meropenem fell off MAR on 08/12. Do not recommend restarting meropenem. - Recommend discontinuing IV vancomycin and fluconazole. - No antimicrobials as long as pt remains stable. - If pt unstable, restart broad spectrum antimicrobial therapy including antifungal (800 mg fluconazole load, then 400 mg maintenance dose) and send appropriate specimens BCx, fungal BCx, sputum cx and imaging if pneumonia suspected, etc. De-escalate when source identified. - If pt does not require TPN or vasopressor support, consider CVL removal and PIV placement to reduce risk for developing central line related infection. - Monitor pt, carefully evaluate for other causes of fever including DVT or superficial thrombophlebitis and continue pulmonary toilet. Denny Robertson MD [facility] Infectious Diseases pager [phone]
[2018-08-13] MEDS: FLUCONAZOLE 100 MG TABLET PO SCH (10:17)
[2018-08-13] MEDS: METHYLPREDNISOLONE INJ 40 MG/1 ML SDV IV SCH ×2 (10:17→21:34)
[2018-08-13] MEDS: VANCOMYCIN HCL 1,500 MG in DEXTROSE 5%-WATER 250 ML IV SCH (10:18)
[2018-08-13 11:02] LABS: VANCOMYCIN,TROUGH 20.8 ug/mL (5.0-20.0)
[2018-08-13] MEDS: INSULIN REG, HUMAN 100 UNIT/ML 3 ML VIAL (PYX) SUBCUT PRN ×2 (12:33→18:07)
--- NOTE | 2018-08-13 19:12 | PDOC PROGRESS REPORT ---
Subjective Progress Note for:: 08/13/18 Subjective:: Patient is known to me from my last assessment. Patient is still in ICU. But she showed remarkable improvement. She is extubated and she has been started on clear liquid diet. Reason For Visit: SMALL BOWEL OBSTRUCTION Physical Exam Vital Signs: Temp Pulse Resp BP Pulse Ox 98.6 F 99 18 123/73 100 08/13/18 18:00 08/13/18 18:00 08/13/18 18:00 08/13/18 18:00 08/13/18 18:00 Intake & Output 08/12/18 08/13/18 08/14/18 06:59 06:59 06:59 Intake Total 4094 2685 420 Output Total 2480 5450 690 Balance 3208 -318 -876 Weight 80.5 kg 79.4 kg General appearance: PRESENT: no acute distress Head exam: PRESENT: atraumatic Eye exam: PRESENT: conjunctiva pink Mouth exam: PRESENT: moist Neck exam: ABSENT: carotid bruit, JVD, lymphadenopathy, thyromegaly Respiratory exam: PRESENT: clear to auscultation adán. ABSENT: rales, rhonchi, wheezes Cardiovascular exam: PRESENT: RRR. ABSENT: diastolic murmur, rubs, systolic murmur GI/Abdominal exam: PRESENT: normal bowel sounds Neurological exam: PRESENT: alert, awake Results Laboratory Results: 08/12/18 10:00 08/13/18 04:45 08/13/18 08/13/18 04:45 04:50 Carbonic Acid 0.85 L HCO3/H2CO3 Ratio 27:1 ABG pH 7.54 H ABG pCO2 28.4 L ABG pO2 67.8 L ABG HCO3 23.6 ABG O2 Saturation 95.6 ABG Base Excess 1.4 FiO2 ROOM AIR Sodium 140.4 Potassium 4.0 Chloride 108 H Carbon Dioxide 28 Anion Gap 4 L BUN 14 Creatinine 0.38 L Est GFR ( Amer) > 60 Est GFR (Non-Af Amer) > 60 Glucose 137 H Calcium 7.9 L Magnesium 2.2 Total Bilirubin 0.4 AST 34 ALT 48 Alkaline Phosphatase 192 H Total Protein 5.7 L Albumin 2.3 L 07/26/18 07/26/18 07/27/18 23:30 23:57 00:35 NT-Pro-B Natriuret Pep Cancelled Cancelled 3320 H Impressions: KUB X-Ray 07/26/18 00:00 IMPRESSION: Nasogastric tube in the stomach. Guidance Ultrasound 08/06/18 00:00 IMPRESSION: Vascular ultrasound guidance. Interventional Vascular Procedure 08/06/18 00:00 IMPRESSION: Vascular ultrasound guidance. Abdomen/Pelvis CT 08/10/18 00:00 IMPRESSION: 1. CHANGES OF RECENT ABDOMINAL SURGERY WITH OPEN INCISION SITE IN THE ABDOMINAL WALL. NO EVIDENCE OF SOFT TISSUE ABSCESS. NO SIGNIFICANT POSTOPERATIVE FINDINGS IN THE ABDOMEN OR PELVIS. 2. IRREGULAR LOW-ATTENUATION LESION IN THE RIGHT LOBE OF THE LIVER, UNCHANGED. THIS MAY BE A HEMANGIOMA. FURTHER EVALUATION WITH MRI OF THE LIVER SHOULD BE CONSIDERED AFTER THE PATIENT'S CLINICAL CONDITION HAS IMPROVED. 3. MINIMAL MESENTERIC ADENOPATHY, NONSPECIFIC AND PROBABLY INCIDENTAL. 4. NO OTHER SIGNIFICANT OR ACUTE FINDINGS IN THE ABDOMEN OR PELVIS. Chest CT 08/10/18 00:00 IMPRESSION: SMALL RIGHT PLEURAL EFFUSION. RIGHT LOWER LOBE CONSOLIDATION WITH A FEW AIR BRONCHOGRAMS WHICH MAY BE DUE TO PNEUMONIA AND/OR ATELECTASIS. Esophagus X-Ray 08/10/18 09:36 IMPRESSION: NO EXTRAVASATION OF CONTRAST IDENTIFIED. Chest X-Ray 08/13/18 06:00 IMPRESSION: No acute cardiopulmonary findings. Assessment & Plan - Diagnosis (1) Hypotension Is this a current diagnosis for this admission?: Yes Plan: Has resolved (2) Hypocalcemia Is this a current diagnosis for this admission?: Yes Plan: Resolved (3) Septic shock Is this a current diagnosis for this admission?: Yes Plan: Continue current regimen (4) Extensive peritonitis Is this a current diagnosis for this admission?: Yes Plan: Has been resolving (5) Metabolic acidosis Is this a current diagnosis for this admission?: Yes Plan: Has resolved (6) Perforated viscus Is this a current diagnosis for this admission?: Yes Plan: Management per primary surgeon. (7) Bowel obstruction Qualifiers: Intestinal obstruction type: unspecified Intestinal obstruction extent: complete Qualified Code(s): K56.601 - Complete intestinal obstruction, unspecified as to cause Is this a current diagnosis for this admission?: Yes Plan: Management per primary surgeon.
--- NOTE | 2018-08-13 21:32 | PDOC PROGRESS REPORT ---
Subjective Reason For Visit: SMALL BOWEL OBSTRUCTION Physical Exam Vital Signs: Temp Pulse Resp BP Pulse Ox 98.6 F 105 H 18 123/73 100 08/13/18 19:51 08/13/18 20:00 08/13/18 18:00 08/13/18 18:00 08/13/18 18:00 Intake & Output 08/12/18 08/13/18 08/14/18 06:59 06:59 06:59 Intake Total 4093 2365 420 Output Total 2480 6990 790 Balance 6890 -491 -339 Weight 80.5 kg 79.4 kg Results Laboratory Results: 08/12/18 10:00 08/13/18 04:45 08/13/18 08/13/18 04:45 04:50 Carbonic Acid 0.85 L HCO3/H2CO3 Ratio 27:1 ABG pH 7.54 H ABG pCO2 28.4 L ABG pO2 67.8 L ABG HCO3 23.6 ABG O2 Saturation 95.6 ABG Base Excess 1.4 FiO2 ROOM AIR Sodium 140.4 Potassium 4.0 Chloride 108 H Carbon Dioxide 28 Anion Gap 4 L BUN 14 Creatinine 0.38 L Est GFR ( Amer) > 60 Est GFR (Non-Af Amer) > 60 Glucose 137 H Calcium 7.9 L Magnesium 2.2 Total Bilirubin 0.4 AST 34 ALT 48 Alkaline Phosphatase 192 H Total Protein 5.7 L Albumin 2.3 L 07/26/18 07/26/18 07/27/18 23:30 23:57 00:35 NT-Pro-B Natriuret Pep Cancelled Cancelled 3320 H Impressions: KUB X-Ray 07/26/18 00:00 IMPRESSION: Nasogastric tube in the stomach. Guidance Ultrasound 08/06/18 00:00 IMPRESSION: Vascular ultrasound guidance. Interventional Vascular Procedure 08/06/18 00:00 IMPRESSION: Vascular ultrasound guidance. Abdomen/Pelvis CT 08/10/18 00:00 IMPRESSION: 1. CHANGES OF RECENT ABDOMINAL SURGERY WITH OPEN INCISION SITE IN THE ABDOMINAL WALL. NO EVIDENCE OF SOFT TISSUE ABSCESS. NO SIGNIFICANT POSTOPERATIVE FINDINGS IN THE ABDOMEN OR PELVIS. 2. IRREGULAR LOW-ATTENUATION LESION IN THE RIGHT LOBE OF THE LIVER, UNCHANGED. THIS MAY BE A HEMANGIOMA. FURTHER EVALUATION WITH MRI OF THE LIVER SHOULD BE CONSIDERED AFTER THE PATIENT'S CLINICAL CONDITION HAS IMPROVED. 3. MINIMAL MESENTERIC ADENOPATHY, NONSPECIFIC AND PROBABLY INCIDENTAL. 4. NO OTHER SIGNIFICANT OR ACUTE FINDINGS IN THE ABDOMEN OR PELVIS. Chest CT 08/10/18 00:00 IMPRESSION: SMALL RIGHT PLEURAL EFFUSION. RIGHT LOWER LOBE CONSOLIDATION WITH A FEW AIR BRONCHOGRAMS WHICH MAY BE DUE TO PNEUMONIA AND/OR ATELECTASIS. Esophagus X-Ray 08/10/18 09:36 IMPRESSION: NO EXTRAVASATION OF CONTRAST IDENTIFIED. Chest X-Ray 08/13/18 06:00 IMPRESSION: No acute cardiopulmonary findings. Assessment & Plan - Diagnosis (1) Gallstone ileus Is this a current diagnosis for this admission?: Yes (2) Perforated viscus Is this a current diagnosis for this admission?: Yes (3) Septic shock Is this a current diagnosis for this admission?: Yes - Plan Summary Plan Summary: There is a 57-year-old female status post exploratory laparotomy for gallstone ileus. The patient is extubated and breathing relatively well. The patient is very confused and requires constant reorientation. I have requested that she remain in the intensive care unit for aggressive pulmonary toilet and close monitoring. Her wound appears clean. Continue dressing changes. Continue physical and occupational therapy.
[2018-08-14] MEDS: ALPRAZOLAM 0.25 MG TABLET PO SCH ×3 (05:56→21:26)
--- NOTE | 2018-08-14 10:17 | PDOC PROGRESS REPORT ---
Subjective Progress Note for:: 08/14/18 Subjective:: Patient communicative, wearing glasses, tolerating liquids; no aspiration. Minimal physical activity Reason For Visit: SMALL BOWEL OBSTRUCTION Physical Exam Vital Signs: Temp Pulse Resp BP Pulse Ox 97.0 F 106 H 19 123/60 100 08/14/18 03:24 08/14/18 09:45 08/14/18 09:45 08/14/18 06:31 08/14/18 09:45 Intake & Output 08/13/18 08/14/18 08/15/18 06:59 06:59 06:59 Intake Total 2685 420 Output Total 3630 1640 Balance -945 -1220 Weight 79.4 kg 82.1 kg General appearance: PRESENT: no acute distress, other - Awake communicative remains pleasantly confused. GI/Abdominal exam: PRESENT: other - Abdomen soft midline incision clean with intervening sections packed open with gauze. All drains out. Results Laboratory Results: 08/12/18 10:00 08/13/18 04:45 07/26/18 07/26/18 07/27/18 23:30 23:57 00:35 NT-Pro-B Natriuret Pep Cancelled Cancelled 3320 H Impressions: KUB X-Ray 07/26/18 00:00 IMPRESSION: Nasogastric tube in the stomach. Guidance Ultrasound 08/06/18 00:00 IMPRESSION: Vascular ultrasound guidance. Interventional Vascular Procedure 08/06/18 00:00 IMPRESSION: Vascular ultrasound guidance. Abdomen/Pelvis CT 08/10/18 00:00 IMPRESSION: 1. CHANGES OF RECENT ABDOMINAL SURGERY WITH OPEN INCISION SITE IN THE ABDOMINAL WALL. NO EVIDENCE OF SOFT TISSUE ABSCESS. NO SIGNIFICANT POSTOPERATIVE FINDINGS IN THE ABDOMEN OR PELVIS. 2. IRREGULAR LOW-ATTENUATION LESION IN THE RIGHT LOBE OF THE LIVER, UNCHANGED. THIS MAY BE A HEMANGIOMA. FURTHER EVALUATION WITH MRI OF THE LIVER SHOULD BE CONSIDERED AFTER THE PATIENT'S CLINICAL CONDITION HAS IMPROVED. 3. MINIMAL MESENTERIC ADENOPATHY, NONSPECIFIC AND PROBABLY INCIDENTAL. 4. NO OTHER SIGNIFICANT OR ACUTE FINDINGS IN THE ABDOMEN OR PELVIS. Chest CT 08/10/18 00:00 IMPRESSION: SMALL RIGHT PLEURAL EFFUSION. RIGHT LOWER LOBE CONSOLIDATION WITH A FEW AIR BRONCHOGRAMS WHICH MAY BE DUE TO PNEUMONIA AND/OR ATELECTASIS. Esophagus X-Ray 08/10/18 09:36 IMPRESSION: NO EXTRAVASATION OF CONTRAST IDENTIFIED. Chest X-Ray 08/13/18 06:00 IMPRESSION: No acute cardiopulmonary findings. 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 Recommendations: 1. Out of bed to chair 2. Discontinue central line 3. Discharge planning for short-term facility stay post discharge 4. Anticipate transfer to floor. (2) Metabolic acidosis Is this a current diagnosis for this admission?: Yes (3) History of atrial septal defect repair Is this a current diagnosis for this admission?: Yes (4) Septic shock Is this a current diagnosis for this admission?: Yes (5) Bowel obstruction Qualifiers: Intestinal obstruction type: unspecified Intestinal obstruction extent: complete Qualified Code(s): K56.601 - Complete intestinal obstruction, unspecified as to cause Is this a current diagnosis for this admission?: Yes
[2018-08-14] MEDS: FLUCONAZOLE 100 MG TABLET PO SCH (11:32)
[2018-08-14] MEDS: METHYLPREDNISOLONE INJ 40 MG/1 ML SDV IV SCH ×2 (11:32→21:27)
--- NOTE | 2018-08-14 11:50 | Operative Report ---
Nonrecallable Operative Report DATE OF SURGERY: 08/14/18 PREOPERATIVE DIAGNOSIS: Respiratory failure, recovered POSTOPERATIVE DIAGNOSIS: Same; exhausted central line OPERATION: Removal of left internal jugular vein central venous access catheter SURGEON: ROSA CHRISTIANSON ANESTHESIA: Other - None TISSUE REMOVED OR ALTERED: See below COMPLICATIONS: None ESTIMATED BLOOD LOSS: Scant INTRAOPERATIVE FINDINGS: See below PROCEDURE: I was called by the nursing staff because the left central venous access catheter testing for removal could not be removed using graft I came to bedside inspected the patient's left neck. Sutures securing the catheter then removed. The catheter then placed by Dr. Christianson approximately 1 week ago. With gentle traction and twisting action, the central venous access catheter was removed in its entirety. There were more fragments of fibrin sheath surrounding the catheter in mid position. There was no significant bleeding. Patient taught procedure well. Was observed in the intensive care unit, demonstrated no evidence of hemodynamic instability.
[2018-08-14] MEDS: NORMAL SALINE 1000 ML 1,000 ML IV PRN (19:06)
[2018-08-15] MEDS: ALPRAZOLAM 0.25 MG TABLET PO SCH ×3 (06:13→21:01)
[2018-08-15] MEDS: NORMAL SALINE 1000 ML 1,000 ML IV PRN ×2 (06:22→15:25)
--- NOTE | 2018-08-15 09:20 | PDOC PROGRESS REPORT ---
Subjective Progress Note for:: 08/15/18 Reason For Visit: SMALL BOWEL OBSTRUCTION Physical Exam Vital Signs: Temp Pulse Resp BP Pulse Ox 98.4 F 102 H 21 H 135/73 H 97 08/15/18 08:00 08/15/18 08:00 08/15/18 08:00 08/15/18 08:00 08/15/18 08:00 Intake & Output 08/14/18 08/15/18 08/16/18 06:59 06:59 06:59 Intake Total 1420 845 Output Total 1640 1150 35 Balance -220 -305 -35 Weight 82.1 kg 82.5 kg General appearance: PRESENT: no acute distress, cooperative, obese Respiratory exam: PRESENT: clear to auscultation adán Cardiovascular exam: PRESENT: RRR. ABSENT: diastolic murmur, rubs, systolic murmur GI/Abdominal exam: PRESENT: soft - abd soft, + bs pt filemon reg diet wound dry. Results Laboratory Results: 08/12/18 10:00 08/13/18 04:45 07/26/18 07/26/18 07/27/18 23:30 23:57 00:35 NT-Pro-B Natriuret Pep Cancelled Cancelled 3320 H Impressions: KUB X-Ray 07/26/18 00:00 IMPRESSION: Nasogastric tube in the stomach. Guidance Ultrasound 08/06/18 00:00 IMPRESSION: Vascular ultrasound guidance. Interventional Vascular Procedure 08/06/18 00:00 IMPRESSION: Vascular ultrasound guidance. Abdomen/Pelvis CT 08/10/18 00:00 IMPRESSION: 1. CHANGES OF RECENT ABDOMINAL SURGERY WITH OPEN INCISION SITE IN THE ABDOMINAL WALL. NO EVIDENCE OF SOFT TISSUE ABSCESS. NO SIGNIFICANT POSTOPERATIVE FINDINGS IN THE ABDOMEN OR PELVIS. 2. IRREGULAR LOW-ATTENUATION LESION IN THE RIGHT LOBE OF THE LIVER, UNCHANGED. THIS MAY BE A HEMANGIOMA. FURTHER EVALUATION WITH MRI OF THE LIVER SHOULD BE CONSIDERED AFTER THE PATIENT'S CLINICAL CONDITION HAS IMPROVED. 3. MINIMAL MESENTERIC ADENOPATHY, NONSPECIFIC AND PROBABLY INCIDENTAL. 4. NO OTHER SIGNIFICANT OR ACUTE FINDINGS IN THE ABDOMEN OR PELVIS. Chest CT 08/10/18 00:00 IMPRESSION: SMALL RIGHT PLEURAL EFFUSION. RIGHT LOWER LOBE CONSOLIDATION WITH A FEW AIR BRONCHOGRAMS WHICH MAY BE DUE TO PNEUMONIA AND/OR ATELECTASIS. Esophagus X-Ray 08/10/18 09:36 IMPRESSION: NO EXTRAVASATION OF CONTRAST IDENTIFIED. Chest X-Ray 08/13/18 06:00 IMPRESSION: No acute cardiopulmonary findings. Assessment & Plan - Diagnosis (1) Bowel obstruction Qualifiers: Intestinal obstruction type: unspecified Intestinal obstruction extent: complete Qualified Code(s): K56.601 - Complete intestinal obstruction, unspecified as to cause Is this a current diagnosis for this admission?: Yes (2) Extensive peritonitis Is this a current diagnosis for this admission?: Yes (3) Gallstone ileus Is this a current diagnosis for this admission?: Yes (4) Septic shock Is this a current diagnosis for this admission?: Yes - Plan Summary Plan Summary: pt doing well with return of bowel function awaiting trasfer to regular nursing [facility] will cont with physical therapy.
[2018-08-15] MEDS: METHYLPREDNISOLONE INJ 40 MG/1 ML SDV IV SCH ×2 (12:03→21:01)
[2018-08-15] MEDS: FLUCONAZOLE 100 MG TABLET PO SCH (12:03)
[2018-08-16] MEDS: NORMAL SALINE 1000 ML 1,000 ML IV PRN ×2 (05:33→17:47)
[2018-08-16 06:32] LABS: HEMATOCRIT 26.2 % (36.0-47.0); HEMOGLOBIN 8.7 g/dL (12.0-15.5); MEAN CORPUSCULAR HEMOGLOBIN 27.4 pg (27.0-33.4); MEAN CORPUSCULAR HGB CONC 33.2 g/dL (32.0-36.0); MEAN CORPUSCULAR VOLUME 83 fl (80-97); PLATELET COUNT 508 10^3/uL (150-450); RED BLOOD COUNT 3.17 10^6/uL (3.72-5.28); RED CELL DISTRIBUTION WIDTH 14.8 % (11.5-14.0); WHITE BLOOD COUNT 8.4 10^3/uL (4.0-10.5)
[2018-08-16 06:40] LABS: ARTERIAL BLOOD BASE EXCESS -1.9 mmol/L; ARTERIAL BLOOD H2CO3 0.85 mmol/L (1.05-1.35); ARTERIAL BLOOD HCO3 20.8 mmol/L (20-24); ARTERIAL BLOOD O2 SATURATION 96.8 % (94-98); ARTERIAL BLOOD PCO2 28.2 mmHg (35-45); ARTERIAL BLOOD PH 7.49 (7.35-7.45); ARTERIAL BLOOD PO2 80.1 mmHg (80-100); ARTERIAL BLOOD TOTAL CO2 21.7 mmol/L (21-25)
[2018-08-16 06:45] LABS: ARTERIAL BLOOD FIO2 21%
[2018-08-16 06:58] LABS: ABSOLUTE LYMPHOCYTES# (MANUAL) 1.1 10^3/uL (0.5-4.7); ABSOLUTE MONOCYTES # (MANUAL) 0.3 10^3/uL (0.1-1.4); BASOPHILS % (MANUAL) 0 % (0-2); EOSINOPHILS % (MANUAL) 0 % (0-6); LYMPHOCYTES % (MANUAL) 13 % (13-45); MONOCYTES % (MANUAL) 4 % (3-13); SEGMENTED NEUTROPHILS % (MAN) 83 % (42-78); TOTAL CELLS COUNTED 100
[2018-08-16 06:59] LABS: ANISOCYTOSIS 1+; PLATELET COMMENT ADEQUATE; POLYCHROMASIA 1+
[2018-08-16 07:17] LABS: ALANINE AMINOTRANSFERASE 83 U/L (9-52); ALBUMIN 2.3 g/dL (3.5-5.0); ALKALINE PHOSPHATASE 149 U/L (38-126); ANION GAP 6 (5-19); ASPARTATE AMINO TRANSFERASE 44 U/L (14-36); BILIRUBIN,DIRECT 0.2 mg/dL (0.0-0.4); BILIRUBIN,TOTAL 0.4 mg/dL (0.2-1.3); BLOOD UREA NITROGEN 19 mg/dL (7-20); CARBON DIOXIDE 22 mmol/L (22-30); CHLORIDE 114 mmol/L (98-107); GLUCOSE 127 mg/dL (75-110); POTASSIUM 4.2 mmol/L (3.6-5.0); SODIUM 141.6 mmol/L (137-145); TOTAL PROTEIN 5.7 g/dL (6.3-8.2)
[2018-08-16] MEDS: ALPRAZOLAM 0.25 MG TABLET PO SCH (08:50)
[2018-08-16] MEDS: FLUCONAZOLE 100 MG TABLET PO SCH (09:01)
[2018-08-16] MEDS: METHYLPREDNISOLONE INJ 40 MG/1 ML SDV IV SCH ×2 (09:01→21:34)
--- NOTE | 2018-08-16 10:24 | PDOC PROGRESS REPORT ---
Subjective Progress Note for:: 08/16/18 Reason For Visit: SMALL BOWEL OBSTRUCTION post op exploratory lap for gallstone ileus small bowel resection Physical Exam Vital Signs: Temp Pulse Resp BP Pulse Ox 97.7 F 93 20 139/74 H 99 08/16/18 07:27 08/16/18 07:27 08/16/18 07:27 08/16/18 07:27 08/16/18 07:27 Intake & Output 08/15/18 08/16/18 08/17/18 06:59 06:59 06:59 Intake Total 845 2757 Output Total 1150 835 Balance -305 1922 Weight 82.5 kg 85.5 kg General appearance: PRESENT: no acute distress, obese Respiratory exam: PRESENT: clear to auscultation adán, unlabored GI/Abdominal exam: PRESENT: other - abd soft, wound granulating with min drainage, being packed normal bowel sounds Results Laboratory Results: 08/16/18 05:52 08/16/18 05:52 08/16/18 08/16/18 08/16/18 05:52 05:52 06:25 WBC 8.4 RBC 3.17 L Hgb 8.7 L Hct 26.2 L MCV 83 MCH 27.4 MCHC 33.2 RDW 14.8 H Plt Count 508 H Seg Neutrophils % Not Reportable Lymphocytes % Not Reportable Monocytes % Not Reportable Eosinophils % Not Reportable Basophils % Not Reportable Absolute Neutrophils Not Reportable Absolute Lymphocytes Not Reportable Absolute Monocytes Not Reportable Absolute Eosinophils Not Reportable Absolute Basophils Not Reportable Carbonic Acid 0.85 L HCO3/H2CO3 Ratio 24:1 ABG pH 7.49 H ABG pCO2 28.2 L ABG pO2 80.1 ABG HCO3 20.8 ABG O2 Saturation 96.8 ABG Base Excess -1.9 FiO2 21% Sodium 141.6 Potassium 4.2 Chloride 114 H Carbon Dioxide 22 Anion Gap 6 BUN 19 Creatinine 0.48 L Est GFR ( Amer) > 60 Est GFR (Non-Af Amer) > 60 Glucose 127 H Calcium 8.0 L Magnesium 2.2 Total Bilirubin 0.4 AST 44 H ALT 83 H Alkaline Phosphatase 149 H Total Protein 5.7 L Albumin 2.3 L 07/26/18 07/26/18 07/27/18 23:30 23:57 00:35 NT-Pro-B Natriuret Pep Cancelled Cancelled 3320 H Impressions: KUB X-Ray 07/26/18 00:00 IMPRESSION: Nasogastric tube in the stomach. Guidance Ultrasound 08/06/18 00:00 IMPRESSION: Vascular ultrasound guidance. Interventional Vascular Procedure 08/06/18 00:00 IMPRESSION: Vascular ultrasound guidance. Abdomen/Pelvis CT 08/10/18 00:00 IMPRESSION: 1. CHANGES OF RECENT ABDOMINAL SURGERY WITH OPEN INCISION SITE IN THE ABDOMINAL WALL. NO EVIDENCE OF SOFT TISSUE ABSCESS. NO SIGNIFICANT POSTOPERATIVE FIND INGS IN THE ABDOMEN OR PELVIS. 2. IRREGULAR LOW-ATTENUATION LESION IN THE RIGHT LOBE OF THE LIVER, UNCHANGED. THIS MAY BE A HEMANGIOMA. FURTHER EVALUATION WITH MRI OF THE LIVER SHOULD BE CONSIDERED AFTER THE PATIENT'S CLINICAL CONDITION HAS IMPROVED. 3. MINIMAL MESENTERIC ADENOPATHY, NONSPECIFIC AND PROBABLY INCIDENTAL. 4. NO OTHER SIGNIFICANT OR ACUTE FINDINGS IN THE ABDOMEN OR PELVIS. Chest CT 08/10/18 00:00 IMPRESSION: SMALL RIGHT PLEURAL EFFUSION. RIGHT LOWER LOBE CONSOLIDATION WITH A FEW AIR BRONCHOGRAMS WHICH MAY BE DUE TO PNEUMONIA AND/OR ATELECTASIS. Esophagus X-Ray 08/10/18 09:36 IMPRESSION: NO EXTRAVASATION OF CONTRAST IDENTIFIED. Chest X-Ray 08/13/18 06:00 IMPRESSION: No acute cardiopulmonary findings. Assessment & Plan - Diagnosis (1) Bowel obstruction Qualifiers: Intestinal obstruction type: unspecified Intestinal obstruction extent: complete Qualified Code(s): K56.601 - Complete intestinal obstruction, unspecified as to cause Is this a current diagnosis for this admission?: Yes (2) Extensive peritonitis Is this a current diagnosis for this admission?: Yes (3) Gallstone ileus Is this a current diagnosis for this admission?: Yes (4) Septic shock Is this a current diagnosis for this admission?: Yes - Plan Summary Plan Summary: pt has had return of bowel function now on a regular diet wound is granulating well pt has not been ambulating has been essentially bedridden since surgery will order pt today nuses to assist to chair today may need tx to snf.
[2018-08-17] MEDS: NORMAL SALINE 1000 ML 1,000 ML IV PRN (06:28)
[2018-08-17] MEDS: FLUCONAZOLE 100 MG TABLET PO SCH (09:24)
[2018-08-17] MEDS: METHYLPREDNISOLONE INJ 40 MG/1 ML SDV IV SCH ×2 (09:24→22:57)
--- NOTE | 2018-08-17 10:09 | PDOC PROGRESS REPORT ---
Subjective Subjective:: Patient without specific complaints, on floor, tolerating a diet Reason For Visit: SMALL BOWEL OBSTRUCTION Physical Exam Vital Signs: Temp Pulse Resp BP Pulse Ox 97.7 F 76 20 131/68 H 98 08/17/18 07:33 08/17/18 07:33 08/17/18 07:33 08/17/18 07:33 08/17/18 07:33 Intake & Output 08/16/18 08/17/18 08/18/18 06:59 06:59 06:59 Intake Total 2757 3557 Output Total 835 2050 Balance 1922 1507 Weight 85.5 kg 85.9 kg General appearance: PRESENT: no acute distress GI/Abdominal exam: PRESENT: other - Open areas to wound granulating in nicely; redundant suture removed. Abdomen completely benign Results Laboratory Results: 08/16/18 05:52 08/16/18 05:52 07/26/18 07/26/18 07/27/18 23:30 23:57 00:35 NT-Pro-B Natriuret Pep Cancelled Cancelled 3320 H Impressions: KUB X-Ray 07/26/18 00:00 IMPRESSION: Nasogastric tube in the stomach. Guidance Ultrasound 08/06/18 00:00 IMPRESSION: Vascular ultrasound guidance. Interventional Vascular Procedure 08/06/18 00:00 IMPRESSION: Vascular ultrasound guidance. Abdomen/Pelvis CT 08/10/18 00:00 IMPRESSION: 1. CHANGES OF RECENT ABDOMINAL SURGERY WITH OPEN INCISION SITE IN THE ABDOMINAL WALL. NO EVIDENCE OF SOFT TISSUE ABSCESS. NO SIGNIFICANT POSTOPERATIVE FINDINGS IN THE ABDOMEN OR PELVIS. 2. IRREGULAR LOW-ATTENUATION LESION IN THE RIGHT LOBE OF THE LIVER, UNCHANGED. THIS MAY BE A HEMANGIOMA. FURTHER EVALUATION WITH MRI OF THE LIVER SHOULD BE CONSIDERED AFTER THE PATIENT'S CLINICAL CONDITION HAS IMPROVED. 3. MINIMAL MESENTERIC ADENOPATHY, NONSPECIFIC AND PROBABLY INCIDENTAL. 4. NO OTHER SIGNIFICANT OR ACUTE FINDINGS IN THE ABDOMEN OR PELVIS. Chest CT 08/10/18 00:00 IMPRESSION: SMALL RIGHT PLEURAL EFFUSION. RIGHT LOWER LOBE CONSOLIDATION WITH A FEW AIR BRONCHOGRAMS WHICH MAY BE DUE TO PNEUMONIA AND/OR ATELECTASIS. Esophagus X-Ray 08/10/18 09:36 IMPRESSION: NO EXTRAVASATION OF CONTRAST IDENTIFIED. Chest X-Ray 08/13/18 06:00 IMPRESSION: No acute cardiopulmonary findings. Assessment & Plan - Diagnosis (1) Perforated viscus Is this a current diagnosis for this admission?: Yes Plan: Impression: Patient now close to 25 days status post exploratory laparotomy, cholecystectomy, takedown of cholecystoduodenal fistula, and small bowel perforation closure, doing well on all fronts. Recommendations: 1. Out of bed, shower 2. Discontinue Swenson catheter 3. Disposition to be determined with the assistance of discharge planning. (2) Metabolic acidosis Is this a current diagnosis for this admission?: Yes (3) History of atrial septal defect repair Is this a current diagnosis for this admission?: Yes (4) Septic shock Is this a current diagnosis for this admission?: Yes (5) Bowel obstruction Qualifiers: Intestinal obstruction type: unspecified Intestinal obstruction extent: complete Qualified Code(s): K56.601 - Complete intestinal obstruction, unspecified as to cause Is this a current diagnosis for this admission?: Yes
[2018-08-18] MEDS: NORMAL SALINE 1000 ML 1,000 ML IV PRN (00:07)
--- NOTE | 2018-08-18 10:48 | PDOC PROGRESS REPORT ---
Subjective Progress Note for:: 08/18/18 Subjective:: Feels well. Still has generalized weakness with mobility issues. Reason For Visit: SMALL BOWEL OBSTRUCTION Physical Exam Vital Signs: Temp Pulse Resp BP Pulse Ox 98.4 F 73 17 143/63 H 97 08/18/18 00:23 08/18/18 00:23 08/18/18 00:23 08/18/18 00:23 08/18/18 00:23 Intake & Output 08/17/18 08/18/18 08/19/18 06:59 06:59 06:59 Intake Total 3557 2028 Output Total 2050 500 Balance 1507 1528 Weight 85.9 kg 85.7 kg General appearance: PRESENT: no acute distress, cooperative Respiratory exam: PRESENT: clear to auscultation adán Cardiovascular exam: PRESENT: RRR GI/Abdominal exam: PRESENT: other - Soft, nondistended, nontender to palpation. Extremities exam: PRESENT: other - No swelling and no tenderness Results Laboratory Results: 08/16/18 05:52 08/16/18 05:52 07/26/18 07/26/18 07/27/18 23:30 23:57 00:35 NT-Pro-B Natriuret Pep Cancelled Cancelled 3320 H Impressions: KUB X-Ray 07/26/18 00:00 IMPRESSION: Nasogastric tube in the stomach. Guidance Ultrasound 08/06/18 00:00 IMPRESSION: Vascular ultrasound guidance. Interventional Vascular Procedure 08/06/18 00:00 IMPRESSION: Vascular ultrasound guidance. Abdomen/Pelvis CT 08/10/18 00:00 IMPRESSION: 1. CHANGES OF RECENT ABDOMINAL SURGERY WITH OPEN INCISION SITE IN THE ABDOMINAL WALL. NO EVIDENCE OF SOFT TISSUE ABSCESS. NO SIGNIFICANT POSTOPERATIVE FINDINGS IN THE ABDOMEN OR PELVIS. 2. IRREGULAR LOW-ATTENUATION LESION IN THE RIGHT LOBE OF THE LIVER, UNCHANGED. THIS MAY BE A HEMANGIOMA. FURTHER EVALUATION WITH MRI OF THE LIVER SHOULD BE CONSIDERED AFTER THE PATIENT'S CLINICAL CONDITION HAS IMPROVED. 3. MINIMAL MESENTERIC ADENOPATHY, NONSPECIFIC AND PROBABLY INCIDENTAL. 4. NO OTHER SIGNIFICANT OR ACUTE FINDINGS IN THE ABDOMEN OR PELVIS. Chest CT 08/10/18 00:00 IMPRESSION: SMALL RIGHT PLEURAL EFFUSION. RIGHT LOWER LOBE CONSOLIDATION WITH A FEW AIR BRONCHOGRAMS WHICH MAY BE DUE TO PNEUMONIA AND/OR ATELECTASIS. Esophagus X-Ray 08/10/18 09:36 IMPRESSION: NO EXTRAVASATION OF CONTRAST IDENTIFIED. Chest X-Ray 08/13/18 06:00 IMPRESSION: No acute cardiopulmonary findings. Assessment & Plan - Diagnosis (1) Gallstone ileus Is this a current diagnosis for this admission?: Yes Plan: Status post cholecystectomy and cholecystoduodenal fistula takedown. Patient lo oks very good other than generalized weakness. I have had a discussion with the nursing staff about more frequent ambulation with assistance and physical therapy. Home situation is not ideal for home discharge since she has limited help at home. Will have social problems specialist involved to determine discharge disposition.
[2018-08-18] MEDS: FLUCONAZOLE 100 MG TABLET PO SCH (11:12)
[2018-08-18] MEDS: METHYLPREDNISOLONE INJ 40 MG/1 ML SDV IV SCH ×2 (11:13→22:44)
[2018-08-19] MEDS: NORMAL SALINE 1000 ML 1,000 ML IV PRN (08:48)
--- NOTE | 2018-08-19 10:43 | PDOC PROGRESS REPORT ---
Subjective Progress Note for:: 08/19/18 Reason For Visit: SMALL BOWEL OBSTRUCTION Physical Exam Vital Signs: Temp Pulse Resp BP Pulse Ox 98.0 F 87 16 141/68 H 97 08/19/18 08:01 08/19/18 08:01 08/19/18 08:01 08/19/18 08:01 08/19/18 08:01 Intake & Output 08/18/18 08/19/18 08/20/18 06:59 06:59 06:59 Intake Total 2028 2550 Output Total 500 2250 Balance 1528 300 Weight 85.7 kg 85.7 kg Results Laboratory Results: 08/16/18 05:52 08/16/18 05:52 07/26/18 07/26/18 07/27/18 23:30 23:57 00:35 NT-Pro-B Natriuret Pep Cancelled Cancelled 3320 H Impressions: KUB X-Ray 07/26/18 00:00 IMPRESSION: Nasogastric tube in the stomach. Guidance Ultrasound 08/06/18 00:00 IMPRESSION: Vascular ultrasound guidance. Interventional Vascular Procedure 08/06/18 00:00 IMPRESSION: Vascular ultrasound guidance. Abdomen/Pelvis CT 08/10/18 00:00 IMPRESSION: 1. CHANGES OF RECENT ABDOMINAL SURGERY WITH OPEN INCISION SITE IN THE ABDOMINAL WALL. NO EVIDENCE OF SOFT TISSUE ABSCESS. NO SIGNIFICANT POSTOPERATIVE FINDINGS IN THE ABDOMEN OR PELVIS. 2. IRREGULAR LOW-ATTENUATION LESION IN THE RIGHT LOBE OF THE LIVER, UNCHANGED. THIS MAY BE A HEMANGIOMA. FURTHER EVALUATION WITH MRI OF THE LIVER SHOULD BE CONSIDERED AFTER THE PATIENT'S CLINICAL CONDITION HAS IMPROVED. 3. MINIMAL MESENTERIC ADENOPATHY, NONSPECIFIC AND PROBABLY INCIDENTAL. 4. NO OTHER SIGNIFICANT OR ACUTE FINDINGS IN THE ABDOMEN OR PELVIS. Chest CT 08/10/18 00:00 IMPRESSION: SMALL RIGHT PLEURAL EFFUSION. RIGHT LOWER LOBE CONSOLIDATION WITH A FEW AIR BRONCHOGRAMS WHICH MAY BE DUE TO PNEUMONIA AND/OR ATELECTASIS. Esophagus X-Ray 08/10/18 09:36 IMPRESSION: NO EXTRAVASATION OF CONTRAST IDENTIFIED. Chest X-Ray 08/13/18 06:00 IMPRESSION: No acute cardiopulmonary findings. Assessment & Plan - Diagnosis (1) Gallstone ileus Is this a current diagnosis for this admission?: Yes (2) Perforated viscus Is this a current diagnosis for this admission?: Yes (3) Septic shock Is this a current diagnosis for this admission?: Yes - Plan Summary Plan Summary: Is a 57-year-old female status post laparotomy for gallstone ileus. She is doing very well. She is alert and oriented today. She is ambulating with assistance from physical therapy. The patient has had a long and complicated hospital course. The patient will very likely require rehabilitation services at discharge. fuller brush worker is following to assist with discharge planning. Continue regular diet. Home when discharge plan is arranged.
[2018-08-19] MEDS: METHYLPREDNISOLONE INJ 40 MG/1 ML SDV IV SCH (11:17)
--- NOTE | 2018-08-19 16:22 | PDOC DISCHARGE SUMMARY ---
General - Admit/Disc Date/PCP Admission Date/Primary Care Provider: 07/26/18 18:25 MALU MONCADA MD Discharge Date: 08/19/18 - Discharge Diagnosis (1) Gallstone ileus Is this a current diagnosis for this admission?: Yes (2) Perforated viscus Is this a current diagnosis for this admission?: Yes (3) Septic shock Is this a current diagnosis for this admission?: Yes - Additional Information Resuscitation Status: Full Code Discharge Diet: As Tolerated Discharge Activity: No Lifting Over 10 Pounds Home Medications: No Home Medications 07/27/18 History of Present Illness History of Present Illness: VAZQUEZ QUINTANA is a 57 year old female admitted with abdominal sepsis, in extremis. The patient was taken to the operating room where a distal small bowel obstruction was identified with perforation. The bowel obstruction was found to be due to a gallstone ileus. The gallstone was removed from the small intestine, a portion of the small intestine was resected, and an anastomosis was created. 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 The patient was taken to the intensive care unit after surgery. Hospital Course Hospital Course: The patient remained in the intensive care unit for several weeks. Eventually, the patient was extubated and her sepsis resolved. The patient suffered from ICU delirium for several days, however this slowly improved. The patient was later taken to the floor in stable condition. An upper GI contrast study was performed demonstrating no leakage at the area of the duodenal repair. The patient was then started on a diet. The patient began tolerating liquids, then solids. At the present time, the patient is tolerating a regular diet. Her bowels are moving normally. She is taking minimal amounts of pain medication. The patient has a significant amount of difficulty walking, as her strength has not yet returned. The patient is undergoing physical and occupational therapy. Consultation was made with a rehabilitation facility, and they have agreed to accept her in transfer. Physical Exam Vital Signs: Temp Pulse Resp BP Pulse Ox 98.1 F 87 16 135/62 H 96 08/19/18 16:05 08/19/18 16:05 08/19/18 16:05 08/19/18 16:05 08/19/18 16:05 Intake & Output 08/18/18 08/19/18 08/20/18 06:59 06:59 06:59 Intake Total 2027 2550 480 Output Total 500 2250 Balance 1528 300 480 Weight 85.7 kg 85.7 kg Results Laboratory Results: 08/16/18 05:52 08/16/18 05:52 07/26/18 07/26/18 07/27/18 23:30 23:57 00:35 NT-Pro-B Natriuret Pep Cancelled Cancelled 3320 H Impressions: KUB X-Ray 07/26/18 00:00 IMPRESSION: Nasogastric tube in the stomach. Guidance Ultrasound 08/06/18 00:00 IMPRESSION: Vascular ultrasound guidance. Interventional Vascular Procedure 08/06/18 00:00 IMPRESSION: Vascular ultrasound guidance. Abdomen/Pelvis CT 08/10/18 00:00 IMPRESSION: 1. CHANGES OF RECENT ABDOMINAL SURGERY WITH OPEN INCISION SITE IN THE ABDOMINAL WALL. NO EVIDENCE OF SOFT TISSUE ABSCESS. NO SIGNIFICANT POSTOPERATIVE FINDINGS IN THE ABDOMEN OR PELVIS. 2. IRREGULAR LOW-ATTENUATION LESION IN THE RIGHT LOBE OF THE LIVER, UNCHANGED. THIS MAY BE A HEMANGIOMA. FURTHER EVALUATION WITH MRI OF THE LIVER SHOULD BE CONSIDERED AFTER THE PATIENT'S CLINICAL CONDITION HAS IMPROVED. 3. MINIMAL MESENTERIC ADENOPATHY, NONSPECIFIC AND PROBABLY INCIDENTAL. 4. NO OTHER SIGNIFICANT OR ACUTE FINDINGS IN THE ABDOMEN OR PELVIS. Chest CT 08/10/18 00:00 IMPRESSION: SMALL RIGHT PLEURAL EFFUSION. RIGHT LOWER LOBE CONSOLIDATION WITH A FEW AIR BRONCHOGRAMS WHICH MAY BE DUE TO PNEUMONIA AND/OR ATELECTASIS. Esophagus X-Ray 08/10/18 09:36 IMPRESSION: NO EXTRAVASATION OF CONTRAST IDENTIFIED. Chest X-Ray 08/13/18 06:00 IMPRESSION: No acute cardiopulmonary findings. Qualifiers - * PATIENT BEING DISCHARGED WITH ANY OF THE FOLLOWING DIAGNOSIS: No Plan Discharge Plan: Discharge to nursing facility. Diet as tolerated. Activity: No lifting greater than 10 pounds x 6 weeks after surgery. Okay to shower. Change abdominal dressing daily. Keep incision clean and dry. Follow-up with [facility] in 2 weeks. [id number] Tylenol and ibuprofen for pain. Time Spent: Less than 30 Minutes
[2018-08-19 20:47] VITALS: BP 142/78
== END 2018-08-19 22:00 | DRG 326 ==
LOC: ER 15:18 → EH 18:25 → ICU 21:35 → 5 08-15 12:57 → 2N 08-18 09:31
PROVIDERS: ADMIT Surgery; ATTEND Surgery
PROC: 0DQB0ZZ Repair Ileum, Open Approach (ICD-10-PCS; 2018-07-26)
PROC: 0FT40ZZ Resection of Gallbladder, Open Approach (ICD-10-PCS; 2018-07-26)
PROC: 0DQL0ZZ Repair Transverse Colon, Open Approach (ICD-10-PCS; 2018-07-26)
PROC: 0DB80ZZ Excision of Small Intestine, Open Approach (ICD-10-PCS; 2018-07-26)
PROC: 3E1M38Z Irrigation of Peritoneal Cavity using Irrigating Substance, Percutaneous Approach (ICD-10-PCS; 2018-07-26)
PROC: 0DQ90ZZ Repair Duodenum, Open Approach (ICD-10-PCS; principal; 2018-07-26 18:45)
PROC: 05HM33Z Insertion of Infusion Device into Right Internal Jugular Vein, Percutaneous Approach (ICD-10-PCS; 2018-07-27)
PROC: 0DH67UZ Insertion of Feeding Device into Stomach, Via Natural or Artificial Opening (ICD-10-PCS; 2018-07-28)
PROC: 3E0G76Z Introduction of Nutritional Substance into Upper GI, Via Natural or Artificial Opening (ICD-10-PCS; 2018-07-28)
PROC: 05HN33Z Insertion of Infusion Device into Left Internal Jugular Vein, Percutaneous Approach (ICD-10-PCS; 2018-08-06)
PROC: 5A09357 Assistance with Respiratory Ventilation, Less than 24 Consecutive Hours, Continuous Positive Airway Pressure (ICD-10-PCS; 2018-08-11)
PROC: 05PY33Z Removal of Infusion Device from Upper Vein, Percutaneous Approach (ICD-10-PCS; 2018-08-14)
DX: K56.3 Gallstone ileus (principal); K63.1 Perforation of intestine (nontraumatic); R65.21 Severe sepsis with septic shock; K65.9 Peritonitis, unspecified; J15.9 Unspecified bacterial pneumonia; Z68.41 Body mass index [BMI] 40.0-44.9, adult; E46 Unspecified protein-calorie malnutrition; E87.2 Acidosis; E87.0 Hyperosmolality and hypernatremia; K31.6 Fistula of stomach and duodenum; K82.3 Fistula of gallbladder; E66.01 Morbid (severe) obesity due to excess calories; E87.8 Other disorders of electrolyte and fluid balance, not elsewhere classified; E83.51 Hypocalcemia; K81.1 Chronic cholecystitis; R41.0 Disorientation, unspecified; R00.0 Tachycardia, unspecified; Y95 Nosocomial condition
CPT/HCPCS: 00790; 36415; 36556; 36600; 71045; 71260; 74018; 74177; 74220; 76937; 80048; 80053; 80162; 80202; 82040; 82803; 82962; 83605; 83690; 83735; 83880; 84100; 84134; 84478; 85025; 85027; 85610; 85730; 86850; 86900; 86901; 87040; 87070; 87077; 87086; 87186; 87205; 87493; 88304; 90471; 90686; 93005; 93010; 94002; 94003; 94660; 94799; 96361; 96365; 96367; 96375; 96376; 99291; C1751; C1752; C9290; G0008; J0131; J0330; J0610; J1160; J1335; J1642; J1815; J1885; J2060; J2185; J2250; J2370; J2405; J2543; J2704; J2920; J3010; J3370; J3475; J3480; J3490; J7030; J7060; J7120; S0028

== ENCOUNTER → 2019-01-07 | Outpatient (CLI) | payer MEDICARE, OTHER ==
[2019-01-07 12:09] LABS: HEMATOCRIT 41.4 % (36.0-47.0); HEMOGLOBIN 13.5 g/dL (12.0-15.5); MEAN CORPUSCULAR HEMOGLOBIN 25.3 pg (27.0-33.4); MEAN CORPUSCULAR HGB CONC 32.7 g/dL (32.0-36.0); MEAN CORPUSCULAR VOLUME 77 fl (80-97); PLATELET COUNT 184 10^3/uL (150-450); RED BLOOD COUNT 5.35 10^6/uL (3.72-5.28); RED CELL DISTRIBUTION WIDTH 18.6 % (11.5-14.0)
[2019-01-07 12:33] LABS: ALANINE AMINOTRANSFERASE 23 U/L (9-52); ALKALINE PHOSPHATASE 108 U/L (38-126); ANION GAP 11 (5-19); ASPARTATE AMINO TRANSFERASE 22 U/L (14-36); BILIRUBIN,DIRECT 0.2 mg/dL (0.0-0.4); BILIRUBIN,TOTAL 0.7 mg/dL (0.2-1.3); BLOOD UREA NITROGEN 16 mg/dL (7-20); CALCIUM 9.4 mg/dL (8.4-10.2); CARBON DIOXIDE 24 mmol/L (22-30); CHLORIDE 109 mmol/L (98-107); GLUCOSE 93 mg/dL (75-110); POTASSIUM 4.3 mmol/L (3.6-5.0); SODIUM 143.5 mmol/L (137-145); TOTAL PROTEIN 7.3 g/dL (6.3-8.2)
== END ==
LOC: LAB 11:12
PROVIDERS: ATTEND Internal Medicine
DX: Z00.00 Encounter for general adult medical examination without abnormal findings (principal); D64.9 Anemia, unspecified; Z98.890 Other specified postprocedural states
CPT/HCPCS: 36415; 80053; 85027

== ENCOUNTER 2019-09-30 07:55 | Day surgery (SDC) | payer MEDICARE, OTHER ==
[~2019-09-30 07:55] MED LIST changes: -PHENYLEPHRINE HCL INJ/PF 10 MG/1 ML SDV ONE; +PROPOFOL INJ 200 MG/20 ML VIAL IV ONE; -ROCURONIUM BROMIDE INJ 50 MG/5 ML VIAL IV ONE; -SUCCINYLCHOLINE CHLORIDE INJ 200 MG/10 ML VIAL ONE
--- NOTE | 2019-09-30 09:34 | Discharge Summary ---
Discharge Summary (SDC) - Discharge Final Diagnosis: Rectosigmoid colon polyp Date of Surgery: 09/30/19 Discharge Date: 09/30/19 Condition: Good Treatment or Instructions: [facility] [place] [id number] POST ENDOSCOPY DISCHARGE INSTRUCTIONS 1. Diet: Start clear liquids that a regular diet as tolerated. 2. Resume all preoperative medications. All oral anticoagulants and aspirins can be resumed 24 hours after procedure. 3. If a polypectomy was performed some bleeding per rectum may occur. This should stop within 3 days. If not, please contact the office. 4. If you had a colonoscopy you may experience some bloating and delayed return of normal bowel function for several days, your regular bowel movement pattern should resume within a week. 5. Please contact [facility] at to make an appointment with Dr. Christianson for 1 to 3 weeks following procedure. 6. If you have any questions or concerns regarding your care,treatment plan or follow up, please contact our office. 7. Per clinical guidelines we recommend you undergo a repeat colonoscopy in 3-5 years. Referrals: MAUL MONCADA MD [Primary Care Provider] - Discharge Diet: As Tolerated Discharge Activity: Activity As Tolerated Home Care Assistance: None Needed Report the Following to Your Physician Immediately: Shortness of Breath, Increase in Pain, Fever over 101 Degrees
--- NOTE | 2019-09-30 09:36 | Operative Report ---
Operative Report DATE OF SURGERY: 09/30/19 PREOPERATIVE DIAGNOSIS: Screening for colorectal carcinoma POSTOPERATIVE DIAGNOSIS: Same with rectosigmoid colon polyp OPERATION: Total colonoscopy to cecum with rectal and sigmoid colon polypectomy TISSUE REMOVED OR ALTERED: Polyp COMPLICATIONS: None ESTIMATED BLOOD LOSS: None INTRAOPERATIVE FINDINGS: See below PROCEDURE: Obtaining informed consent the patient was taken from the preoperative holding area to the main endoscopy suite where monitoring devices were attached to the patient. Plan and surgical timeout were conducted The patient was placed in the left lateral decubitus position with knees to chest. A perianal examination was performed. There was no visible or palpable anorectal pathology. Sphincter tone was felt to be normal. The flexible adult colonoscope was advanced through the anal rectal canal, all the way to the cecum. Visualization of the cecum was achieved by demonstration of the ileocecal valve, the appendiceal orifice and transillumination of the anterior abdominal wall. This was an excellent study on the well-prepped bowel. The colonoscope was wit hdrawn slowly and methodically checked and the mucosa carefully. There was no evidence of tumor, stricture; in the rectosigmoid colon approximately 25 cm from the anal verge was a small sessile polyp which was removed with the cold snare device. Specimen retrieved and sent to pathology. There was no evidence of diverticuloses. The scope was slowly withdrawn through the anal rectal canal. Complete visualization of the rectum was achieved with photodocumentation. The scope was withdrawn to the patient's anus. The patient tolerated the procedure well and was taken to the recovery area in stable condition. Per surveillance guidelines, patient will be an appropriate candidate for follow-up colonoscopy in 3-5 years.
[2019-09-30 10:23] VITALS: BP 139/70
== END 2019-09-30 10:15 | disposition home or self-care (01) ==
LOC: END 07:55
PROVIDERS: ATTEND Surgery
DX: Z12.11 Encounter for screening for malignant neoplasm of colon (principal); D12.7 Benign neoplasm of rectosigmoid junction; Z87.891 Personal history of nicotine dependence; I25.10 Atherosclerotic heart disease of native coronary artery without angina pectoris
CPT/HCPCS: 45380; 88305 ×2; 00811; J2704; 811